=== PATIENT | male | born 1950 | race Caucasian/White ===

== ENCOUNTER 2024-03-03 23:13 | Emergency (ER) | payer MEDICARE, SELFPAY ==
--- NOTE | ~2024-03-03 | CT_ITS ---
Non-contrast Head CT History: Altered mental status Technique: Axial non-contrast imaging of the brain was performed. Dose reduction technique was used on this scan by utilizing automated exposure control and iterative reconstruction technique. The dose -length product (DLP) was 681.00 mGy-cm. Findings: There is no evidence of intracranial hemorrhage, mass lesion, or acute infarct. Brain par enchyma appears normal. The ventricles and subarachnoid spaces are normal in size. The calvarium ap pears normal. The visualized paranasal sinuses and mastoid air cells are clear. Impression: No significant abnormality seen. Reviewed, dictated and finalized at location . Impression: No significant abnormality seen.
--- NOTE | ~2024-03-03 | XR_ITS ---
Portable chest x-ray Comparison: None Clinical History: Weakness Findings: Linear scarring noted left midlung. Lungs are otherwise clear. Cardiomediastinal silhouet te is unremarkable. Bones and soft tissues are unremarkable. Impression: Linear scarring left midlung, otherwise clear lungs. Reviewed, dictated and finalized at [facility]. Impression: Linear scarring left midlung, otherwise clear lungs.
[2024-03-03 23:12] VITALS: BP 92/56; PULSE 67; RESP 21; TEMP 36.4; O2SAT 95
[2024-03-03 23:15] VITALS: PULSE 65; O2SAT 96
--- NOTE | 2024-03-03 23:17 | ECG_ITS ---
Test Date: 2024-03-03 23:21:05 Measurements Intervals [place] Rate: 64 P: 43 DE: 173 QRS: -1 QRSD: 162 T: 26 QT: 482 QTc: 499 Interpretive Statements SINUS RHYTHM LEFT BUNDLE BRANCH BLOCK [120+ ms QRS DURATION, 80+ ms Q/S IN V1/V2, 85+ ms R IN I/aVL/V5/V6] ABNORMAL ECG No previous ECG available for comparison Electronically Signed On 03-04-2024 17:02:05 CDT by Rusty Michaels M.D.
[2024-03-03] MEDS: SODIUM CHLORIDE 0.9% IV 1,000 ML 999 ML IV CONT ×2 (23:37→23:39)
[2024-03-03] MEDS: ONDANSETRON INJ 4 MG/2 ML VIAL IV PUSH (23:40)
[2024-03-03 23:45] LABS: Basophils Percent Auto 0.4 % (0.2-1.2); Eosinophils Absolute Auto 0.2 K/mm3 (0-0.3); Eosinophils Percent Auto 2.8 % (0-4.4); Hematocrit 33.7 % (42.0-52.0); Hemoglobin 11.3 g/dL (14.0-18.0); Immature Granulocyte Absolute 0.01 K/mm3 (0.00-0.031); Immature Granulocyte Percent A 0.2 % (0-0.5); Mean Corpuscular HGB Conc 33.5 g/dl (32-36); Mean Corpuscular Hemoglobin 32.7 pg (26-34); Mean Corpuscular Volume 97.4 fl (80-100); Mean Platelet Volume 10.2 fl (7.4-10.4); Monocytes Absolute Auto 0.6 K/mm3 (0.1-0.6); Monocytes Percent Auto 10.1 % (2.6-8.5); Neutrophils Absolute Auto 2.9 K/mm3 (1.3-6.7); Neutrophils Percent Auto 53.5 % (45.5-73.1); Platelet Count Result 144 k/mm3 (150-375); Red Blood Count 3.46 M/mm3 (4.6-6.20); Red Cell Distribution Width 13.7 % (11.5-14.5); White Blood Count 5.5 K/mm3 (4.5-10.0)
[2024-03-03 23:56] LABS: Lactic Acid Reflex 2.6 mmol/L (0.7-2.0); Magnesium 1.5 mg/dL (1.6-2.3)
[2024-03-03 23:57] LABS: Alanine Aminotransferase 17 U/L (6-50); Albumin Level 3.2 g/dL (3.5-5.1); Alkaline Phosphatase 52 U/L (38-126); Anion Gap 8 mmol/L (4-12); Aspartate Amino Transferase 30 U/L (17-59); Bilirubin,Total 0.4 mg/dL (0.2-1.3); Blood Urea Nitrogen 34 mg/dL (9-20); Calcium 9.2 mg/dL (8.4-10.2); Carbon Dioxide 26 mmol/L (22-30); Chloride 105 mmol/L (98-107); Estimated CRCL calculation 35 ml/min; Estimated Glomerular Filt Rate 42; Glucose 77 mg/dL (65-110); Potassium 3.6 mmol/L (3.4-5.0); Sodium 139 mmol/L (137-145)
[2024-03-04] VITALS (11 sets, daily range): BP systolic 80–133; BP diastolic 44–91; PULSE 55–64; RESP 13–21; O2SAT 95–100
[2024-03-04 00:07] LABS: INR 1.2; Prothrombin Time 15.5 Seconds (11.1-14.7)
[2024-03-04 00:09] LABS: Troponin I < 0.012 ng/mL (0.000-0.034)
[2024-03-04 00:12] LABS: Partial Thromboplastin Time 26.5 Seconds (22.3-36.8)
[2024-03-04] MEDS: MAGNESIUM SULF 2 GM/WATER 50ML 2 GM/50 ML BAG IVPB (00:17)
[2024-03-04 00:22] LABS: Influenza A QL RT-PCR Negative (Negative); Influenza B QL RT-PCR Negative (Negative); RSV RNA, RT-PCR Negative (Negative); SARS-CoV-2 RNA PCR Negative (Negative)
[2024-03-04 00:45] LABS: Procalcitonin 0.1 ng/mL
[2024-03-04] MEDS: SODIUM CHLORIDE 0.9% IV 1,000 ML 999 ML (02:28)
[2024-03-04 02:42] LABS: Reflex Lactic Acid Yes or No Add Lactic
--- NOTE | 2024-03-04 03:12 | ED.GENADULT ---
HPI - General Adult General Chief complaint: Altered Mental Status Stated complaint: AMS, SYNCOPAL History of Present Illness HPI narrative: patient is a 73-year-old gentleman who presents emergency department with chief complaint of altered mental status. Patient was found by police pulling into a local gas stations worrying and stopping in the street the patient was found to be confused initially and very lethargic. Patient had a low blood pressure and they did notice the patient had potentially passed out. The patient reports no focal weakness but does report that he feels tired and slow. The patient was initially hypotensive when EMS arrived and was given IV fluids EN route to the emergency department. Related Data Home Medications Medication Instructions Recorded Confirmed bupropion HCl 150 mg tablet,12 hr mg PO 03/04/24 sustained-release cephalexin 500 mg capsule mg 03/04/24 felodipine 10 mg tablet,extended mg PO 03/04/24 release 24 hr furosemide 40 mg tablet mg 03/04/24 quetiapine 100 mg tablet mg 03/04/24 sacubitril 97 mg-valsartan 103 mg tablet 03/04/24 tablet (Entresto) Allergies Allergy/AdvReac Type Severity Reaction Status Date / Time Penicillins Allergy Unknown Verified 03/03/24 23:31 Review of Systems Review of Systems: A 10 system review of systems was completed on the patient and is negative except for what is stated in the HPI. Nursing and ancillary documentation was reviewed. Exam Narrative: GENERAL: Well-appearing, well-nourished, and in no acute distress. HEAD: Normocephalic, atraumatic. EYES: PERRLA and EOMI. ENT: Nares clear, no rhinorrhea or epistaxis. Mucous membranes moist. NECK: Supple. CHEST: Clear to auscultation. No respiratory distress. HEART: Regular rate and rhythm. No murmur heard. Normal peripheral pulses. ABDOMEN: Soft, nontender, nondistended, normal active bowel sounds. EXTREMITIES: Normal range of motion. No edema. SKIN: Warm, dry, no rash. NEURO: No focal deficits. Alert and oriented x3. PSYCH: Normal mood and affect. Course Vital Signs Vital signs: Vital Signs Temperature 36.4 C L 03/03/24 23:12 Pulse Rate 67 03/03/24 23:12 Respiratory Rate 21 H 03/03/24 23:12 Blood Pressure 92/56 L 03/03/24 23:12 Pulse Oximetry 95 03/03/24 23:12 Oxygen Delivery Room Air 03/03/24 23:12 Temperature 36.4 C L 03/03/24 23:12 Pulse Rate 55 L 03/04/24 02:42 Respiratory Rate 17 03/04/24 02:42 Blood Pressure 97/75 L 03/04/24 02:42 Pulse Oximetry 99 03/04/24 02:42 Oxygen Delivery Room Air 03/03/24 23:15 Medical Decision Making [facility] Narrative Medical decision making narrative: Differential diagnosis includes dehydration, electrolyte abnormality, CVA, dysrhythmia patient's last known well is unknown laboratory studies showed a white count of 5.5 hemoglobin is 11.3 electrolytes showed a BUN of 34 and creatinine 1.6 magnesium was 1.5 troponin was negative COVID flu and RSV were negative CT head showed no acute abnormality after the patient was observed in the emergency department the patient became more oriented now is back to his baseline and reports that he ended up taking double his medications within a short period because he forgot to take his morning dose of medicines. The patient has now returned to baseline and would like to go home Vital Signs Vital Signs: Vital Signs Temperature 36.4 C L 03/03/24 23:12 Pulse Rate 67 03/03/24 23:12 Respiratory Rate 21 H 03/03/24 23:12 Blood Pressure 92/56 L 03/03/24 23:12 Pulse Oximetry 95 03/03/24 23:12 Oxygen Delivery Room Air 03/03/24 23:12 Temperature 36.4 C L 03/03/24 23:12 Pulse Rate 55 L 03/04/24 02:42 Respiratory Rate 17 03/04/24 02:42 Blood Pressure 97/75 L 03/04/24 02:42 Pulse Oximetry 99 03/04/24 02:42 Oxygen Delivery Room Air 03/03/24 23:15 Lab Data 03/03/24 23:35 03/03/24 23:35
--- NOTE | 2024-03-04 04:14 | PC.NURSE ---
pt requested to call [employer].
== END 2024-03-04 04:19 | disposition home or self-care (01) ==
PROVIDERS: Emergency Provider Emergency Medicine
DX: T50.901A Poisoning by unspecified drugs, medicaments and biological substances, accidental (unintentional), initial encounter (principal); R41.82 Altered mental status, unspecified; R55 Syncope and collapse; Z79.899 Other long term (current) drug therapy; Z20.822 Contact with and (suspected) exposure to COVID-19
CPT/HCPCS: 36415; 70450; 71045; 80053; 83605; 83735; 84145; 84484; 85025; 85610; 85730; 87040; 87637; 93005; 96361; 96365; 96375; 99284; J2405; J3475; J7030

== ENCOUNTER 2024-04-14 14:46 | Inpatient (IN) | payer MEDICARE, SELFPAY ==
[2024-04-14] VITALS (15 sets, daily range): BP systolic 105–154; BP diastolic 46–117; PULSE 60–68; RESP 10–22; TEMP 36.5–36.8; O2SAT 94–100
--- NOTE | ~2024-04-14 | MR_ITS ---
EXAMINATION: MR brain/brain stem wo con DATE: 04/16/2024 10:17 INDICATION: Ataxia. Falls. TECHNIQUE: Magnetic resonance imaging (MRI) of the brain and brainstem was performed without intraven ous contrast. COMPARISON: Head CT 04/14/2024 FINDINGS: There are scattered areas of nonspecific increased T2-weighted signal intensity in the cere bral white matter, which is within normal limits for the patient's age. There is no intracranial hemo rrhage, acute infarction, or abnormal intracranial mass lesion. The ventricles are normal in size. Th e orbits are normal. There is mucosal thickening in the paranasal sinuses. The mastoid air cells are normal. IMPRESSION: 1. Normal aging brain. Reviewed, dictated and finalized at location A. IMPRESSION: 1. Normal aging brain.
--- NOTE | ~2024-04-14 | CT_ITS ---
CT brain wo con Ordering provider: Ny Lujan MD History: 73 years Male with . fall . Comparison: March 03, 2024 Technique: CT of the head without contrast. FINDINGS: BRAIN PARENCHYMA AND CSF SPACES: Mild leukoaraiosis and diffuse cortical atrophy. Mild atheromatous d isease. No midline shift, mass effect or hemorrhage. The brain parenchyma and CSF spaces are otherwi se normal. VISUALIZED PARANASAL SINUSES: Well aerated. MASTOIDS: Well aerated. BONES: The bones appear intact. Bifid posterior arch of C1. SOFT TISSUES: Visualized nasopharynx is normal. Superficial soft tissues are normal. IMPRESSION: No acute intracranial findings. Reviewed, dictated and finalized at location A.
--- NOTE | ~2024-04-14 | XR_ITS ---
XR chest 2V Ordering provider: Ny Lujan MD History: 73 years Male with . weakness, unexplained lower limb twitching . Comparison: March 04, 2024 FINDINGS: MEDIASTINUM: The cardiac silhouette is slightly enlarged. Postoperative changes in the mediastinum. LUNGS: No infiltrates, effusions or pneumothorax. Prominent markings in the left lung base. OTHER: No free air under the diaphragm. Healing rib fracture is seen in the right lower thorax. IMPRESSION: Prominent markings in the left lower lobe. Atelectatic changes cannot be excluded. Clinical correlati on advised Reviewed, dictated and finalized at location A. IMPRESSION: Prominent markings in the left lower lobe. Atelectatic changes cannot be exclud ed. Clinical correlation advised
--- NOTE | 2024-04-14 14:57 | ECG_ITS ---
Test Date: 2024-04-14 15:01:01 Measurements Intervals [place] Rate: 60 P: 74 VA: 170 QRS: 18 QRSD: 170 T: 8 QT: 492 QTc: 495 Interpretive Statements SINUS RHYTHM LEFT BUNDLE BRANCH BLOCK BASELINE ARTIFACT- I, II, III, AVR, AVL, AVF, V1-V6 ABNORMAL ECG Compared to ECG 03/03/2024 23:21:05 No significant changes Electronically Signed On 04-14-2024 15:32:57 CDT by Glen Knight D.O.
[2024-04-14 15:16] LABS: Basophils Percent Auto 0.5 % (0.2-1.2); Eosinophils Absolute Auto 0.4 K/mm3 (0-0.3); Eosinophils Percent Auto 4.6 % (0-4.4); Hematocrit 36.4 % (42.0-52.0); Hemoglobin 11.8 g/dL (14.0-18.0); Immature Granulocyte Absolute 0.03 K/mm3 (0.00-0.031); Immature Granulocyte Percent A 0.4 % (0-0.5); Lymphocytes Absolute Auto 2.38 K/mm3 (0.9-3.2); Lymphocytes Percent Auto 30.3 % (18.3-44.2); Mean Corpuscular HGB Conc 32.4 g/dl (32-36); Mean Corpuscular Hemoglobin 31.8 pg (26-34); Mean Corpuscular Volume 98.1 fl (80-100); Mean Platelet Volume 10.2 fl (7.4-10.4); Monocytes Absolute Auto 0.7 K/mm3 (0.1-0.6); Monocytes Percent Auto 8.7 % (2.6-8.5); Neutrophils Absolute Auto 4.4 K/mm3 (1.3-6.7); Neutrophils Percent Auto 55.5 % (45.5-73.1); Platelet Count Result 192 k/mm3 (150-375); Red Blood Count 3.71 M/mm3 (4.6-6.20); Red Cell Distribution Width 13.9 % (11.5-14.5); White Blood Count 7.9 K/mm3 (4.5-10.0)
[2024-04-14 16:04] LABS: Alanine Aminotransferase 21 U/L (6-50); Albumin Level 3.5 g/dL (3.5-5.1); Alkaline Phosphatase 78 U/L (38-126); Anion Gap 6 mmol/L (4-12); Aspartate Amino Transferase 45 U/L (17-59); Bilirubin,Total 0.3 mg/dL (0.2-1.3); Blood Urea Nitrogen 38 mg/dL (9-20); Calcium 9.2 mg/dL (8.4-10.2); Carbon Dioxide 26 mmol/L (22-30); Chloride 101 mmol/L (98-107); Estimated CRCL calculation 28 ml/min; Estimated Glomerular Filt Rate 31; Glucose 126 mg/dL (65-110); Magnesium 2.1 mg/dL (1.6-2.3); Potassium 3.9 mmol/L (3.4-5.0); Sodium 133 mmol/L (137-145)
[2024-04-14 16:15] LABS: Troponin I 0.019 ng/mL (0.000-0.034)
--- NOTE | 2024-04-14 16:41 | ED.WEAKNESS ---
HPI - Weakness General Chief complaint: Weakness Stated complaint: weakness x 30 seconds Time Seen by Provider: 04/14/24 15:51 History of Present Illness HPI Narrative: 73-year-old male with a history of hypertension presenting with weakness. Patient's son is at bedside and helps with the history. Patient recently moved here within the last few months and has been struggling with worsening generalized weakness. States that he has had numerous falls that he feels is related to the weakness. States that he feels like he needs to walk slowly and carefully to prevent falling. States that sometimes it feels like his legs give out underneath him. Today he had a ?spasm in his chest? so they called EMS. He says that it was not chest pain, it felt like a muscle spasm. He denies shortness of breath. No leg swelling. No focal numbness or weakness. Complains that he has had a chronic tremor that has gotten worse and his arms will sometimes randomly spasm out. Related Data Home Medications Medication Instructions Recorded Confirmed bupropion HCl 150 mg tablet,12 hr 150 mg PO TID 03/04/24 04/14/24 sustained-release felodipine 10 mg tablet,extended 10 mg PO DAILY 03/04/24 04/14/24 release 24 hr furosemide 40 mg tablet 40 mg PO DAILY PRN swelling 03/04/24 04/14/24 quetiapine 100 mg tablet 300 mg PO HS 03/04/24 04/15/24 aspirin 81 mg tablet,delayed 81 mg PO DAILY 04/14/24 04/14/24 release atorvastatin 80 mg tablet 80 mg PO DAILY 04/14/24 04/14/24 citalopram 40 mg tablet 80 mg PO DAILY 04/14/24 04/16/24 empagliflozin 10 mg tablet 10 mg PO DAILY 04/14/24 04/14/24 (Jardiance) levothyroxine 50 mcg tablet 50 mcg PO DAILY 04/14/24 04/14/24 metoprolol succinate 50 mg 75 mg PO DAILY 04/14/24 04/16/24 tablet,extended release 24 hr omega-3 fatty acids-vitamin E 1 cap PO BID 04/14/24 04/16/24 1,000 mg capsule vitamin A-vitamin C-vit E-min 1 tablet PO DAILY 04/14/24 04/14/24 tablet zolpidem 10 mg tablet 5 mg PO HS PRN Insomnia 04/14/24 04/16/24 sacubitril 49 mg-valsartan 51 mg 1 tablet PO BID 04/16/24 04/16/24 tablet (Entresto) Allergies Allergy/AdvReac Type Severity Reaction Status Date / Time Penicillins Allergy Unknown Verified 03/03/24 23:31 Review of Systems Review of Systems: All systems reviewed & are unremarkable except as noted in HPI and below PMFSH Past Medical History Medical History (Updated 04/16/24 @ 13:21 by Ny Lujan MD) 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 Family History Family History (Updated 04/14/24 @ 19:59 by Niurka Feldman RN) Mother Acute myocardial infarction Cerebrovascular accident Father Prostate carcinoma Social History Social History Smoking status: Never smoker Alcohol intake: never Substance use: never Do You Feel Safe in your Home?: Yes Lack of Transportation: No Lack of Food: Never True Current Housing: I Have Housing Concerned About Future Housing: No Difficulty Paying Gas/Electric Bills: No Difficulty Paying for Meds: No Currently Unemployed: No Education: Bachelor's Degree Difficulty w/ Childcare or Family Care: No Spiritual care concerns: No Exam Narrative: GENERAL: Nontoxic, no acute distress, pleasant cooperative HEAD: Normocephalic, abrasions and ecchymosis to left forehead EYES: PERRLA and EOMI. ENT: Mucous membranes moist. NECK: Supple. CHEST: Clear to auscultation. No respiratory distress. HEART: Regular rate and rhythm ABDOMEN: Soft, nontender, nondistended EXTREMITIES: Normal range of motion. No edema. SKIN: Warm, dry, no rash. NEURO: No focal deficits. Alert and oriented x3. + resting tremor PSYCH: Normal mood and affect. Course Vital Signs Vital signs: Vital Signs Temperature 98.0 F 04/14/24 14:58 Pulse Rate 68 04/14/24 14:58 Respiratory Rate 18 04/14/24 14:58 Blood Pressure 137/78 04/14/24 14:58 Pulse Oximetry 100
[2024-04-14 17:01] LABS: Magnesium 2.2 mg/dL (1.6-2.3)
[2024-04-14 17:08] LABS: INR 1.1; Prothrombin Time 14.8 Seconds (11.1-14.7)
[2024-04-14 17:10] LABS: NT Pro B Type Natriuretic Pept 1580 pg/mL (19.9-100)
[2024-04-14] MEDS: SODIUM CHLORIDE 0.9% IV 1,000 ML 999 ML IV CONT (18:35)
--- NOTE | 2024-04-14 19:54 | ADMGEN ---
This patient, Berto Barcenas, was admitted to Medical Room 247-. Patient/family oriented to hospital policies and general routines including ID bracelet, bed and alarms, visiting hours, pain management, procedures, bathroom and other care routines, personal items, smoking policy, room service/diet, and visiting hours. Information on how to activate the Rapid Response Team has been discussed. Patient/Family are encouraged to report perceived risks to care and to ask questions if they do not understand what they are told or what they should do.
--- NOTE | 2024-04-14 21:02 | PM.IMHP ---
H&P: HPI History of Present Illness Date/Time: 04/14/24 21:02 Chief Complaint: Fall at home Narrative: Mr. Barcenas is a pleasant 73-year-old male with a history of bipolar, CKD stage 3, hypertension, diabetes, who lives at home by himself with complaints of a fall 3 days prior to admission. The patient reports he was trying to get into bed and he felt weak and fell to the ground and hit the left side of his forehead. He has been feeling increasingly weak over the past 3 months along with increasing trauma and jerking of his limbs. He reports he has been taking his medication as prescribed. He recently moved and he has a new primary care who took him off of metformin and he does not know why. He reports he has fall in 6-8 times in the past many months. No seizure activity. Seen in room 247 the patient reports feeling okay now. He did recently buy a walker yesterday. He denies change in vision, syncope, chest pain, shortness of breath, nausea vomiting diarrhea, abdominal pain, paresthesias, fever. ER evaluation at [facility] demonstrated temperature 97.7? F, pulse rate 61, respiratory rate 14, blood pressure 121/97, saturation 98% oxygen on room air. White blood cell count 7.9, hemoglobin 11.8, platelets 192, INR 1.1 sodium 133, serum creatinine 2.1, BUN 38, troponin negative, magnesium 2.2, BNP pro 15 80. Patient was administer 1 L normal saline bolus. Review of Systems Review of Systems: All systems reviewed & are unremarkable except as noted in HPI and below (Subjective) [facility] Family History Family History (Updated 04/14/24 @ 19:59 by Niurka Feldman RN) Mother Acute myocardial infarction Cerebrovascular accident Father Prostate carcinoma Social History Social History Smoking status: Never smoker Alcohol intake: never Substance use: never Do You Feel Safe in your Home?: Yes Lack of Transportation: No Lack of Food: Never True Current Housing: I Have Housing Concerned About Future Housing: No Difficulty Paying Gas/Electric Bills: No Difficulty Paying for Meds: No Currently Unemployed: No Education: Bachelor's Degree Difficulty w/ Childcare or Family Care: No Spiritual care concerns: No Meds Home Medications and Allergies Home Medications Medication Instructions Recorded Confirmed Type bupropion HCl 150 mg tablet,12 hr 150 mg PO TID 03/04/24 04/14/24 History sustained-release felodipine 10 mg tablet,extended 10 mg PO DAILY 03/04/24 04/14/24 History release 24 hr furosemide 40 mg tablet 40 mg PO DAILY 03/04/24 04/14/24 History quetiapine 100 mg tablet 100 mg PO TID 03/04/24 04/14/24 History aspirin 81 mg tablet,delayed 81 mg PO DAILY 04/14/24 04/14/24 History release atorvastatin 80 mg tablet 80 mg PO DAILY 04/14/24 04/14/24 History citalopram 40 mg tablet 40 mg PO BID 04/14/24 04/14/24 History empagliflozin 10 mg tablet 10 mg PO DAILY 04/14/24 04/14/24 History (Jardiance) levothyroxine 50 mcg tablet 50 mcg PO DAILY 04/14/24 04/14/24 History metformin 1,000 mg tablet 1,000 mg PO BID 04/14/24 04/14/24 History metoprolol succinate 50 mg 50 mg PO DAILY 04/14/24 04/14/24 History tablet,extended release 24 hr omega-3 fatty acids-vitamin E 1 cap PO DAILY 04/14/24 04/14/24 History 1,000 mg capsule sacubitril 97 mg-valsartan 103 mg 1 tablet PO BID 04/14/24 04/14/24 History tablet (Entresto) vitamin A-vitamin C-vit E-min 1 tablet PO DAILY 04/14/24 04/14/24 History tablet zolpidem 10 mg tablet 10 mg PO HS PRN Insomnia 04/14/24 04/14/24 History Allergies Allergy/AdvReac Type Severity Reaction Status Date / Time Penicillins Allergy Unknown Verified 03/03/24 23:31 Vital Signs Vital Signs - 24 hr 04/14/24 14:58 04/14/24 14:58 04/14/24 15:45 Temperature 98.0 F 97.8 F Pulse Rate 68 63 63 Respiratory Rate 18 22 H 16 Blood Pressure 137/78 137/78 139/65 Pulse Oximetry 100 98 94 Oxygen Delive
[2024-04-15] VITALS (16 sets, daily range): BP systolic 117–149; BP diastolic 45–67; PULSE 57–61; RESP 13–19; TEMP 36.9; O2SAT 96–99
[2024-04-15 01:06] LABS: Glucose Point of Care 96 mg/dl (65-105)
[2024-04-15] MEDS: LEVOTHYROXINE SODIUM 50 MCG TABLET PO (05:49)
[2024-04-15 06:12] LABS: Hematocrit 34.7 % (42.0-52.0); Hemoglobin 11.3 g/dL (14.0-18.0); Mean Corpuscular HGB Conc 32.6 g/dl (32-36); Mean Corpuscular Hemoglobin 31.8 pg (26-34); Mean Corpuscular Volume 97.7 fl (80-100); Mean Platelet Volume 9.6 fl (7.4-10.4); Platelet Count Result 163 k/mm3 (150-375); Red Blood Count 3.55 M/mm3 (4.6-6.20); Red Cell Distribution Width 13.8 % (11.5-14.5); White Blood Count 6.2 K/mm3 (4.5-10.0)
[2024-04-15 06:15] LABS: Hemoglobin A1C 5.2 % (<5.7)
[2024-04-15 06:21] LABS: Anion Gap 8 mmol/L (4-12); Blood Urea Nitrogen 32 mg/dL (9-20); Carbon Dioxide 26 mmol/L (22-30); Chloride 106 mmol/L (98-107); Estimated CRCL calculation 31 ml/min; Estimated Glomerular Filt Rate 35; Glucose 116 mg/dL (65-110); Potassium 3.8 mmol/L (3.4-5.0); Sodium 140 mmol/L (137-145)
[2024-04-15 08:00] LABS: Glucose Point of Care 99 mg/dl (65-105)
[2024-04-15] MEDS: ATORVASTATIN 40 MG TABLET 80 MG PO (08:03)
[2024-04-15] MEDS: ASPIRIN 81 MG ENTERIC TABLET PO (08:03)
--- NOTE | 2024-04-15 11:23 | PM.IMPN ---
Progress Note: A&P Assessment and Plan (1) Fall: Code(s): W19.XXXA - Unspecified fall, initial encounter Status: Acute (2) Diabetes: Code(s): E11.9 - Type 2 diabetes mellitus without complications Status: Acute (3) Hypertension: Code(s): I10 - Essential (primary) hypertension Status: Acute (4) Mild protein malnutrition: Code(s): E44.1 - Mild protein-calorie malnutrition Status: Acute Assessment and Plan: Protein 6.0. Patient reports that he does not like to eat much meat. Started on glucerna shake BID. (5) CKD (chronic kidney disease) stage 3, GFR 30-59 ml/min: Code(s): N18.30 - Chronic kidney disease, stage 3 unspecified Status: Acute Assessment and Plan: Creatinine 1.90, BUN 32, GFR 35. Encourage hydration. Plan Patient has akathisia of his feet, dystonia/jerking/tremor of his bilateral upper extremities, oral facial tardive dyskinesia, weakness and falls noted on admission. Do tremors when I seen patient. Believe this all to be due to medication side effect is he is taking a rather large dose of Seroquel at 100 mg 3 tabs at bedtime. He is also taking bupropion which can cause muscle spasms. Will have to monitor off of these medications and restarted at a lower dose or find substitute for bipolar. Neurology consultation today. Continue telemetry. Orthostatics Q shift. Received 1 L normal saline bolus in the ER. PTOT. Fall precautions. Up with assistance. Accu-Cheks a.c. HS. Hemoglobin A1c 5.2. He was taken off metformin he is unsure why. CKD stage 3 per the patient report. Currently his serum creatinine is 1.9. Continue to trend status post fluid resuscitation. Hypertension -restart home medications as appropriate. Spoke with Dr. Keller for a psychiatry consult. He recommended starting Buproprion SR 150 mg PO daily and Citalopram 20 mg PO daily. Hole Quetapine for now. MMSE ordered through care coordination. Labs ordered: UA, UDS, lipid panel, TSH with reflex, B12, Vitamin D, folic acid, RPR, HIV, and hepatitis panel. Psychiatrist in [place] is Dr. Gabriel Fry. Primary care here is Dr. Tiffany Cleveland at [facility] in [place]. Will request records from both. SCDs. Heart healthy diet. Carbohydrate consistent diet. PTOT. Full code. Admitted to medical floor telemetry. Stable condition. Subjective Date/time seen: 04/15/24 11:23 Interval history: Mr. Barcenas is a pleasant 73-year-old male with a history of bipolar, CKD stage 3, hypertension, diabetes, who lives at home by himself with complaints of a fall 3 days prior to admission. The patient reports he was trying to get into bed and he felt weak and fell to the ground and hit the left side of his forehead. He has been feeling increasingly weak over the past 3 months along with increasing trauma and jerking of his limbs. He reports he has been taking his medication as prescribed. He recently moved and he has a new primary care who took him off of metformin and he does not know why. Moved her in January to be closer to children. He reports he has fall in 6-8 times in the past many months. No seizure activity. Seen in room 247 the patient reports feeling okay now. Bought a walker 2 days ago, lives alone. He denies change in vision, syncope, chest pain, shortness of breath, nausea vomiting diarrhea, abdominal pain, paresthesias, fever. ER evaluation at [facility] demonstrated temperature 97.7? F, pulse rate 61, respiratory rate 14, blood pressure 121/97, saturation 98% oxygen on room air. White blood cell count 7.9, hemoglobin 11.8, platelets 192, INR 1.1 sodium 133, serum creatinine 2.1, BUN 38, troponin negative, magnesium 2.2, BNP pro 15 80. Patient was administer 1 L normal saline bolus. 04/15/24: Creatinine 1.90, BUN 32, Protein 6.0. Surgical history: Appendectomy,Prostatectomy, CABG 4 vessel. Denies substance abuse. Denies suicidal or homicidal ideations. Psychiatrist in [place] is
[2024-04-15 11:59] LABS: Glucose Point of Care 100 mg/dl (65-105)
[2024-04-15 13:53] LABS: Cholesterol 101 mg/dL (0-200); HDL Direct 39 mg/dL; Triglycerides 81 mg/dL (<150)
[2024-04-15 14:01] LABS: Free T4 Free Thyroxine 0.68 ng/mL (0.78-2.19); Vitamin D 25 Hydroxy 48.8 ng/mL
[2024-04-15 14:03] LABS: LDL Cholesterol Direct 47 mg/dL
[2024-04-15 14:14] LABS: Thyroid Stimulating Hormone Reflex 0.929 uIU/mL (0.465-4.68)
[2024-04-15 14:20] LABS: Hepatitis B Surface Antigen Negative (Negative)
[2024-04-15 14:21] LABS: Add Urine Microscopic? YES; Appearance Urine Clear (Clear); Bacteria Urine None Seen /hpf; Bilirubin Urine Negative (Negative); Blood Urine Negative (Negative); Color Urine Yellow (Yellow); Glucose Urine UA 3+ mg/dL (Negative); Ketones Urine Negative (Negative); Leukocyte Esterase Ur Negative LEU/UL (Negative); Nitrate Urine Negative (Negative); Non Pathogenic Casts 0-2; Protein Urine Trace mg/dL (Negative); RBC Urine 0-2 /hpf (0-2); Specific Grav Ur 1.019 (1.001-1.035); Squamous Epithelial Cell Urine None Seen /hpf (Few); WBC Urine 0-5 /hpf (0-3)
[2024-04-15 14:24] LABS: HIV 1/2 Ab P24 Ag Result Negative (Negative)
[2024-04-15 14:26] LABS: HAV RESULT Negative (Negative); Hepatitis B Core IgM Result Negative (Negative)
[2024-04-15 14:37] LABS: Hepatitis C Virus Antibody Negative (Negative)
[2024-04-15 14:37] LABS: Amphetamine Screen Urine Negative (Negative); Barbiturate Screen Urine Negative (Negative); Benzodiazepines Screen Urine Negative (Negative); Cannabinoid Screen Urine Negative (Negative); Cocaine Screen Urine Negative (Negative); Methadone Screen Urine Negative (Negative); Opiate Screen Urine Negative (Negative); Phencyclidine Screen Urine Negative (Negative)
[2024-04-15 16:29] LABS: Folic Acid 3.9 ng/mL (2.76->20)
[2024-04-15 17:17] LABS: Glucose Point of Care 88 mg/dl (65-105)
[2024-04-15 17:27] LABS: Rapid Plasma Reagin Non-Reactive (NonReactive)
--- NOTE | 2024-04-15 17:30 | WPDNEURCNPN ---
Assessment and Plan Assessment and plan (1) Fall: Code(s): W19.XXXA - Unspecified fall, initial encounter Status: Acute (2) CKD (chronic kidney disease) stage 3, GFR 30-59 ml/min: Code(s): N18.30 - Chronic kidney disease, stage 3 unspecified Status: Acute (3) Diabetes: Code(s): E11.9 - Type 2 diabetes mellitus without complications Status: Acute Assessment and Plan: he may have underlying peripheral neuropathy or postural hypertension or both which may contribute to his tendency to fall. I did not see any significant weakness of the proximal muscles (4) 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: Code(s): E88.9 - Metabolic disorder, unspecified; R25.1 - Tremor, unspecified Status: Acute Assessment and Plan: the current findings are more suggestive of metabolic tremor such as may be seen with renal disease however he has been on quetiapine and possibility of tardive dyskinesia of some sort has also been considered. Plan I would suggest as follows 1. Check his blood pressure supine and standing 2. Consider cardiac evaluation in view of the history of cardiac disease and the patient is on Entresto . Etiology new be borne in mind as a cause for his problems. 3. The patient is on Wellbutrin and quetiapine the need for these should be evaluated with the help of a psychiatrist in view of the potential side effects 4. Safety precautions in view of the falls and a tendency to get confused. He also lives by himself although he has good support from 2 of his sons. He told me he recently moved from [place] to this area 6 weeks ago. 5. I noted that a CT scan of brain was within normal range. I would suggest MRI of the brain, EEG, check serum B12 and folic acid level and thyroid function test methylmalonic acid level . Consult date: 04/15/24 HPI: Berto Barcenas is a 73 year old male With history of tendency to fall he also has history of bipolar disorder and chronic kidney disease and diabetes mellitus. Patient lives by himself but has 2 sons in this area. He has moved recently from [place] to this area. He was seeing a chief operating engineer there but he does not know the details of anything that happened. Apparently he has had a stroke and heart attack 20 years ago. He is on Entresto. He was also taken to hospital emergency room on 03/04/2024 the knee became confused. He denies any passing out spell. He gets dizzy when he sits up or stands up. Denies any significant problem with the lower back but does have some numbness in his both feet. He has a frozen left shoulder. He has been on quetiapine and Wellbutrin besides Entresto. He denies any headache or vertigo. Review of Systems Review of Systems: All systems reviewed & are unremarkable except as noted in HPI and below [facility] Past Medical History Medical History (Updated 04/15/24 @ 17:39 by Honey Vega MD) 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 Family History Family History (Updated 04/14/24 @ 19:59 by Niurka Feldman RN) Mother Acute myocardial infarction Cerebrovascular accident Father Prostate carcinoma Social History Social History Smoking status: Never smoker Alcohol intake: never Substance use: never Do You Feel Safe in your Home?: Yes Lack of Transportation: No Lack of Food: Never True Current Housing: I Have Housing Concerned About Future Housing: No Difficulty Paying Gas/Electric Bills: No Difficulty Paying for Meds: No Currently Unemployed: No Education: Bachelor's Degree Difficulty w/ Childcare or Family Care: No Spiritual care concerns: No Meds Home Medications and Allergies Home Medications Medication Instructions Recorded Confirmed Type bupropion HCl 150 mg tablet,12 hr 150 mg PO TID 03/04/24 04/14/24 History sustained-release felodipine 10 mg tablet,extended 10 mg PO DAILY 03/04/24 04/14/24 History release 24 h
[2024-04-15 18:43] LABS: Cholesterol 95 mg/dL (0-200); HDL Direct 37 mg/dL; Triglycerides 95 mg/dL (<150)
[2024-04-15 18:56] LABS: LDL Cholesterol Direct 46 mg/dL
--- NOTE | 2024-04-15 19:01 | WPDCNPSYCH ---
HPI Data of Consult Date/Time: 04/15/24 19:01 Requesting Physician: Adonay Love MD Primary Care Provider: Brenda Cleveland, Consult Narrative Narrative: Curbside Consult: Patient was not seen. Neither patient nor his insurance will be billed. CHIEF COMPLAINT: Patient is a 73 y/o gentleman whose curbside consult was called by Amelia Swann NP for polypharmcy. HISTORY OF PRESENT ILLNESS: Nurse Practitioner and the chart served as historians. When Amelia Swann NP was asked for the findings of the HPI, she said that the patient is alert and oriented x 3. He moved to this area from [place] to be near his children. He uses a walker. He denies any psychiatric symptoms. He uses a walker. He was admitted to [facility] service on 04/14/2024 for being confused, lethargic and wandering at a gas station. PAST PSYCHIATRIC HISTORY: According to Amelia Swann NP the patient sees a Psychiatrist whose name she does not know twice a year over the phone for depression. He has no Psychiatrist in the [facility] since moving here. PAST MEDICAL HISTORY: According to Amelia Swann NP, the patient has a h/o: -hypertension -NIDDM -Insomnia -Patient is presumed to have hyperlipidemia based on use of atorvastatin -Patient is presumed to have hypothyroidism based on use of levothyroxine -No additional medical or surgical history has been explored (CXR demonstrates postoperative changes suggesting patient has some surgical history) HOME MEDICATIONS according to Amelia Swann NP: bupropion 150 mg po tid citalopram 40 mg po bid Jardiance 10 mg q am felodipine 10 mg po q am furosemide 40 mg po q am Metoprolol succinate 50 mg po q am fish oil 1000 mg q am [id number] mg po tid Entresto one po bid Ocuvite q am ASA 81 mg q am atorvastatin 80 mg po am levothyroxine 50 mcg q am Ambien 5 mg po q hs ALLERGIES: according to Amelia Swann MP: Penicillin SMOKING HISTORY: according to Amelia Swann NP: Not explored ALCOHOL HISTORY: according to Ameila Swann NP: Not explored DRUG HISTORY; according to Amelia Swann NP: Not explored PAST FAMILY SOCIAL HISTORY: according to Amelia Swann NP: Not explored REVIEW OF SYSTEMS: according to Amelia Swann, MOISÉS not explored beyond dizzy upon standing and has been having falls. MENTAL STATUS EXAM: according to Amelia Swann NPL No depression, anxiety, suicidal/homicidal ideation/hallucinations/paranoia. Oriented x 3 MEDICAL EVALUATION according to Amelia Swann NP CMP: Cr = 1.9; GFR = 35 otherwise unremarkable CBC: WBC's = 6.2; Hgb = 11.3 otherwise unremarkable UA: Not Done Urine Drug Screen: Not Done CT of head: Leukoaraiosis & atrophy (Please note no atrophy was documented on CT of head done here six weeks ago) EKG: Sinus rhythym. BBB. QTc interval = 495 DISCUSSION/PLAN: -Expanded History & Physial (Patient may need collateral historians: family, records from PCP, records for last year from Psychiatrist) -Delirium work-up including: TSH with reflex Serum Free T4 if indicated Vitamin B-12 level Vitamin D level Serum Folate UA Urine Drug screen Serum RPR Serum HIP Serum Hepatitis panel Lipid Panel Consider MRI of brain if MMSE or Physical Exam reveal neurological or cognitive deficit findings -bupropion 150 mg po tid is a very high dose especially for a geriatric patient due to risk of seizures. Recommend reducing Bupropion XL to 150 mg po q am. for depression -citalopram 40 mg po bid is a very high dose especially for a geriatric patient due to cardiac side effects. Recommend reducing citalopram to 20 mg po q am for depression and anxiety -discontinue quetiapine because patient is not psychotic -Pue Ambien 5 mg po q hs prn sleep -Care coordination consult for:(1) attaching documentation of Advanced Directive/POA/Code status, (2) MMSE to screen for cognitive deficits and (3) to document outpatient follow-ups for PCP, Psychiatry, and to document discharge housing plan -
[2024-04-15 19:14] LABS: Thyroid Stimulating Hormone 0.857 uIU/mL (0.465-4.680)
[2024-04-15 19:23] LABS: Vitamin D 25 Hydroxy 44.7 ng/mL
[2024-04-15 19:49] LABS: Folic Acid 4.9 ng/mL (2.76->20)
[2024-04-15] MEDS: ZOLPIDEM TARTRATE (*CRX) 5 MG TABLET PO (20:39)
[2024-04-15 23:08] LABS: Glucose Point of Care 119 mg/dl (65-105)
[2024-04-16] VITALS (11 sets, daily range): BP systolic 140–158; BP diastolic 55–95; PULSE 57–89; RESP 16–18; TEMP 36.4–36.9; O2SAT 97–100
[2024-04-16 05:47] LABS: Basophils Percent Auto 0.5 % (0.2-1.2); Eosinophils Absolute Auto 0.4 K/mm3 (0-0.3); Eosinophils Percent Auto 5.1 % (0-4.4); Hemoglobin 11.1 g/dL (14.0-18.0); Immature Granulocyte Absolute 0.03 K/mm3 (0.00-0.031); Immature Granulocyte Percent A 0.4 % (0-0.5); Lymphocytes Absolute Auto 1.68 K/mm3 (0.9-3.2); Lymphocytes Percent Auto 22.4 % (18.3-44.2); Mean Corpuscular HGB Conc 31.7 g/dl (32-36); Mean Corpuscular Hemoglobin 31.6 pg (26-34); Mean Corpuscular Volume 99.7 fl (80-100); Mean Platelet Volume 9.3 fl (7.4-10.4); Monocytes Absolute Auto 0.7 K/mm3 (0.1-0.6); Monocytes Percent Auto 9.5 % (2.6-8.5); Neutrophils Absolute Auto 4.7 K/mm3 (1.3-6.7); Neutrophils Percent Auto 62.1 % (45.5-73.1); Platelet Count Result 160 k/mm3 (150-375); Red Blood Count 3.51 M/mm3 (4.6-6.20); Red Cell Distribution Width 14.1 % (11.5-14.5); White Blood Count 7.5 K/mm3 (4.5-10.0)
[2024-04-16 06:15] LABS: Alanine Aminotransferase 20 U/L (6-50); Albumin Level 3.2 g/dL (3.5-5.1); Alkaline Phosphatase 66 U/L (38-126); Anion Gap 6 mmol/L (4-12); Aspartate Amino Transferase 44 U/L (17-59); Bilirubin,Total 0.4 mg/dL (0.2-1.3); Blood Urea Nitrogen 30 mg/dL (9-20); Calcium 9.3 mg/dL (8.4-10.2); Carbon Dioxide 28 mmol/L (22-30); Chloride 106 mmol/L (98-107); Estimated CRCL calculation 30 ml/min; Estimated Glomerular Filt Rate 33; Glucose 132 mg/dL (65-110); Potassium 4.1 mmol/L (3.4-5.0); Sodium 140 mmol/L (137-145)
[2024-04-16 06:20] LABS: Glucose Point of Care 152 mg/dl (65-105)
[2024-04-16] MEDS: LEVOTHYROXINE SODIUM 50 MCG TABLET PO (06:47)
[2024-04-16 08:29] LABS: Glucose Point of Care 113 mg/dl (65-105)
[2024-04-16] MEDS: ATORVASTATIN 40 MG TABLET 80 MG PO (09:04)
[2024-04-16] MEDS: CYANOCOBALAMIN 250 MCG TABLET PO (09:04)
[2024-04-16] MEDS: ASPIRIN 81 MG ENTERIC TABLET PO (09:04)
[2024-04-16] MEDS: CITALOPRAM HYDROBROMIDE 20 MG TABLET PO (09:04)
[2024-04-16] MEDS: buPROPion HCL SR (12 HR) 150 MG TAB PO (09:04)
--- NOTE | 2024-04-16 09:42 | WPDNEUROLOGY ---
Neurology EEG Report General Information Date of Study: 04/16/24 TEST eeg DIAGNOSIS Recurrent falls and confusion. CONDITION OF RECORDING Awake, drowsy and asleep. EEG NUMBER [id number] CLINICAL HISTORY Patient reports he has been having multiple falls over the last few weeks. Denies loss of consciousness or dizziness. Patient does have tremors of all 4 extremities and his head. EEG DESCRIPTION Background rhythm consists of low to medium voltage 5 to 7 hertz per 2nd theta activity admixed with multiple movements artifacts due and poor maggie posterior gradient. Bilateral symmetrical sleep activity seen during sleep. Photic stimulation not done. Hyperventilation not done. Non paroxysmal. Nonfocal. Nonlateralizing. IMPRESSION Abnormal record due to the presence of bihemispheric excessive amount of theta activity although there is no evidence of any paroxysmal focal discharge or any triphasic waves. Clinical correlation recommended as these abnormalities could be suggestive of underlying organic or metabolic encephalopathy, Although there is no evidence of any paroxysmal discharge.
--- NOTE | 2024-04-16 10:26 | PM.CNCAR ---
Assessment and Plan Assessment and plan (1) Coronary artery disease: Code(s): I25.10 - Atherosclerotic heart disease of [place] coronary artery without angina pectoris Status: Acute Assessment and Plan: History of coronary artery disease status post 4 vessel CABG in 2006 according to patient report. This is stable, he is not having any anginal symptoms. Continue ASA, high intensity statin (2) Ischemic cardiomyopathy: Code(s): I25.5 - Ischemic cardiomyopathy Status: Acute Assessment and Plan: EF 30-35% according to patient report. Records from [facility] reviewed - MPI in February showed EF 45%. He is not in decompensated heart failure. Would recommend resuming his home medications including entresto, metoprolol, jardiance. Will arrange for outpatient follow up in our office. Plan He does not have any acute cardiac issues. Cardiology will sign off. Please call with questions. History of Present Illness History of Present Illness Consult date/time: 04/16/24 10:26 Requesting physician: Amelia Swann APRN Consult reason: Other ( Weakness, entresto, hx CABG, stroke, and heart attack ) Reason For Visit: Syncope/Generalized Weakness Narrative: Berto Barcenas is a 73 year old male with hypertension and coronary artery disease status post CABG x 4 in 2006. He is hospitalized because of generalized weakness and multiple falls. Cardiology has been asked to see him because of weakness and history of CABG. Patient reports he has not had any further issues with coronary artery disease since his bypass operation. However, he did have some significant lower extremity swelling last spring and was placed on Entresto and jardiance as he was found to have a reduced EF (30-35% according to patient report). He denies any chest pain, shortness of breath, palpitations, syncope, orthopnea, or significant swelling. He recently moved to the area from [place] and needs to establish with a blast furnace keeper here for follow up. Review of Systems Review of Systems: All systems reviewed & are unremarkable except as noted in HPI and below [facility] Past Medical History Medical History 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 Family History Family History Mother Acute myocardial infarction Cerebrovascular accident Father Prostate carcinoma Social History Social History Smoking status: Never smoker Alcohol intake: never Substance use: never Do You Feel Safe in your Home?: Yes Lack of Transportation: No Lack of Food: Never True Current Housing: I Have Housing Concerned About Future Housing: No Difficulty Paying Gas/Electric Bills: No Difficulty Paying for Meds: No Currently Unemployed: No Education: Bachelor's Degree Difficulty w/ Childcare or Family Care: No Spiritual care concerns: No Meds Home Medications and Allergies Home Medications Medication Instructions Recorded Confirmed Type bupropion HCl 150 mg tablet,12 hr 150 mg PO TID 03/04/24 04/14/24 History sustained-release felodipine 10 mg tablet,extended 10 mg PO DAILY 03/04/24 04/14/24 History release 24 hr furosemide 40 mg tablet 40 mg PO DAILY PRN swelling 03/04/24 04/14/24 History quetiapine 100 mg tablet 300 mg PO HS 03/04/24 04/15/24 History aspirin 81 mg tablet,delayed 81 mg PO DAILY 04/14/24 04/14/24 History release atorvastatin 80 mg tablet 80 mg PO DAILY 04/14/24 04/14/24 History citalopram 40 mg tablet 80 mg PO DAILY 04/14/24 04/16/24 History empagliflozin 10 mg tablet 10 mg PO DAILY 04/14/24 04/14/24 History (Jardiance) levothyroxine 50 mcg tablet 50 mcg PO DAILY 04/14/24 04/14/24 History metoprolol succinate 50 mg 75 mg PO DAILY 04/14/24 04/16/24 History tablet,extended release 24 hr omega-3 fatty acids-vitamin E 1 cap PO BID 04/14/24 04/16/24
[2024-04-16 11:26] LABS: Glucose Point of Care 115 mg/dl (65-105)
--- NOTE | 2024-04-16 11:53 | WPDNEUROPN ---
Subjective Date/time seen: 04/16/24 11:53 Interval history: 73 years old was initially seen by for the complaints of recurrent fall in addition to the ongoing history of chronic renal disease stage III, diabetes mellitus, with the possibility of peripheral neuropathy, and metabolic disorder with tremor since the consultation pertinent investigations include MRI of the brain which is normal and CT scan obviously was normal too, EEG has revealed bihemispheric slow activity but without any paroxysmal discharge to consider the possibility of seizure disorder. Patient has also been seen by psychiatrist . MRI of the brain is normal with normal routine lab studies other routine blood studies such as B12 folic acids and thyroid functions are pending. Objective Data Vital Signs Vital Signs: Vital Signs - 24 hr 04/15/24 13:40 04/15/24 13:56 04/15/24 14:00 Temperature 36.9 C Pulse Rate 59 L 61 Respiratory Rate 16 Blood Pressure 132/63 149/67 H 134/60 Pulse Oximetry 96 98 Oxygen Delivery 04/15/24 15:18 04/15/24 12:00 04/15/24 16:00 Temperature Pulse Rate 60 58 L Respiratory Rate Blood Pressure Pulse Oximetry Oxygen Delivery Room Air 04/15/24 20:00 04/15/24 19:48 04/15/24 19:57 Temperature 36.9 C 36.9 C Pulse Rate 59 L 57 L 58 L Respiratory Rate 18 18 Blood Pressure 146/56 H 117/45 L Pulse Oximetry 98 97 Oxygen Delivery 04/15/24 20:00 04/15/24 19:59 04/15/24 20:01 Temperature 36.9 C 36.9 C 36.9 C Pulse Rate 58 L 58 L 59 L Respiratory Rate 18 18 Blood Pressure 117/45 L 148/53 H 145/54 H Pulse Oximetry 99 99 Oxygen Delivery 04/15/24 20:00 04/15/24 23:10 04/16/24 00:00 Temperature Pulse Rate 59 L 68 Respiratory Rate 18 19 Blood Pressure Pulse Oximetry 99 99 Oxygen Delivery Room Air Autopap 04/16/24 04:00 04/16/24 05:16 04/16/24 08:00 Temperature 36.6 C 36.6 C Pulse Rate 67 65 63 Respiratory Rate 18 16 Blood Pressure 154/61 H 140/55 L Pulse Oximetry 97 98 Oxygen Delivery 04/16/24 08:26 04/16/24 09:04 Temperature Pulse Rate Respiratory Rate Blood Pressure Pulse Oximetry 97 Oxygen Delivery Room Air Room Air Intake/Output Intake/Output: Intake & Output 04/13/24 04/14/24 04/15/24 04/16/24 23:59 23:59 23:59 23:59 Intake Total 1400 1670 850 Balance 1400 1670 850 Meds/Results Medications: Active Medications Generic Name Dose Route Start Last Admin Trade Name Freq PRN Reason Stop Dose Admin Aspirin 81 mg 04/15/24 09:00 04/16/24 09:04 Aspirin 81 Mg Enteric Tablet PO 81 mg DAILY MAYRA Administration Atorvastatin Calcium 80 mg 04/15/24 09:00 04/16/24 09:04 Atorvastatin 40 Mg Tablet PO 80 mg DAILY MAYRA Administration Bupropion HCl 150 mg 04/16/24 09:00 04/16/24 09:04 Bupropion Hcl Sr (12 Hr) 150 Mg Tab PO 150 mg DAILY MAYRA Administration Citalopram Hydrobromide 20 mg 04/16/24 09:00 04/16/24 09:04 Citalopram Hydrobromide 20 Mg Tablet PO 20 mg QAM MAYRA Administration Cyanocobalamin 250 mcg 04/16/24 09:00 04/16/24 09:04 Cyanocobalamin 250 Mcg Tablet PO 250 mcg QAM MAYRA Administration Dextrose 12.5 gm 04/14/24 21:03 Dextrose 50% 25 Gm/50 Ml Syringe IV PUSH PRN PRN Hypoglycemia Protocol Glucagon 1 mg 04/14/24 21:03 Glucagon For Inj 1 Mg Vial IM PRN PRN Hypoglycemia Protocol Glucose 15 gm 04/14/24 21:03 Glucose Oral Gel 15 Gm Of Glucse In 37.5 Gm Tube PO PRN PRN Hypoglycemia Protocol Dextrose 1,000 mls @ 100 mls/hr 04/14/24 21:03 Dextrose 5% 1,000 Ml IVPB PRN PRN Hypoglycemia Protocol Insulin Aspart 2 - 5 units 04/15/24 08:00 04/16/24 09:02 Insulin Aspart (*Bkc) 100 Units/Ml SUB-Q Not Given TIDWM MAYRA Protocol Insulin Aspart 1 - 2 units 04/15/24 21:00 04/15/24 21:20 Insulin Aspart (*Bkc) 100 Units/Ml SUB-Q Not Given HS [facility] Protocol Levothyro
--- NOTE | 2024-04-16 14:28 | PM.IMPN ---
Progress Note: A&P Assessment and Plan (1) Fall: Code(s): W19.XXXA - Unspecified fall, initial encounter Status: Acute Assessment and Plan: PT/OT. Encourage hydration. (2) Diabetes: Code(s): E11.9 - Type 2 diabetes mellitus without complications Status: Acute Assessment and Plan: Restart Jardiance. (3) Hypertension: Code(s): I10 - Essential (primary) hypertension Status: Acute Assessment and Plan: Blood pressure 141/70 Restart Metoprolol and Entresto. (4) Mild protein malnutrition: Code(s): E44.1 - Mild protein-calorie malnutrition Status: Acute Assessment and Plan: Protein 6.0. Patient reports that he does not like to eat much meat. Started on glucerna shake BID. (5) CKD (chronic kidney disease) stage 3, GFR 30-59 ml/min: Code(s): N18.30 - Chronic kidney disease, stage 3 unspecified Status: Acute Assessment and Plan: Creatinine 2.00, BUN 30, GFR 33.. Encourage hydration. Plan Patient has akathisia of his feet, dystonia/jerking/tremor of his bilateral upper extremities, oral facial tardive dyskinesia, weakness and falls noted on admission. Do tremors when I seen patient. Believe this all to be due to medication side effect is he is taking a rather large dose of Seroquel at 100 mg 3 tabs at bedtime. He is also taking bupropion which can cause muscle spasms. Will have to monitor off of these medications and restarted at a lower dose or find substitute for bipolar. Neurology consultation today. Continue telemetry. Orthostatics Q shift. Received 1 L normal saline bolus in the ER. PTOT. Fall precautions. Up with assistance. Accu-Cheks a.c. HS. Hemoglobin A1c 5.2. He was taken off metformin he is unsure why. CKD stage 3 per the patient report. Currently his serum creatinine is 1.9. Continue to trend status post fluid resuscitation. Hypertension -restart home medications as appropriate. Spoke with Dr. Keller for a psychiatry consult. He recommended starting Buproprion SR 150 mg PO daily and Citalopram 20 mg PO daily. [place] Quetapine for now. MMSE ordered through care coordination. Labs ordered: UA, UDS, lipid panel, TSH with reflex, B12, Vitamin D, folic acid, RPR, HIV, and hepatitis panel. Psychiatrist in [place] is Dr. Gabriel Fry. Primary care here is Dr. Tiffany Cleveland at [facility] in [place]. Will request records from both. SCDs. Heart healthy diet. Carbohydrate consistent diet. PTOT. Full code. Admitted to medical floor telemetry. Stable condition. Subjective Date/time seen: 04/16/24 14:28 Interval history: Mr. Barcenas is a pleasant 73-year-old male with a history of bipolar, CKD stage 3, hypertension, diabetes, who lives at home by himself with complaints of a fall 3 days prior to admission. The patient reports he was trying to get into bed and he felt weak and fell to the ground and hit the left side of his forehead. He has been feeling increasingly weak over the past 3 months along with increasing trauma and jerking of his limbs. He reports he has been taking his medication as prescribed. He recently moved and he has a new primary care who took him off of metformin and he does not know why. Moved her in January to be closer to children. He reports he has fall in 6-8 times in the past many months. No seizure activity. Seen in room 247 the patient reports feeling okay now. Bought a walker 3 days ago, lives alone. He denies change in vision, syncope, chest pain, shortness of breath, nausea vomiting diarrhea, abdominal pain, paresthesias, fever. ER evaluation at [facility] demonstrated temperature 97.7? F, pulse rate 61, respiratory rate 14, blood pressure 121/97, saturation 98% oxygen on room air. White blood cell count 7.9, hemoglobin 11.8, platelets 192, INR 1.1 sodium 133, serum creatinine 2.1, BUN 38, troponin negative, magnesium 2.2, BNP pro 15 80. Patient was administer 1 L normal saline bolus. 04/15/24: C
[2024-04-16 17:00] LABS: Glucose Point of Care 94 mg/dl (65-105)
[2024-04-16] MEDS: SACUBITRIL/VALSARTAN 49-51 MG TABLET 1 TABLET PO (17:20)
[2024-04-16 19:58] LABS: Glucose Point of Care 129 mg/dl (65-105)
[2024-04-17] VITALS (20 sets, daily range): BP systolic 133–171; BP diastolic 57–112; PULSE 56–78; RESP 13–22; TEMP 36.1–36.9; O2SAT 96–100
[2024-04-17 01:40] LABS: Glucose Point of Care 87 mg/dl (65-105)
[2024-04-17] MEDS: LEVOTHYROXINE SODIUM 50 MCG TABLET PO (06:09)
[2024-04-17 06:35] LABS: Basophils Absolute Auto 0.1 K/mm3 (0.0-0.1); Basophils Percent Auto 0.7 % (0.2-1.2); Eosinophils Absolute Auto 0.5 K/mm3 (0-0.3); Eosinophils Percent Auto 6.6 % (0-4.4); Hemoglobin 10.9 g/dL (14.0-18.0); Immature Granulocyte Absolute 0.02 K/mm3 (0.00-0.031); Immature Granulocyte Percent A 0.3 % (0-0.5); Lymphocytes Absolute Auto 1.67 K/mm3 (0.9-3.2); Lymphocytes Percent Auto 23.4 % (18.3-44.2); Mean Corpuscular Hemoglobin 32.7 pg (26-34); Mean Corpuscular Volume 99.1 fl (80-100); Mean Platelet Volume 9.9 fl (7.4-10.4); Monocytes Absolute Auto 0.6 K/mm3 (0.1-0.6); Neutrophils Absolute Auto 4.3 K/mm3 (1.3-6.7); Platelet Count Result 161 k/mm3 (150-375); Red Blood Count 3.33 M/mm3 (4.6-6.20); Red Cell Distribution Width 13.8 % (11.5-14.5); White Blood Count 7.2 K/mm3 (4.5-10.0)
[2024-04-17 06:44] LABS: Alanine Aminotransferase 19 U/L (6-50); Albumin Level 3.3 g/dL (3.5-5.1); Alkaline Phosphatase 59 U/L (38-126); Anion Gap 9 mmol/L (4-12); Aspartate Amino Transferase 42 U/L (17-59); Bilirubin,Total 0.5 mg/dL (0.2-1.3); Blood Urea Nitrogen 27 mg/dL (9-20); Calcium 9.3 mg/dL (8.4-10.2); Carbon Dioxide 30 mmol/L (22-30); Chloride 98 mmol/L (98-107); Estimated CRCL calculation 37 ml/min; Estimated Glomerular Filt Rate 42; Glucose 101 mg/dL (65-110); Potassium 4.8 mmol/L (3.4-5.0); Sodium 137 mmol/L (137-145)
[2024-04-17 08:25] LABS: Glucose Point of Care 109 mg/dl (65-105)
[2024-04-17] MEDS: CITALOPRAM HYDROBROMIDE 20 MG TABLET PO (09:31)
[2024-04-17] MEDS: METOPROLOL SUCCINATE EXT REL 50 MG TABCR PO (09:31)
[2024-04-17] MEDS: CYANOCOBALAMIN 250 MCG TABLET PO (09:31)
[2024-04-17] MEDS: ASPIRIN 81 MG ENTERIC TABLET PO (09:31)
[2024-04-17] MEDS: EMPAGLIFLOZIN 10 MG TABLET PO (09:31)
[2024-04-17] MEDS: ATORVASTATIN 40 MG TABLET 80 MG PO (09:31)
[2024-04-17] MEDS: SACUBITRIL/VALSARTAN 49-51 MG TABLET 1 TABLET PO ×2 (09:31→16:34)
[2024-04-17] MEDS: buPROPion HCL SR (12 HR) 150 MG TAB PO (09:31)
[2024-04-17] MEDS: METOPROLOL SUCCINATE EXT REL 25 MG TABCR PO (09:32)
--- NOTE | 2024-04-17 10:02 | PM.IMPN ---
Progress Note: A&P Assessment and Plan (1) Fall: Code(s): W19.XXXA - Unspecified fall, initial encounter Status: Acute Assessment and Plan: -PT/OT. -Encourage hydration. -walker for ambulation. (2) Diabetes: Code(s): E11.9 - Type 2 diabetes mellitus without complications Status: Acute Assessment and Plan: -Restarted Jardiance and tolerating well. (3) Hypertension: Code(s): I10 - Essential (primary) hypertension Status: Acute Assessment and Plan: Blood pressure 133/64. Restarted Metoprolol and Entresto, tolerated well. (4) Mild protein malnutrition: Code(s): E44.1 - Mild protein-calorie malnutrition Status: Acute Assessment and Plan: Protein 6.0. Patient reports that he does not like to eat much meat. Started on glucerna shake BID. (5) CKD (chronic kidney disease) stage 3, GFR 30-59 ml/min: Code(s): N18.30 - Chronic kidney disease, stage 3 unspecified Status: Acute Assessment and Plan: -Improved. -Creatinine 1.60, BUN 27, GFR 42. -Encourage hydration. Plan Patient has akathisia of his feet, dystonia/jerking/tremor of his bilateral upper extremities, oral facial tardive dyskinesia, weakness and falls noted on admission. Do tremors when I seen patient. Believe this all to be due to medication side effect is he is taking a rather large dose of Seroquel at 100 mg 3 tabs at bedtime. He is also taking bupropion which can cause muscle spasms. Will have to monitor off of these medications and restarted at a lower dose or find substitute for bipolar. Neurology consultation. Continue telemetry. Orthostatics Q shift. Received 1 L normal saline bolus in the ER. PT/OT. Fall precautions. Up with assistance. Accu-Cheks a.c. HS. Hemoglobin A1c 5.2. He was taken off metformin he is unsure why. CKD stage 3 per the patient report. Currently his serum creatinine is 1.60. Continue to trend status post fluid resuscitation. Spoke with Dr. Keller for a psychiatry consult. He recommended starting Buproprion SR 150 mg PO daily and Citalopram 20 mg PO daily. Hold Quetapine for now. MMSE completed with, score 29/30. Labs ordered: UA, UDS, lipid panel, TSH with reflex, B12, Vitamin D, folic acid, RPR, HIV, and hepatitis panel. Psychiatrist in [place] is Dr. Gabriel Fry. Primary care here is Dr. Tiffany Cleveland at [facility] in [place]. Will request records from both. SCDs. Heart healthy diet. Carbohydrate consistent diet. PTOT. Full code. Admitted to medical floor telemetry. Stable condition. Subjective Date/time seen: 04/17/24 10:02 Interval history: Mr. Barcenas is a pleasant 73-year-old male with a history of bipolar, CKD stage 3, hypertension, diabetes, who lives at home by himself with complaints of a fall 3 days prior to admission. The patient reports he was trying to get into bed and he felt weak and fell to the ground and hit the left side of his forehead. He has been feeling increasingly weak over the past 3 months along with increasing trauma and jerking of his limbs. He reports he has been taking his medication as prescribed. He recently moved and he has a new primary care who took him off of metformin and he does not know why. Moved her in January to be closer to children. He reports he has fall in 6-8 times in the past many months. No seizure activity. Seen in room 247 the patient reports feeling okay now. Bought a walker 4 days ago, lives alone. He denies change in vision, syncope, chest pain, shortness of breath, nausea vomiting diarrhea, abdominal pain, paresthesias, fever. ER evaluation at [facility] demonstrated temperature 97.7? F, pulse rate 61, respiratory rate 14, blood pressure 121/97, saturation 98% oxygen on room air. White blood cell count 7.9, hemoglobin 11.8, platelets 192, INR 1.1 sodium 133, serum creatinine 2.1, BUN 38, troponin negative, magnesium 2.2, BNP pro 15 80. Patient was administer 1 L normal saline bolus
[2024-04-17 11:45] LABS: Glucose Point of Care 114 mg/dl (65-105)
[2024-04-17 21:51] LABS: Glucose Point of Care 133 mg/dl (65-105)
[2024-04-17] MEDS: ZOLPIDEM TARTRATE (*CRX) 5 MG TABLET PO (23:39)
[2024-04-18] VITALS (19 sets, daily range): BP systolic 122–177; BP diastolic 52–74; PULSE 51–61; RESP 16–20; TEMP 36.5–36.9; O2SAT 91–99
[2024-04-18] MEDS: LEVOTHYROXINE SODIUM 50 MCG TABLET PO (06:05)
[2024-04-18 06:44] LABS: Basophils Percent Auto 0.5 % (0.2-1.2); Eosinophils Absolute Auto 0.4 K/mm3 (0-0.3); Eosinophils Percent Auto 5.1 % (0-4.4); Hematocrit 34.4 % (42.0-52.0); Hemoglobin 10.8 g/dL (14.0-18.0); Immature Granulocyte Absolute 0.03 K/mm3 (0.00-0.031); Immature Granulocyte Percent A 0.4 % (0-0.5); Lymphocytes Absolute Auto 1.85 K/mm3 (0.9-3.2); Lymphocytes Percent Auto 23.4 % (18.3-44.2); Mean Corpuscular HGB Conc 31.4 g/dl (32-36); Mean Corpuscular Hemoglobin 31.4 pg (26-34); Mean Platelet Volume 9.9 fl (7.4-10.4); Monocytes Absolute Auto 0.8 K/mm3 (0.1-0.6); Monocytes Percent Auto 9.9 % (2.6-8.5); Neutrophils Absolute Auto 4.8 K/mm3 (1.3-6.7); Neutrophils Percent Auto 60.7 % (45.5-73.1); Platelet Count Result 175 k/mm3 (150-375); Red Blood Count 3.44 M/mm3 (4.6-6.20); Red Cell Distribution Width 13.9 % (11.5-14.5); White Blood Count 7.9 K/mm3 (4.5-10.0)
[2024-04-18 06:54] LABS: Alanine Aminotransferase 22 U/L (6-50); Albumin Level 3.3 g/dL (3.5-5.1); Alkaline Phosphatase 63 U/L (38-126); Anion Gap 4 mmol/L (4-12); Aspartate Amino Transferase 48 U/L (17-59); Bilirubin,Total 0.5 mg/dL (0.2-1.3); Blood Urea Nitrogen 28 mg/dL (9-20); Calcium 9.1 mg/dL (8.4-10.2); Carbon Dioxide 26 mmol/L (22-30); Chloride 106 mmol/L (98-107); Estimated CRCL calculation 37 ml/min; Estimated Glomerular Filt Rate 42; Glucose 80 mg/dL (65-110); Potassium 4.7 mmol/L (3.4-5.0); Sodium 136 mmol/L (137-145)
[2024-04-18] MEDS: ASPIRIN 81 MG ENTERIC TABLET PO (09:26)
[2024-04-18] MEDS: METOPROLOL SUCCINATE EXT REL 50 MG TABCR PO (09:26)
[2024-04-18] MEDS: buPROPion HCL SR (12 HR) 150 MG TAB PO (09:26)
[2024-04-18] MEDS: SACUBITRIL/VALSARTAN 49-51 MG TABLET 1 TABLET PO ×2 (09:27→16:40)
[2024-04-18] MEDS: EMPAGLIFLOZIN 10 MG TABLET PO (09:27)
[2024-04-18] MEDS: CITALOPRAM HYDROBROMIDE 20 MG TABLET PO (09:27)
[2024-04-18] MEDS: METOPROLOL SUCCINATE EXT REL 25 MG TABCR PO (09:27)
[2024-04-18] MEDS: CYANOCOBALAMIN 250 MCG TABLET PO (09:28)
[2024-04-18] MEDS: ATORVASTATIN 40 MG TABLET 80 MG PO (09:28)
--- NOTE | 2024-04-18 11:40 | WPDNEUROPN ---
Progress Note: A&P Assessment and Plan (1) Tremor: Code(s): R25.1 - Tremor, unspecified Status: Acute (2) Coronary artery disease: Code(s): I25.10 - Atherosclerotic heart disease of [place] coronary artery without angina pectoris Status: Acute (3) Ischemic cardiomyopathy: Code(s): I25.5 - Ischemic cardiomyopathy Status: Acute (4) CARLOS (acute kidney injury): Code(s): N17.9 - Acute kidney failure, unspecified Status: Acute (5) Fall: Code(s): W19.XXXA - Unspecified fall, initial encounter Status: Acute (6) Diabetes: Code(s): E11.9 - Type 2 diabetes mellitus without complications Status: Acute Plan With regard to the tremulousness with these are due to metabolic conditions such as renal disease or mild tardive tremor may be difficult to clearly discern but he is slightly better than before. this will be clinically followed up. The patient tends to have occasional fall. However overall he seems to be doing better. He may also have underlying diabetic polyneuropathy but I do not find any weakness of the lower limbs. If his symptoms continue a EMG nerve study of the lower limbs could be a consideration. This can be done as an outpatient. He should continue with physical therapy and gait strengthening. Subjective Date/time seen: 04/18/24 11:41 Interval history: The patient is alert and overall feeling fair. He still has some jerking of the muscles. I noted the patient has been taken off cervical the dose of the Wellbutrin is also being adjusted. Patient has been evaluated by Cardiology. The patient has history of bipolar disorder and noted that the with his team has a portion to discuss with the psychiatrist with regard to management. Patient also has chronic kidney disease with creatinine of 1.6 now. Patient has diabetes mellitus and he tends to fall. Is orthostatic headache blood pressure recording did not show any evidence for low blood pressure when standing compared to supine. Review of Systems Review of Systems: All systems reviewed & are unremarkable except as noted in HPI and below Exam Narrative: Fully conscious alert, oriented to self time place and person, exam head and neck was unremarkable. Cranial nerves on individual testing were intact. Motor system normal power and tone in both upper and lower limb. Rapid alternating movements of the hands and feet where within acceptable normal limits. Mild jerking of the muscles was noted in the hands but no significant drift of outstretched hand. No additional findings were noted. No cogwheeling or other involuntary movements are seen. Objective Data Vital Signs Vital Signs: Vital Signs - 24 hr 04/17/24 13:12 04/17/24 13:13 04/17/24 12:00 Temperature Pulse Rate 61 61 61 Respiratory Rate Blood Pressure 167/78 H 143/112 H Pulse Oximetry 98 98 Oxygen Delivery 04/17/24 16:00 04/17/24 20:00 04/17/24 20:30 Temperature 98.5 F Pulse Rate 57 L 60 Respiratory Rate Blood Pressure Pulse Oximetry Oxygen Delivery 04/17/24 20:28 04/17/24 20:29 04/17/24 20:30 Temperature 98.5 F 98.5 F Pulse Rate 60 Respiratory Rate 20 Blood Pressure Pulse Oximetry Oxygen Delivery 04/17/24 20:30 04/17/24 20:30 04/17/24 20:31 Temperature Pulse Rate Respiratory Rate 18 20 Blood Pressure Pulse Oximetry 98 Oxygen Delivery 04/17/24 20:31 04/17/24 20:31 04/17/24 20:31 Temperature Pulse Rate Respiratory Rate Blood Pressure 139/64 Pulse Oximetry 100 98 Oxygen Delivery 04/17/24 20:31 04/17/24 20:32 04/17/24 20:15 Temperature Pulse Rate 59 L Respiratory Rate Blood Pressure 156/73 H 160/57 H Pulse Oximetry Oxygen Delivery 04/17/24 20:15 04/17/24 22:00 04/18/24 00:00 Temperature 97.5 F L Pulse Rate 56 L 56 L Respiratory Rate 20 Blood Pressure 154/97 H Pulse Oximetry 98
[2024-04-18] MEDS: FELODIPINE 5 MG TAB CR 10 MG PO (11:43)
[2024-04-18 11:52] LABS: Glucose Point of Care 133 mg/dl (65-105)
[2024-04-18 11:52] LABS: Glucose Point of Care 82 mg/dl (65-105)
--- NOTE | 2024-04-18 14:29 | PM.IMPN ---
Progress Note: A&P Assessment and Plan (1) Fall: Code(s): W19.XXXA - Unspecified fall, initial encounter Status: Acute Assessment and Plan: -PT/OT. -Encourage hydration. -walker for ambulation. -Patient awaiting approval from [facility]. (2) Diabetes: Code(s): E11.9 - Type 2 diabetes mellitus without complications Status: Acute Assessment and Plan: -Restarted Jardiance and tolerating well. (3) Hypertension: Code(s): I10 - Essential (primary) hypertension Status: Acute Assessment and Plan: Blood pressure 168/63 after medications. Restarted Felodipine 10 mg PO daily, blood pressure improved to 142/70. Restarted Metoprolol and Entresto, tolerated well. (4) Mild protein malnutrition: Code(s): E44.1 - Mild protein-calorie malnutrition Status: Acute Assessment and Plan: Protein 6.0. Patient reports that he does not like to eat much meat. Started on glucerna shake BID. (5) CKD (chronic kidney disease) stage 3, GFR 30-59 ml/min: Code(s): N18.30 - Chronic kidney disease, stage 3 unspecified Status: Acute Assessment and Plan: -Improved. -Creatinine 1.60, BUN 28, GFR 42. -Encourage hydration. (6) Tremor: Code(s): R25.1 - Tremor, unspecified Status: Acute Assessment and Plan: - followed by Neurology. - Neurologist recommends: if his symptoms continue a EMG nerve study of the lower limbs could be a consideration. This can be done as an outpatient. He should continue with physical therapy and gait strengthening. Subjective Date/time seen: 04/18/24 14:30 Interval history: Subjective: Reports blood pressure elevated this morning. Denies headache, chest pain, dizziness, or palpitations. Patient family would like patient to go to a facility for rehabilitation when discharged. Patient reports tolerating therapy and medications well. Reports a good appetite. Review of Systems Review of Systems: All systems reviewed & are unremarkable except as noted in HPI and below (Subjective) Exam Const: General: comfortable and no acute distress Other: A&O x3 HENMT: Mouth: Yes moist mucous membranes Neck: Neck: supple Resp: Effort & Inspection: normal respiratory effort Auscultation: clear to auscultation bilaterally Cardio: Rate: regular rate Rhythm: regular rhythm Other: Sinus bradycardia rate 62 Skin: General skin exam: normal color Extrem: General: no edema Objective Data Vital Signs Vital Signs: Vital Signs - 24 hr 04/17/24 16:00 04/17/24 20:00 04/17/24 20:30 Temperature 98.5 F Pulse Rate 57 L 60 Respiratory Rate Blood Pressure Pulse Oximetry Oxygen Delivery 04/17/24 20:28 04/17/24 20:29 04/17/24 20:30 Temperature 98.5 F 98.5 F Pulse Rate 60 Respiratory Rate 20 Blood Pressure Pulse Oximetry Oxygen Delivery 04/17/24 20:30 04/17/24 20:30 04/17/24 20:31 Temperature Pulse Rate Respiratory Rate 18 20 Blood Pressure Pulse Oximetry 98 Oxygen Delivery 04/17/24 20:31 04/17/24 20:31 04/17/24 20:31 Temperature Pulse Rate Respiratory Rate Blood Pressure 139/64 Pulse Oximetry 100 98 Oxygen Delivery 04/17/24 20:31 04/17/24 20:32 04/17/24 20:15 Temperature Pulse Rate 59 L Respiratory Rate Blood Pressure 156/73 H 160/57 H Pulse Oximetry Oxygen Delivery 04/17/24 20:15 04/17/24 22:00 04/18/24 00:00 Temperature 97.5 F L Pulse Rate 56 L 56 L Respiratory Rate 20 Blood Pressure 154/97 H Pulse Oximetry 98 Oxygen Delivery Room Air 04/18/24 04:00 04/18/24 04:18 04/18/24 08:00 Temperature 98.1 F 97.7 F Pulse Rate 58 L 59 L 60 Respiratory Rate 20 16 Blood Pressure 151/68 H 177/74 H Pulse Oximetry 95 97 Oxygen Delivery 04/18/24 09:26 04/18/24 09:27 04/18/24 08:00 Temperature Pulse Rate 60 60 Respiratory Rate Blood Pressure Pulse Oximetr
[2024-04-18 16:47] LABS: Glucose Point of Care 87 mg/dl (65-105)
[2024-04-18 22:07] LABS: Glucose Point of Care 111 mg/dl (65-105)
[2024-04-19] VITALS (10 sets, daily range): BP systolic 155–172; BP diastolic 66–80; PULSE 52–64; RESP 14–18; TEMP 36.6; O2SAT 96–97
[2024-04-19] MEDS: ZOLPIDEM TARTRATE (*CRX) 5 MG TABLET PO (01:00)
[2024-04-19 05:40] LABS: Basophils Percent Auto 0.4 % (0.2-1.2); Eosinophils Absolute Auto 0.4 K/mm3 (0-0.3); Eosinophils Percent Auto 5.4 % (0-4.4); Hematocrit 32.8 % (42.0-52.0); Hemoglobin 10.6 g/dL (14.0-18.0); Immature Granulocyte Absolute 0.03 K/mm3 (0.00-0.031); Immature Granulocyte Percent A 0.4 % (0-0.5); Lymphocytes Absolute Auto 1.79 K/mm3 (0.9-3.2); Mean Corpuscular HGB Conc 32.3 g/dl (32-36); Mean Corpuscular Hemoglobin 31.5 pg (26-34); Mean Corpuscular Volume 97.6 fl (80-100); Mean Platelet Volume 10.1 fl (7.4-10.4); Monocytes Absolute Auto 0.7 K/mm3 (0.1-0.6); Monocytes Percent Auto 9.2 % (2.6-8.5); Neutrophils Absolute Auto 4.3 K/mm3 (1.3-6.7); Neutrophils Percent Auto 59.6 % (45.5-73.1); Platelet Count Result 167 k/mm3 (150-375); Red Blood Count 3.36 M/mm3 (4.6-6.20); Red Cell Distribution Width 13.8 % (11.5-14.5); White Blood Count 7.2 K/mm3 (4.5-10.0)
[2024-04-19] MEDS: LEVOTHYROXINE SODIUM 50 MCG TABLET PO (05:48)
[2024-04-19 05:51] LABS: Alanine Aminotransferase 22 U/L (6-50); Albumin Level 3.2 g/dL (3.5-5.1); Alkaline Phosphatase 66 U/L (38-126); Anion Gap 6 mmol/L (4-12); Aspartate Amino Transferase 42 U/L (17-59); Bilirubin,Total 0.4 mg/dL (0.2-1.3); Blood Urea Nitrogen 30 mg/dL (9-20); Calcium 9.4 mg/dL (8.4-10.2); Carbon Dioxide 22 mmol/L (22-30); Chloride 107 mmol/L (98-107); Estimated CRCL calculation 37 ml/min; Estimated Glomerular Filt Rate 42; Glucose 82 mg/dL (65-110); Potassium 4.4 mmol/L (3.4-5.0); Sodium 135 mmol/L (137-145)
[2024-04-19 08:14] LABS: Glucose Point of Care 77 mg/dl (65-105)
[2024-04-19] MEDS: METOPROLOL SUCCINATE EXT REL 50 MG TABCR PO (09:28)
[2024-04-19] MEDS: METOPROLOL SUCCINATE EXT REL 25 MG TABCR PO (09:28)
[2024-04-19 09:29] LABS: Vitamin B1 33 nmol/L (8-30)
[2024-04-19] MEDS: CITALOPRAM HYDROBROMIDE 20 MG TABLET PO (09:29)
[2024-04-19] MEDS: SACUBITRIL/VALSARTAN 49-51 MG TABLET 1 TABLET PO (09:29)
[2024-04-19] MEDS: ASPIRIN 81 MG ENTERIC TABLET PO (09:29)
[2024-04-19] MEDS: buPROPion HCL SR (12 HR) 150 MG TAB PO (09:29)
[2024-04-19] MEDS: CYANOCOBALAMIN 250 MCG TABLET PO (09:29)
[2024-04-19] MEDS: ATORVASTATIN 40 MG TABLET 80 MG PO (09:30)
[2024-04-19] MEDS: FELODIPINE 5 MG TAB CR 10 MG PO (09:30)
[2024-04-19 10:04] LABS: Vitamin B6 5.4 ng/mL (2.1-21.7)
--- NOTE | 2024-04-19 11:25 | PM.DS ---
DS: Admitting Diagnosis Discharge Date 04/19/24 Admitting Diagnosis Tardive dyskinesia Akathisia Dystonia Muscle tremor muscle spasm Diabetes Hypertension Fall DS: Discharge Diagnosis Discharge Diagnosis (1) Fall: Code(s): W19.XXXA - Unspecified fall, initial encounter Status: Acute (2) Diabetes: Code(s): E11.9 - Type 2 diabetes mellitus without complications Status: Acute (3) Hypertension: Code(s): I10 - Essential (primary) hypertension Status: Acute (4) Mild protein malnutrition: Code(s): E44.1 - Mild protein-calorie malnutrition Status: Acute (5) CKD (chronic kidney disease) stage 3, GFR 30-59 ml/min: Code(s): N18.30 - Chronic kidney disease, stage 3 unspecified Status: Acute (6) Tremor: Code(s): R25.1 - Tremor, unspecified Status: Acute DS: Summary Hospital Course Reason for hospitalization: Tardive dyskinesia Akathisia Dystonia Muscle tremor muscle spasm Diabetes Hypertension Fall Hospital Course: This is a 73 year male presented to hospital on 04/14/2024 after sustaining a fall at home. Workup in the hospital included a chest x-ray which shown prominent markings in the left lower lobe. Head CT was negative. Brain MRI showed a normal aging brain. Initial labs shown hemoglobin of 11.8, sodium 133, creatinine 2.1, EGFR 30, hemoglobin A1c 5.2, troponin negative, proBNP 1580, RPR was not reviewed active, hepatitis panel was negative. Urine drug screen was negative. EKG showed sinus rhythm with a left bundle branch block, rate of 60, QTC 495. His fall was likely due to polypharmacy according to Neurology and Psychology recommendation. He was noted to have a tremor by the neurologist. If his symptoms continue he will likely need outpatient EMG nerve conduction study of lower limb. PT and OT worked with patient and recommended SNF placement. Plan for him to go to [facility] today. He is stable for discharge at this time. He will need to follow up with his primary care physician in 1 week. Final diagnosis: Polypharmacy, tardive dyskinesia, muscular deconditioning, mild protein calorie malnutrition Status at Discharge Cognitive/behavioral status at discharge: Alert and oriented x3 Functional status at discharge: independent ambulation Overall status at discharge: patient is progressing back to baseline Time Spent with Patient Time attestation: Total time spent providing and/or coordinating discharge services: Time spent: Greater than 30 minutes Exam Narrative: General: In no acute distress, well nourished Head: atraumatic, no encephalopathy Eyes: EOMI, PERRLA, sclera clear ENT: moist mucous membranes, nasal passages clear Neck: supple, no JVD, no adenopathy, trachea midline Cardiac: Normal S1 and S2. No murmur, gallops or friction rubs, peripheral pulses intact. Respiratory: Lungs clear to auscultation, no adventitious lung sounds, currently on room air Gastrointestinal: soft, non-distended, non-tender, normoactive bowel sounds. : voiding without difficulty. Extremities: moves all extremities well, no edema, good ROM, strength 5/5 Skin: clean, dry, intact. No wounds or lesions. Neuro: Alert and oriented x4, cranial nerves intact, no neuro deficits. Psych: normal mood, normal affect, interactive DS: Data Data Completed and Pending Completed studies during hospitalization: Brain MRI Head CT Chest x-ray Pending studies at discharge: None Labs on day of discharge: Labs from last 24 hours 04/19/24 04/19/24 04/18/24 08:11 05:15 21:30 WBC 7.2 RBC 3.36 L Hgb 10.6 L Hct 32.8 L MCV 97.6 MCH 31.5 MCHC 32.3 RDW 13.8 Plt Count 167 MPV 10.1 Immature Gran % (Auto) 0.4 Neut % (Auto) 59.6 Lymph % (Auto) 25.0 [place] % (Auto) 9.2 H Eos % (Auto) 5.4 H Baso % (Auto) 0.4 Lymph # (Auto) 1.79 [place] # (Auto) 0.7 H Eos # (Auto) 0.4 H Baso # (Auto) 0.0 Abs Im
[2024-04-19] MEDS: EMPAGLIFLOZIN 10 MG TABLET PO (11:50)
[2024-04-19 11:53] LABS: Glucose Point of Care 102 mg/dl (65-105)
[2024-04-19] MEDS: INFLUENZA VACCINE HIGH DOSE (>64) 180 MCG/0.5 ML SYRINGE IM (13:36)
[2024-04-26 17:22] LABS: Methylmalonic Acid 1369 nmol/L (69-390)
== END 2024-04-19 12:50 | DRG 92 ==
LOC: ANHED 16:02 → ANH2MED 19:05
PROVIDERS: General Practice; Nurse Practitioner Family; Psychiatry & Neurology Neurology; Admitting Provider Internal Medicine; Emergency Provider Emergency Medicine; PCP Student in an Organized Health Care Education/Training Program; Visit Provider Nurse Practitioner Acute Care
DX: G24.01 Drug induced subacute dyskinesia (principal); E44.1 Mild protein-calorie malnutrition; G24.09 Other drug induced dystonia; N17.9 Acute kidney failure, unspecified; G25.71 Drug induced akathisia; G25.2 Other specified forms of tremor; T43.595A Adverse effect of other antipsychotics and neuroleptics, initial encounter; T43.295A Adverse effect of other antidepressants, initial encounter; I25.5 Ischemic cardiomyopathy; I25.10 Atherosclerotic heart disease of native coronary artery without angina pectoris; I12.9 Hypertensive chronic kidney disease with stage 1 through stage 4 chronic kidney disease, or unspecified chronic kidney disease; N18.30 Chronic kidney disease, stage 3 unspecified; E11.22 Type 2 diabetes mellitus with diabetic chronic kidney disease; M75.02 Adhesive capsulitis of left shoulder; F31.9 Bipolar disorder, unspecified; R29.6 Repeated falls; Z95.1 Presence of aortocoronary bypass graft; Z79.82 Long term (current) use of aspirin; Z23 Encounter for immunization
CPT/HCPCS: 36415; 70450; 70551; 71046; 80048; 80053; 80061; 80074; 80307; 81001; 82306; 82607; 82746; 82948; 83036; 83735; 83880; 83921; 84207; 84425; 84439; 84443; 84484; 85025; 85027; 85610; 85730; 86592; 86703; 90471; 90662; 93005; 95816; 96360; 97161; 97165; 97530; 97535; 99285; A9270; G0008; G0378; G0432; J7030

== ENCOUNTER 2024-05-11 22:33 | Inpatient (IN) | payer MEDICARE, SELFPAY ==
[2024-05-11] VITALS (10 sets, daily range): BP systolic 147–177; BP diastolic 66–103; PULSE 59–62; RESP 22–28; TEMP 36.7; O2SAT 90–94
--- NOTE | ~2024-05-11 | XR_ITS ---
XR foot LT 2V Ordering provider: Amber Lopez MD History: . severe left foot pain . Comparison: None. FINDINGS: BONES: No acute fracture or dislocation. Calcaneus spur. JOINT SPACES: Narrowing of the distal interphalangeal joints. No tarsal coalition. SOFT TISSUES: Minimal soft tissue swelling over the dorsum of the foot. IMPRESSION: No acute osseous abnormality left foot. Reviewed, dictated and finalized at location A.
--- NOTE | ~2024-05-11 | XR_ITS ---
EXAM: XR abdomen/kub 1V DATE: 05/12/2024 15:42 HISTORY: Abdominal Pain and bloating . COMPARISON: None available. FINDINGS: The left and right lateral margins of the abdomen are excluded from the [id number]. Bib asilar scar/atelectasis. Transverse colon is dilated to 7.9 cm. Multiple loops of dilated bowel in th e left lateral and lower abdomen presumably also large bowel. Multiple surgical clips over the pelvis . Likely right inguinal hernia repair. Radiopaque fragment over the right pelvis may represent old ba llistic fragment. Mild hepatomegaly. Atherosclerotic calcifications. Degenerative changes in the spin e and bilateral hips. IMPRESSION: Hepatomegaly. Multiple of dilated large bowel in the upper and left abdomen, likely chronic colonic dilation or ile us. Obstruction not excluded. Reviewed, dictated and finalized at location K. IMPRESSION: Hepatomegaly. Multiple of dilated large bowel in the upper and left abdomen, likely chronic c olonic dilation or ileus. Obstruction not excluded.
--- NOTE | ~2024-05-11 | XR_ITS ---
XR chest 1V portable Ordering provider: Erna Gamino MD History: 73 years Male with . hypoxia and CHF . Comparison: May 12, 2024 FINDINGS: MEDIASTINUM: The cardiac silhouette is slightly enlarged. Postoperative changes in the mediastinum. C ongestive irene. LUNGS: No pneumothorax. Bilateral opacification the perihilar and lower lobes and in the right upper lobe suggestive of pulmonary edema versus pneumonia. Bilateral interstitial changes. Minimal left ple ural effusion. OTHER: No free air under the diaphragm. IMPRESSION: Pulmonary edema. Superimposed pneumonia is highly suggestive. Reviewed, dictated and finalized at location A.
--- NOTE | ~2024-05-11 | US_ITS ---
LEFT LOWER EXTREMITY VENOUS ULTRASOUND Ordering provider: Amber Lopez MD History: . Y . Comparison: None. FINDINGS: --COMMON FEMORAL: Patent and free of thrombus. Normal compressibility, phasic flow and augmentation. --PROXIMAL SUPERFICIAL FEMORAL: Patent and free of thrombus. Normal compressibility, phasic flow and augmentation. --DISTAL SUPERFICIAL FEMORAL: Patent and free of thrombus. Normal compressibility, phasic flow and au gmentation. --POPLITEAL: Patent and free of thrombus. Normal compressibility, phasic flow and augmentation. --POSTERIOR TIBIAL: Patent and free of thrombus. Normal compressibility, phasic flow and augmentation . IMPRESSION: Negative left lower extremity venous US. No deep vein thrombosis. Reviewed, dictated and finalized at location A.
--- NOTE | ~2024-05-11 | XR_ITS ---
EXAMINATION: XR chest 1V portable Exam Date/Time: 05/12/2024 16:00 CDT HISTORY: Increased oxygen needs Comparison: 05/11/2024. RESULT: Lines, tubes, and devices: Intact sternotomy wires. Lungs and pleura: Moderate diffuse interstitial opacities. Patchy segmental and subsegmental airspac e disease in the right upper and lower lung and the left mid and lower lung. Increased opacification in the right upper lung. Mild bilateral costophrenic angle blunting, slightly greater on the left. Cardiomediastinal silhouette: Stable. Other: No acute osseous or upper abdominal finding. IMPRESSION: Moderate interstitial edema. Patchy airspace disease bilaterally may represent alveolar edema or infe ction, which is worsening in the right upper lung. Small left and trace right pleural effusions. Reviewed, dictated and finalized at location K. IMPRESSION: Moderate interstitial edema. Patchy airspace disease bilaterally may represent alveolar edema or infection, which is worsening in the right upper lung. Small left and trace right pleural effusions.
--- NOTE | ~2024-05-11 | XR_ITS ---
EXAMINATION: XR chest 1V portable DATE: 05/11/2024 23:42 INDICATION: Difficulty breathing. TECHNIQUE: A single frontal view of the chest was obtained. COMPARISON: Chest 2 views 04/14/2024 FINDINGS: There is a small left pleural effusion. There is a diffuse interstitial pattern in the lung s. There are airspace opacities in the perihilar regions. No pneumothorax. Cardiomegaly is noted. Med otilia sternotomy wires and mediastinal surgical clips are seen, likely from prior coronary artery bypas s grafting. IMPRESSION: 1. Diffuse lung disease, likely moderate pulmonary edema. Pneumonia cannot be excluded. 2. Small left pleural effusion. 3. Cardiomegaly. Reviewed, dictated and finalized at location A. IMPRESSION: 1. Diffuse lung disease, likely moderate pulmonary edema. Pneumonia cannot be e xcluded. 2. Small left pleural effusion. 3. Cardiomegaly.
--- NOTE | ~2024-05-11 | XR_ITS ---
XR abdomen obstructive series Ordering provider: Lane Love MD History: . ileus FU . Comparison: May 12, 2024 FINDINGS: Left pleural effusion with bilateral lung infiltrate. BOWEL: No evidence of ileus seen at this time. Nonobstructive bowel gas pattern. ORGANOMEGALY: None. SIGNIFICANT PATHOLOGIC CALCIFICATIONS: None. OTHER: Postoperative changes in the pelvis. No free air is seen under the diaphragm. Degenerative kunal nges of the spine. IMPRESSION: NO ACUTE ABDOMINAL FINDINGS. No evidence of ileus seen at this time. Reviewed, dictated and finalized at location A.
--- NOTE | 2024-05-11 22:39 | ECG_ITS ---
Test Date: 2024-05-11 22:43:26 Measurements Intervals [place] Rate: 59 P: 0 AR: 0 QRS: -17 QRSD: 161 T: -11 QT: 478 QTc: 476 Interpretive Statements UNCERTAIN REGULAR RHYTHM LEFT BUNDLE BRANCH BLOCK [120+ ms QRS DURATION, 80+ ms Q/S IN V1/V2, 85+ ms R IN I/aVL/V5/V6] Compared to ECG 04/14/2024 15:01:01 Sinus rhythm no longer present Electronically Signed On 05-11-2024 23:03:07 CDT by Martha Patel M.D.
--- NOTE | 2024-05-11 23:01 | ED.SOB ---
HPI - SOB/Dyspnea General Chief Complaint: Shortness of Breath/Dyspnea Stated Complaint: short of breath Time Seen by Provider: 05/11/24 22:51 History of Present Illness HPI Narrative: 73-year-old male with a past medical history significant for CHF on goal-directed medical therapy, diabetes, hypertension, CKD. He has a history of tremors and TD. patient presents to the emergency room today with worsening shortness of breath for last 3 days. He [facility] from [facility] facility. They noted that he was 89% on room air and called EMS for assistance. He was bumped up to 6 L nasal cannula with improvement to 96% saturation. They did provide him a nebulizer treatment although he has no history of asthma or COPD. On my initial encounter the patient he describing shortness of breath and fluid overload with increase in his abdominal distension and fluid on his legs. Denies any chest pain, nausea, vomiting, headache, vision change, fever, chills. Was otherwise in his normal state of health. He states they recently increased his Lasix dose but he has not noticed any increase in his urinary output. Related Data Home Medications Medication Instructions Recorded Confirmed bupropion HCl 150 mg tablet,12 hr 150 mg PO TID 03/04/24 04/25/24 sustained-release felodipine 10 mg tablet,extended 10 mg PO DAILY 03/04/24 04/25/24 release 24 hr furosemide 40 mg tablet 40 mg PO DAILY PRN swelling 03/04/24 04/25/24 quetiapine 100 mg tablet 300 mg PO HS 03/04/24 04/25/24 aspirin 81 mg tablet,delayed 81 mg PO DAILY 04/14/24 04/25/24 release atorvastatin 80 mg tablet 80 mg PO DAILY 04/14/24 04/25/24 citalopram 40 mg tablet 80 mg PO DAILY 04/14/24 04/25/24 empagliflozin 10 mg tablet 10 mg PO DAILY 04/14/24 04/25/24 (Jardiance) levothyroxine 50 mcg tablet 50 mcg PO DAILY 04/14/24 04/25/24 metoprolol succinate 50 mg 75 mg PO DAILY 04/14/24 04/25/24 tablet,extended release 24 hr omega-3 fatty acids-vitamin E 1 cap PO BID 04/14/24 04/25/24 1,000 mg capsule vitamin A-vitamin C-vit E-min 1 tablet PO DAILY 04/14/24 04/25/24 tablet zolpidem 10 mg tablet 5 mg PO HS PRN Insomnia 04/14/24 04/25/24 sacubitril 49 mg-valsartan 51 mg 1 tablet PO BID 04/16/24 04/25/24 tablet (Entresto) Allergies Allergy/AdvReac Type Severity Reaction Status Date / Time Penicillins Allergy Unknown Verified 03/03/24 23:31 Review of Systems Review of Systems: As reviewed above [facility] Past Medical History Medical History 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 Family History Family History Mother Acute myocardial infarction Cerebrovascular accident Father Prostate carcinoma Social History Social History Smoking status: Never smoker Alcohol intake: never Substance use: never Do You Feel Safe in your Home?: Yes Lack of Transportation: No Lack of Food: Never True Current Housing: I Have Housing Concerned About Future Housing: No Difficulty Paying Gas/Electric Bills: No Difficulty Paying for Meds: No Currently Unemployed: No Education: Bachelor's Degree Difficulty w/ Childcare or Family Care: No Spiritual care concerns: No Exam Narrative: GENERAL: chronically ill-appearing, Mild to moderate respiratory distress but speaking in sentences, requiring nasal cannula for oxygen support. HEAD: [Normocephalic, atraumatic.] EYES: [PERRLA and EOMI.] ENT: Nares clear, no rhinorrhea or epistaxis. Mucous membranes moist. NECK: Supple. CHEST: coarse breath sounds with crackles bilaterally to the mid thorax. no conversational dyspnea. no wheezing HEART: [Regular rate and rhythm]. No murmur heard. [Normal peripheral pulses.] ABDOMEN: [ soft, mildly distended], [nontender], [No rigidity or guarding] EXTREMITIES: Normal range of motion.
[2024-05-11] MEDS: FUROSEMIDE INJ 40 MG/4 ML VIAL 60 MG IV PUSH (23:07)
[2024-05-11 23:12] LABS: Basophils Percent Auto 0.5 % (0.2-1.2); Eosinophils Absolute Auto 0.1 K/mm3 (0-0.3); Eosinophils Percent Auto 1.3 % (0-4.4); Hematocrit 35.2 % (42.0-52.0); Hemoglobin 11.1 g/dL (14.0-18.0); Immature Granulocyte Absolute 0.03 K/mm3 (0.00-0.031); Immature Granulocyte Percent A 0.4 % (0-0.5); Lymphocytes Absolute Auto 1.36 K/mm3 (0.9-3.2); Lymphocytes Percent Auto 17.9 % (18.3-44.2); Mean Corpuscular HGB Conc 31.5 g/dl (32-36); Mean Corpuscular Hemoglobin 30.7 pg (26-34); Mean Corpuscular Volume 97.5 fl (80-100); Mean Platelet Volume 10.6 fl (7.4-10.4); Monocytes Absolute Auto 0.7 K/mm3 (0.1-0.6); Monocytes Percent Auto 9.1 % (2.6-8.5); Neutrophils Absolute Auto 5.4 K/mm3 (1.3-6.7); Neutrophils Percent Auto 70.8 % (45.5-73.1); Platelet Count Result 143 k/mm3 (150-375); Red Blood Count 3.61 M/mm3 (4.6-6.20); Red Cell Distribution Width 14.7 % (11.5-14.5); White Blood Count 7.6 K/mm3 (4.5-10.0)
[2024-05-11 23:25] LABS: Alanine Aminotransferase 37 U/L (6-50); Albumin Level 3.7 g/dL (3.5-5.1); Alkaline Phosphatase 86 U/L (38-126); Anion Gap 7 mmol/L (4-12); Aspartate Amino Transferase 41 U/L (17-59); Bilirubin,Total 0.7 mg/dL (0.2-1.3); Blood Urea Nitrogen 37 mg/dL (9-20); Calcium 9.4 mg/dL (8.4-10.2); Carbon Dioxide 21 mmol/L (22-30); Chloride 109 mmol/L (98-107); Estimated CRCL calculation 39 ml/min; Estimated Glomerular Filt Rate 37; Glucose 100 mg/dL (65-110); INR 1.3; Magnesium 1.8 mg/dL (1.6-2.3); Partial Thromboplastin Time 28.8 Seconds (22.3-36.8); Potassium 4.4 mmol/L (3.4-5.0); Prothrombin Time 16.8 Seconds (11.1-14.7); Sodium 137 mmol/L (137-145)
[2024-05-11 23:27] LABS: Alveolar/Arterial O2 Gradient 225.8 mmHg; Base Excess ABG -3.1 mEq/l (+/-2.0); Carboxyhemoglobin 0.5 % THb (0-2.0); Fractional Inspired Oxygen 45 %; HCO3 ABG 20.3 mEq/l (22.0-26.0); Methemoglobin ABG 0.2 %THb (0-1.5); Oxygen Content ABG 14.7 %vol (16.0-22.0); Oxygen Saturation ABG 92.1 % (95.0-100.0); Oxyhemoglobin 89.8 % THb (90.0-100.0); PCO2 ABG 30.9 mmHg (35.0-45.0); PO2 ABG 59.9 mmHg (80.0-100.0); PO2 FiO2 Ratio Arterial Blood 1.33 %; Reduced Hemoglobin 9.5 %THb (0-5.0); Total Hemoglobin 11.6 g/dL (12.0-18.0); pH ABG 7.435 (7.350-7.450)
[2024-05-11 23:28] LABS: Device NASAL CANNULA; Site Drawn RIGHT BRACHIAL
[2024-05-11 23:36] LABS: NT Pro B Type Natriuretic Pept 6270 pg/mL (19.9-100); Troponin I 0.014 ng/mL (0.000-0.034)
[2024-05-12] VITALS (16 sets, daily range): BP systolic 146–178; BP diastolic 48–84; PULSE 56–65; RESP 22–28; TEMP 36.4–37.3; O2SAT 90–96; BMI 35.1
--- NOTE | 2024-05-12 01:47 | ADMGEN ---
This patient, Berto Barcenas, was admitted to IMU Room 213-01. Patient/family oriented to hospital policies and general routines including ID bracelet, bed and alarms, visiting hours, pain management, procedures, bathroom and other care routines, personal items, smoking policy, room service/diet, and visiting hours. Information on how to activate the Rapid Response Team has been discussed. Patient/Family are encouraged to report perceived risks to care and to ask questions if they do not understand what they are told or what they should do.
[2024-05-12 02:44] LABS: Troponin I 0.022 ng/mL (0.000-0.034)
[2024-05-12] MEDS: FUROSEMIDE INJ 40 MG/4 ML VIAL IV PUSH ×2 (09:29→16:10)
--- NOTE | 2024-05-12 09:33 | PC.NURSE ---
Plan of care and patient condition discussed with son,Corbin.
[2024-05-12] MEDS: ASPIRIN 81 MG ENTERIC TABLET PO (11:45)
[2024-05-12] MEDS: SACUBITRIL/VALSARTAN 49-51 MG TABLET 1 TABLET PO ×2 (11:45→20:58)
[2024-05-12] MEDS: OMEGA 3 POLYUNSAT FATTY ACIDS 1 GM CAP PO ×2 (11:45→20:57)
[2024-05-12] MEDS: EMPAGLIFLOZIN 10 MG TABLET PO (11:45)
[2024-05-12] MEDS: CITALOPRAM HYDROBROMIDE 20 MG TABLET 80 MG PO (11:45)
[2024-05-12] MEDS: OPTI-GEN TAB 1 TABLET PO (11:45)
[2024-05-12] MEDS: ATORVASTATIN 40 MG TABLET 80 MG PO (11:46)
[2024-05-12] MEDS: FELODIPINE 5 MG TAB CR 10 MG PO (11:46)
[2024-05-12] MEDS: LEVOTHYROXINE SODIUM 50 MCG TABLET PO (11:46)
[2024-05-12] MEDS: buPROPion HCL SR (12 HR) 150 MG TAB PO ×2 (11:54→20:58)
[2024-05-12] MEDS: METOPROLOL SUCCINATE EXT REL 25 MG TABCR 75 MG PO (15:51)
[2024-05-12 16:13] LABS: Alveolar/Arterial O2 Gradient 274.1 mmHg; Base Excess ABG 2.4 mEq/l (+/-2.0); Device HIGH FLOW NASAL CANN; Fractional Inspired Oxygen 52 %; Oxygen Content ABG 15.6 %vol (16.0-22.0); Oxygen Saturation ABG 90.4 % (95.0-100.0); Oxyhemoglobin 88.6 % THb (90.0-100.0); PCO2 ABG 37.2 mmHg (35.0-45.0); PO2 FiO2 Ratio Arterial Blood 1.06 %; Site Drawn LEFT BRACHIAL; Total Hemoglobin 12.5 g/dL (12.0-18.0); pH ABG 7.463 (7.350-7.450)
--- NOTE | 2024-05-12 16:43 | PM.IMHP ---
H&P: HPI History of Present Illness Date/Time: 05/12/24 16:43 Chief Complaint: Shortness of breath Narrative: ER-HPI Narrative: 73-year-old male with a past medical history significant for CHF on goal-directed medical therapy, diabetes, hypertension, CKD. He has a history of tremors and TD. patient presents to the emergency room today with worsening shortness of breath for last 3 days. [facility] They noted that he was 89% on room air and called EMS for assistance. He was bumped up to 6 L nasal cannula with improvement to 96% saturation. They did provide him a nebulizer treatment although he has no history of asthma or COPD. On my initial encounter the patient he describing shortness of breath and fluid overload with increase in his abdominal distension and fluid on his legs. Denies any chest pain, nausea, vomiting, headache, vision change, fever, chills. Was otherwise in his normal state of health. He states they recently increased his Lasix dose but he has not noticed any increase in his urinary output. Patient states he was able to urinate some however still feels short of breath and swelling around his stomach, patient received Lasix 80mg IV in ER and is getting 40mg BID however patient felt more short of breath and patient is given as additional lasix 40mg IVx1, will monitor, patient also complaints of bloated stomach and gas will give simethicone 160mg x1 and 80mg q6 PRN, to further evaluate will do cardiac echo and further recommendation to follow. Will have PT OT evaluate the patient. Review of Systems Review of Systems: As reviewed above [facility] Past Medical History Medical History 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 Family History Family History Mother Acute myocardial infarction Cerebrovascular accident Father Prostate carcinoma Social History Social History Smoking status: Never smoker Second hand tobacco smoke exposure: No Alcohol intake: never Substance use: never Substance use type: does not use Do You Feel Safe in your Home?: Yes Lack of Transportation: No Lack of Food: Never True Current Housing: I Have Housing Concerned About Future Housing: No Difficulty Paying Gas/Electric Bills: No Difficulty Paying for Meds: No Currently Unemployed: No Education: Bachelor's Degree Difficulty w/ Childcare or Family Care: No Spiritual care concerns: No Meds Home Medications and Allergies Home Medications Medication Instructions Recorded Confirmed Type bupropion HCl 150 mg tablet,12 hr 150 mg PO TID 03/04/24 05/12/24 History sustained-release felodipine 10 mg tablet,extended 10 mg PO DAILY 03/04/24 05/12/24 History release 24 hr furosemide 40 mg tablet 40 mg PO DAILY PRN swelling 03/04/24 05/12/24 History quetiapine 100 mg tablet 300 mg PO HS 03/04/24 05/12/24 History aspirin 81 mg tablet,delayed 81 mg PO DAILY 04/14/24 05/12/24 History release atorvastatin 80 mg tablet 80 mg PO DAILY 04/14/24 05/12/24 History citalopram 40 mg tablet 80 mg PO DAILY 04/14/24 05/12/24 History empagliflozin 10 mg tablet 10 mg PO DAILY 04/14/24 05/12/24 History (Jardiance) levothyroxine 50 mcg tablet 50 mcg PO DAILY 04/14/24 05/12/24 History metoprolol succinate 50 mg 75 mg PO DAILY 04/14/24 05/12/24 History tablet,extended release 24 hr omega-3 fatty acids-vitamin E 1 cap PO BID 04/14/24 05/12/24 History 1,000 mg capsule vitamin A-vitamin C-vit E-min 1 tablet PO DAILY 04/14/24 05/12/24 History tablet zolpidem 10 mg tablet 5 mg PO HS PRN Insomnia 04/14/24 05/12/24 History sacubitril 49 mg-valsartan 51 mg 1 tablet PO BID 04/16/24 05/12/24 History tablet (Entresto) Allergies Allergy/AdvReac Type Severity Reaction Status Date / Time Pen
[2024-05-12] MEDS: SIMETHICONE 80 MG TAB.CHEW 160 MG PO (18:19)
[2024-05-12] MEDS: QUEtiapine FUMARATE 100 MG TABLET 300 MG PO (20:57)
[2024-05-12] MEDS: SIMETHICONE 80 MG TAB.CHEW PO (20:57)
[2024-05-13] VITALS (24 sets, daily range): BP systolic 123–167; BP diastolic 32–76; PULSE 51–63; RESP 18–24; TEMP 36.4–37.2; O2SAT 92–98
--- NOTE | 2024-05-13 | ECHO_ITS ---
Patient Info Name: Berto Barcenas Age: 73 years : 1950 Gender: Male Ht: 68 in Wt: 231 lbs BSA: 2.28 m2 HR: 57 bpm BP: 148 / 56 mmHg Heart Rhythm: Sinus Rhythm Technical Quality: Good Exam Date: 05/13/2024 11:01 AM Exam Location: Echo Lab Patient Status: Inpatient Admit Date: 05/12/2024 Staff Ordering Physician: María Hodge MD Safety Technician: Camilo River RDCS Attending Provider: Lluvia Garnica DO Exam Type: CA echo dop color flow w con Study Info Indications - chf Complete two-dimensional, color flow and Doppler transthoracic echocardiogram is performed with contrast to opacify the left ventricle and to improve the deliniation of the left ventricle endocardial borders. Summary 1. The left ventricle is mildly dilated. The left ventricular systolic function is borderline normal with an EF estimated to be 50%. 2. Left ventricular septal wall motion is abnormal with septal motion related to bundle branch block. Left Ventricle The left ventricle is mildly dilated. The left ventricular systolic function is borderline normal with an EF estimated to be 50%. Left ventricular septal wall motion is abnormal with septal motion related to bundle branch block. Right Ventricle The right ventricle is normal size and systolic function. Left Atria The left atrial size is normal. Right Atria The right atrial is normal. Aortic Valve The aortic valve is trileaflet. There is no aortic regurgitation or stenosis. Pulmonic Valve The pulmonic valve is grossly normal. There is no color Doppler evidence of pulmonic valve regurgitation. Mitral Valve The posterior leaflet and annulus of the mitral valve is calcified. There is trace mitral regurgitation found on this study. Tricuspid Valve The tricuspid valve is normal. There is mild tricuspid regurgitation. Pulmonary Arteries The PASP is estimated to be 41 mmHg. Pericardium/Pleural Pericardium is normal in appearance with no evidence for significant pericardial effusion. Inferior Vena Cava Normal inferior vena cava with <50% collapse upon inspiration consistent with elevated right atrial pressure, 8 mmHg. Aorta The aortic root at the level of the sinus of Valsalva measures 3.3 cm. Left Ventricular Outflow Tract Name Value Normal LVOT 2D LVOT Diameter 1.94 cm LVOT Doppler LVOT Peak Gradient 6 mmHg LVOT Mean Gradient 4 mmHg LVOT VTI 35.03 cm LVOT VTI/AV VTI Ratio 1.03 LVOT Stroke Volume 103.63 ml LVOT CO 5.49 l/min LVOT CI 2.40 L/min/m2 Mitral Valve Name Value Normal MV Doppler MV Decel [place] 372.38 cm/s2 MV PHT 0 s MV Area (PHT) 2.60 cm2 4.00-5.00 MV Diastolic Function
[2024-05-13 05:21] LABS: Hematocrit 33.4 % (42.0-52.0); Hemoglobin 11.1 g/dL (14.0-18.0); Mean Corpuscular HGB Conc 33.2 g/dl (32-36); Mean Corpuscular Hemoglobin 32.1 pg (26-34); Mean Corpuscular Volume 96.5 fl (80-100); Platelet Count Result 146 k/mm3 (150-375); Red Blood Count 3.46 M/mm3 (4.6-6.20); Red Cell Distribution Width 14.9 % (11.5-14.5); White Blood Count 9.1 K/mm3 (4.5-10.0)
[2024-05-13 05:38] LABS: Anion Gap 7 mmol/L (4-12); Blood Urea Nitrogen 37 mg/dL (9-20); Calcium 9.9 mg/dL (8.4-10.2); Carbon Dioxide 25 mmol/L (22-30); Chloride 107 mmol/L (98-107); Estimated CRCL calculation 33 ml/min; Estimated Glomerular Filt Rate 31; Glucose 85 mg/dL (65-110); Magnesium 1.8 mg/dL (1.6-2.3); Sodium 139 mmol/L (137-145)
[2024-05-13] MEDS: LEVOTHYROXINE SODIUM 50 MCG TABLET PO (05:43)
[2024-05-13] MEDS: FUROSEMIDE INJ 40 MG/4 ML VIAL IV PUSH (08:55)
[2024-05-13] MEDS: ASPIRIN 81 MG ENTERIC TABLET PO (08:55)
[2024-05-13] MEDS: METOPROLOL SUCCINATE EXT REL 25 MG TABCR 75 MG PO (08:56)
[2024-05-13] MEDS: CITALOPRAM HYDROBROMIDE 20 MG TABLET 80 MG PO (08:56)
[2024-05-13] MEDS: OMEGA 3 POLYUNSAT FATTY ACIDS 1 GM CAP PO ×2 (08:57→20:31)
[2024-05-13] MEDS: SACUBITRIL/VALSARTAN 49-51 MG TABLET 1 TABLET PO ×2 (08:57→20:31)
[2024-05-13] MEDS: EMPAGLIFLOZIN 10 MG TABLET PO (08:57)
[2024-05-13] MEDS: ATORVASTATIN 40 MG TABLET 80 MG PO (08:57)
[2024-05-13] MEDS: OPTI-GEN TAB 1 TABLET PO (08:57)
[2024-05-13] MEDS: FELODIPINE 5 MG TAB CR 10 MG PO (08:58)
[2024-05-13] MEDS: buPROPion HCL SR (12 HR) 150 MG TAB PO ×3 (09:07→20:31)
[2024-05-13] MEDS: PERFLUTREN LIPID MICROSPHERES 1.5 ML VIAL DILUTED TO 10 ML TOTAL VOLUME IV PUSH (10:55)
--- NOTE | 2024-05-13 11:01 | PM.CNNEP ---
Assessment and Plan Assessment and plan (1) Stage 3b chronic kidney disease: Code(s): N18.32 - Chronic kidney disease, stage 3b Status: Chronic Assessment and Plan: baseline creatinine seems to run ~ 1.6 - 2.1mg/dl in the last year (from review of records at [facility]) however, has been as high as 2.4mg/dl (October 2022) evidence of CKD that dates back as 2009 presumably secondary to hypertension, diabetes, vascular disease (CAD/CABG. hyperlipidemia, CHF + chronic need for diuretic therapy) and age-related change suspect will always be prone to fluctuations in kidney function due to ongoing diuretic use to maintain relative euvolemia History of Present Illness Reason for Consult Consult date: 05/15/24 Reason for consult: acute renal failure (on chronic kidney disease) Chief Complaint Chief complaint: CHF exacerbation Review of Systems Review of Systems: As per HPI. 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 Family History Family History Mother Acute myocardial infarction Cerebrovascular accident Father Prostate carcinoma Social History Social History Smoking status: Never smoker Second hand tobacco smoke exposure: No Alcohol intake: never Substance use: never Substance use type: does not use Do You Feel Safe in your Home?: Yes Lack of Transportation: No Lack of Food: Never True Current Housing: I Have Housing Concerned About Future Housing: No Difficulty Paying Gas/Electric Bills: No Difficulty Paying for Meds: No Currently Unemployed: No Education: Bachelor's Degree Difficulty w/ Childcare or Family Care: No Spiritual care concerns: No Meds Home Medications and Allergies Home Medications Medication Instructions Recorded Confirmed Type bupropion HCl 150 mg tablet,12 hr 150 mg PO TID 03/04/24 05/12/24 History sustained-release felodipine 10 mg tablet,extended 10 mg PO DAILY 03/04/24 05/12/24 History release 24 hr furosemide 40 mg tablet 40 mg PO DAILY PRN swelling 03/04/24 05/12/24 History quetiapine 100 mg tablet 300 mg PO HS 03/04/24 05/12/24 History aspirin 81 mg tablet,delayed 81 mg PO DAILY 04/14/24 05/12/24 History release atorvastatin 80 mg tablet 80 mg PO DAILY 04/14/24 05/12/24 History citalopram 40 mg tablet 80 mg PO DAILY 04/14/24 05/12/24 History empagliflozin 10 mg tablet 10 mg PO DAILY 04/14/24 05/12/24 History (Jardiance) levothyroxine 50 mcg tablet 50 mcg PO DAILY 04/14/24 05/12/24 History metoprolol succinate 50 mg 75 mg PO DAILY 04/14/24 05/12/24 History tablet,extended release 24 hr omega-3 fatty acids-vitamin E 1 cap PO BID 04/14/24 05/12/24 History 1,000 mg capsule vitamin A-vitamin C-vit E-min 1 tablet PO DAILY 04/14/24 05/12/24 History tablet zolpidem 10 mg tablet 5 mg PO HS PRN Insomnia 04/14/24 05/12/24 History sacubitril 49 mg-valsartan 51 mg 1 tablet PO BID 04/16/24 05/12/24 History tablet (Entresto) Allergies Allergy/AdvReac Type Severity Reaction Status Date / Time Penicillins Allergy Unknown Verified 03/03/24 23:31 Vital Signs Vital Signs Temp Pulse Resp BP Pulse Ox O2 Del Method O2 Flow Rate 05/13/24 11:00 97.7 F 54 L 18 123/32 L 92 05/13/24 08:00 60 05/13/24 09:05 58 L 95 High Flow Nasal Cannula 5 05/13/24 09:02 96 High Flow Nasal Cannula 7 05/13/24 08:00 57 L 20 96 High Flow Nasal Cannula 7 05/13/24 08:56 57 L 05/13/24 08:26 98.0 F 60 20 167/76 H 96 05/13/24 05:58 57 L 05/13/24 05:46 95 High Flow Nasal Cannula 7 05/13/24 04:00 97.5 F L 59 L 22 H 148/56 H 95 05/13/24 04:00 60 05/13/24 04:00 94 High Flow Nasal Cannula 8 05/13/24 02:00 57 L 05/13/24 00:45
--- NOTE | 2024-05-13 11:50 | IVDEFINITY ---
Prior to administration of IV Definity the patient was educated on the risks and benefits of the imaging enhancing agent including potential adverse side effects. The patient verbalized understanding. Allergies were verified. No exclusion criteria were identified and at least one of the following inclusion criteria were met: 1) physician request, 2) patient technically difficult to image (per the [place] [employer]chocardi[employer] guidelines of two or more segments not discernable within the apical view), or 3) questionable left ventricular function. ?
[2024-05-13] MEDS: BISACODYL 5 MG TABLET EC PO (12:09)
--- NOTE | 2024-05-13 13:28 | WPDPN ---
Progress Note: A&P Assessment and Plan (1) Acute exacerbation of CHF (congestive heart failure): Code(s): I50.9 - Heart failure, unspecified Status: Acute (2) Acute hypoxic respiratory failure: Code(s): J96.01 - Acute respiratory failure with hypoxia Status: Acute (3) Ischemic cardiomyopathy: Code(s): I25.5 - Ischemic cardiomyopathy Status: Acute (4) CARLOS (acute kidney injury): Code(s): N17.9 - Acute kidney failure, unspecified Status: Acute (5) Generalized weakness: Code(s): R53.1 - Weakness Status: Acute Plan Patient states he was able to urinate some however still feels short of breath and swelling around his stomach, patient received Lasix 80mg IV in ER and is getting 40mg BID however on 05/12 patient felt more short of breath and patient was given an additional lasix 40mg IVx1, today patient Scr is rising to 2.1 from 1.8 upon arrival, will hold lasix and discuss with on air host for their recommendation, will monitor, patient also complaints of bloated stomach and gas, KUB showed dilated bowl, patient passing gas and BS are positive will give simethicone 160mg x1 and 80mg q6 PRN, today still no BM, will give patien dulcolax and monitor, to further evaluate will do cardiac echo and further recommendation to follow. Will have PT OT evaluate the patient. Subjective Date/time seen: 05/13/24 13:28 Interval history: Patient states he was able to urinate some however still feels short of breath and swelling around his stomach, patient received Lasix 80mg IV in ER and is getting 40mg BID however on 05/12 patient felt more short of breath and patient was given an additional lasix 40mg IVx1, today patient Scr is rising to 2.1 from 1.8 upon arrival, will hold lasix and discuss with on air host for their recommendation, will monitor, patient also complaints of bloated stomach and gas, KUB showed dilated bowl, patient passing gas and BS are positive will give simethicone 160mg x1 and 80mg q6 PRN, today still no BM, will give patien dulcolax and monitor, to further evaluate will do cardiac echo and further recommendation to follow. Will have PT OT evaluate the patient. Review of Systems Review of Systems: As reviewed above Exam Narrative: Patient is comfortable, NAD HEENT: eyes are clear and none icteric LUNGS: Bilateral fair entry with rales and rhonchi HEART: RR S1S2 ABD: Distended, BS+, Soft and nontender Lower extremities: edema SKIN: nonjaundiced Neuro: grossly intact. Objective Data Vital Signs Vital Signs: Vital Signs - 24 hr 05/12/24 14:00 05/12/24 15:51 05/12/24 16:00 Temperature Pulse Rate 65 62 62 Respiratory Rate 25 H Blood Pressure Pulse Oximetry 96 Oxygen Delivery High Flow Nasal Cannula Oxygen Flow Rate 10 05/12/24 16:00 05/12/24 18:00 05/12/24 16:00 Temperature 37.3 C Pulse Rate 62 62 61 Respiratory Rate 28 H Blood Pressure 146/58 H Pulse Oximetry 91 Oxygen Delivery Oxygen Flow Rate 05/12/24 15:50 05/12/24 20:00 05/12/24 20:55 Temperature 37.2 C Pulse Rate 62 Respiratory Rate 25 H 24 H Blood Pressure 178/48 H 160/68 H Pulse Oximetry 90 94 Oxygen Delivery High Flow Nasal Cannula Oxygen Flow Rate 8 05/12/24 20:00 05/12/24 20:00 05/13/24 00:00 Temperature 36.8 C Pulse Rate 62 62 Respiratory Rate 24 H Blood Pressure 155/65 H Pulse Oximetry 96 97 Oxygen Delivery High Flow Nasal Cannula Oxygen Flow Rate 10 05/12/24 22:00 05/13/24 00:00 05/13/24 00:00 Temperature Pulse Rate 62 63 Respiratory Rate Blood Pressure Pulse Oximetry 97 Oxygen Delivery High Flow Nasal Cannula Oxygen Flow Rate 10 05/13/24 00:45 05/13/24 02:00 05/13/24 04:00 Temperature Pulse Rate 57 L Respiratory Rate Blood Pressure Pulse Oximetry 93 94 Oxygen Delivery High Flow Nasal Cannula High Flow Nasal Cannula Oxygen Flow Rate 9
--- NOTE | 2024-05-13 18:45 | PC.NURSE ---
At bedside with kosta Alaniz. Plan of care and patient condition reviewed.
[2024-05-13] MEDS: QUEtiapine FUMARATE 100 MG TABLET 300 MG PO (20:31)
[2024-05-14] VITALS (21 sets, daily range): BP systolic 123–156; BP diastolic 51–79; PULSE 50–63; RESP 18–22; TEMP 36.7–37.7; O2SAT 92–98
[2024-05-14] MEDS: LEVOTHYROXINE SODIUM 50 MCG TABLET PO (05:18)
[2024-05-14 05:39] LABS: Hematocrit 34.2 % (42.0-52.0); Hemoglobin 11.1 g/dL (14.0-18.0); Mean Corpuscular HGB Conc 32.5 g/dl (32-36); Mean Corpuscular Hemoglobin 31.5 pg (26-34); Mean Corpuscular Volume 97.2 fl (80-100); Mean Platelet Volume 10.4 fl (7.4-10.4); Platelet Count Result 154 k/mm3 (150-375); Red Blood Count 3.52 M/mm3 (4.6-6.20); Red Cell Distribution Width 14.6 % (11.5-14.5); White Blood Count 9.2 K/mm3 (4.5-10.0)
[2024-05-14 05:50] LABS: Anion Gap 6 mmol/L (4-12); Blood Urea Nitrogen 39 mg/dL (9-20); Calcium 9.5 mg/dL (8.4-10.2); Carbon Dioxide 26 mmol/L (22-30); Chloride 104 mmol/L (98-107); Estimated CRCL calculation 34 ml/min; Estimated Glomerular Filt Rate 33; Glucose 73 mg/dL (65-110); Magnesium 1.9 mg/dL (1.6-2.3); Potassium 3.6 mmol/L (3.4-5.0); Sodium 136 mmol/L (137-145)
--- NOTE | 2024-05-14 10:12 | PM.PNNEP ---
Subjective Date/time seen: 05/14/24 10:12 Interval history: Follow-up for chronic kidney disease. Objective Data Vital Signs Vital Signs: Vital Signs Temp Pulse Resp BP Pulse Ox O2 Del Method O2 Flow Rate 05/14/24 10:00 60 05/14/24 08:00 62 05/14/24 08:00 98.0 F 63 20 145/67 H 94 05/14/24 06:00 58 L 05/14/24 04:38 98.4 F 58 L 20 152/64 H 92 05/14/24 04:00 59 L 05/14/24 04:00 50 L 22 H 93 High Flow Nasal Cannula 5 05/14/24 01:55 50 L 05/14/24 00:00 51 L 05/13/24 23:45 51 L 22 H 93 High Flow Nasal Cannula 5 05/13/24 23:43 98.8 F 51 L 22 H 146/59 H 93 05/13/24 22:00 57 L 05/13/24 20:00 59 L 05/13/24 20:26 53 L 24 H 95 High Flow Nasal Cannula 5 05/13/24 20:20 99.0 F 53 L 24 H 153/74 H 92 05/13/24 18:00 54 L 05/13/24 16:00 51 L 94 High Flow Nasal Cannula 5 05/13/24 16:00 51 L 05/13/24 15:41 98.8 F 52 L 20 136/69 98 05/13/24 14:00 52 L 05/13/24 13:50 High Flow Nasal Cannula 5 05/13/24 13:21 High Flow Nasal Cannula 5 05/13/24 12:00 53 L 93 High Flow Nasal Cannula 5 05/13/24 12:00 53 L 05/13/24 12:18 97.7 F 54 L 18 123/32 L 92 Intake/Output Intake/Output: Intake & Output 05/11/24 05/12/24 05/13/24 05/14/24 23:59 23:59 23:59 23:59 Intake Total 836 1270 540 Output Total 3680 4069 750 [facility] -4864 -1555 -210 Meds/Results Medications: Active Medications Generic Name Dose Route Start Last Admin Trade Name Freq PRN Reason Stop Dose Admin Aspirin 81 mg 05/12/24 10:30 05/14/24 10:18 Aspirin 81 Mg Enteric Tablet PO 81 mg DAILY MAYRA Administration Atorvastatin Calcium 80 mg 05/12/24 10:30 05/14/24 10:17 Atorvastatin 40 Mg Tablet PO 80 mg DAILY MAYRA Administration Bisacodyl 5 mg 05/14/24 09:00 05/14/24 10:31 Bisacodyl 5 Mg Tablet Ec PO 5 mg QAM MAYRA Administration Bupropion HCl 150 mg 05/12/24 13:00 05/14/24 10:31 Bupropion Hcl Sr (12 Hr) 150 Mg Tab PO 150 mg 0900,1300,2100 MAYRA Administration Citalopram Hydrobromide 80 mg 05/12/24 10:30 05/14/24 10:16 Citalopram Hydrobromide 20 Mg Tablet PO 80 mg DAILY MAYRA Administration Empagliflozin 10 mg 05/12/24 10:30 05/14/24 10:16 Empagliflozin 10 Mg Tablet PO 10 mg DAILY MAYRA Administration Felodipine 10 mg 05/12/24 10:30 05/14/24 10:16 Felodipine 5 Mg Tab Cr PO 06/12/24 10:29 10 mg DAILY MAYRA Administration Fish Oil 1 gm 05/12/24 10:35 05/14/24 10:16 Ceres 3 Polyunsat Fatty Acids 1 Gm Cap PO 1 gm Q12HR MAYRA Administration Levothyroxine Sodium 50 mcg 05/12/24 10:30 05/14/24 05:18 Levothyroxine Sodium 50 Mcg Tablet PO 50 mcg DAILY@0630 MAYRA Administration Metoprolol Succinate 75 mg 05/13/24 09:00 05/14/24 10:17 Metoprolol Succinate Ext Rel 25 Mg Tabcr PO 75 mg DAILY MAYRA Administration Multivitamins/Minerals 1 tablet 05/12/24 10:30 05/14/24 10:31 Opti-Gen Tab PO 06/12/24 10:29 1 tablet DAILY MAYRA Administration Quetiapine Fumarate 300 mg 05/12/24 21:00 05/13/24 20:31 Quetiapine Fumarate 100 Mg Tablet PO 300 mg HS MAYRA Administration Sacubitril/Valsartan 1 tablet 05/12/24 10:30 05/14/24 10:16 Sacubitril/Valsartan 49-51 Mg Tablet PO 1 tablet Q12HR MAYRA Administration Simethicone 80 mg 05/12/24 16:52 05/12/24 20:57 Simethicone 80 Mg Tab.Chew PO 80 mg Q6H PRN Administration Gas Discomfort Zolpidem Tartrate 5 mg 05/12/24 10:22 Zolpidem Tartrate (*Crx) 5 Mg Tablet PO HS PRN Insomnia Radiology Results: ITS Impressions Chest X-Ray 05/12/24 16:12 IMPRESSION: Moderate interstitial edema. Patchy airspace disease bilaterally may represent alveolar edema or infection, which is worsening in the right upper lung. Small left and trace right pleural effusions. Abdomen X-Ray 05/14/24 09:53 IMPRESSIO
[2024-05-14] MEDS: OMEGA 3 POLYUNSAT FATTY ACIDS 1 GM CAP PO ×2 (10:16→20:49)
[2024-05-14] MEDS: SACUBITRIL/VALSARTAN 49-51 MG TABLET 1 TABLET PO ×2 (10:16→20:50)
[2024-05-14] MEDS: FELODIPINE 5 MG TAB CR 10 MG PO (10:16)
[2024-05-14] MEDS: EMPAGLIFLOZIN 10 MG TABLET PO (10:16)
[2024-05-14] MEDS: CITALOPRAM HYDROBROMIDE 20 MG TABLET 80 MG PO (10:16)
[2024-05-14] MEDS: METOPROLOL SUCCINATE EXT REL 25 MG TABCR 75 MG PO (10:17)
[2024-05-14] MEDS: ATORVASTATIN 40 MG TABLET 80 MG PO (10:17)
[2024-05-14] MEDS: ASPIRIN 81 MG ENTERIC TABLET PO (10:18)
[2024-05-14] MEDS: BISACODYL 5 MG TABLET EC PO (10:31)
[2024-05-14] MEDS: OPTI-GEN TAB 1 TABLET PO (10:31)
[2024-05-14] MEDS: buPROPion HCL SR (12 HR) 150 MG TAB PO ×3 (10:31→20:50)
[2024-05-14] MEDS: FUROSEMIDE INJ 40 MG/4 ML VIAL IV PUSH ×2 (11:55→17:39)
[2024-05-14] MEDS: CYANOCOBALAMIN 1,000 MCG TABLET 1000 MCG PO (11:55)
--- NOTE | 2024-05-14 16:20 | PM.IMPN ---
Progress Note: A&P Assessment and Plan (1) Acute hypoxic respiratory failure: Code(s): J96.01 - Acute respiratory failure with hypoxia Status: Acute Assessment and Plan: Patient presents with SOB and found to be hypoxic. ABG 7.44/31/60 6L. CXR showing diffuse lung disease likely moderate pulmonary edema. Can not exclude PNA. BNP 6270 which is higher than [place]an value. WBC normal. [place] his resp failure related to CHF. He received Lasix 80mg IV in ER and is started on 40mg IV BID Wean O2 as tolerated. PNA felt to be less likely. Check COVID. (2) Acute exacerbation of CHF (congestive heart failure): Code(s): I50.9 - Heart failure, unspecified Status: Acute Assessment and Plan: As above. Echo showing dilated LV with borderline systolic function (EF 50%), minimal valvular disease. He was started on IV Lasix but held due to slightly higher Cr. Fluid balance -6.5L Cr better today and still on oxygen. Resume lasix IV and monitor. (3) CARLOS (acute kidney injury): Code(s): N17.9 - Acute kidney failure, unspecified Status: Acute Assessment and Plan: Baseline Cr 1.6-2.1. Cr 1.8 on admission but increased to 2.1. Cr about the same. Resume Lasix IV and monitor. (4) Generalized weakness: Code(s): R53.1 - Weakness Status: Acute Assessment and Plan: Related to above. PT/OT ordered (5) Ischemic cardiomyopathy: Code(s): I25.5 - Ischemic cardiomyopathy Status: Acute Assessment and Plan: Echo as above. EF at 50%. Continue Entresto, Empagliflozin, Toprol XL Plan Mild anemia - Hgb persistently in the 10-11 range. No iron studies but B12 low at 175 and MMA high at 1369 last admission c/w B12 deficiency. He was given low dose oral replacement but not discharged with any B12 medications. Replace IM x 3 days and add oral replacement as well. DVT prophylaxis - SCDs Code status - full Subjective Date/time seen: 05/14/24 16:20 Interval history: 73yo male with CHF, DM, HTN and CKD here for shortness of breath. Assuming care. Chart reviewed. Does not wear O2 at home. He does not have chronic [place]ru[place]. He has not had difficulty voiding prior to admission. No orthopnea. Slight cough. No MARCUS, SOB or CP. Exam Narrative: AF 99.0 156/61 56 18 94% 4L Gen - NARD Chest - bibasilar inspiratory rhonchi. nml RR CV - RRR S1/S2. Tele showing normal sinus with BBB Abd - Soft, NT/ND, Positive BS - Pruitt secured draiining clear yellow urine. Ext - No pedal edema Psych - Nml mood and affect Skin - Warm and dry Objective Data Vital Signs Vital Signs: Vital Signs - 24 hr 05/13/24 18:00 05/13/24 20:20 05/13/24 20:26 Temperature 99.0 F Pulse Rate 54 L 53 L 53 L Respiratory Rate 24 H 24 H Blood Pressure 153/74 H Pulse Oximetry 92 95 Oxygen Delivery High Flow Nasal Cannula Oxygen Flow Rate 5 05/13/24 20:00 05/13/24 22:00 05/13/24 23:43 Temperature 98.8 F Pulse Rate 59 L 57 L 51 L Respiratory Rate 22 H Blood Pressure 146/59 H Pulse Oximetry 93 Oxygen Delivery Oxygen Flow Rate 05/13/24 23:45 05/14/24 00:00 05/14/24 01:55 Temperature Pulse Rate 51 L 51 L 50 L Respiratory Rate 22 H Blood Pressure Pulse Oximetry 93 Oxygen Delivery High Flow Nasal Cannula Oxygen Flow Rate 5 05/14/24 04:00 05/14/24 04:00 05/14/24 04:38 Temperature 98.4 F Pulse Rate 50 L 59 L 58 L Respiratory Rate 22 H 20 Blood Pressure 152/64 H Pulse Oximetry 93 92 Oxygen Delivery High Flow Nasal Cannula Oxygen Flow Rate 5 05/14/24 06:00 05/14/24 08:00 05/14/24 08:00 Temperature 98.0 F Pulse Rate 58 L 63 62 Respiratory Rate 20 Blood Pressure 145/67 H Pulse Oximetry 94 Oxygen Delivery Oxygen Flow Rate 05/14/24 10:17 05/14/24 08:00 05/14/24 10:00 Temperature Pulse Rate 60 60 Respiratory Rate Blood Pressure Pulse Oximetr
[2024-05-14 18:11] LABS: Influenza A QL RT-PCR Negative (Negative); Influenza B QL RT-PCR Negative (Negative); RSV RNA, RT-PCR Negative (Negative); SARS-CoV-2 RNA PCR Negative (Negative)
--- NOTE | 2024-05-14 18:16 | PC.NURSE ---
Prior to AM medication administration this RN performed a bedside swallow study with the pt d/t overnight RN reporting difficulty swallowing post SPT consult. Pt began coughing instantly with thin liquid intake. MD notified, meds held, and pt changed to NPO. Barium swallow study and KUB completed (see results). New diet order placed for minced and moist level 5 diet with level 2 (nectar thick) liquids. Pt received dinner tray with new diet and tolerated dinner well. Pt currently resting comfortably with 3L O2 via NC on (pt's baseline). Pt had a small, incontinent BM this morning. Pt denies all pain except when palpating lower abdomen and moving in the bed. Bilateral buttock wounds noted on pt's bottom. Wounds were cleaned and antifungal cream was applied topically after BM. Pt repositioned frequently and reddy catheter remains in place and draining appropriately (see I/O). Pt's son updated at bedside on today's events.
--- NOTE | 2024-05-14 18:26 | PC.NURSE ---
Upon assessment pt resting comfortably in bed and requests to move to chair. Plan today to wean down supplemental O2. Pt went from 5L O2 via NC to 3L O2 via NC. Pt not on O2 at baseline. IV lasix BID added to med list and pt tolerating well. Pruitt catheter was removed at 1645 per MD order and pt educated on the need to urinate by 2245. Urinal provided at bedside. Pt up to bedside commode x2 during the day with no BM but pt is passing significant gas. Bowel sounds are active and present in all quadrants. Pt reports no pain and follow up KUB done today (see results). Pt ate all meals at 100%. PCR swab completed to rule out upper respiratory issue and swab resulted as negative. Plan is to return to [facility] when medically stable.
[2024-05-14] MEDS: QUEtiapine FUMARATE 100 MG TABLET 300 MG PO (20:49)
[2024-05-15] VITALS (20 sets, daily range): BP systolic 127–160; BP diastolic 53–78; PULSE 56–69; RESP 18–20; TEMP 36.7–37; O2SAT 91–97
[2024-05-15 04:22] LABS: Hematocrit 35.8 % (42.0-52.0); Hemoglobin 11.6 g/dL (14.0-18.0); Mean Corpuscular HGB Conc 32.4 g/dl (32-36); Mean Corpuscular Hemoglobin 31.3 pg (26-34); Mean Corpuscular Volume 96.5 fl (80-100); Mean Platelet Volume 10.3 fl (7.4-10.4); Platelet Count Result 162 k/mm3 (150-375); Red Blood Count 3.71 M/mm3 (4.6-6.20); Red Cell Distribution Width 14.3 % (11.5-14.5); White Blood Count 9.5 K/mm3 (4.5-10.0)
[2024-05-15 04:32] LABS: Anion Gap 7 mmol/L (4-12); Blood Urea Nitrogen 40 mg/dL (9-20); Calcium 9.6 mg/dL (8.4-10.2); Carbon Dioxide 28 mmol/L (22-30); Chloride 103 mmol/L (98-107); Estimated CRCL calculation 34 ml/min; Estimated Glomerular Filt Rate 33; Glucose 99 mg/dL (65-110); Magnesium 1.9 mg/dL (1.6-2.3); Sodium 138 mmol/L (137-145)
[2024-05-15] MEDS: LEVOTHYROXINE SODIUM 50 MCG TABLET PO (05:39)
[2024-05-15] MEDS: CITALOPRAM HYDROBROMIDE 20 MG TABLET 80 MG PO (08:22)
[2024-05-15] MEDS: EMPAGLIFLOZIN 10 MG TABLET PO (08:22)
[2024-05-15] MEDS: FUROSEMIDE INJ 40 MG/4 ML VIAL IV PUSH ×2 (08:22→17:08)
[2024-05-15] MEDS: OPTI-GEN TAB 1 TABLET PO (08:22)
[2024-05-15] MEDS: METOPROLOL SUCCINATE EXT REL 25 MG TABCR 75 MG PO (08:22)
[2024-05-15] MEDS: BISACODYL 5 MG TABLET EC PO (08:23)
[2024-05-15] MEDS: OMEGA 3 POLYUNSAT FATTY ACIDS 1 GM CAP PO ×2 (08:23→20:05)
[2024-05-15] MEDS: CYANOCOBALAMIN INJ 1,000 MCG/ML VIAL 1000 MCG IM (08:23)
[2024-05-15] MEDS: ATORVASTATIN 40 MG TABLET 80 MG PO (08:23)
[2024-05-15] MEDS: FELODIPINE 5 MG TAB CR 10 MG PO (08:23)
[2024-05-15] MEDS: CYANOCOBALAMIN 1,000 MCG TABLET 1000 MCG PO (08:23)
[2024-05-15] MEDS: ASPIRIN 81 MG ENTERIC TABLET PO (08:23)
[2024-05-15] MEDS: SACUBITRIL/VALSARTAN 49-51 MG TABLET 1 TABLET PO ×2 (08:26→20:06)
[2024-05-15] MEDS: buPROPion HCL SR (12 HR) 150 MG TAB PO ×3 (08:27→20:31)
[2024-05-15 12:14] LABS: Uric Acid 9.2 mg/dL (3.5-8.5)
--- NOTE | 2024-05-15 12:15 | PM.PNNEP ---
Subjective Date/time seen: 05/15/24 17:01 Interval history: Follow-up for chronic kidney disease. Reports that his breathing is doing better but still requiring supplemental oxygen (does not need at baseline); renal function/creatinine stable but his diuretics are still on hold; Objective Data Vital Signs Vital Signs: Vital Signs Temp Pulse Resp BP Pulse Ox O2 Del Method O2 Flow Rate 05/15/24 11:54 60 05/15/24 10:00 68 05/15/24 08:00 94 Nasal Cannula 2 05/15/24 08:00 69 05/15/24 08:22 60 05/15/24 07:40 98.3 F 67 20 160/78 H 96 05/15/24 07:35 93 Nasal Cannula 3 05/15/24 06:00 61 05/15/24 04:00 62 05/15/24 04:30 98.1 F 62 18 133/66 91 05/15/24 04:00 60 18 93 High Flow Nasal Cannula 3 05/15/24 02:00 60 05/15/24 00:00 57 L 05/15/24 00:15 58 L 18 93 High Flow Nasal Cannula 3 05/14/24 23:36 99.0 F 58 L 18 123/57 L 93 05/14/24 22:00 60 05/14/24 20:00 58 L 05/14/24 21:11 93 High Flow Nasal Cannula 3 05/14/24 20:00 58 L 18 93 High Flow Nasal Cannula 3 05/14/24 19:40 99.9 F H 58 L 18 153/79 H 93 05/14/24 18:00 60 Intake/Output Intake/Output: Intake & Output 05/12/24 05/13/24 05/14/24 05/15/24 23:59 23:59 23:59 23:59 Intake Total 836 1270 2130 1030 Output Total 0430 5892 2653 300 [facility] -2308 -1555 -195 730 Meds/Results Medications: Active Medications Generic Name Dose Route Start Last Admin Trade Name Freq PRN Reason Stop Dose Admin Aspirin 81 mg 05/12/24 10:30 05/15/24 08:23 Aspirin 81 Mg Enteric Tablet PO 81 mg DAILY MAYRA Administration Atorvastatin Calcium 80 mg 05/12/24 10:30 05/15/24 08:23 Atorvastatin 40 Mg Tablet PO 80 mg DAILY MAYRA Administration Bisacodyl 5 mg 05/14/24 09:00 05/15/24 08:23 Bisacodyl 5 Mg Tablet Ec PO 5 mg QAM MAYRA Administration Bupropion HCl 150 mg 05/12/24 13:00 05/15/24 14:03 Bupropion Hcl Sr (12 Hr) 150 Mg Tab PO 150 mg 0900,1300,2100 MAYRA Administration Celecoxib 100 mg 05/15/24 17:00 Celecoxib 100 Mg Capsule PO BIDWM MAYRA Citalopram Hydrobromide 80 mg 05/12/24 10:30 05/15/24 08:22 Citalopram Hydrobromide 20 Mg Tablet PO 80 mg DAILY MAYRA Administration Colchicine 0.6 mg 05/15/24 21:00 Colchicine 0.6 Mg Tablet PO Q12HR MAYRA Cyanocobalamin 1,000 mcg 05/15/24 09:00 05/15/24 08:23 Cyanocobalamin Inj 1,000 Mcg/Ml Vial IM 05/17/24 09:01 1,000 mcg DAILY MAYRA Administration Cyanocobalamin 1,000 mcg 05/14/24 11:40 05/15/24 08:23 Cyanocobalamin 1,000 Mcg Tablet PO 1,000 mcg QAM MAYRA Administration Empagliflozin 10 mg 05/12/24 10:30 05/15/24 08:22 Empagliflozin 10 Mg Tablet PO 10 mg DAILY MAYRA Administration Felodipine 10 mg 05/12/24 10:30 05/15/24 08:23 Felodipine 5 Mg Tab Cr PO 06/12/24 10:29 10 mg DAILY MAYRA Administration Fish Oil 1 gm 05/12/24 10:35 05/15/24 08:23 [place] 3 Polyunsat Fatty Acids 1 Gm Cap PO 1 gm Q12HR MAYRA Administration Furosemide 40 mg 05/14/24 17:00 05/15/24 08:22 Furosemide Inj 40 Mg/4 Ml Vial IV PUSH 40 mg BID MAYRA Administration Levothyroxine Sodium 50 mcg 05/12/24 10:30 05/15/24 05:39 Levothyroxine Sodium 50 Mcg Tablet PO 50 mcg DAILY@0630 MAYRA Administration Metoprolol Succinate 75 mg 05/13/24 09:00 05/15/24 08:22 Metoprolol Succinate Ext Rel 25 Mg Tabcr PO 75 mg DAILY MAYRA Administration Multivitamins/Minerals 1 tablet 05/12/24 10:30 05/15/24 08:22 Opti-Gen Tab PO 06/12/24 10:29 1 tablet DAILY MAYRA Administration Quetiapine Fumarate 300 mg 05/12/24 21:00 05/14/24 20:49 Quetiapine Fumarate 100 Mg Tablet PO 300 mg HS MAYRA Administration Sacubitril/Valsartan 1 tablet 05/12/24 10:30 05/15/24 08:26 Sacubitril/Valsartan 49-51 Mg Tablet PO 1 tablet Q12HR MAYRA Administration Simethicone 80 mg 05/12/24 1
[2024-05-15 13:09] LABS: Erythrocyte Sedimentation Rate 53 mm/hr (0-20)
--- NOTE | 2024-05-15 15:00 | PM.IMPN ---
Progress Note: A&P Assessment and Plan (1) Acute hypoxic respiratory failure: Code(s): J96.01 - Acute respiratory failure with hypoxia Status: Acute Assessment and Plan: Patient presents with SOB and found to be hypoxic. ABG 7.44/31/60 6L. CXR showing diffuse lung disease likely moderate pulmonary edema. Can not exclude PNA. BNP 6270 which is higher than Dayan value. WBC normal. Emerson his resp failure related to CHF. He received Lasix 80mg IV in ER and is started on 40mg IV BID Wean O2 as tolerated. continue to diuresis with iv lasix (2) Acute exacerbation of CHF (congestive heart failure): Code(s): I50.9 - Heart failure, unspecified Status: Acute Assessment and Plan: Echo showing dilated LV with borderline systolic function (EF 50%), minimal valvular disease. continue iv lasix Cr better today and still on oxygen. Resume lasix IV and monitor. (3) CARLOS (acute kidney injury): Code(s): N17.9 - Acute kidney failure, unspecified Status: Acute Assessment and Plan: Baseline Cr 1.6-2.1. Cr 1.8 on admission but increased to 2.0 Cr about the same. Resume Lasix IV and monitor. (4) Generalized weakness: Code(s): R53.1 - Weakness Status: Acute Assessment and Plan: Related to above. PT/OT ordered (5) Ischemic cardiomyopathy: Code(s): I25.5 - Ischemic cardiomyopathy Status: Acute Assessment and Plan: Echo as above. EF at 50%. Continue Entresto, Empagliflozin, Toprol XL (6) Gout: Code(s): M10.9 - Gout, unspecified Status: Acute Assessment and Plan: Left foot pain likely secondary to gout flare elebrex ordered and colchicine ordered Watch bmp Plan Mild anemia - Hgb persistently in the 10-11 range. No iron studies but B12 low at 175 and MMA high at 1369 last admission c/w B12 deficiency. He was given low dose oral replacement but not discharged with any B12 medications. Replace IM x 3 days and add oral replacement as well. Subjective Date/time seen: 05/15/24 15:00 Interval history: 73yo male with CHF, DM, HTN and CKD here for shortness of breath. Pt is here for chf exacerbation doing well with iv lasix Pt complains of left foot pains xray and venous doppler are negative uric level is high ? gout flare Colchicine and Celebrex started Review of Systems Review of Systems: SOB ongoing L foot pain Exam Narrative: Generally: middle aged man overweight Chest - bibasilar inspiratory rhonchi CV - RRR S1/S2 Abd - Soft, NT/ND, Positive BS - Pruitt secured draining clear yellow urine. Ext - No pedal edema Psych - Nml mood and affect Skin - Warm and dry Objective Data Vital Signs Vital Signs: Vital Signs - 24 hr 05/14/24 15:55 05/14/24 16:00 05/14/24 16:00 Temperature 37.2 C Pulse Rate 56 L 55 L Respiratory Rate 18 Blood Pressure 156/61 H Pulse Oximetry 94 94 Oxygen Delivery High Flow Nasal Cannula Oxygen Flow Rate 3 Fraction of Inspired Oxygen 05/14/24 18:00 05/14/24 19:40 05/14/24 20:00 Temperature 37.7 C H Pulse Rate 60 58 L 58 L Respiratory Rate 18 18 Blood Pressure 153/79 H Pulse Oximetry 93 93 Oxygen Delivery High Flow Nasal Cannula Oxygen Flow Rate 3 Fraction of Inspired Oxygen 05/14/24 21:11 05/14/24 20:00 05/14/24 22:00 Temperature Pulse Rate 58 L 60 Respiratory Rate Blood Pressure Pulse Oximetry 93 Oxygen Delivery High Flow Nasal Cannula Oxygen Flow Rate 3 Fraction of Inspired Oxygen 05/14/24 23:36 05/15/24 00:15 05/15/24 00:00 Temperature 37.2 C Pulse Rate 58 L 58 L 57 L Respiratory Rate 18 18 Blood Pressure 123/57 L Pulse Oximetry 93 93 Oxygen Delivery High Flow Nasal Cannula Oxygen Flow Rate 3 Fraction of Inspired Oxygen 05/15/24 02:00 05/15/24 04:00 05/15/24 04:30 Temperature 36.7 C Pulse Rate 60 60 62 Respirat
[2024-05-15] MEDS: CELECOXIB 100 MG CAPSULE PO (17:09)
--- NOTE | 2024-05-15 17:53 | PC.NURSE ---
Pt transferred to [facility] room 349 via bed. Report given to XOCHILT Esquivel. 1700 medications given and pt cleaned up from incontinence episode prior to transfer. Family member, Butch (son) called and notified of pt's transfer.
[2024-05-15] MEDS: ZOLPIDEM TARTRATE (*CRX) 5 MG TABLET PO (20:05)
[2024-05-15] MEDS: QUEtiapine FUMARATE 100 MG TABLET 300 MG PO (20:05)
[2024-05-15] MEDS: COLCHICINE 0.6 MG TABLET PO (20:06)
[2024-05-16] VITALS: PULSE 51
[2024-05-16 04:00] VITALS: PULSE 62
[2024-05-16] MEDS: LEVOTHYROXINE SODIUM 50 MCG TABLET PO (05:32)
[2024-05-16 05:53] LABS: Hematocrit 38.8 % (42.0-52.0); Hemoglobin 12.9 g/dL (14.0-18.0); Mean Corpuscular HGB Conc 33.2 g/dl (32-36); Mean Corpuscular Hemoglobin 31.9 pg (26-34); Mean Platelet Volume 9.7 fl (7.4-10.4); Platelet Count Result 194 k/mm3 (150-375); Red Blood Count 4.04 M/mm3 (4.6-6.20); Red Cell Distribution Width 14.4 % (11.5-14.5); White Blood Count 8.3 K/mm3 (4.5-10.0)
[2024-05-16 06:07] VITALS: BP 139/68; PULSE 60; RESP 18; TEMP 36.8; O2SAT 93
[2024-05-16 06:09] LABS: Anion Gap 6 mmol/L (4-12); Blood Urea Nitrogen 44 mg/dL (9-20); Calcium 9.7 mg/dL (8.4-10.2); Carbon Dioxide 32 mmol/L (22-30); Chloride 102 mmol/L (98-107); Estimated CRCL calculation 33 ml/min; Estimated Glomerular Filt Rate 33; Glucose 84 mg/dL (65-110); Potassium 3.6 mmol/L (3.4-5.0); Sodium 140 mmol/L (137-145)
[2024-05-16 08:00] VITALS: PULSE 65; PULSE 73; RESP 18; O2SAT 93
[2024-05-16] MEDS: BISACODYL 5 MG TABLET EC PO (09:20)
[2024-05-16] MEDS: ASPIRIN 81 MG ENTERIC TABLET PO (09:20)
[2024-05-16] MEDS: CYANOCOBALAMIN 1,000 MCG TABLET 1000 MCG PO (09:20)
[2024-05-16] MEDS: OMEGA 3 POLYUNSAT FATTY ACIDS 1 GM CAP PO (09:20)
[2024-05-16] MEDS: OPTI-GEN TAB 1 TABLET PO (09:20)
[2024-05-16] MEDS: CELECOXIB 100 MG CAPSULE PO (09:20)
[2024-05-16] MEDS: SACUBITRIL/VALSARTAN 49-51 MG TABLET 1 TABLET PO (09:20)
[2024-05-16] MEDS: ATORVASTATIN 40 MG TABLET 80 MG PO (09:20)
[2024-05-16] MEDS: FELODIPINE 5 MG TAB CR 10 MG PO (09:20)
[2024-05-16] MEDS: CITALOPRAM HYDROBROMIDE 20 MG TABLET 80 MG PO (09:20)
[2024-05-16] MEDS: EMPAGLIFLOZIN 10 MG TABLET PO (09:20)
[2024-05-16] MEDS: FUROSEMIDE INJ 40 MG/4 ML VIAL IV PUSH (09:20)
[2024-05-16] MEDS: buPROPion HCL SR (12 HR) 150 MG TAB PO ×2 (09:20→12:31)
[2024-05-16] MEDS: COLCHICINE 0.6 MG TABLET PO (09:20)
[2024-05-16 09:21] VITALS: PULSE 73
[2024-05-16] MEDS: CYANOCOBALAMIN INJ 1,000 MCG/ML VIAL 1000 MCG IM (09:21)
[2024-05-16] MEDS: METOPROLOL SUCCINATE EXT REL 25 MG TABCR 75 MG PO (09:21)
[2024-05-16 12:00] VITALS: PULSE 57
--- NOTE | 2024-05-16 12:20 | PM.PNNEP ---
Subjective Date/time seen: 05/16/24 12:20 Interval history: Follow-up for chronic kidney disease. Objective Data Vital Signs Vital Signs: Vital Signs Temp Pulse Resp BP Pulse Ox O2 Del Method FiO2 05/16/24 12:00 57 L 05/16/24 08:00 73 18 93 Room Air 32 05/16/24 09:21 73 05/16/24 08:00 65 05/16/24 06:07 98.2 F 60 18 139/68 93 05/16/24 04:00 62 05/16/24 00:00 51 L 05/15/24 20:00 57 L 05/15/24 20:00 Room Air 05/15/24 21:13 98.2 F 56 L 18 152/62 H 95 05/15/24 19:45 93 Room Air 05/15/24 18:00 61 Intake/Output Intake/Output: Intake & Output 05/13/24 05/14/24 05/15/24 05/16/24 23:59 23:59 23:59 23:59 Intake Total 1270 2130 1270 730 Output Total 2825 2325 300 Balance -1555 -195 970 730 Meds/Results Medications: Medications: Active Medications Generic Name Dose Route Start Last Admin Trade Name Freq PRN Reason Stop Dose Admin Aspirin 81 mg 05/12/24 10:30 05/16/24 08:23 Aspirin 81 Mg Enteric Tablet PO DAILY MAYRA 81 mg Atorvastatin Calcium 80 mg 05/12/24 10:30 05/16/24 08:23 Atorvastatin 40 Mg Tablet PO DAILY MAYRA 80 mg Bisacodyl 5 mg 05/14/24 09:00 05/16/24 08:23 Bisacodyl 5 Mg Tablet Ec PO QAM MAYRA 5 mg Bupropion HCl 150 mg 05/12/24 13:00 05/16/24 13:03 Bupropion Hcl Sr (12 Hr) 150 Mg Tab PO 0900,1300,2100 MAYRA 150 mg Citalopram Hydrobromide 80 mg 05/12/24 10:30 05/16/24 08:22 Citalopram Hydrobromide 20 Mg Tablet PO DAILY MAYRA 80 mg Cyanocobalamin 1,000 mcg 05/15/24 09:00 05/15/24 08:23 Cyanocobalamin Inj 1,000 Mcg/Ml Vial IM 05/17/24 09:01 1,000 mcg DAILY MAYRA Administration Cyanocobalamin 1,000 mcg 05/14/24 11:40 05/15/24 08:23 Cyanocobalamin 1,000 Mcg Tablet PO QAM MAYRA 1,000 mcg Empagliflozin 10 mg 05/12/24 10:30 05/16/24 08:22 Empagliflozin 10 Mg Tablet PO DAILY MAYRA 10 mg Felodipine 10 mg 05/12/24 10:30 05/16/24 08:23 Felodipine 5 Mg Tab Cr PO DAILY MAYRA 06/12/24 10:29 10 mg Fish Oil 1 gm 05/12/24 10:35 05/16/24 08:23 [place] 3 Polyunsat Fatty Acids 1 Gm Cap PO Q12HR MAYRA 1 gm Furosemide 40 mg 05/14/24 17:00 05/16/24 08:22 Furosemide Inj 40 Mg/4 Ml Vial IV PUSH BID MAYRA 40 mg Levothyroxine Sodium 50 mcg 05/12/24 10:30 05/15/24 05:39 Levothyroxine Sodium 50 Mcg Tablet PO DAILY@0630 MAYRA 50 mcg Metoprolol Succinate 75 mg 05/13/24 09:00 05/16/24 08:22 Metoprolol Succinate Ext Rel 25 Mg Tabcr PO DAILY MAYRA 75 mg Multivitamins/Minerals 1 tablet 05/12/24 10:30 05/16/24 08:22 Opti-Gen Tab PO DAILY MAYRA 06/12/24 10:29 1 tablet Quetiapine Fumarate 300 mg 05/12/24 21:00 05/15/24 20:49 Quetiapine Fumarate 100 Mg Tablet PO HS MAYRA 300 mg Sacubitril/Valsartan 1 tablet 05/12/24 10:30 05/16/24 08:26 Sacubitril/Valsartan 49-51 Mg Tablet PO Q12HR MAYRA 1 tablet Simethicone 80 mg 05/12/24 16:52 05/12/24 20:57 Simethicone 80 Mg Tab.Chew PO Q6H PRN Gas 80 mg Zolpidem Tartrate 5 mg 05/12/24 10:22 Zolpidem Tartrate (*Crx) 5 Mg Tablet PO HS PRN Insomnia Radiology Results: ITS Impressions Abdomen X-Ray 05/14/24 09:53 IMPRESSION: NO ACUTE ABDOMINAL FINDINGS. No evidence of ileus seen at this time. Foot X-Ray 05/15/24 13:24 IMPRESSION: No acute osseous abnormality left foot. Venous Doppler Study 05/15/24 13:37 IMPRESSION: Negative left lower extremity venous US. No deep vein thrombosis. Chest X-Ray 05/15/24 15:00 IMPRESSION: Pulmonary edema. Superimposed pneumonia is highly suggestive. Labs Labs: Laboratory Tests 05/16/24 05:47 05/16/24 05:47 Calcium 9.7 Magnesium 2.0
--- NOTE | 2024-05-16 13:03 | PM.DS ---
DS: Admitting Diagnosis Discharge Date 05/16/2024 Admitting Diagnosis Shortness of breath DS: Summary Hospital Course Hospital Course: 73yo male with CHF, DM, HTN and CKD here for shortness of breath. Pt is here for chf exacerbation doing well with iv lasix pt off oxygen lungs clear ok to dc back to his facility Pt complains of left foot pains xray and venous doppler are negative uric level is high ? gout flare Colchicine and Celebrex started Time Spent with Patient Time attestation: Total time spent providing and/or coordinating discharge services:50 minutes on day of DC Exam Narrative: Generally: middle aged man overweight Chest - bibasilar inspiratory rhonchi CV - RRR S1/S2 Abd - Soft, NT/ND, Positive BS - Pruitt secured draining clear yellow urine. Ext - No pedal edema Psych - Nml mood and affect Skin - Warm and dry DS: Data Data Completed and Pending Labs on day of discharge: Labs from last 24 hours 05/16/24 05/15/24 05:47 12:11 WBC 8.3 RBC 4.04 L Hgb 12.9 L Hct 38.8 L MCV 96.0 MCH 31.9 MCHC 33.2 RDW 14.4 Plt Count 194 MPV 9.7 ESR 53 H Sodium 140 Potassium 3.6 Chloride 102 Carbon Dioxide 32 H Anion Gap 6 BUN 44 H Creatinine 2.00 H Estim Creat Clear Calc 33 Estimated GFR 33 L Glucose 84 Calcium 9.7 Magnesium 2.0 Discharge Plan Discharge Attending physician on discharge: Amber Lopez Consulting providers: Erna Gamino Discharging Clinician: Amber Lopez Anticipated Discharge Date/Time: 05/16/24 13:03 Patient Disposition: Home Health Service Activity: as tolerated Diet: heart healthy Discharge Instructions: chf Patient Instructions: Antibiotic Form, Heart Failure (DC) Stand Alone Forms: General Discharge Information Follow-up/Referrals: Cristofer,Brenda Castro MD [Primary Care Provider] - Discharge Medications: New cyanocobalamin (vitamin B-12) [Vitamin B-12] 1,000 mcg Tablet 1,000 mcg PO QAM Qty: 30 0RF celecoxib [Celebrex] 100 mg Capsule 100 mg PO BIDWM Qty: 30 0RF Continued furosemide 40 mg tablet 40 mg PO DAILY PRN (Reason: swelling) Patient Comments: patient states he takes 1 tablet every day and a second tablet as needed bupropion HCl 150 mg tablet sustained-release 12 hr 150 mg PO TID quetiapine 100 mg tablet 300 mg PO HS felodipine 10 mg tablet extended release 24 hr 10 mg PO DAILY aspirin 81 mg Tablet,Delayed Release (Dr/Ec) 81 mg PO DAILY atorvastatin 80 mg tablet 80 mg PO DAILY citalopram 40 mg tablet 80 mg PO DAILY metoprolol succinate 50 mg tablet extended release 24 hr 75 mg PO DAILY levothyroxine 50 mcg tablet 50 mcg PO DAILY zolpidem 10 mg tablet 5 mg PO HS PRN (Reason: Insomnia) vitamin A-vitamin C-vit E-min Tablet 1 tablet PO DAILY omega-3 fatty acids-vitamin E 1,000 mg Capsule 1 cap PO BID Jardiance 10 mg tablet 10 mg PO DAILY Entresto 49-51 mg tablet 1 tablet PO BID Date of admission: 05/12/24 00:05 Primary Care Provider: Cristofer,Brenda Castro Admitting Provider: Lluvia Garnica Attending physician on admission: Lluvia Garnica Condition: Stable Hospitalist MIPS Heart Failure (Exclusion) Patient has history of Heart Transplant or Left Ventricular Assistive Device?: No IF YES, STOP HERE Heart Failure (Qualifier) Patient has current or prior documentation of LVEF less than or equal to 40%, or mod/servere depressed LVSF?: Yes IF NO, STOP HERE If Yes, Heart Failure (Qualifier) Patient was prescribed or already taking an Angiotensin-Converting Enzyme (KEANU) Inhibitor, or Antiotensin Receptor [place] (ARB): Yes Patient was prescribed or already taking bisoprolol, carvedilol, or sustained release metoprolol succinate: Yes
== END 2024-05-16 14:30 | DRG 291 ==
LOC: ANHED 05-12 00:09 → ANHIMU 05-12 00:49 → ANH3MED 05-15 17:43
PROVIDERS: Family Medicine; Internal Medicine; Admitting Provider Internal Medicine; Emergency Provider Student in an Organized Health Care Education/Training Program; PCP Student in an Organized Health Care Education/Training Program; Visit Provider Family Medicine
DX: I13.0 Hypertensive heart and chronic kidney disease with heart failure and stage 1 through stage 4 chronic kidney disease, or unspecified chronic kidney disease (principal); I50.23 Acute on chronic systolic (congestive) heart failure; J96.01 Acute respiratory failure with hypoxia; N17.9 Acute kidney failure, unspecified; D51.9 Vitamin B12 deficiency anemia, unspecified; E11.22 Type 2 diabetes mellitus with diabetic chronic kidney disease; N18.32 Chronic kidney disease, stage 3b; Z20.822 Contact with and (suspected) exposure to COVID-19; I25.10 Atherosclerotic heart disease of native coronary artery without angina pectoris; E78.5 Hyperlipidemia, unspecified; I25.5 Ischemic cardiomyopathy; M10.9 Gout, unspecified
CPT/HCPCS: 36415; 36600; 71045; 73620; 74018; 74019; 80048; 80053; 82375; 82805; 83050; 83735; 83880; 84484; 84550; 85018; 85025; 85027; 85610; 85652; 85730; 87637; 93005; 93971; 96374; 97110; 97161; 97166; 97530; 97535; 99291; A9270; C8929; J1940; J3420; Q9957

== ENCOUNTER 2025-04-02 17:26 | Emergency (ER) | payer MEDICARE, SELFPAY ==
--- OUTSIDE RECORDS SUMMARY | 2024-11-13 06:00 | XMS_ITS ---
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 Name Role Phone Brenda Cleveland MD Primary Care Provider Mariela vailable Victoriano Jacobson Unavailable [phone] REASON FOR VISIT MCI Test Social History Sex Assigned At : Social History Observation Description Sex Assigned At Male Encounters Encounter Location Date Provider Diagnosis [facility] [place] [address] [address] [address] 11/13/2024 Victoriano Jacobson Plan Of Treatment Next Appt Details Provider Name:Victoriano Jacobson , 09/11/2025 11:00:00 AM, [facility], [address], [address], Progress Notes * Berto GREWAL EDOB:1950 (74 yo M)Acc No.[id number]:11/13/2024 Patient: Berto Fuller Provider: Ag JACOBSON MD :1950 A ge:74 Y S ex:Male Date:11/13/2024 Address:[address] Pcp:Brenda Cleveland MD Subjective: * Chief Complaints: * M CI Test * Active Problem List I44.7 LBBB (left bundle br anch block) Onset Date:05/21/2015Modified On:07/18/2024W/U Status:confirmed I25.10 Atherosclerosis of c oronary artery Onset Date:04/04/2024Modified On:07/18/2024/U Status:confirmed F51.01 Primary insomnia Onset Date:06/25/2024Modified On:07/18/2024U Status:confirmedClinical Status:active G47.33 ELVER (obstructive sle ep apnea) Onset Date:03/12/2009Modified On:07/18/2024/U Status:confirmedClinical Status:active I10 Essential hypertensi on Onset Date:04/04/2024Modified On:07/18/2024/U Status:confirmedClinical Status:active E11.9 Type 2 diabetes arminda itus without complication, without long-term current use of insulin ([facility]) Onset Date:06/11/2024Modified On:07/18/2024U Status:confirmedClinical Status:active 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 Onset Date:09/17/2020Modified On:07/18/2024U Status:confirmedClinical Status:active F31.9 Bipolar disorder wit h depression ([facility]) Onset Date:06/25/2024Modified On:07/18/2024U Status:confirmedClinical Status:active I63.9 Cerebrovascular acci dent ([facility]) Onset Date:04/04/2024Modified On:07/18/2024U Status:confirmedClinical Status:active R41.3 Memory impairment Modified On:09/18/2024WU Status:confirmed Billing Information: * Procedure Codes: * Electronic signature of Analia Jacobson MD on 04/02/2025 at 04:02 PM CDT Sign off status: Pending * Provider: Ag JACOBSON MD Date: 0 11/13/2024 Generated for Nery diaz/Lucia/eTransmitting on: 0 04/02/2025 04:02 PM CDT
--- OUTSIDE RECORDS SUMMARY | 2024-12-19 05:15 | XMS_ITS | Continuity of Care Document ---
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 Name Role Phone Oberreiter Trudi SANTIAGO Unavailable Unavailabl e Allergies, Adverse Reactions, Alerts Substance Reaction Status Criticality Penicillins pt does not recall reaction(unknown) Acti ve No Information Medications Medication Instructions Dosage Effective Dates (start - stop) Status Comments PreserVision AREDS 2 250 mg-200 unit-40 mg-1 mg capsule daily - Active WELLBUTRIN (unknown strength) Not Available - Active STANBACK ANALGESIC (unknown strength) Not Available - Active ZOLPIDEM TARTRATE (unknown strength) Not Available - Active ACTOS (unknown strength) Not Available - Active CARVEDILOL (unknown strength) Not Available - Active APLENZIN (unknown strength) Not Available - Active SEROQUEL (unknown strength) Not Available - Active LEXAPRO (unknown strength) Not Available - Active Entresto 97 mg-103 mg tablet take 1 tablet by oral route 2 times every day 1.00 tablet - Active FUROSEMIDE (unknown strength) take 1 tablet by oral route every day Not Available - Active JARDIANCE (unknown strength) take 1 tablet by oral route every day in the morning Not Available - Active ATORVASTATIN CALCIUM (unknown strength) Not Available - Active METFORMIN HCL (unknown strength) Not Available - No Longer Active Procedures Procedure Date Scan Image OCT/Retinal REFRACTION EYE EXAM ESTABLISHED PATIENT Scan Image OCT/Retinal REFRACTION EYE EXAM ESTABLISHED PATIENT REFRACTION EYE EXAM ESTABLISHED PATIENT REFRACTION Scan Image OCT/Retinal EYE EXAM ESTABLISHED PATIENT FLUORESCEIN ANGIOGRAPHY Scan Image OCT/Retinal FUNDUS PHOTOGRAPHY EYE EXAM ESTABLISHED PATIENT REFRACTION Scan Image OCT/Retinal EYE EXAM ESTABLISHED PATIENT INJECTION EYE DRUG Scan Image OCT/Retinal Eylea Injection Scan Image OCT/Retinal INJECTION EYE DRUG Eylea Injection INJECTION EYE DRUG Scan Image OCT/Retinal Avastin Bevacizumab injection 8 FLUORESCEIN ANGIOGRAPHY INJECTION EYE DRUG FUNDUS PHOTOGRAPHY Avastin Bevacizumab injection 8 EYE EXAM ESTABLISHED PATIENT REFRACTION Scan Image OCT/Retinal EYE EXAM ESTABLISHED PATIENT INJECTION EYE DRUG Eylea Injection Eylea Injection Scan Image OCT/Retinal INJECTION EYE DRUG Avastin Bevacizumab injection 6 Avastin Bevacizumab injection 6 Scan Image OCT/Retinal EYE EXAM ESTABLISHED PATIENT, MEDICAL Se INJECTION EYE DRUG Avastin Bevacizumab injection 6 Avastin Bevacizumab injection 6 FLUORESCEIN ANGIOGRAPHY FUNDUS PHOTOGRAPHY EYE EXAM ESTABLISHED PATIENT, MEDICAL Se REFRACTION NO UPDATE Scan Image OCT/Retinal EYE EXAM ESTABLISHED PATIENT, MEDICAL Ja REFRACTION NO UPDATE EYE EXAM ESTABLISHED PATIENT, MEDICAL Ju Scan Image OCT/Retinal OFFICE/OUTPATIENT VISIT, EST FLUORESCEIN ANGIOGRAPHY FUNDUS PHOTOGRAPHY Scan Image OCT/Retinal EYE EXAM ESTABLISHED PATIENT, SHANNAN Abraham REFRACTION NO UPDATE Scan Image/ OCT, Retina GLASSES RECHECK Lens sphere trifocal 4.12-7. Anti-reflective coating EYE EXAM ESTABLISHED PATIENT, SHANNAN Dillon REFRACTION OPTIONAL UPDATE Frame Trifocal Lens Anti-reflective coating EYE EXAM ESTABLISHED PATIENT, SHANNAN Cardona REFRACTION UPDATE Advance Directives Directive Yes / No Effective Date File Name No Information Encounters Encounter Description Practice Location Reason(s) For Visit Diagnoses Date Provider Providers Copied on Encounter [facility], [facility], [address] [place] [address], [id number] , [place] tel:[phone] [facility] vision exam (chief complaint) Hypermetropia, bilateralRegula r astigmatism, bilateralPresby opiaType 2 diabetes mellitus without complicationsLo ng term (current) use of oral hypoglycemic drugsNonexudati ve age-related macular degeneration, left eye, early dry stageNonexudati ve age-related macular degeneration, right eye, advanced atrophic without subfoveal involvementComb ined forms of age-related cataract, bilateral 2- 5 Tai Brush. [address], [place], [place], [id number], [place]. tel:[phone] Referring Provider: Trudi Celis, [address], [place], [address]. tel:[phone] [facility], [facility], [address] [place] [address], [id number] , [place] tel:[phone] [facility] vision exam (chief complaint) Hypermetropia, bilateralRegula r astigmatism, bilateralPresby opiaLong term (current) use of oral hypoglycemic drugsType 2 diabetes mellitus without complicationsNo nexudative age-related macular degeneration, right eye, advanced atrophic with subfoveal involvementNone judithtive age-related macular degeneration, left eye, intermediate dry stage Mar-0 4 Urszula Moulton. [address] [place] [address], [id number], [place]. tel:[phone] Referring Provider: Kenney Celis, [address] [place] [address], [id number]. tel:[phone] [facility], [address] [place] [address], [id number] , [place] tel:[phone] [facility] diabetic eye exam (chief complaint) Hypermetropia, bilateralRegula r astigmatism, bilateralPresby opiaLong term (current) use of oral hypoglycemic drugsType 2 diabetes mellitus without complicationsNo nexudative age-related macular degeneration, left eye, intermediate dry stageNonexudati ve age-related macular degeneration, right eye, advanced atrophic without subfoveal involvementComb ined forms of age-related cataract, bilateral Oct-1 2 Urszula Moulton. [address] [place] [address], [id number], [place]. tel:[phone] Referring Provider: Kenney Celis, [address] [place] [address], [id number]. tel:[phone] [facility], [address] [place] [address], [id number] , [place] tel:[phone] [facility] Diabetes Examination (chief complaint)no problems with vision and no complaints (chief complaint) Hypermetropia, bilateralRegula r astigmatism, bilateralPresby opiaCombined forms of age-related cataract, bilateralType 2 diabetes mellitus without complicationsLo ng term (current) use of oral hypoglycemic drugsNonexudati ve age-related macular degeneration, right eye, advanced atrophic without subfoveal involvementNone xudative age-related macular degeneration, left eye, intermediate dry stage Mar-1 2 Urszula Moulton. [address] [place] [address], [id number], [place]. tel:[phone] Referring Provider: Kenney Celis, [address] [place] [address], [id number]. tel:[phone] [facility], [address] [place] [address], [id number] , tel:[phone] [facility] no problems with vision and no complaints (chief complaint) Nonexudative age-related macular degeneration, bilateral, intermediate dry stageType 2 diabetes mellitus without complicationsLo ng term (current) use of oral antidiabetic drugs 2 1 Maciej Prince. [address] [place] [address], [id number], [place]. tel:[phone] [facility], [address] [place] [address], [id number] , [place] tel:[phone] [facility] no problems with vision and no complaints (chief complaint) Myopia, bilateralPresby opiaRegular astigmatism, bilateralLong term (current) use of oral hypoglycemic drugsCombined forms of age-related cataract, bilateralType 2 diabetes mellitus without complicationsEx udative age-related macular degeneration, bilateral, with active choroidal neovascularizat ion Dec-2 8-202 0 Urszula Moulton. [address] [place] [address], [id number], [place]. tel:[phone] [facility], [address] [place] [address], [id number] , tel:[phone] [facility] only peripheral vision (chief complaint) Exudative age-related macular degeneration, right eye, with active choroidal neovascularizat ion Dec-0 5-201 8 Sharon Vazquez. [address] [place] [address], [id number], [place]. tel:[phone] Referring Provider: George Herrera, [address] [place] [address], [facility]. tel:[phone] [facility], [address] [place] [address], [id number] , tel:[phone] [facility] stable vision (chief complaint)di abetic (chief complaint) Exudative age-related macular degeneration, right eye, with active choroidal neovascularizat ion Nov-0 8 Sharon Vazquez. [address] [place] [address], [facility], . tel:[phone] Referring Provider: George Herrera, [address] [place] [address], [facility]. tel:[phone] [facility], [address] [place] [address], [address] [place] [address] , tel:[phone] [facility] stable vision (chief complaint) Exudative age-related macular degeneration, right eye, with active choroidal neovascularizat ion Mar- 8 Sharon Vazquez. [address] [place] [address], [facility], . tel:[phone] Referring Provider: George Herrera, [address] [place] [address], [facility]. tel:[phone] [facility], [address] [place] [address], [address] [place] [address] , tel:[phone] [facility] blurry vision (chief complaint) Exudative age-related macular degeneration, right eye, with active choroidal neovascularizat ionNonexudative age-related macular degeneration, left eye, early dry stageType 2 diabetes mellitus without complicationsLo ng term (current) use of oral hypoglycemic drugs Sharon Vazquez. [address] [place] [address], [facility], . tel:[phone] [facility], [address] [place] [address], [address] [place] [address] , tel:[phone] [facility] Diabetes Examination (chief complaint)de creased vision (chief complaint) Exudative age-related macular degeneration, right eye, with active choroidal neovascularizat ionNonexudative age-related macular degeneration, left eye, early dry stageCombined forms of age-related cataract, right eyeAge-related nuclear cataract, left eyeHypermetropi a, bilateralRegula r astigmatism, bilateralPresby opiaType 2 diabetes mellitus without complicationsLo ng term (current) use of oral hypoglycemic drugs 8 Urszula Moulton. [address] [place] [address], [id number], [place]. tel:[phone] [facility], [address] [place] [address], [id number] , [place] tel:[phone] [facility] stable vision (chief complaint) Exudative age-rel mclr degn, bi, with actv chrdl neovasCentral serous chorioretinopat hy, bilateral Nov- 6 Sharon Vazquez. [address] [place] [address], [facility], [place]. tel:[phone] Referring Provider: George Herrera, [address] [place] [address], [facility]. [phone] [facility], [address] [place] [address], [address] [place] [address] , tel:[phone] [facility] no problems with vision and no complaints (chief complaint) Central serous chorioretinopat hy, bilateralExudat gen age-rel mclr degn, bi, with actv chrdl neovas Oct- 6 Sharon Vazquez. [address] [place] [address], [facility], [place]. tel:[phone] Referring Provider: George Herrera, [address] [place] [address], [facility]. tel:[phone] [facility], [address] [place] [address], [id number] , [place] tel:[phone] [facility] decreased vision (chief complaint) Type 2 diabetes mellitus without complicationsCe ntral serous chorioretinopat hy, bilateralExudat gen age-related macular degeneration Mar- 6 Sharon Vazquez. [address] [place] [address], [facility], [place]. tel:[phone] Referring Provider: George Herrera, [address] [place] [address], [facility]. tel:[phone] [facility], [address] [place] [address], [id number] , [place] tel:[phone] [facility] decreased vision (chief complaint)gl are (chief complaint) Age-related nuclear cataract, bilateralRetina l edemaPuckering of macula, left eye 6 No Information [facility], [address] [place] [address], [id number] , tel:[phone] [facility] Diabetes Examination (chief complaint)no problems with vision and no complaints (chief complaint)dr juarez (chief complaint) Type 2 diabetes mellitus without complicationsCo mbined forms of age-related cataract, bilateral 6 Elise Tang. [address] [place] [address], [id number], [place]. tel:[phone] Referring Provider: Kitty Garnett, [address] [place] [address], [id number]. tel:[phone] [facility], [address] [place] [address], [id number] , [place] tel:[phone] [facility] Central serous retinopathy 4 Sharon Vazquez. [address] [place] [address], [id number], . tel:[phone] Referring Provider: Kitty Garnett, [address] [place] [address], [id number]. tel:[phone] OFFICE/OUTPA TIENT VISIT, EST [facility], [address] [place] [address], [id number] , [place] tel:[phone] [facility] Central serous retinopathy 4 Sharon Vazquez. [address] [place] [address], [id number], . tel:[phone] Referring Provider: Kitty Garnett, [address] [place] [address], [id number]. tel:[phone] [facility], [address] [place] [address], [id number] , [place] tel:[phone] [facility] Central serous retinopathyDiab etes Mellitus Type 2, Uncomplicated 4 Aprahamian Kitty. [address] [place] [address], [id number], [place]. tel:[phone] Referring Provider: Kitty Garnett, [address] [place] [address], [id number]. tel:[phone] [facility], [address] [place] [address], [id number] , [place] tel:[phone] [facility] No Information 2 Aprahamian Kitty. [address] [place] [address], [id number], [place]. tel:[phone] Referring Provider: Kitty Garnett, [address] [place] [address], [id number]. tel:[phone] [facility], [address] [place] [address], [id number] , [place] tel:[phone] [facility] No Information 2 Aprahamian Kitty. [address] [place] [address], [id number], [place]. tel:[phone] [facility], [address] [place] [address], [id number] , [place] tel:[phone] [facility] PresbyopiaDiabe susana mellitus without mention of complication,Se nile nuclear sclerosisCentra l serous retinopathy 2 Aprahamian Kitty. [address] [place] [address], [id number], [place]. tel:[phone] [facility], [address] [place] [address], [id number] , [place] tel:[phone] [facility] No Information 0 Kinsley Cali. [address] [place] [address], [id number], . tel:[phone] [facility], [address] [place] [address], [id number] , tel:[phone] [facility] No Information 0 Hugo Leiva. [address] [place] [address], [id number], . tel:[phone] [facility], [address] [place] [address], [id number] , tel:[phone] [facility] No Information 0 Hugo Leiva. [address] [place] [address], [id number], . tel:[phone] Family History Family Member Type Diagnosis Age At Onset Problem (finding) No Family hist ory of Macular Degeneration Problem (finding) No Family history of HB P Problem (finding) No Family history of Ca taracts Problem (finding) No Family history of Gl aucoma Problem (finding) No Family history of Di abetes mellitus Payers Payer name Insurance type Covered constitution party ID Authoriza tion(s) Medicare [place] MB [id number] [facility] [id number] CI [id number] [facility] CI [id number] Social History Type Description Quantity Date Captured Comments Alcohol Use Details Unknown Caffeine Use Details Unknown Tobacco Use Status Current non-smoker Smoking Status Never smoker Non-Smoking Tobacco Use Details : No Details Available : No Details Available Sex Male Chief Complaint And Reason For Visit From encounter dated '12/19/2024 10:15'. vision exam (chief complaint). Description: The 74 year old patient presents for a vision exam and F/U ARMD OU. The Pt reports his D+N VA OU cc is clear, constant, and stable c no changes. He claims he is hoping to get new GL today and that his current RX is working well but is scratched. He deniesany pain, discomfort, or use of OTC AT OU and claims to take AREDS 2 PO BID.The Pt is Type II Diabetic treating c oral medications and claims his BS levels are controlled and stable. Please send a letter to Dr. Rea in [facility]. Reason For Referral Reason For Referral No Information Plan Of Treatment Date Type Action Status Referral Ordered: Boby Trivedi MD -Allopathic & Osteopathic Physicians : Internal Medicine (related to Type 2 diabetes mellitus without complications) ordered Referral Referred To: Boby Trivedi MD [address] [place], [address] [phone] Ordered: Referrals: Allopathic & Osteopathic Physicians : Internal Medicine. Boby Trivedi MD. Assume care ordered History Of Present Illness Encounter Date Complaint History Of Prese nt Illness vision exam The 74 year old patient presents for a vision exam and F/U ARMD OU. The Pt reports his D+N VA OU cc is clear, constant, and stable c no changes. He claims he is hoping to get new GL today and that his current RX is working well but is scratched. He denies any pain, discomfort, or use of OTC AT OU and claims to take AREDS 2 PO BID.The Pt is Type II Diabetic treating c oral medications and claims his BS levels are controlled and stable. Please send a letter to Dr. Rea in [facility]. vision exam The 72 year old patient presents for Refractive Error OU, AMD OU for evaluation of vision exam in the right eye and left eye. It affects Vision good and stable and constant D & N c gls. Pt notes the gls fall down on his face and it causes his VA to be blurry. Pt notes no glare issues OU. Patient denies: pain or discomfort. Pt is not using any OTC ATT2 diabetic treating with oral meds. BS stable. Please send diabetic letter to Dr. Trivedi and Alfred Moon diabetic eye exam The 71 year ol d patient presents for evaluation of diabetic eye exam in the right eye and left eye. Pt. got new glasses a couple of months ago and is having some difficulty with his near vision and vision seems to be dimmer since last exam. Pt. states his distance vision is doing well. Pt. is type 2 diabetic with hx. of AMD OU. Patient denies: pain or discomfort. Pt. takes AREDS2 eye vitamins po. Pt. is type 2 diabetic on oral meds. Letter to go to Dr. Trivedi. Last A1C was 6.1.Pt wishes to wait until July 2022 to have mac OCT no problems with vis ion and no complaints NOTE: no problems with vision and no complaints in the right eye and left eye. It affects both near and far vision. The symptom is constant. The patient denies COVID-19 symptoms - temperature normal, pain or discomfort. Uses no eye meds in OU. Diabetes Examination The 70 Year old male presents for Diabetes Examination. Pt with type 2 diabetes on oral medication. Letter to Boby Trivedi MD. no problems with vis ion and no complaints The 69 Year old male presents for no problems with vision and no complaints in the right eye and left eye. It affects both near and far vision. The symptom is constant. Pt referred by [facility] for wet AMD OU. Pt with type 2 diabetes on oral medication. Letter to Boby Trivedi MD. The patient denies COVID-19 symptoms - temperature normal. Eyes will weep a little bit at night after being on computor for awhile. Uses no eye meds in OU. Does take AREDS 2 formula eye vitamins. no problems with vis ion and no complaints The 69 Year old male presents for no problems with vision and no complaints in the right eye and left eye. It affects both near and far vision. The symptom is constant. Pt with type 2 diabetes on oral medication. Letter to Boby Trivedi MD. The patient denies COVID-19 symptoms - temperature normal. Eyes water a lot at night after being on computor for a long time. Uses no eye meds in OU. only peripheral vision The 67 Ye ar old male presents for only peripheral vision in the right eye. It affects peripheral vision. The symptom is constant. Center of vision blurred. The patient denies pain or discomfort. Pt presents for GEN OD for wet AMD OD. Uses no eye meds in OU but is taking Preservision Areds 2 vitamins. diabetic The patient is t ype 2 diabetic on oral meds. PCP is Dr. Trivedi. Pt notes stable blood sugars. stable vision The 67 Year old male presents for TD, OCT (MAC), and JOHNNY OD for ARMD WET OD. Pt notes stable vision in the right eye and left eye. It started about 6 week(s) ago. It affects both near and far vision. The patient denies pain or discomfort. Pt using no eyedrops. stable vision The 67 Year old male presents for follow up of Wet ARMD OD. Pt reports of stable vision in the right eye since last exam 6 weeks ago. Vision good, stable and constant D & N c gls.. The patient denies pain or discomfort. No eye meds OU. blurry vision The 67 Year old male presents for evaluation of blurry vision in the right > left. It affects both near and far vision. Pt. reports his vision in OD has been poor for many years and his vision in that eye is mostly peripheral. The patient denies pain or discomfort. Pt. is type 2 diabetic. Last A1C was 5.8.Pt. referred by Gurinder. Diabetes Examination The 67 Year old type 2 non insulin dependent diabetic male presents for Diabetes Examination. The patient sees Boby Trivedi for is diabetes. Diabetes Examination decreased vision The patient com plains of decreased vision in the right eye and left eye. The onset was gradual. It affects near vision. It occurs constantly. The condition is significant. The condition is described as blurring. In addition,the condition is associated with reading. The patient denies pain or discomfort. He does not use any gtts. stable vision The 65 Year old male presents for follow up of Wet ARMD OU. Pt reports of stable vision in the right eye and left eye since last exam 4 weeks ago. Vision good, stable and constant D & N c gls. The patient denies pain or discomfort. no problems with vis ion and no complaints The 65 Year old type 2 non insulin dependent diabetic male presents JOHNNY in the OU due to retinal edema/ DATA DEVELOPER-OU. The patient reports no changes in vision OU. It affects both near and far vision. It occurs constantly. The condition is not any better. The condition is described as blurring. The patient denies pain or discomfort. He is not using any gtts. decreased vision The 65 Year old type 2 non insulin dependent diabetic male with hx of DATA DEVELOPER-OU presents for a retinal evaluation per JNT due to retinal edema OU. The patient reports decreased vision in the left > right. The onset was gradual. It affects both near and far vision. It occurs constantly. The condition is worsening. The condition is described as blurring. The patient denies pain or discomfort. He does not use any gtts. glare The patient comp lains of glare in the right eye and left eye. It occurs at night. The condition is significant. The condition is described as having glare. In addition,the condition is associated with driving with oncoming lights. decreased vision The 65 Year old type 2 non insulin dependent diabetic male with hx of DATA DEVELOPER OU presents for a cataract evaluation. The patient reports decreased vision in the right eye and left eye. The onset was gradual. It affects both near and far vision. It occurs constantly. The condition is worsening. The condition is described as blurring, hazy and very dim. The patient denies pain or discomfort. He does not use any gtts. Diabetes Examination The 64 Year old male presents for evaluation of Diabetes Examination in the right eye and left eye. Pt takes oral meds for type 2 diabetes - sees Dr. Trivedi. dryness The patient comp lains of dryness in the right eye and left eye. The onset was last fall. VA not affected. Was not having discomfort but an awareness of eyes being dry. Uses no eye meds OU. no problems with vis ion and no complaints The patient complains of no problems with vision and no complaints in the right eye and left eye. It affects both near and far vision. It occurs constantly. Pt with hx of DATA DEVELOPER OU. Vision poor in right eye but sees well with left eye. Functional Status Date Functional Assessmen t No Information Instructions Date Instruction Additional Infor anuel Impression/Plan Impression/Plan Impression/Plan Impression/Plan Impression/Plan Impression/Plan 6 weeks for ten dil OD, Mac OCT OD, GEN OD. Related to Exudative age-related macular degeneration, right eye, with active choroidal neovascularization Impression/Plan Related to Exuda tive age-related macular degeneration, right eye, with active choroidal neovascularization Impression/Plan Impression/Plan Follow up - 6 weeks with PC for ten dil OD, Mac OCT OD, JOHNNY OD Impression/Plan - Co unseling about the benefits and/or risks of the Age-Related Eye Disease Study (AREDS) formulation for preventing progression of age-related macular degeneration (AMD) was provided to the patient and/or caregiver(s).The macular degeneration has become wet again in the right eye and recommend pt have injections for this if pt wants to. Is up to pt. Pt agrees with treatment with Avastin for right eye. Subconj injection given 6:00 OD. Pt tolerated injection well. Post injection instructions to pt. Do not see any diabetic chgs from the type 2 diabetes in OU. 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 Impression/Plan - Us e of vitamins has shown to improve the effects of ARMD. Change in gls is optional for pt - can try reading glasses also. Did chg Rx for OD to balance the lenses for pt. Does have cataract in OU - OS will progress and make vision dimmer over time and pt does have the macular degen - dry in OS and wet AMD in OD. WIll have pt see PC to determine if needs treatment. Do not see any diabetic retinopathy from the type 2 DM in OU. Discussed the lens implants at time of cataract surgery - would use IOL that would correct the distance vision and pt would wear reading glasses for near. Follow up - [place] appt with PC for ten dil OU, Mac OCT OU. 1 yr with RM[facility] for refr ten dil OU. Follow up - Return i n 4 weeks with PC for T&D OU, mac OCT OU, GEN OU Impression/Plan - Wa nted 4 weeks, has been 4 weeks since last JOHNNY OU. The mac OCT scan shows swelling present OU. Will switch to Eylea OU. Sub conj inj OU @ 6:00. Injections went well. Post procedure instructions and artificial tears given to pt. 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 Hopefully injections will help with the left eye swelling. Explained DATA DEVELOPER to pt - related to stress - can trigger stress hormones which leads to what is going on. Pt not using anti-inflammatories. Follow up - 4 weeks with PC for ten dil OU, Mac OCT OU, JOHNNY OU. 1 month with PC for ten dil OU, Mac OCT OU, JOHNNY OU. Related to Type 2 diabetes mellitus without complications Follow up - 1 month with PC for ten dil OU, Mac OCT OU, JOHNNY OU. Related to Type 2 diabetes mellitus without complications Impression/Plan - Do es have new swelling in the left eye. This could be from DATA DEVELOPER and could be from mac degen. Still with swelling in the right eye. Recommend trying injections in both eyes to see if we can help this. HBP can also be related to the DATA DEVELOPER. Do not see much diabetic chgs in either eye. Pt states he has been on diab. meds for at least 10 years. Pt states his right eye is his good eye and the left eye his lazy eye - would like to see if can make OD see better. Pt says he is bipolar and had manic episode this summer. This stress can play a role in the DATA DEVELOPER too. Is okay to watch televsion and does not have to give up coffee. Discussed the FA photos - do see some mac degen and there is damage from the past DATA DEVELOPER. Cataract surgery may help some. Will try couple injections and see if this does improve things for pt. Explained the risks of injections, bleeding, infection, loss of vision and need for additional treatment. Subconj injection given at 6:00 OU. Pt tolerated procedure well OU. Post injection instructions and art. tears to pt. Related to Type 2 diabetes mellitus without complications Impression/Plan - d Follow up - c PC for T and D OU, ask him if he wants FA Impression/Plan - PC PLANPt. to see PC for ret edema OU. Looks worse in OS from previous OCT. Will have PC take a look and see if anything needs treated. IF he thinks you are stable then can talk a little more about cataract surgery, but do not feel that you will notice much change in the viison form the cataract surgery.OD has a scar and this is why it doesn't see well. Looks like there may be swelling and a membrane in the back of OS. Pt. has had previous diagnosis of DATA DEVELOPER. Will get OCT mac today. Your cataracts are not too bad. Think the vision is being affected more from the macula. Follow up - Return i n 1 year with [facility] for Refract T & D. Impression/Plan - Ov erall things look stable. No diabetic retinopathy in the eyes. Keep BS under good control. Will send report to PCP. Early cataracts OU. Will continue to monitor. No change in glasses Rx needed. 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 Condition: will continue to monitor. - The vision OD has not been good for quite a while. You do have some swelling in the mac and could do injections for this. Not sure that injections would improve vision or not. Will just continue to monitor for now. Educational materials provided:none needed. 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 Condition: established, stable. - There is some fluid in the retina OD. The scan today compared to a couple weeks weeks ago looks a little worse. Would like to monitor this for now. Try to take it easy and avoid stress. DATA DEVELOPER OD, hx. DATA DEVELOPER OU, pt was seen [facility] [place] and Shay baxter has been dx. with DATA DEVELOPER in the past. 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 Condition: established, worsening. Diabetes mellitus without mention of complication, OU. Condition: established, stable. - Will get mac OCT today OU. OD scan does show pocket of fluid which is a chg from previous scan. OS is fine - no fluid. Will have pt see ret. spec. and get FA. Do not see any problems with diabetes. Minimal cataracts - nothing significant. Educational materials provided:none needed. 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 Related to Presbyopia Diabetes mellitus wi thout mention of complication, OU. Condition: established, stable. Vision: vision not affected. Senile nuclear sclerosis OU. Condition: established, stable. Vision: vision not affected. Central serous retinopathy OD. Condition: es - Looks fine. See no bleeding or swelling in retina OU. Not much change in glasses RX. May update if needs new lenses with update in bifocal power. 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
--- OUTSIDE RECORDS SUMMARY | 2024-12-19 05:15 | XMS_ITS | Continuity of Care Document ---
Author Organization [facility], L TD Address [address] [place] [address] Phone Care Team Providers Care Environmental Health Specialist Name Role Phone Oberreiter OD, Trudi Unavailable Unavailabl e Allergies, Adverse Reactions, Alerts Substance Reaction Status Criticality Penicillins pt does not recall reaction(unknown) Acti ve No Information Medications Medication Instructions Dosage Effective Dates (start - stop) Status Comments PreserVision AREDS 2 250 mg-200 unit-40 mg-1 mg capsule daily - Active WELLBUTRIN (unknown strength) Not Available - Active LEXAPRO (unknown strength) Not Available - Active SEROQUEL (unknown strength) Not Available - Active APLENZIN (unknown strength) Not Available - Active CARVEDILOL (unknown strength) Not Available - Active ACTOS (unknown strength) Not Available - Active ZOLPIDEM TARTRATE (unknown strength) Not Available - Active STANBACK ANALGESIC (unknown strength) Not Available - Active Entresto [...] Diagnoses Date Provider Providers Copied on Encounter [facility], [facility], [address] [place] [address], [id number] , [place] tel:[phone] [facility] vision exam (chief complaint) Hypermetropia, bilateralRegula r astigmatism, bilateralPresby opiaType 2 diabetes mellitus without complicationsLo ng term (current) use of oral hypoglycemic drugsNonexudati ve age-related macular degeneration, left eye, early dry stageNonexudati ve age-related macular degeneration, right eye, advanced atrophic without subfoveal involvementComb ined forms of age-related cataract, bilateral 2- 5 Tai Brush. [address], [place], [place], [id number], [place]. tel:[phone] Referring Provider: Trudi Celis, [address], [place], [address]. tel:[phone] [facility], [facility], [address] [place] [address], [id number] , [place] tel:[phone] [facility] vision exam (chief complaint) Hypermetropia, bilateralRegula r astigmatism, bilateralPresby opiaLong term (current) use of oral hypoglycemic drugsType 2 diabetes mellitus without complicationsNo nexudative age-related macular degeneration, right eye, advanced atrophic with subfoveal involvementNone judithtive age-related macular degeneration, left eye, intermediate dry stage Mar-0 4 Urszula Moulton. [address] [place] [address], [id number], [place]. tel:[phone] Referring Provider: Kenney Celis, [address] [place] [address], [id number]. tel:[phone] [facility], [address] [place] [address], [id number] , [place] tel:[phone] [facility] diabetic eye exam (chief complaint) Hypermetropia, bilateralRegula r astigmatism, bilateralPresby opiaLong term (current) use of oral hypoglycemic drugsType 2 diabetes mellitus without complicationsNo nexudative age-related macular degeneration, left eye, intermediate dry stageNonexudati ve age-related macular degeneration, right eye, advanced atrophic without subfoveal involvementComb ined forms of age-related cataract, bilateral Oct-1 2 Urszula Moulton. [address] [place] [address], [id number], [place]. tel:[phone] Referring Provider: Kenney Celis, [address] [place] [address], [id number]. tel:[phone] [facility], [address] [place] [address], [id number] , [place] tel:[phone] [facility] Diabetes Examination (chief complaint)no problems with vision and no complaints (chief complaint) Hypermetropia, bilateralRegula r astigmatism, bilateralPresby opiaCombined forms of age-related cataract, bilateralType 2 diabetes mellitus without complicationsLo ng term (current) use of oral hypoglycemic drugsNonexudati ve age-related macular degeneration, right eye, advanced atrophic without subfoveal involvementNone xudative age-related macular degeneration, left eye, intermediate dry stage Mar-1 2 Urszula Moulton. [address] [place] [address], [id number], [place]. tel:[phone] Referring Provider: Kenney Celis, [address] [place] [address], [id number]. tel:[phone] [facility], [address] [place] [address], [id number] , tel:[phone] [facility] no problems with vision and no complaints (chief complaint) Nonexudative age-related macular degeneration, bilateral, intermediate dry stageType 2 diabetes mellitus without complicationsLo ng term (current) use of oral antidiabetic drugs 2 1 Maciej Prince. [address] [place] [address], [id number], [place]. tel:[phone] [facility], [address] [place] [address], [id number] , [place] tel:[phone] [facility] no problems with vision and no complaints (chief complaint) Myopia, bilateralPresby opiaRegular astigmatism, bilateralLong term (current) use of oral hypoglycemic drugsCombined forms of age-related cataract, bilateralType 2 diabetes mellitus without complicationsEx udative age-related macular degeneration, bilateral, with active choroidal neovascularizat ion Dec-2 8-202 0 Urszula Moulton. [address] [place] [address], [id number], [place]. tel:[phone] [facility], [address] [place] [address], [id number] , tel:[phone] [facility] only peripheral vision (chief complaint) Exudative age-related macular degeneration, right eye, with active choroidal neovascularizat ion Dec-0 5-201 8 Sharon Vazquez. [address] [place] [address], [id number], [place]. tel:[phone] Referring Provider: George Herrera, [address] [place] [address], [facility]. tel:[phone] [facility], [address] [place] [address], [id number] , tel:[phone] [facility] stable vision (chief complaint)di abetic (chief complaint) Exudative age-related macular degeneration, right eye, with active choroidal neovascularizat ion Nov-0 8 Sharon Vazquez. [address] [place] [address], [facility], . tel:[phone] Referring Provider: George Herrera, [address] [place] [address], [facility]. tel:[phone] [facility], [address] [place] [address], [address] [place] [address] , tel:[phone] [facility] stable vision (chief complaint) Exudative age-related macular degeneration, right eye, with active choroidal neovascularizat ion Mar- 8 Sharon Vazquez. [address] [place] [address], [facility], . tel:[phone] Referring Provider: George Herrera, [address] [place] [address], [facility]. tel:[phone] [facility], [address] [place] [address], [address] [place] [address] , tel:[phone] [facility] blurry vision (chief complaint) Exudative age-related macular degeneration, right eye, with active choroidal neovascularizat ionNonexudative age-related macular degeneration, left eye, early dry stageType 2 diabetes mellitus without complicationsLo ng term (current) use of oral hypoglycemic drugs Sharon Vazquez. [address] [place] [address], [facility], . tel:[phone] [facility], [address] [place] [address], [address] [place] [address] , tel:[phone] [facility] Diabetes Examination (chief complaint)de creased vision (chief complaint) Exudative age-related macular degeneration, right eye, with active choroidal neovascularizat ionNonexudative age-related macular degeneration, left eye, early dry stageCombined forms of age-related cataract, right eyeAge-related nuclear cataract, left eyeHypermetropi a, bilateralRegula r astigmatism, bilateralPresby opiaType 2 diabetes mellitus without complicationsLo ng term (current) use of oral hypoglycemic drugs 8 Urszula Moulton. [address] [place] [address], [id number], [place]. tel:[phone] [facility], [address] [place] [address], [id number] , [place] tel:[phone] [facility] stable vision (chief complaint) Exudative age-rel mclr degn, bi, with actv chrdl neovasCentral serous chorioretinopat hy, bilateral Nov- 6 Sharon Vazquez. [address] [place] [address], [facility], [place]. tel:[phone] Referring Provider: George Herrera, [address] [place] [address], [facility]. [phone] [facility], [address] [place] [address], [address] [place] [address] , tel:[phone] [facility] no problems with vision and no complaints (chief complaint) Central serous chorioretinopat hy, bilateralExudat gen age-rel mclr degn, bi, with actv chrdl neovas Oct- 6 Sharon Vazquez. [address] [place] [address], [facility], [place]. tel:[phone] Referring Provider: George Herrera, [address] [place] [address], [facility]. tel:[phone] [facility], [address] [place] [address], [id number] , [place] tel:[phone] [facility] decreased vision (chief complaint) Type 2 diabetes mellitus without complicationsCe ntral serous chorioretinopat hy, bilateralExudat gen age-related macular degeneration Mar- 6 Sharon Vazquez. [address] [place] [address], [facility], [place]. tel:[phone] Referring Provider: George Herrera, [address] [place] [address], [facility]. tel:[phone] [facility], [address] [place] [address], [id number] , [place] tel:[phone] [facility] decreased vision (chief complaint)gl are (chief complaint) Age-related nuclear cataract, bilateralRetina l edemaPuckering of macula, left eye 6 No Information [facility], [address] [place] [address], [id number] , tel:[phone] [facility] Diabetes Examination (chief complaint)no problems with vision and no complaints (chief complaint)dr juarez (chief complaint) Type 2 diabetes mellitus without complicationsCo mbined forms of age-related cataract, bilateral 6 Elise Tang. [address] [place] [address], [id number], [place]. tel:[phone] Referring Provider: Kitty Garnett, [address] [place] [address], [id number]. tel:[phone] [facility], [address] [place] [address], [id number] , [place] tel:[phone] [facility] Central serous retinopathy 4 Sharon Vazquez. [address] [place] [address], [id number], . tel:[phone] Referring Provider: Kitty Garnett, [address] [place] [address], [id number]. tel:[phone] OFFICE/OUTPA TIENT VISIT, EST [facility], [address] [place] [address], [id number] , [place] tel:[phone] [facility] Central serous retinopathy 4 Sharon Vazquez. [address] [place] [address], [id number], . tel:[phone] Referring Provider: Kitty Garnett, [address] [place] [address], [id number]. tel:[phone] [facility], [address] [place] [address], [id number] , [place] tel:[phone] [facility] Central serous retinopathyDiab etes Mellitus Type 2, Uncomplicated 4 Aprahamian Kitty. [address] [place] [address], [id number], [place]. tel:[phone] Referring Provider: Kitty Garnett, [address] [place] [address], [id number]. tel:[phone] [facility], [address] [place] [address], [id number] , [place] tel:[phone] [facility] No Information 2 Aprahamian Kitty. [address] [place] [address], [id number], [place]. tel:[phone] Referring Provider: Kitty Garnett, [address] [place] [address], [id number]. tel:[phone] [facility], [address] [place] [address], [id number] , [place] tel:[phone] [facility] No Information 2 Aprahamian Kitty. [address] [place] [address], [id number], [place]. tel:[phone] [facility], [address] [place] [address], [id number] , [place] tel:[phone] [facility] PresbyopiaDiabe susana mellitus without mention of complication,Se nile nuclear sclerosisCentra l serous retinopathy 2 Aprahamian Kitty. [address] [place] [address], [id number], [place]. tel:[phone] [facility], [address] [place] [address], [id number] , [place] tel:[phone] [facility] No Information 0 [place] Cali. [address] [place] [address], [id number], . tel:[phone] [facility], [address] [place] [address], [id number] , tel:[phone] [facility] No Information 0 Hugo Leiva. [address] [place] [address], [id number], . tel:[phone] [facility], [address] [place] [address], [id number] , tel:[phone] [facility] No Information 0 Hugo Leiva. [address] [place] [address], [id number], . tel:[phone] Family History Family Member Type Diagnosis Age At Onset Problem (finding) No Family history of Di abetes mellitus Problem (finding) No Family history of Gl aucoma Problem (finding) No Family history of Ca taracts Problem (finding) No Family history of HB P Problem (finding) No Family hist ory of Macular Degeneration Payers Payer name Insurance type Covered alliance party ID Authoriza tion(s) Medicare [place] MB [id number] [facility] [id number] CI [id number] [facility] CI [id number] Social History Type Description Quantity Date Captured [...] send a letter to Dr. Rea in [facility]. Reason For Referral Reason For Referral No Information Plan Of Treatment Date Type Action Status Referral Ordered: Boby Trivedi MD -Allopathic & Osteopathic Physicians : Internal Medicine (related to Type 2 diabetes mellitus without complications) ordered Referral Referred To: Boby Trivedi MD [address] [place], [id number] Ordered: Referrals: Allopathic & Osteopathic Physicians : [...] send a letter to Dr. Rea in [facility]. vision exam The 72 year old [...] The symptom is constant. Pt referred by [facility] for wet AMD OU. Pt with type [...] in the OU due to retinal edema/ MATERIALS INSPECTOR-OU. The patient reports no changes in vision OU. It affects both near and far vision. It occurs constantly. The condition is not any better. The condition is described as blurring. The patient denies pain or discomfort. He is not using any gtts. decreased vision The 65 Year old type 2 non insulin dependent diabetic male with hx of MATERIALS INSPECTOR-OU presents for a retinal evaluation per JNT [...] insulin dependent diabetic male with hx of MATERIALS INSPECTOR OU presents for a cataract evaluation. The [...] It occurs constantly. Pt with hx of MATERIALS INSPECTOR OU. Vision poor in right eye but [...] dry mac degen in the left eye. Follow up [place] appt with PC for ten dil OU, Mac OCT OU. 1 yr with RMQ for refr ten dil OU. Impression/Plan - Us e of vitamins has [...] reading glasses for near. Follow up - Return i n 4 weeks with PC for T&D OU, mac OCT OU, GEN OU Impression/Plan - Wa nted 4 weeks, has been 4 weeks since last JOHNNY OU. The mac OCT scan shows swelling present OU. Will switch to Eylea OU. Sub conj inj OU @ 6:00. Injections went well. Post procedure instructions and artificial tears given to pt. Follow up - 4 weeks with PC for ten dil OU, Mac OCT OU, JOHNNY OU. Impression/Plan - Le ss swelling in the right eye today and about the same, bit better OS. Hopefully injections will help with the left eye swelling. Explained MATERIALS INSPECTOR to pt - related to stress - can trigger stress hormones which leads to what is going on. Pt not using anti-inflammatories. 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 Related to Type 2 diabetes mellitus without complications Follow up - 1 month with PC for ten dil OU, Mac OCT OU, JOHNNY OU. Related to Type 2 diabetes mellitus without complications Impression/Plan - Do es have new swelling in the left eye. This could be from MATERIALS INSPECTOR and could be from mac degen. Still with swelling in the right eye. Recommend trying injections in both eyes to see if we can help this. HBP can also be related to the MATERIALS INSPECTOR. Do not see much diabetic chgs in [...] stress can play a role in the MATERIALS INSPECTOR too. Is okay to watch televsion and does not have to give up coffee. Discussed the FA photos - do see some mac degen and there is damage from the past MATERIALS INSPECTOR. Cataract surgery may help some. Will try [...] OS. Pt. has had previous diagnosis of MATERIALS INSPECTOR. Will get OCT mac today. Your cataracts [...] to take it easy and avoid stress. MATERIALS INSPECTOR OD, hx. MATERIALS INSPECTOR OU, pt was seen Gavin [place] and Shay baxter has been dx. with MATERIALS INSPECTOR in the past. 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
--- OUTSIDE RECORDS SUMMARY | 2025-04-02 16:15 | XMS_ITS | Encounter Summary ---
Author Organization [facility] Healthcare Address [address] [place] [address] Care Team Providers Care Shade Maker Name Role Phone Brenda Cleveland MD Primary Care Provider [phone] Reason for Visit * Reason Comments Arm Pain L arm pain started t his AM. (Upper arm near shoulder) Comes and goes but is getting more sever in the last hour. No known injury. Denies SOB, chest pain, numbness tingling and dizziness. Encounter Details Date Type Department Care Team (Late st Contact Info) Description 04/02/2025 4:15 PM CDT Office Visit [facility] at [address] [address] Emily Putnam, ELECTRO WINNING OPERATOR [address] [place] [address] [address] [place] [address] Left upper arm pain (Primary Dx) Social History Tobacco Use Types Packs/Day Years Used Date Smoking Tobacco: Never Assessed Personal Safety Answer Date Recorded Getting School Help Needed Not on file 04/17 Sex and Gender Information Value Date Recorded Sex Assigned at Not on file Legal Sex Male 9:27 AM CDT Gender Identity Not on file Sexual Orientation Not on file documented as of this encounter Last Filed Vital Signs Vital Sign Reading Time Taken Comments Blood Pressure 124/60 04/02/2025 4:07 PM CDT Pulse 70 04/02/2025 4:07 PM CDT Temperature 36.6 C (97.9 F) 04/02/2025 4:07 PM CDT Respiratory Rate 16 04/02/2025 4:07 PM CDT Oxygen Saturation 97% 04/02/2025 4:07 PM CDT Inhaled Oxygen Concentration - - Weight 105.7 kg (233 lb) 04/02/2025 4:07 PM CDT Height - - Body Mass Index - - documented in this encounter Plan of Treatment Not on file documented as of this encounter Procedures Procedure Name Priority Date/Time Associated Diagnosis Comments ECG 12-LEAD Routine 04/02/2025 4:29 PM CDT Left upper arm pain documented in this encounter Results * ECG 12 lead (04/02/2025 4:29 PM CDT) us Emily Putnam NP ECG ORDERABLES Final Resu lt documented in this encounter Visit Diagnoses Diagnosis Left upper arm pain- Primary documented in this encounter Historical Medications * This list may reflect changes made after this encounter. zolpidem (AMBIEN) 10 mg tablet Take 1 tablet (10 mg total) by mouth nightly as needed 12/06/2022 sacubitriL-valsa rtan (Entresto) 49-51 mg tablet Take 1 tablet by mouth 2 (two) times a day 12/15/2022 QUEtiapine (SEROquel) 100 mg tablet Take 2 tablets (200 mg total) by mouth levothyroxine (SYNTHROID) 50 mcg tablet Take 1 tablet (50 mcg total) by mouth automatic quilling machine operator before breakfast 10/13/2022 5 furosemide (LASIX) 40 mg tablet Take 1 tablet (40 mg total) by mouth daily 11/23/2022 5 felodipine (PLENDIL) 10 mg 24 hr tablet Take 1 tablet (10 mg total) by mouth daily 12/06/2022 5 Jardiance 10 mg tablet Take 1 tablet (10 mg total) by mouth daily 12/13/2022 5 carvediloL (COREG) 12.5 mg tablet Take 1 tablet (12.5 mg total) by mouth 2 (two) times a day 10/15/2024 buPROPion SR (WELLBUTRIN SR) 150 mg 12 hr tablet Take 1 tablet (150 mg total) by mouth 3 (three) times a day 06/15/2021 atorvastatin (LIPITOR) 80 mg tablet Take 1 tablet (80 mg total) by mouth daily 10/13/2022 aspirin 81 mg chewable tablet Take 1 tablet (81 mg total) by mouth daily added in this encounter Care Teams Shade Maker Relationship Specialty Start Date End Date Brenda Cleveland MD PCP - General Family Medicine 05/12/24 documented as of this encounter
--- OUTSIDE RECORDS SUMMARY | 2025-04-02 16:15 | XMS_ITS | Encounter Summary ---
Author Organization [facility] Healthcare Address [address] [place] [address] Care Team Providers Care Pantograph I Engraver Name Role Phone Brenda Cleveland MD Primary Care Provider [phone] Reason for Visit * Reason Comments Arm Pain L arm pain started t his AM. (Upper arm near shoulder) Comes and goes but is getting more sever in the last hour. No known injury. Denies SOB, chest pain, numbness tingling and dizziness. Encounter Details Date Type Department Care Team (Late st Contact Info) Description 04/02/2025 4:15 PM CDT Office Visit [facility] at [address] [address] Emily Putnam, WATER MECHANIC [address] [place] [address] [address] [place] [address] Left upper arm pain (Primary [...] 1 tablet (50 mcg total) by mouth public relations specialist before breakfast 10/13/2022 5 furosemide (LASIX) 40 [...] daily added in this encounter Care Teams Pantograph I Engraver Relationship Specialty Start Date End Date Brenda Cleveland MD PCP - General Family Medicine 05/12/24 documented as of this encounter
--- OUTSIDE RECORDS SUMMARY | 2025-04-02 17:29 | XMS_ITS | Clinical Summary ---
Author Organization [facility] Address [address] [place] [address] Phone Care Team Providers Care Executive Creative Director Name Role Phone Hai Ramirez MD Unavailable Elida Rodrigues MD Unavailable Lola King MD Unavailable Allergies Active Allergy Reactions Criticality Noted Date Comments Penicillins Unknown,Rash 02/15/2008 Medications aspirin 81 MG Chewable Tablet Take 81 mg by mouth daily. Active fish oil-omega-3 fatty acids 1000 MG Capsule Take 1,000 mg by mouth 2 times daily. Active other OTHER C Pap machine & heated humidifier. Diagnosis: Obstructive sleep apnea 1 Units 0 4 Active citalopram 40 MG PO TABS Take 80 mg by mouth daily. Pt states takes 2 tab morning Active Multiple Vitamins-Mineral s (OCUVITE PRESERVISION PO) Take 1 Capsule by mouth 2 times daily. 8 Active QUEtiapine (SEROQUEL) 100 MG Tablet Take 300 mg by mouth nightly. 0 Active buPROPion SR (WELLBUTRIN SR) 150 MG TABLET SR 12 HR Take 1 Tablet by mouth 3 times daily. 1 Active Glucose Blood (FREESTYLE LITE) StripIndications :Type 2 diabetes mellitus with stage 3a chronic kidney disease, without long-term current use of insulin ([facility]) Check blood sugar once daily, Type II diabetes E11.9, E11.22, N18.31 100 Strip 3 3 Active zolpidem (AMBIEN) 5 MG TabletIndication s:Insomnia, unspecified type Take 1 Tablet by mouth nightly as needed for Sleep. 30 Tablet 1 3 Active Additional Information Patient not taking.Reported on 05/18/2023 metFORMIN (GLUCOPHAGE) 1000 MG Tablet TAKE 1 TABLET BY MOUTH TWICE DAILY WITH MEALS 180 Tablet 2 3 Active metoprolol Succinate (TOPROL-XL) 50 MG TABLET SR 24 HR Take 1.5 Tablets by mouth daily. 135 Tablet 3 4 Active felodipine (PLENDIL) 10 MG TABLET SR 24 HR TAKE 1 TABLET BY MOUTH DAILY 90 Tablet 3 4 Active furosemide (LASIX) 40 MG Tablet Take 1 Tablet by mouth daily as needed (shortness of breath, swelling, weight gain.). 45 Tablet 3 4 Active levothyroxine (SYNTHROID) 50 MCG Tablet TAKE 1 TABLET BY MOUTH DAILY 90 Tablet 3 4 Active atorvastatin (LIPITOR) 80 MG Tablet TAKE 1 TABLET BY MOUTH DAILY 90 Tablet 3 4 Active Jardiance 10 MG Tablet TAKE 1 TABLET BY MOUTH DAILY 90 Tablet 1 4 Active zolpidem (AMBIEN) 10 MG TabletIndication s:Insomnia, unspecified type Take 1 Tablet by mouth nightly as needed for Sleep. 30 Tablet 1 4 Active Entresto 97-103 MG Tablet TAKE 1 TABLET BY MOUTH TWICE DAILY 180 Tablet 3 5 Active Active Problems Problem Noted Date Diagnosed Date Acquired hypothyroidism 09/18/2023 Chronic systolic CHF (congestive heart failure) 11/14/2022 Stage 3a chronic kidney disease 10/13/2022 History of prostate cancer 10/13/2022 Hx of CABG 09/17/2020 Colon cancer screening 05/24/2018 Overview (05/24/2018): Colonoscopy 05/24/18 Two polyps - repeat in 5 years. LBBB (left bundle branch block) 05/21/2015 ELVER (Obstructive Sleep Apnea)--on cpap 9 Mixed hyperlipidemia 01/22/2006 Essential hypertension, benign 01/22/2006 Asymptomatic left ventricular systolic dysfuncti on 10/30/2003 Overview (03/13/2012): Last EF, 10/07/2005: EF 50% 03/10: 45% by nuclear Coronary artery disease Overview (03/13/2012): 2003: LA 2005: LA 2005: CABG: ROBIN to LAD, SVG to RCA, M, Cfx 03/10: Nuclear: 45% EF, fixed inferobasal HTN (hypertension) Stroke Diabetes mellitus Overview (08/31/2015): Foot exam 2.1.16 Eye exam 1.2016 Bipolar depression Overview (09/25/2008): Dr. Ang John Microalbuminuria Resolved Problems Problem Noted Date Diagnosed Date Resolved Date Type 2 diabetes mellitus 01/22/200606/2011 Sleep apnea 01/22/2006 09/11/2010 Coronary atherosclerosis of [place] coronary artery 10/30/2003 09/11/2010 Hyperlipidemia 08/26/2013 Encounters Date Type Department Care Team Description 02/19/2025 Refill [facility] - Internal Medicine & Pediatric[facility] - [facility] [address] [place] [address] Boby Trivedi MD Medication Refill 01/25/2025 Refill [facility] - Cardiology - [facility] [address] [place] [address] Lola King MD Medication Refill from Last 3 Months Immunizations Immunization Administration Dates Next Due Covid-19, Mrna, Lnp-s, PF, 1 00 mcg/0.5 mL Dose (Moderna) 09/23/2020,08/26/2020 Covid-19, Mrna, Lnp-s, PF, 5 0 mcg/0.25 mL dose (Moderna) 07/06/2021 Covid-19, Mrna, Lnp-s, Pf, T ris-sucrose, 3 Mcg/0.3 Ml 06/07/2023 HEP A/HEP B Combined Vaccine 07/06/2023 Hepatitis A And Hepatitis B Vaccine 07/06/2023 Influenza Vaccine greater than 3 yrs 07/31/2014, 04/30/2013,05/13/2012 Influenza Vaccine, Quadrivalent, PF 06/21/2021,0 08/20/2019 Influenza, Quadrivalent, Adjuvanted 06/07/2023,0 04/10/2023 Influenza, Trivalent, Adjuvanted, PF 06/26/2017 Influenza, high-dose, trivalent, PF 04/19/2024 PNEUMONIA ADULT IM PPSV23 08/29/2013 PUR FLU HIGH DOSE (FLUZONE) 08/31/2015 PUR PCV-13 08/31/2015 PUR TDAP 7+ YRS IM 06/11/2013 Pneumococcal Vaccine Adult - 23 Valent 9 Pneumococcal conjugate PCV20 , polysaccharide [id number] conjugate, adjuvant, PF 07/06/2023 RSV, Bivalent, Protein Subun it Rsvpref, Diluent Reconstit (Abrysvo) 06/07/2023 Zoster Vaccine Recombinant 07/06/2023,04/11/2023 Family History Medical History Relation Name Comments Cancer Father prostate Heart Disease Mother around 65 Lung Cancer Paternal Grandfather Diabetes Sister Kidney Disease Sister Liver Disease Sister Relation Name Status Comments Father Mother Paternal Grandfather Sister Social History Tobacco Use Types Packs/Day Years Used Date Smoking Tobacco: Never Smokeless Tobacco: Never Tobacco Cessation:Counseling Given: Not Answered Alcohol Use Standard Drinks/Week Comments No 0 (1 standard drink = 0.6 oz pur e alcohol) very seldom [facility] Utilities Answer Date Recorded In the past 12 months has [employer], gas, oil, or water [employer] threatened to shut off services in your home? No 09/16/2023 Social Connection and Isolation Panel Answer Date Recorded In a typical week, how many times do you talk on the phone with family, friends, or neighbors? More than three times a week 09/16/2023 How often do you get togethe r with friends or relatives? More than three times a week 09/16/2023 How often do you attend [facility] or yarsani services? More than 4 times per year 09/16/2023 Do you belong to any clubs o r organizations such as scientologist groups, unions, fraternal or athletic groups, or school groups? No 09/16/2023 How often do you attend meet ings of the clubs or organizations you belong to? Never 09/16/2023 Are you , , di vorced, , never , or living with a partner? 09/16/2023 AUDIT-C Answer Date Recorded Q1: How often do you have a drink containing alc ohol? Monthly or less 09/16/2023 Q2: How many drinks containi ng alcohol do you have on a typical day when you are drinking? 1 or 2 09/16/2023 Q3: How often do you have si x or more drinks on one occasion? Never 09/16/2023 Overall Financial Resource Strain (CARDIA) Answe r Date Recorded How hard is it for you to pa y for the very basics like food, housing, medical care, and heating? Not hard at all 09/16/2023 PHQ-2 Answer Date Recorded Total Score - Questions 1-9 0 11/28 [facility] - Occupational Stress Questionnaire Answer Date Recorded Do you feel stress - tense, restless, nervous, or anxious, or unable to sleep at night because your mind is troubled all the time - these days? Not at all 09/16/2023 Exercise Vital Sign Answer Date Recorde d On average, how many days pe r week do you engage in moderate to strenuous exercise (like a brisk walk)? 0 days 09/16/2023 On average, how many minutes do you engage in exercise at this level? 0 min 09/16/2023 Hunger Vital Sign Answer Date Recorded Within the past 12 months, y ou worried that your food would run out before you got the money to buy more. Never true 09/16/19 24 Within the past 12 months, t he food you bought just didn't last and you didn't have money to get more. Never true 09/16/2023 PRAPARE - Transportation Answer Date Re corded In the past 12 months, has l ack of transportation kept you from medical appointments or from getting medications? No 08/31 In the past 12 months, has l ack of transportation kept you from meetings, work, or from getting things needed for daily living? No 09/16/2023 Housing Stability Vital Sign Answer Elijah e Recorded In the last 12 months, was t here a time when you were not able to pay the mortgage or rent on time? No 09/16/2023 In the last 12 months, how many places have you lived? 1 09/16/2023 In the last 12 months, was t here a time when you did not have a steady place to sleep or slept in a snf (including now)? No 09/16/2023 Education Answer Date Recorded What is the highest level of school you have completed or the highest degree you have received? 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 Not on fi le Last Filed Vital Signs Vital Sign Reading Time Taken Comments Blood Pressure 158/96 12/06/2023 3:06 PM CDT Pulse 71 12/06/2023 3:18 PM CDT Temperature 35.8 C (96.5 F) 12/06/2023 1:05 PM CDT Respiratory Rate 16 12/06/2023 3:18 PM CDT Oxygen Saturation 98% 12/06/2023 3:18 PM CDT Inhaled Oxygen Concentration - - Weight 93.9 kg (207 lb) 12/06/2023 1:05 PM CDT Height 175.3 cm (5' 9) 12/06/2023 1:05 PM CDT Body Mass Index 30.57 12/06/2023 1:05 PM CDT Plan of Treatment Health Maintenance Due Date Last Done Comments Cologuard 1994 Immunochemical Fecal Occult Blood 1994 Hepatitis B Immunization (2 of 3 - Risk 3-dose series) 08/03/2023 07/06/2023, 07/06/2023 SARS-COV-2 Immunization ( season) 2024 06/07/2023, 07/06/2021, 09/23/2020, Additional history exists Diabetes: Nephropathy Screening 09/12/2024 09/12/2023, 09/12/2023, 03/14/2023, Additional history exists Diabetes: Foot Exam 09/18/2024 09/18/2023, 09/18/2023, 09/18/2023, Additional history exists Influenza Immunization (#1) 2025 09, 06/07/2023, 04/10/2023, Additional history exists Diabetes: Hemoglobin A1c 07/18/2025 025, 09/12/2023, 05/31/2023, Additional history exists Diabetes: Eye Exam 12/19/2025 12/19/2024, 0 10/06/2023, 10/06/2023, Additional history exists Colonoscopy 12/05/2028 12/06/2023, 05/24/2018 Td Immunization Every 10 Years (Adults With 1 Tdap) 01/28/2034 01/29/2024, 06/11/2013 Hepatitis C Virus (HCV) Screening Completed 03/14/2023 Respiratory Syncytial Virus (RSV) Immunization (Adult) Completed 06/07/2023 Pneumococcal Immunization (50+ years) Completed 07/06/2023, 11/27/2018, 08/31/2015, Additional history exists Pneumococcal Immunization Combined Discontinued 07/06/2023, 11/27/2018, 08/31/2015, Additional history exists Zoster Immunization Completed 07/06/2023, Colorectal Cancer Screening Discontinued Human Papillomavirus (HPV) Immunization Aged Out No longer eligible based on patient's age to complete this topic Meningococcal Immunization (ACWY) Aged Out No longer eligible based on patient's age to complete this topic Rotavirus Immunization Aged Out No lo nger eligible based on patient's age to complete this topic Procedures Procedure Name Priority Date/Time Associated Diagnosis Comments HM DILATED EYE EXAM 12/19/2024 1 2:00 AM CDT COLONOSCOPY Routine 12/06/2023 2:58 PM CDT History of colonic polyps CMP (COMPREHENSIVE METABOLIC PANEL) Routine 09/12/2023 11:24 AM DIRECTOR OF COMMUNITY EDUCATION Type 2 diabetes mellitus with stage 3a chronic kidney disease, without long-term current use of insulin (HCC) HEMOGLOBIN A1C W/ ESTIMATED GLUCOSE Routine 09/12/2023 11:24 AM DIRECTOR OF COMMUNITY EDUCATION Type 2 diabetes mellitus with stage 3a chronic kidney disease, without long-term current use of insulin (HCC) HEPATITIS C ANTIBODY Routine 03/14/2023 11:59 AM CDT Need for hepatitis C screening test from Last 3 Months or Most Recently Relevant to Health Maintenance Results * HM DILATED EYE EXAM (12/19/2024 12:00 AM CDT) 12/19/2024 us Provider Scan PROCEDURE/MINOR SURGICAL ORDERAB LES Final Result SCAN * Colonoscopy w Biopsy, w Polypectomy (12/06/2023 2:58 PM CDT) Anatomical Region Laterality Modality Endoscopy Narrative 12/07/2023 3:18 PM CDT Table formatting from the original result was not included. Indication History of colonic polyps Impression The ileocecal valve, ascending colon, hepatic flexure, transverse colon, splenic flexure, descending colon, sigmoid colon, rectosigmoid and rectum appeared normal. Edematous, erythematous and granular mucosa in the cecum; performed cold forceps biopsy 4 subcentimeter polyps were removed with cold snare Scattered diverticulosis in the sigmoid colon Medium internal hemorrhoids Recommendation Await pathology results No further screening colonoscopies necessary Findings The ileocecal valve, ascending colon, hepatic flexure, transverse colon, splenic flexure, descending colon, sigmoid colon, rectosigmoid and rectum appeared normal. Edematous, erythematous and granular mucosa in the cecum; performed cold forceps biopsy Two sessile, adenomatous-appearing polyps measuring smaller than 5 mm in the descending colon; performed cold snare with complete en bloc removal and retrieved specimen Two sessile, adenomatous-appearing polyps measuring smaller than 5 mm in the sigmoid colon; performed cold snare with complete en bloc removal and retrieved specimen Few scattered diverticula in the sigmoid colon Internal medium hemorrhoids observed during retroflexion Details of the Procedure The patient underwent moderate sedation, which was administered by the procedural nurse. The patient's blood pressure, level of consciousness, oxygen, respirations, heart rate and ECG were monitored throughout the procedure. A digital rectal exam was performed. The scope was introduced through the anus and advanced to the cecum. Retroflexion was performed in the rectum. The quality of bowel preparation was evaluated using the [place] Bowel Preparation Scale with scores of: right colon = 2, transverse colon = 2, left colon = 2. The total BBPS score was 6. Bowel prep was adequate. The patient experienced no blood loss. The procedure was not difficult. The patient tolerated the procedure well. There were no apparent adverse events. Medications 0.9 % sodium chloride solution - Not documented* *Total volume has not been documented. View each administration to see the amount administered. fentaNYL (PF) (SUBLIMAZE) injection - 100 mcg midazolam (VERSED) injection - 10 mg (Totals for administrations occurring from 1306 to 1501 on 12/06/23) Preprocedure A history and physical has been performed, and patient medication allergies have been reviewed. The patient's tolerance of previous anesthesia has been reviewed. The risks and benefits of the procedure and the sedation options and risks were discussed with the patient. All questions were answered and informed consent obtained. Events Procedure Events Event Event Time ENDO SCOPE IN TIME 12/06/2023 2:25 PM ENDO CECUM REACHED 12/06/2023 2:30 PM ENDO SCOPE OUT TIME 12/06/2023 2:58 PM Scope Type: Colonoscope [id number] Insertion time: 5m 09s Withdrawal time: 27m 56s Specimens ID Type Source Tests Collected by Time A : cecal bxs Tissue Cecum PATHOLOGY SURGICAL Hai Ramirez MD 12/06/2023 1433 B : descending colon polyps Polyp Colon, Left/Descending PATHOLOGY SURGICAL Hai Ramirez MD 12/06/2023 1442 C : sigmoid polyps Polyp Colon, Sigmoid PATHOLOGY Hai Sumner MD 12/06/2023 1449 Disposition Patient was approved for transfer to recovery at 3:03 PM T. Hai Ramirez MD Attestation: I personally performed the entire procedure By: Augustine Shin MD; 12/06/2023, 3:05 PM CDT The procedure was performed by the fellow under my direct supervision with my assistance as necessary. The patient tolerated the procedure well and there were no immediate complications or post procedure concerns. I was present in the endoscopy suite throughout the procedure. Hai Ramirez MD GI PROCEDURE ORDERABLES Final Re sult * HEMOGLOBIN A1C W/ ESTIMATED GLUCOSE (09/12/2023 11:24 AM DIRECTOR OF COMMUNITY EDUCATION) HGB-A1C 5.2 4.0 - 6.0 % 09/12/2023 3:47 PM DIRECTOR OF COMMUNITY EDUCATION [facility] Est Average Glucose 102.5 mg/dL 09/12/2023 3:47 PM [facility] Blood Venipuncture / Unknown 09/12/2023 11:24 AM DIRECTOR OF COMMUNITY EDUCATION 09/12/2023 11:24 AM DIRECTOR OF COMMUNITY EDUCATION Narrative [facility] - 09/12/2023 3:47 PM DIRECTOR OF COMMUNITY EDUCATION Specimens containing greater than 5% of Hemoglobin F may result in lower than expected % HbA1C results. Boby Trivedi MD CHEMISTRY ORDERABLES Final Resu lt [facility] [address] [place] [address], * (ABNORMAL) CMP (COMPREHENSIVE METABOLIC PANEL) (09/12/2023 11:24 AM DIRECTOR OF COMMUNITY EDUCATION) SODIUM 143 136 - 145 mmol/L 09/12/2023 4:04 PM DIRECTOR OF COMMUNITY EDUCATION [facility] POTASSIUM 5.7(H) 3.5 - 5.1 mmol/L 09/12/2023 4:04 PM [facility] CHLORIDE 111(H) 98 - 107 mmol/L 09/12/2023 4:04 PM [facility] CO2, VENOUS 25 22 - 30 mmol/L 09/12/2023 4:04 PM [facility] ANION GAP 7.0 <18.0 mmol/L 09/12/2023 4:04 PM [facility] GLUCOSE 81 70 - 99 mg/dL 09/12/2023 4:04 PM [facility] BUN 35(H) 8 - 26 mg/dL 09/12/2023 4:04 PM [facility] CREATININE, BLOOD 1.91(H) 0.70 - 1.30 mg/dL 09/12/2023 4:04 PM [facility] BUN/CREATININE RATIO 18 12 - 20 ratio 09/12/2023 4:04 PM [facility] TOTAL PROTEIN 6.5 6.3 - 8.2 g/dL 09/12/2023 4:04 PM [facility] ALBUMIN 4.0 3.5 - 5.0 g/dL 09/12/2023 4:04 PM [facility] A/G RATIO 1.6 1.0 - 2.2 09/12/2023 4:04 PM [facility] CALCIUM 10.2 8.7 - 10.5 mg/dL 09/12/2023 4:04 PM [facility] T BILI 0.6 0.2 - 1.2 mg/dL 09/12/2023 4:04 PM [facility] SGOT (AST) 29 5 - 34 U/L 09/12/2023 4:04 PM [facility] SGPT (ALT) 16 0 - 55 U/L 09/12/2023 4:04 PM [facility] ALKALINE PHOSPHATASE 66 40 - 150 U/L 09/12/2023 4:04 PM [facility] IS THE PATIENT REQUIRED TO BE FASTING? No [facility] TRACK 09/12/2023 4:04 PM [facility] GFR, ESTIMATED 37(L) >=60 09/12/2023 4:04 PM [facility] Comment: Creatinine Clearance is the preferred criteria for selecting drug dose adjustments in renally impaired patients. The GFR is provided as additional pertinent clinical information. GFR is reported in mL/min/1.73 sq m. Calculation based on the Chronic Kidney Disease Epidemiology Collaboration (CKD- EPI) equation refit without adjustment for race. GFR, EST. 42(L) >=60 024 4:04 PM [facility] GFR, EST. NONAFRICAN 35(L) >=60 09/12/2023 4:04 PM DIRECTOR OF COMMUNITY EDUCATION [facility] Blood Venipuncture / Unknown 09/12/2023 11:24 AM DIRECTOR OF COMMUNITY EDUCATION 09/12/2023 11:24 AM DIRECTOR OF COMMUNITY EDUCATION Boby Trivedi MD CHEMISTRY ORDERABLES Final Resu lt Performing Organization Address [facility] Co de Phone Number [facility] [address] [place] [address], * HEPATITIS C ANTIBODY (03/14/2023 11:59 AM CDT) hepatitis C antibody 0.07 <1 S/CO [facility] ARCH [id number] 03/14/2023 3:46 PM CDT [facility] Comment: Signal/Cutoff ratio < 0.79 is Nondetected Signal/Cutoff ratio 0.80-0.99 is Grayzone Signal/Cutoff ratio > 0.99 is Detected Supplemental assays are recommended if signal/cutoff ratio is >/=1.00. Signal/cutoff ratio result >/= 5.00 is 97% predictive of positivity for recombinant immunoblot assay (RIBA) and will be reported to the [place] Department of Public Health as required. Blood Venipuncture / Unknown 03/14/2023 11:59 AM CDT 03/14/2023 11:59 AM CDT us Boby Trivedi MD CHEMISTRY ORDERABLES Final Resu lt Performing Organization Address [facility] Co de Phone Number [facility] [address] [place] [address], from Last 3 Months or Most Recently Relevant to Health Maintenance Insurance MEDICARE Member Subscriber Plan / Payer (Ef fective 2014-Present) Name:Vishal Grewal Member ID:[id number] Relation to Subscriber:Self Name:Vishal Grewal Subscriber ID:[id number] Payer ID:[id number] Group ID:Not on file Type:Not on file Address: [address] MEDICARE Member Subscriber Plan / Payer (Ef fective 2014-Present) Name:Vishal Grewal Member ID:[id number] Relation to Subscriber:Self Name:VISHAL GREWAL Subscriber ID:[id number] Payer ID:[id number] Group ID:Not on file Type:Not on file Address: [address] Advance Directives * Full Code (Latest Code Status on File) Date Activated Date Inactivated Comments 04/19/2013 1:17 PM 04/19/2013 4:21 PM * No Code Status Date Activated Date Inactivated Comments 11/01/2010 10:03 AM 04/19/2013 1:17 PM pt states he does not have a poa or living will Care Teams Executive Creative Director Relationship Specialty Start Date End Date Hai Ramirez MD [address] [place] [address] Consulting Physician Gastroenterology 05/28/18 Elida Rodrigues MD [address] [place] [address] Consulting Physician Cardiovascular Disease - Cardiology 08/16/19 Lola King MD [address] [place] [address] Consulting Physician Cardiovascular Disease - Cardiology 09/15/21
--- OUTSIDE RECORDS SUMMARY | 2025-04-02 17:29 | XMS_ITS | Encounter Summary ---
Author Organization [facility] Address [address] [place] [address] Care Team Providers Care Branch Service Leader Name Role Phone Brenda Cleveland MD Primary Care Provider + Encounter Details Date Type Department Care Team (Late Contact Info) Description 01/06/2025 [facility] Message Enc [address] [place] [phone] Brenda Cleveland MD [address] [place] [phone] Blood pressure Social History Tobacco Use Types Packs/Day Years Used Date Smoking Tobacco: Never Passive Smoke Exposure: Never Smokeless Tobacco: Never Alcohol Use Standard Drinks/Week Comments Never 0 (1 standard drink = 0.6 oz pur e alcohol) PHQ-2 Answer Date Recorded Patient Health Questionnaire-2 Score 0 10/10/2024 Sex and Gender Information Value Date Recorded Sex Assigned at Male 2024 12:04 PM CDT Legal Sex Male 12:01 PM CDT Gender Identity Male 10/15/2024 10:17 AM CDT Sexual Orientation Not on file documented as of this encounter Plan of Treatment Upcoming Encounters Date Type Department Care Team (Late st Contact Info) Description 06/03/2025 2:00 PM CARD TABLE ATTENDANT Allied Health/Nurse Visit [address] [place] [phone] Brenda Cleveland MD [address] [place] [phone] 06/13/2025 12:15 PM CARD TABLE ATTENDANT Office Visit [facility]-[address] [phone] Salomon Mora MD [address] [facility] [address] [place] [address] 06/17/2025 10:10 AM CARD TABLE ATTENDANT Office Visit [facility] Family Medicine - [address] [place] [phone] Brenda Cleveland MD [address] [facility] [address] [place] [phone] 06/17/2025 10:30 AM CARD TABLE ATTENDANT Office Visit [facility] Family [facility] - [address] [place] [phone] Brenda Cleveland MD [address] [facility] [address] [place] [phone] 09/18/2025 1:00 PM CARD TABLE ATTENDANT Office Visit [facility] Multispecialty Care - [facility] [address] [facility], [address] [place] [id number] Kevin Renee MD 3 [facility], [address] [place] [address] documented as of this encounter Visit Diagnoses Not on filedocumented in this encounter Care Teams Branch Service Leader Relationship Specialty Start Date End Date Brenda Cleveland MD [address] [place] [address] PCP - General FAMILY PRACTICE 06/06/24 documented as of this encounter
--- OUTSIDE RECORDS SUMMARY | 2025-04-02 17:29 | XMS_ITS | Patient Health Record ---
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 Name Role Phone Brenda Cleveland MD Primary Care Provider Victoriano Enamorado Unavailable [phone] Allergies Allergen (clinical drug ingredient) Drug/Non Drug Allergy documented on EMR Reaction Allergy Type Onset Date Status Penicillin Unknown Drug Allergy Active spironolactone Spironolactone Unknown Drug Allergy Active Reason For Referral No Information Medications Medication SIG (Take, Route, Frequency, Duration) Notes Start Date End Date Status Zolpidem Tartrate 5 MG Tablet Oral; Duration: 90 Days Not-Taking QUEtiapine Fumarate 100 MG Tablet TAKE 2 TABLETS BY MOUTH EVERY NIGHT; Duration: 90 Active buPROPion HCl ER (SR) 150 MG Tablet Extended Release 12 Hour take 2 tab po every morning and 1 tablet every evening Oral see sign; Duration: 30 days 07/18/2024 Active Zolpidem Tartrate 5 MG Tablet Oral; Duration: 90 Days Active Felodipine ER 10 MG Tablet Extended Release 24 Hour TAKE 1 TABLET BY MOUTH DAILY Oral; Duration: 90 Days Active Atorvastatin Calcium 80 MG Tablet TAKE 1 TABLET BY MOUTH DAILY Oral; Duration: 90 Days Active Metoprolol Succinate ER 50 MG Tablet Extended Release 24 Hour TAKE 1 AND 1/2 TABLETS BY MOUTH DAILY Oral; Duration: 60 Days Active Levothyroxine Sodium 50 MCG Tablet TAKE 1 TABLET BY MOUTH DAILY Oral; Duration: 90 Days Active buPROPion HCl ER (SR) 150 MG Tablet Extended Release 12 Hour take 2 tab po every morning and 1 tablet every evening Oral see sign; Duration: 90 days Active Furosemide 40 MG Tablet TAKE 1 TABLET BY MOUTH DAILY . SECOND DOSE AT NOON NEEDED FOR WEIGHT GREATER THAN 220LB Oral; Duration: 90 Days Active QUEtiapine Fumarate 100 MG Tablet 2 tablet every night Oral Once a day; Duration: 90 days Active Jardiance 10 MG Tablet Oral; Duration: 3 0 Days Active Entresto 97-103 MG Tablet TAKE 1 TABLET BY MOUTH TWICE DAILY Oral; Duration: 30 Days Active Citalopram Hydrobromide 40 MG Tablet TAKE 2 TABLETS BY MOUTH EVERY DAY Oral; Duration: 30 Days Not-Taking Social History Tobacco Use: Social History Observation Description Date Details (start date - stop date) Never Smoker NA - NA Sex Assigned At : Social History Observation Description Sex Assigned At Male Social History Miscellaneous: Social Info Question Answer Notes Safety issues: Are there any firearms in the house? No Social History Social Info Question Answer Notes Household: Marital Status: Number of Adults in household: 1 Number of Children in Household: 0 Level of Education: Finished College Drug/Alcohol: Social Info Question Answer Notes Drugs Have you used drugs other than those for medical reasons in the past 12 months? No AUDIT-C (Standard) Did you have a drink containing alcohol in the past year? No Tobacco Use: Social Info Question Answer Notes Tobacco Control (Standard) Tobacco use: Nonsmoker Additional Details Category Social Info Options Details Miscellaneous: Occupation: Retired Section Notes: Specialist visits: Sees Other Specialists Twice A Year Age: [age] Years Old Problems Problem Type SNOMED Code ICD Code Onset Dates Problem Status W/U Status Risk Notes Problem Memory impairment (450695667) Memory impairment (R41.3) Active confirmed Problem Left bundle branch block (03769215) LBBB (left bundle branch block) (I44.7) 05/21/20 15 Active confirmed Problem Atherosclerosis of coronary artery (563282172) Atherosclerosis of coronary artery (I25.10) 04/04/20 24 Active confirmed Problem Primary insomnia (8252941) Primary insomnia (F51.01) 06/25/20 24 Active confirmed Problem Obstructive sleep apnea syndrome (21787434) ELVER (obstructive sleep apnea) (G47.33) 03/12/20 09 Active confirmed Problem Essential hypertension (70907595) Essential hypertension (I10) 04/04/20 24 Active confirmed Problem Type II diabetes mellitus without complication (004137730) Type 2 diabetes mellitus without complication, without long-term current use of insulin ([facility]) (E11.9) 06/11/20 24 Active confirmed Problem History of coronary artery bypass grafting (499592083) Hx of CABG (Z95.1) 09/17/19 21 Active confirmed Problem Bipolar disorder (10473345) Bipolar disorder with depression ([facility]) (F31.9) 06/25/20 24 Active confirmed Problem Cerebral infarction (316509943) Cerebrovascular accident ([facility]) (I63.9) 04/04/20 24 Active confirmed Vital Signs Heart Rate 69 /min 03/13/2025 Height-cm 172.72 cm 03/13/2025 Blood pressure diastolic 77 mm Hg 03/13/2025 Weight-kg 102.51 kg 03/13/2025 Height 68 in 03/13/2025 Blood pressure systolic 159 mm Hg 03/13/2025 Weight 226 lbs 03/13/2025 BMI 34.36 kg/m2 03/13/2025 Encounters Encounter Location Date Provider Diagnosis [facility] [employer] [facility] [address] [place] [address] 07/18/2024 Victoriano Elizabeth Bipolar disorder wit h depression ([facility]) F31.9 and Essential hypertension I10 [facility] [employer] [facility] [address] [place] [address] 09/18/2024 Victoriano Elizabeth Essential hypertensi on I10 ; Bipolar disorder with depression ([facility]) F31.9 and Memory impairment R41.3 [facility] [employer] [facility] [address] [place] [address] 11/25/2024 Victoriano Elizabeth Memory impairment R41.3 [facility] [employer] [facility] [address] [place] [address] 12/11/2024 Victoriano Elizabeth Essential hypertensi on I10 ; Bipolar disorder with depression ([facility]) F31.9 ; Negative depression screening Z13.31 and Memory impairment R41.3 [facility] [employer] [facility] [address] [place] [address] 03/13/2025 Victoriano Elizabeth Bipolar disorder wit h depression ([facility]) F31.9 and Memory impairment R41.3 [facility] [employer] [facility] [address] [place] [address] 11/11/2024 Victoriano Johnson [facility] [address] [place] [address] 02/05/2025 Victoriano Johnson [facility] [address] [place] [address] 02/26/2025 Victoriano Johnson Assessments Encounter Date Diagnosis (ICD Code) Assessment Notes Treatment Notes Treatment Clinical Notes Section Notes 07/18/2024 Bipolar disorder with depression ([facility]) (ICD-10 - F31.9) Bipolar Disorder - Assessment: Patient reports mood is currently good after recent move to be closer to family. - Plan: Continue quetiapine 200 mg daily (2 tablets at night). Follow-up visit in mid-August to reassess medication effectiveness and refill prescription. Depression - Assessment: Patient was previously on citalopram 80 mg daily, which was recently discontinued by another provider. - Plan: Maintain bupropion SR at a total dose of 450 mg (2 tablets in the morning and 1 in the evening). 30-day supply with a refill; consider adjusting to a 90-day supply during the next visit to align with other medications. Insomnia - Assessment: Patient expressed desire to stop zolpidem and be in control. - Plan: Patient to discontinue Actos and clarify with the general practitioner regarding zolpidem for sleep. Monitor sleep patterns and discuss further management during the follow-up visit in mid-August. Hypertension - Assessment: Patient reports recent elevated blood pressure readings, including 183 systolic in office today. - Plan: Continue current blood pressure medications (Entresto, furosemide 40 mg, metoprolol, and felodipine). Monitor blood pressure and discuss any adjustments needed during the follow-up visit in mid-August. Type 2 Diabetes - Assessment: Patient reports diabetes is good most days. - Plan: Continue Jardiance for diabetes management. Encourage regular blood sugar monitoring and report any concerns during the follow-up visit in mid-August. Hypercholestero lemia - Assessment: Patient is currently on atorvastatin for cholesterol management. - Plan: Continue atorvastatin. Monitor lipid profile and discuss any adjustments needed during the follow-up visit in mid-August. History of Prostate Cancer - Assessment: Cancer was removed at age 40. - Plan: No current treatment needed. Encourage regular follow-up with a primary care physician for monitoring. History of Coronary Artery Bypass Graft (CABG) and Left Bundle Branch Block - Assessment: Patient has a history of CABG and Left Bundle Branch Block. - Plan: Continue current heart medications (Entresto, furosemide 40 mg, metoprolol, and felodipine). Encourage regular follow-up with a automatic punch press operator for monitoring and management. Pharmacy - Plan: [facility] on the corner [address] in [place]. Ensure the patient has enough quetiapine until the end of August (last filled on June 25 with 180 tablets). Follow-up - Assessment: Patient recently moved to the area (February 02) and is in the process of establishing care with local providers. - Plan: Schedule a follow-up visit in mid-August to reassess medication effectiveness, refill prescriptions, and address any concerns. 09/18/2024 Essential hypertension (ICD-10 - I10) 12/11/2024 Essential hypertension (ICD-10 - I10) The combined SLUMS and IQCODE results indicate no current cognitive impairment. These scores are consistent with healthy aging or preserved cognition. No red flags suggest progression to mild cognitive impairment or dementia. 12/11/2024 Bipolar disorder with depression ([facility]) (ICD-10 - F31.9) The combined SLUMS and IQCODE results indicate no current cognitive impairment. These scores are consistent with healthy aging or preserved cognition. No red flags suggest progression to mild cognitive impairment or dementia. 11/25/2024 Memory impairment (ICD-10 - R41.3) Cognitive and Functional Assessment Interpretation SLUMS Total Score: 29 IQCODE Total Score: 3.0 Interpretation: SLUMS ([facility] Mental Status Examination) A score of 29 is within the normal cognitive function range for individuals with high school education or more. This suggests no evidence of mild cognitive impairment (MCI) or dementia. IQCODE (Informant Questionnaire on Cognitive Decline in the Elderly) A mean score of 3.0 reflects no significant cognitive decline as perceived by an informant. This supports the SLUMS findings and suggests stable cognitive functioning over the past 10 years. Summary: The combined SLUMS and IQCODE results indicate no current cognitive impairment. These scores are consistent with healthy aging or preserved cognition. No red flags suggest progression to mild cognitive impairment or dementia. Non-Pharmacologi c Recommendations: To support continued cognitive health and function, the following non-pharmacologi c strategies are recommended: 1. Cognitive Training Engage in structured mental exercises (apps, puzzles, memory tasks) at least 3 times weekly. Consider domains like attention, executive function, and visuospatial skills. 2. Routine Physical Activity Aerobic exercise such as walking or cycling 30 minutes/day, 5 days/week enhances cerebral perfusion and executive function. 3. Healthy Diet Adopt a Mediterranean-st yle diet: rich in fruits, vegetables, legumes, whole grains, and healthy fats. Limit processed foods and added sugars. 4. Sleep Hygiene Ensure 7 to 9 hours of sleep nightly. Encourage consistent bedtime routines and limited screen use before sleep. 5. Social and Purposeful Engagement Participation in group activities, volunteering, or hobbies boosts executive functioning and mood. 6. Stress Management Mindfulness, meditation, or relaxation techniques may help preserve attention and memory over time. 03/13/2025 Bipolar disorder with depression ([facility]) (ICD-10 - F31.9) Patient reports stable sleep, appetite, and memory. No new symptoms or side effects from medications. Patient continues Cipralopram and Quetiapine as previously prescribed. Patient prefers to maintain current dose of Bupropion. - Continue Cipralopram 150 mg, 2 tablets in the morning and 1 in the evening. - Continue Quetiapine, 2 tablets at bedtime. - Continue Bupropion at current dose. The combined SLUMS and IQCODE results indicate no current cognitive impairment. These scores are consistent with healthy aging or preserved cognition. No red flags suggest progression to mild cognitive impairment or dementia. 07/18/2024 Essential hypertension (ICD-10 - I10) Bipolar Disorder - Assessment: Patient reports mood is currently good after recent move to be closer to family. - Plan: Continue quetiapine 200 mg daily (2 tablets at night). Follow-up visit in mid-August to reassess medication effectiveness and refill prescription. Depression - Assessment: Patient was previously on citalopram 80 mg daily, which was recently discontinued by another provider. - Plan: Maintain bupropion SR at a total dose of 450 mg (2 tablets in the morning and 1 in the evening). 30-day supply with a refill; consider adjusting to a 90-day supply during the next visit to align with other medications. Insomnia - Assessment: Patient expressed desire to stop zolpidem and be in control. - Plan: Patient to discontinue Actos and clarify with the general practitioner regarding zolpidem for sleep. Monitor sleep patterns and discuss further management during the follow-up visit in mid-August. Hypertension - Assessment: Patient reports recent elevated blood pressure readings, including 183 systolic in office today. - Plan: Continue current blood pressure medications (Entresto, furosemide 40 mg, metoprolol, and felodipine). Monitor blood pressure and discuss any adjustments needed during the follow-up visit in mid-August. Type 2 Diabetes - Assessment: Patient reports diabetes is good most days. - Plan: Continue Jardiance for diabetes management. Encourage regular blood sugar monitoring and report any concerns during the follow-up visit in mid-August. Hypercholestero lemia - Assessment: Patient is currently on atorvastatin for cholesterol management. - Plan: Continue atorvastatin. Monitor lipid profile and discuss any adjustments needed during the follow-up visit in mid-August. History of Prostate Cancer - Assessment: Cancer was removed at age 40. - Plan: No current treatment needed. Encourage regular follow-up with a primary care physician for monitoring. History of Coronary Artery Bypass Graft (CABG) and Left Bundle Branch Block - Assessment: Patient has a history of CABG and Left Bundle Branch Block. - Plan: Continue current heart medications (Entresto, furosemide 40 mg, metoprolol, and felodipine). Encourage regular follow-up with a automatic punch press operator for monitoring and management. Pharmacy - Plan: Send bupropion prescription to [facility] on the corner of [facility] [address] in [place]. Ensure the patient has enough quetiapine until the end of August (last filled on June 25 with 180 tablets). Follow-up - Assessment: Patient recently moved to the area (February 02) and is in the process of establishing care with local providers. - Plan: Schedule a follow-up visit in mid-August to reassess medication effectiveness, refill prescriptions, and address any concerns. 12/11/2024 Negative depression screening (ICD-10 - Z13.31) The combined SLUMS and IQCODE results indicate no current cognitive impairment. These scores are consistent with healthy aging or preserved cognition. No red flags suggest progression to mild cognitive impairment or dementia. 03/13/2025 Memory impairment (ICD-10 - R41.3) The combined SLUMS and IQCODE results indicate no current cognitive impairment. These scores are consistent with healthy aging or preserved cognition. No red flags suggest progression to mild cognitive impairment or dementia. 09/18/2024 Bipolar disorder with depression ([facility]) (ICD-10 - F31.9) 09/18/2024 Memory impairment (ICD-10 - R41.3) 12/11/2024 Memory impairment (ICD-10 - R41.3) Cognitive and Functional Assessment Interpretation SLUMS Total Score: 29 IQCODE Total Score: 3.0 Interpretation: SLUMS ([facility] Mental Status Examination) A score of 29 is within the normal cognitive function range for individuals with high school education or more. This suggests no evidence of mild cognitive impairment (MCI) or dementia. IQCODE (Informant Questionnaire on Cognitive Decline in the Elderly) A mean score of 3.0 reflects no significant cognitive decline as perceived by an informant. This supports the SLUMS findings and suggests stable cognitive functioning over the past 10 years. Summary: The combined SLUMS and IQCODE results indicate no current cognitive impairment. These scores are consistent with healthy aging or preserved cognition. No red flags suggest progression to mild cognitive impairment or dementia. Non-Pharmacologi c Recommendations: To support continued cognitive health and function, the following non-pharmacologi c strategies are recommended: 1. Cognitive Training Engage in structured mental exercises (apps, puzzles, memory tasks) at least 3 times weekly. Consider domains like attention, executive function, and visuospatial skills. 2. Routine Physical Activity Aerobic exercise such as walking or cycling 30 minutes/day, 5 days/week enhances cerebral perfusion and executive function. 3. Healthy Diet Adopt a Mediterranean-st yle diet: rich in fruits, vegetables, legumes, whole grains, and healthy fats. Limit processed foods and added sugars. 4. Sleep Hygiene Ensure 7 to 9 hours of sleep nightly. Encourage consistent bedtime routines and limited screen use before sleep. 5. Social and Purposeful Engagement Participation in group activities, volunteering, or hobbies boosts executive functioning and mood. 6. Stress Management Mindfulness, meditation, or relaxation techniques may help preserve attention and memory over time. The combined SLUMS and IQCODE results indicate no current cognitive impairment. These scores are consistent with healthy aging or preserved cognition. No red flags suggest progression to mild cognitive impairment or dementia. 07/18/2024 Other Learning About Depression Screening material was printed Bipolar Disorder - Assessment: Patient reports mood is currently good after recent move to be closer to family. - Plan: Continue quetiapine 200 mg daily (2 tablets at night). Follow-up visit in mid-August to reassess medication effectiveness and refill prescription. Depression - Assessment: Patient was previously on citalopram 80 mg daily, which was recently discontinued by another provider. - Plan: Maintain bupropion SR at a total dose of 450 mg (2 tablets in the morning and 1 in the evening). 30-day supply with a refill; consider adjusting to a 90-day supply during the next visit to align with other medications. Insomnia - Assessment: Patient expressed desire to stop zolpidem and be in control. - Plan: Patient to discontinue Actos and clarify with the general practitioner regarding zolpidem for sleep. Monitor sleep patterns and discuss further management during the follow-up visit in mid-August. Hypertension - Assessment: Patient reports recent elevated blood pressure readings, including 183 systolic in office today. - Plan: Continue current blood pressure medications (Entresto, furosemide 40 mg, metoprolol, and felodipine). Monitor blood pressure and discuss any adjustments needed during the follow-up visit in mid-August. Type 2 Diabetes - Assessment: Patient reports diabetes is good most days. - Plan: Continue Jardiance for diabetes management. Encourage regular blood sugar monitoring and report any concerns during the follow-up visit in mid-August. Hypercholestero lemia - Assessment: Patient is currently on atorvastatin for cholesterol management. - Plan: Continue atorvastatin. Monitor lipid profile and discuss any adjustments needed during the follow-up visit in mid-August. History of Prostate Cancer - Assessment: Cancer was removed at age 40. - Plan: No current treatment needed. Encourage regular follow-up with a primary care physician for monitoring. History of Coronary Artery Bypass Graft (CABG) and Left Bundle Branch Block - Assessment: Patient has a history of CABG and Left Bundle Branch Block. - Plan: Continue current heart medications (Entresto, furosemide 40 mg, metoprolol, and felodipine). Encourage regular follow-up with a automatic punch press operator for monitoring and management. Pharmacy - Plan: [facility] on the corner [address] in [place]. Ensure the patient has enough quetiapine until the end of August (last filled on June 25 with 180 tablets). Follow-up - Assessment: Patient recently moved to the area (February 02) and is in the process of establishing care with local providers. - Plan: Schedule a follow-up visit in mid-August to reassess medication effectiveness, refill prescriptions, and address any concerns. 09/18/2024 Other Mood Stability - Assessment: Patient reports no significant changes in mood since the last visit in June. No manic episodes or depressive episodes noted. - Plan: - Continue monitoring mood stability during follow-up visits. Hypertension - Assessment: Blood pressure measured at 160/100 during the visit. Patient mentioned not taking medication yet on the day of the visit. - Plan: - Encourage patient to take medication as prescribed. - Monitor blood pressure during follow-up visits. Insomnia - Assessment: Patient reports reducing zolpidem dosage from 10 mg to 5 mg and finds it effective for sleep. - Plan: - Continue zolpidem 5 mg as needed for sleep. - Reassess sleep quality during follow-up visits. Chronic Kidney Disease - Assessment: Patient's last blood work from June 11 showed BUN 25, GFR 34, and glucose 94. - Plan: - Continue monitoring kidney function through regular blood work. - Encourage patient to maintain a kidney-friendly diet and lifestyle. Cognitive Function - Assessment: Patient expresses concern about potential memory decline and dementia risk. - Plan: - Schedule cognitive testing in 2 months to assess memory function. - Discuss results and potential interventions during follow-up visit in 3 months. Medications - Assessment: Patient is currently taking Quetiapine 200 mg at night (2 x 100 mg tablets) and Bupropion SR 150 mg (2 tablets in the morning, 1 tablet in the evening). - Plan: - Continue current medication regimen. - Refill prescriptions as needed through the patient's preferred pharmacy ([facility]). Follow-up - Assessment: Patient requires cognitive testing and follow-up visit. - Plan: - Schedule cognitive testing in 2 months. - Schedule a follow-up visit in 3 months to discuss cognitive testing results and reassess overall health. 11/25/2024 Other referral to the local chapter or national office of the Alzheimer's Association (1-365-121-390 0; http://www.alz .org), the Alzheimer's Disease Education and Referral Center (ADEAR) (7-781-075-438 0; http://www.kenneth .nih.gov/Alzhe imers/), 12/11/2024 Other Berto Barcenas, a 74-year-old male, presents for follow-up of cognitive function and medication management. Cognitive Function Assessment: Patient's cognitive function has shown improvement based on recent testing. SLUMS score increased from 24 in June 2024 to 29 in October 2024. Computer-based testing revealed below-average attention with a score of 82. Based on SLUMS score and IQ code, there is minimal chance of mild cognitive impairment at this time. However, given the patient's age, ongoing monitoring is warranted. Plan: - Perform cognitive testing at least annually - Monitor for any worsening of memory or concentration - Encourage cognitive training, puzzles, and keeping the brain active - Recommend routine physical activities, healthy diet, sleep hygiene, and stress management - Discuss potential future interventions if cognitive decline occurs, including memantine and Aricept (cholinesterase inhibitors and NMDA receptor antagonists) Medication Management Assessment: Patient is currently on bupropion 150 mg BID and 150 mg qPM, quetiapine 200 mg daily, and zolpidem. No reported side effects or concerns. Sleep is well-managed with current medication regimen. No reported symptoms of depression or anxiety. Plan: - Continue bupropion 150 mg, 2 tablets daily and one in the evening - Continue quetiapine, current dose 200 mg daily - Option to reduce to 150 mg daily (1.5 tablets) if desired, with instructions to increase back to 200 mg if symptoms return - Continue zolpidem as prescribed (dose not specified) - Prescribe 3-month supply of quetiapine and bupropion - Follow up sooner than 6-9 months given patient's age and medication regimen Disclaimer: This note has been transcribed using speech recognition software and serves as a reflection of the patient's visit. While efforts have been made to ensure accuracy, there may be errors, including mannequin molder inaccuracies and misspellings of medication names. This document should not be considered a verbatim record, and any discrepancies should be verified with the provider. The combined SLUMS and IQCODE results indicate no current cognitive impairment. These scores are consistent with healthy aging or preserved cognition. No red flags suggest progression to mild cognitive impairment or dementia. 03/13/2025 Other Patient denied shakes, tremors, and difficulty with mobility. No Parkinson's-li ke symptoms reported. Provider discussed possible medication effects but patient did not identify any related concerns. - Monitor for any new symptoms suggestive of Parkinson's disease. The combined SLUMS and IQCODE results indicate no current cognitive impairment. These scores are consistent with healthy aging or preserved cognition. No red flags suggest progression to mild cognitive impairment or dementia. Plan Of Treatment Pending Test Test Name Order Date UDT 07/18/2024 Next Appt Details Provider Name:Victoriano Johnson , 09/11/2025 11:00:00 AM, [address], [facility] [address], [place], [address], Insurance Providers Payer Name Payer Address Payer Phone Subscriber Number Group Number Insured Name Patient Relationship to Insured Coverage Start Date Coverage End Date Medicare-I l Medicare [address] [place] [address] [id number] Berto Barcenas Self - patient is the insured [facility] Medicare Supplement [address] [facility] [place] [address] [phone] [id number] Berto Barcenas Self - patient is the insured Medical (General) History Medical History History ICD Code Past Psychiatric History: Major Depressi ve Episode,Bipolar Disorder abdominal aortic aneurysm: Yes atrial fibrillation: No chronic fatigue syndrome: No essential tremor: No hyperlipidemia: No hypertension: Yes restless leg syndrome: No stroke: Yes subdural hematoma: No type 1 diabetes mellitus: No type 2 diabetes mellitus: Yes Hospitalization History Reason Date(Month/Year) Not even oxygen, was in rehab 2023 Difficulty walking 2023
--- OUTSIDE RECORDS SUMMARY | 2025-04-02 17:29 | XMS_ITS | Encounter Summary ---
Author Organization [facility] Address [address] [place] [address] Phone Care Team Providers Care Driver Courier Name Role Phone Boby Trivedi MD Primary Care Provider Hai Ramirez MD Unavailable Elida Rodrigues MD Unavailable [phone] Lola King MD Unavailable Ny Barth RN Unavailable Unavailable Reason for Visit * Reason Comments Medication Refill Encounter Details Date Type Department Care Team (Late st Contact Info) Description 12/08/2023 Refill [facility] Cardiovascular [place] - Cardiology - [facility] [address] [place] [address] Lola King MD [address] [place] [address] Medication Refill Social History Tobacco Use Types Packs/Day Years Used Date Smoking Tobacco: Never Smokeless Tobacco: Never Alcohol Use Standard Drinks/Week Comments No 0 (1 standard drink = 0.6 oz pur e alcohol) very seldom [facility] Utilities Answer Date Recorded In the past 12 months has e [employer], gas, oil, or water [employer] threatened to shut off services in your [...] week 09/16/2023 How often do you attend chur or voodoo services? More than 4 times per year 09/16/2023 Do you belong to any clubs o r organizations such as congregational groups, unions, fraternal or athletic groups, or [...] Total Score - Questions 1-9 0 11/28 [facility] - Occupational Stress [...] place to sleep or slept in a alf (including now)? No 09/16/2023 Education Answer Date Recorded What is the highest level of school you have completed or the highest degree you have received? 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 Requested Prescriptions Pending Prescriptions Disp Refills Empagliflozin (Jardiance) 10 MG Tablet [Pharmacy Med Name: JARDIANCE 10MG TABLETS] 90 Tablet 1 Sig: TAKE 1 TABLET BY MOUTH DAILY SGLT2 Inhibitors Protocol Passed - 12/08/2023 4:54 PM Passed - Visit with relevant provider in past 12 months or upcoming 90 days Recent Visits Date Type Provider Dept 11/08/23 Office Visit Boby Trivedi MD [facility] [place] 10/04/23 Office Visit Lola King MD [facility] [place] 09/18/23 Office Visit Boby Trivedi MD [facility] [place] 05/22/23 Initial Consult Leana Corcoran MD [facility] [place] 05/18/23 Office Visit Lola King MD [facility] [place] 04/10/23 Office Visit Jose Lloyd APRN, FOOD AND BEVERAGE CASHIER [facility] [place] 03/23/23 Office Visit Lola King MD [facility] [place] 03/14/23 Office Visit Boby Trivedi MD [facility] [place] 01/06/23 Office Visit Boby Trivedi MD [facility] [place] 12/29/22 Office Visit Curtis Ayon MD [facility] [place] Showing recent visits within past 365 days and meeting all other requirements Future Appointments No visits were found meeting these conditions. Showing future appointments within next 90 days and meeting all other requirements Passed - GFR greater than or equal to 30 in past 6 months GFR, EST. NONAFRICAN Date Value Ref Range Status 10/11/2023 31 (L) >=60 Final documented in this encounter Plan of Treatment Not on file documented as of this encounter Visit Diagnoses Not on filedocumented in this encounter Care Teams Driver Courier Relationship Specialty Start Date End Date Boby Trivedi MD [address] [place] [address] PCP - General 09/25/08 09/02/24 Hai Ramirez MD [address] [place] [address] Consulting Physician Gastroenterology 05/28/18 Elida Rodrigues MD [address] [facility] [place], [place] [id number] Consulting Physician Cardiovascular Disease - Cardiology 08/16/19 Lola King MD [address] [facility] [place] [id number] Consulting Physician Cardiovascular Disease - Cardiology 09/15/21 Ny Barth RN [place] Nurse Tire Mechanic 09/03/24 09/03/24 documented as of this encounter
--- OUTSIDE RECORDS SUMMARY | 2025-04-02 17:29 | XMS_ITS | Encounter Summary ---
Author Organization [facility] Address [address] [place] [address] Phone Care Team Providers Care Machine Clothing Worker Name Role Phone Boby Trivedi MD Primary Care Provider Hai Ramirez MD Unavailable Elida Rodrigues MD Unavailable [phone] Lola King MD Unavailable Ny Barth RN Unavailable Unavailable Reason for Visit * Reason Onset Date Comments Medication Management 02/05/2021 Lisinopril Encounter Details Date Type Department Care Team (Late st Contact Info) Description 02/05/2021 [facility] [place] [facility] - [facility] [place] [address] [place] [address] Lola King MD [address] [place] [address] Medication Management (Lisinopril) Social History Tobacco Use Types Packs/Day Years Used Date Smoking Tobacco: Never Smokeless Tobacco: Never Alcohol Use Standard Drinks/Week Comments No 0 (1 standard drink = 0.6 oz pur e alcohol) Sex and Gender Information Value Date Recorded Sex Assigned at Male 03/14/2023 10:48 AM CDT Legal Sex Male 3:04 AM 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 No / Unsure 02/07/2021 1:36 PM CDT documented as of this encounter Miscellaneous Notes * Telephone Encounter - Vj Kline RN - 02/05/2021 2:59 PM CDT Returned call to patient to discuss below. Patient states that he was supposed to decrease Lisinopril to 40mg daily back on 09/17/20. States hemistakenly did not decrease his dosage, so he has continued to take Lisinopril 40mg twice daily, sohe is not able to refill his Lisinopril through insurance for about a month or so. Patient would like to have a 30 day supply sent to pharmacy so he can pay burrell as he has been without medication for a few days. Advised patient I will forward to Dr. King for approval, and will return call if UNABLE to send script. Patient verbalized understanding and denies further questions or concerns. Script pended for 30 day supply of Lisinopril 40mg daily. Will forward to Dr. King for review and recommendations. * Telephone Encounter - Mony Rosen - 02/05/2021 2:37 PM CDT Pt called stating that his Lisinopril had been changed to taking daily at his OV with Dr. King on 09/17/20. Pt states that he has been taking Lisinopril 40 mg BID. Pt states that he is currently out of medication and it is to early to refill his medications. Pt is wondering if he can get 1 month's worth of medication sent to his current pharmacy on his med list? [facility] a [facility] [phone]. documented in this encounter Plan of Treatment Not on file documented as of this encounter Visit Diagnoses Not on filedocumented in this encounter Care Teams Machine Clothing Worker Relationship Specialty Start Date End Date Boby Trivedi MD [address] [place] [address] PCP - General 09/25/08 09/02/24 Hai Ramirez MD [address] [place] [address] Consulting Physician Gastroenterology 05/28/18 Elida Rodrigues MD [address] [place], [place] [address] Consulting Physician Cardiovascular Disease - Cardiology 08/16/19 Lola King MD [address] [place], [place] [address] Consulting Physician Cardiovascular Disease - Cardiology 09/15/21 Ny Barth RN [place] Nurse Cushion Assembler 09/03/24 09/03/24 documented as of this encounter
--- OUTSIDE RECORDS SUMMARY | 2025-04-02 17:29 | XMS_ITS | Clinical Summary ---
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 4 Active aspirin 81 MG chewable tablet Chew 1 tablet (81 mg total) by mouth daily. Active fish oil (OMEGA-3 FATTY ACID) 1000 MG Cap capsule Take 1 capsule (1,000 mg total) by mouth 2 (two) times daily. Active Multiple Vitamins-Minerals (OCUVITE ADULT 50+ OR) Take 1 tablet by mouth daily. Active atorvastatin (LIPITOR) 80 MG tabletIndications:M ixed hyperlipidemia Take 1 tablet (80 mg total) by mouth daily. 90 tablet 3 4 04/04/20 25 Active felodipine ER 10 MG TABLET SR 24 HR 24 hr tabletIndications:E ssential hypertension Take 1 tablet by mouth daily. 90 tablet 3 4 04/04/20 25 Active levothyroxine (SYNTHROID) 50 MCG tabletIndications:A cquired hypothyroidism Take 1 tablet (50 mcg total) by mouth every morning. 90 tablet 3 4 04/04/20 25 Active furosemide (LASIX) 40 MG tabletIndications:C hronic systolic congestive heart failure (CMS/HCC HHS/HCC) Take 1 tablet (40 mg total) by mouth daily. Second dose at noon PRN for weight greater than 220 lb 90 tablet 3 4 06/11/20 25 Active QUEtiapine (SEROQUEL) 100 MG tabletIndications:B ipolar disorder with depression ([facility] HHS/HCC) Take 2 tablets (200 mg total) by mouth nightly at bedtime. 180 tablet 1 4 06/25/20 25 Active melatonin 10 MG tablet Take 1 tablet (10 mg total) by mouth nightly as needed. Active carvedilol (COREG) 12.5 MG tabletIndications:E ssential hypertension Take 1 tablet (12.5 mg total) by mouth 2 (two) times daily. 180 tablet 1 5 04/13/20 25 Active JARDIANCE 10 MG tabletIndications:T ype 2 diabetes mellitus without complication, without long-term current use of insulin ([facility] HHS/[facility]) Take 1 tablet (10 mg total) by mouth daily. 90 tablet 1 5 04/13/20 25 Active Glucose Blood (FREESTYLE LITE) test stripIndications:Ty pe 2 diabetes mellitus with diabetic nephropathy, without long-term current use of insulin ([facility]) USE 1 STRIP TO TEST BLOOD SUGAR ONCE DAILY 100 strip 3 5 Active zolpidem (AMBIEN) 5 MG tabletIndications:P rimary insomnia TAKE 1 TABLET(5 MG) BY MOUTH EVERY NIGHT NEEDED FOR SLEEP 90 tablet 5 Active sacubitril-valsarta n (ENTRESTO) 97-103 MG tablet Take 1 tablet by mouth 2 (two) times daily. 180 tablet 1 5 Active allopurinol (ZYLOPRIM) 100 MG tabletIndications:H yperuricemia Take 1 tablet (100 mg total) by mouth daily. 90 tablet 3 5 Active Active Problems Problem Noted Date Diagnosed Date Chronic gout without tophus, unspecified cause, unspecified site 06/25/2024 Overview (08/01/2024): Uric acid levels 7.1. Hx of gout affecting knee/foot while in the hospital in late 2023. He was recommended to start allopurinol but has not taken it. Assessment & Plan (08/01/2024 11:56 AM GRAVE CLEANER): We discussed risk and benefits of taking allopurinol prophylactically. He has had 1 known episode of gout. He has limited options for treatment due to CKD and bipolar disorder if he should have another episode of gout. His kidney disease poses some challenges but his dose was renally adjusted. He will give this consideration and possibly start allopurinol low-dose 50 mg daily. Repeat uric acid levels next visit. Assessment & Plan (06/25/2024 10:38 AM GRAVE CLEANER): Recommend low dose allopurinol 50 mg daily renally dosed for control. Essential hypertension 04/04/2024 Overview (01/21/2025): Blood pressure typically 120/80 at home. He did not take his medication yet today. He takes a combination of felodipine, Entresto, metoprolol. Assessment & Plan (01/21/2025 11:04 AM CDT): Chronic. Controlled. Continue current regimen of felodipine, Entresto, metoprolol. Assessment & Plan (10/15/2024 2:37 PM CDT): Worsening not controlled but regimen is optimized. He continues to follow with nephrology as well. Continue on current regimen felodipine, Entresto, metoprolol. Assessment & Plan (06/25/2024 10:36 AM GRAVE CLEANER): Chronic and controlled today. Cont felodipine, entresto, metoprolol. Assessment & Plan (06/11/2024 12:18 PM GRAVE CLEANER): Chronic and controlled. Continue felodipine, Entresto, metoprolol. Assessment & Plan (04/04/2024 2:02 PM CDT): Not controlled today. Patient will monitor his home blood pressure readings and provide them at follow-up to determine if he requires any additional medication. Type 2 diabetes mellitus wit h diabetic nephropathy, without long-term current use of insulin ([facility]) 04/04/2024 Overview (01/21/2025): A1c was 5.2% in September, now consistently up at 7.3%. Patient takes Jardiance. He has been on this regimen for some time. He reports lately he has been noncompliant with diet and would like to get back on track. Assessment & Plan (01/21/2025 11:02 AM CDT): Controlled. Goal <8%. Continue Jardiance. Requested diabetic eye exam from [facility]. Completed foot exam. Assessment & Plan (10/15/2024 2:37 PM CDT): Remains controlled but there has been a significant increase in his A1c over the last 6 months. Recommend he improve his diet and we will repeat this in 3 months instead of 6 to ensure he is getting back on track. Continue Jardiance. Assessment & Plan (06/11/2024 12:17 PM GRAVE CLEANER): Chronic and controlled. Continue on Jardiance. Assessment & Plan (04/04/2024 2:03 PM CDT): Suspect at goal. Repeat A1c. Notably patient has substantial kidney disease. We will discontinue metformin as we wait for his A1c returned return. Continue Jardiance. Acquired hypothyroidism 04/04/2024 Overview (04/04/2024): Patient takes levothyroxine 50 mcg daily. Assessment & Plan (01/21/2025 11:06 AM CDT): Will check TSH with reflex in 3 months. Continue levothyroxine 50 mcg daily. Assessment & Plan (04/04/2024 2:03 PM CDT): Will check TSH to establish how well this is controlled. Continue levothyroxine. Atherosclerosis of coronary artery 04/04/2024 Overview (04/04/2024): 2003: VT 2005: VT 2005: CABG: ROBIN to LAD, SVG to RCA, M, Cfx 03/10: Nuclear: 45% EF, fixed inferobasal Bipolar disorder with depression ([facility]) 04/04/2024 Overview (08/01/2024): Has been taking regimen of bupropion, Seroquel for years. He is no longer on citalopram.. Now established with Dr. Johnson. Psychiatrist agreed with current regimen. Assessment & Plan (06/25/2024 10:35 AM GRAVE CLEANER): Chronic but well controlled. Remain off citalopram. Reduce seroquel to 200 mg daily and watch for changes in mood. Son will also monitor him carefully. Cont bupropion. Assessment & Plan (06/11/2024 12:17 PM GRAVE CLEANER): Would like to establish locally. My preference would be to slowly reduce medication to limit polypharmacy. Concern with tardive dyskinesias and high-dose Seroquel. Would like to slowly titrate down and monitor carefully for recurrence of bipolar symptoms. Referral entered to psychiatry. Assessment & Plan (04/04/2024 2:11 PM CDT): Patient will continue to manage with his psychiatrist. Cerebrovascular accident ([facility]) 04/04 Primary insomnia 04/04/2024 Overview (08/01/2024): Started ambien in 2002. Started melatonin and discontinued ambien since last visit. Sleeping fine. Since stopping these medications he appears more clearheaded and family is less concerned about him managing his own medications. Assessment & Plan (01/21/2025 11:03 AM CDT): Chronic and stable. Have discussed risks of Ambien and while not ideal, patient prefers to remain on it. For now we will continue unless we see increasing confusion or falls. Assessment & Plan (06/25/2024 10:34 AM GRAVE CLEANER): Chronic and now controlled with melatonin. DC ambien altogether. Assessment & Plan (06/11/2024 12:20 PM GRAVE CLEANER): Will continue to eliminate high risk medications. Reduce Ambien to 2.5 mg nightly or 5 mg every other night. He will continue to work on titrating this off. Assessment & Plan (04/04/2024 2:12 PM CDT): Recommend initiating slow reductions in Ambien for safety reasons. He has had recent falls. Reduce Ambien to 5 mg nightly with further reductions in the future. Patient is agreeable. Hypertensive heart and kidne y disease with acute diastolic congestive heart failure and stage 3 chronic kidney disease, unspecified whether stage 3a or 3b CKD ([facility]) 12/23/2022 Chronic systolic congestive heart failure ([facility]) 11/14/2022 Overview (01/21/2025): Last EF, 10/07/2005: EF 50% 02/2011: 45% by nuclear. Most recent EF 35% by TTE. MR heart 10/2023 shows EF 45%. Weight currently 233 lb, has somewhat steadily been climbing since June which she attributes primarily to diet. He does not wear compression stockings and has some baseline lymphedema in both legs. Patient is not on spironolactone due to history of hyperkalemia. Assessment & Plan (01/21/2025 11:05 AM CDT): Stable. Established with cardiology and follows with them regularly. Continue current regimen. Assessment & Plan (08/01/2024 11:57 AM GRAVE CLEANER): Currently appears hypervolemic. Recommended Lasix 40 mg at noon today and possibly again tomorrow in addition to his daily dose depending on how weight responds. He fully admits to increasing his salt over the holidays. Family is now aware and will help monitor his weight to ensure he does not have a CHF exacerbation. Assessment & Plan (06/25/2024 10:33 AM GRAVE CLEANER): Chronic and appears hypervolemic today. Recommend lasix bid x 3 days or until weight returns to baseline. Request an update if persistently elevated next week for further instructions. Pt vocalized understanding and son will assist in medication management. Assessment & Plan (06/11/2024 11:35 AM GRAVE CLEANER): Chronic and currently euvolemic. Will check CBC, BMP. Cardiology referral to establish locally. Recommend lasix 40 mg daily and second dose at noon if weight climbs greater than 220 lb. Will initiate CCM. Assessment & Plan (04/04/2024 2:05 PM CDT): Currently appears euvolemic and stable. Continue Lasix 40 mg daily. Discussed importance of monitoring daily weights and updating if he is more than to 10 pounds which is his baseline so adjustments to his Lasix can be made. History of prostate cancer 10/13/2022 Stage 3b chronic kidney disease 10/13/2022 Overview (01/21/2025): GFR 33 most recently. No longer on metformin. Is established with Dr. Renee. Assessment & Plan (01/21/2025 11:03 AM CDT): Stable. Managed by nephrology. Assessment & Plan (06/25/2024 10:34 AM GRAVE CLEANER): Will refer to nephrology. Chronic. Assessment & Plan (06/11/2024 12:19 PM GRAVE CLEANER): Leg pain is resolved. Concern for persistent chronic kidney disease. Will repeat his BMP to check on kidney function. Discontinue Celebrex. Assessment & Plan (04/04/2024 2:06 PM CDT): Concern for CKD in the context of metformin use. Some cardiorenal syndrome. Avoid nephrotoxic agents. Eliminating metformin. Hx of CABG 09/17/2020 Colon cancer screening 05/24/2018 Overview (08/29/2024): Colonoscopy 05/24/18 Two polyps - repeat in 5 years. LBBB (left bundle branch block) 05/21/2015 ELVER (obstructive sleep apnea) 03/12/2009 Overview (12/10/2024): Has a CPAP but doesn't seem to be working. At least 10 years old. Last sleep study was around 1999. Assessment & Plan (12/10/2024 12:35 PM CDT): Will order new sleep study at [facility]. Then will order through machine and settings through [employer] and referral to [facility] for correction management. Mixed hyperlipidemia 01/22/2006 Overview (04/04/2024): Patient takes a fish oil supplement, atorvastatin 80 mg daily. Tolerates well. Assessment & Plan (01/21/2025 11:03 AM CDT): LDL less than 70. Continue atorvastatin 80 mg daily along with fish oil supplement. Assessment & Plan (10/15/2024 2:40 PM CDT): Repeat lipid panel and CMP next blood draw. Continue atorvastatin. Assessment & Plan (04/04/2024 2:01 PM CDT): Ordered CMP and lipid panel to evaluate response. Continue atorvastatin 80 mg daily. Resolved Problems Problem Noted Date Diagnosed Date Resolved Date Care Management 07/08/2024 11/20/2024 Encounters Date Type Department Care Team Description 03/03/2025 Telephone [facility] [place] [address] [place] [address] [address] [place] [address] Brenda Cleveland MD Lab Results 02/13/2025 1:00 PM CDT Office Visit [facility] [place] [address], [address] [phone] Kevin Renee MD CKD Follow-up 02/13/2025 Travel 02/07/2025 9:12 AM CDT - 02/07/2025 11:59 PM CDT Hospital Encounter [facility] [place] [address] Kevin Renee MD Discharge Disposition: Home or Self Care (Routine Discharge) 02/07/2025 Travel 01/28/[address] [place] [address] Brenda Cleveland MD Information 01/28/[address] [place] [address] Brenda Cleveland MD Refill Request 01/21/2025 10:10 AM CDT Office Visit [address] [place] [address] Brenda Cleveland MD Follow Up (3mo ck on DM/lab work) 01/21/[address] [place] [address] Brenda Cleveland MD Record Request 01/21/2025 Travel 01/17/2025 Results Follow-Up [address] [place] [address] Brenda Cleveland MD HEMOGLOBIN, GLYCOSYLATED, VITAMIN B-12, LIPID PANEL, Additional followed-up results: 2 01/16/2025 7:15 AM CDT Allied Health/Nurse Visit [address] [place] [address] Brenda Cleveland MD Lab Draw 01/16/2025 Scan [facility] Scanned, [facility] 01/16/2025 Travel 01/14/2025 Scan [facility] Scanned, [facility] 01/14/[address] [place] [address] Brenda Cleveland MD Results 01/06/2025 [place] IThart Message Enc [facility] [address] [facility] [address] [place] [address] Brenda Cleveland MD Blood pressure from Last 3 Months Immunizations Immunization Administration Dates Next Due Abrysvo Respiratory Syncytia l Virus (RSV) 0.5 mL, PF 06/07/2023 Arexvy Respiratory Syncytial Virus (RSV, adjuvanted) 0.5 mL, PF 06/07/2023 FLUAD (IIV, Trivalent, 0.5 M L Pre-filled Syringe) 06/26/2017,06/25/2017 Fluzone High Dose (IIV, triv alent, 0.5mL) 04/19/2024,08/31/2015 Fluzone High Dose - >Age 65 (Prefilled Syringe) 06/07/2023,04/10/2023 Hepatitis A (Generic) 07/06/2023 Hepatitis A/Hepatitis B(Twinrix) 07/06/2023 Influenza (Generic) 08/25/2014, 5,04/30/2013,2011 Influenza Adult (Generic) 06/07/2023,05/2023,06/21/2021,2019 PFIZER COVID-19 (CHILD 6M-4Y ) MRNA, LNP-S,PF,NANCY-SUCROSE, 3MCG/0.3ML (PFIZER) 06/07/2023 Pneumococcal (Pneumovax 23) 11/27/2018, 4 Pneumococcal (Prevnar 13) 08/31/2015 Pneumococcal (Prevnar 20) 07/06/2023 Shingrix 07/06/2023,04/11/2023 Td (Generic) 01/29/2024 Tdap (Generic) 06/11/2013 Family History Medical History Relation Comments Cancer Father Prostate Heart Disease Mother Stroke Mother Diabetes Sister Kidney Disease Sister Relation Status Comments Father Mother Sister Social History Tobacco Use Types Packs/Day Years Used Date Smoking Tobacco: Never Passive Smoke Exposure: Never Smokeless Tobacco: Never Tobacco Cessation:Counseling Given: No Alcohol Use Standard Drinks/Week Comments Never 0 (1 standard drink = 0.6 oz pur e alcohol) PHQ-2 Answer Date Recorded Patient Health Questionnaire-2 Score 0 02/13/2025 Sex and Gender Information Value Date Recorded Sex Assigned at Male 2024 12:04 PM CDT Legal Sex Male 12:01 PM CDT Gender Identity Male 10/15/2024 10:17 AM CDT Sexual Orientation Not on file Last Filed Vital Signs Vital Sign Reading Time Taken Comments Blood Pressure 150/82 02/13/2025 12:51 PM CDT Pulse 68 02/13/2025 12:51 PM CDT Temperature 36.3 C (97.4 F) 02/13/2025 12:51 PM CDT Respiratory Rate 20 12/10/2024 12:12 PM CDT Oxygen Saturation 95% 02/13/2025 12:51 PM CDT Inhaled Oxygen Concentration - - Weight 104.3 kg (230 lb) 02/13/2025 12:51 PM CDT Height 172.7 cm (5' 8) 02/13/2025 12:51 PM CDT Body Mass Index 34.97 02/13/2025 12:51 PM CDT Plan of Treatment Upcoming Encounters Date Type Department Care Team (Late st Contact Info) Description 06/03/2025 2:00 PM GRAVE CLEANER Allied Health/Nurse Visit [facility] Medical [facility] [address] [address] Brenda Cleveland MD [address] [address] 06/13/2025 12:15 PM GRAVE CLEANER Office Visit [facility] [phone] Salomon Mora MD [facility] [address] [place] [phone] 06/17/2025 10:10 AM GRAVE CLEANER Office Visit [facility] [address] [address] Brenda Cleveland MD [address] [place] [address] 06/17/2025 10:30 AM GRAVE CLEANER Office Visit [facility] [place] [address] [place] [address] Brenda Cleveland MD [address] [place] [address] 09/18/2025 1:00 PM GRAVE CLEANER Office Visit [facility] [address] [facility], [address] [place] [address] Kevin Renee MD 3 [facility], [address] [place] [address] Health Maintenance Due Date Last Done Comments Colorectal Cancer Screening Colonoscopy (10 Years) 1950 Diabetes: Retinopathy Eye Exam 10/15/1967 Annual Medicare Wellness Visit 2014 COVID-19 Vaccine ( season) 2024 06/07/2023, 07/06/2021, 09/23/2020, Additional history exists Hemoglobin A1C 07/18/2025 01/16/2025, 09/28, 04/05/2024, Additional history exists Lipid Panel 01/16/2026 01/16/2025, 04/05/2024 Kidney Health Evaluation 02/07/2026 02/07/2025 DTaP, Tdap and Td Vaccines (3 - Td or Tdap) 01/28/2034 01/29/2024, 06/11/2013 Hepatitis C Completed 03/14/2023 RSV Immunization or 60+ Years Completed 06/07/2023, 06/07/2023 Pneumococcal Vaccine: 50+ Years Completed 07/06/2023, 11/27/2018, 08/31/2015, Additional history exists Zoster Vaccines Completed 07/06/2023, 04/11/2023 PHQ-2 (Physician [place]) Completed 02/13/2025 Meningococcal B Vaccine Aged Out No l onger eligible based on patient's age to complete this topic Meningococcal Vaccine Aged Out No lane fernando eligible based on patient's age to complete this topic RSV Immunizations Under 20 Months Aged Out No longer eligible based on patient's age to complete this topic Procedures Procedure Name Priority Date/Time Associated Diagnosis Comments CBC, AUTO, NO DIFF Routine 02/07/2025 9: 22 AM CDT Stage 3b chronic kidney disease ([facility]/HCC) VITAMIN D, 25 [place] Routine 02/07/2025 9:22 AM CDT Stage 3b chronic kidney disease ([facility]/HCC) PTH - INTACT Routine 02/07/2025 9:22 AM CDT Stage 3b chronic kidney disease (CMS/HCC) URIC ACID BLOOD Routine 02/07/2025 9:22 AM CDT Stage 3b chronic kidney disease ([facility]/HCC) BASIC METABOLIC PANEL Routine 02/07/2025 9:22 AM CDT Stage 3b chronic kidney disease ([facility]/HCC) ALBUMIN URINE RANDOM W/CREATININE Routine 02/07/2025 9:18 AM CDT Stage 3b chronic kidney disease ([facility]/HCC) COLLECTION VENOUS BLOOD VENIPUNCTURE Routine 01/16/2025 7:16 AM CDT Type 2 diabetes mellitus without complication, without long-term current use of insulin ([facility] HHS/HCC) Mixed hyperlipidemia Essential hypertension ALBUMIN URINE RANDOM W/CREATININE Routine 01/16/2025 7:15 AM CDT Type 2 diabetes mellitus without complication, without long-term current use of insulin ([facility] HHS/HCC) COMPREHENSIVE METABOLIC PANEL Routine 01/16/2025 7:15 AM CDT Essential hypertension LIPID PANEL Routine 01/16/2025 7:15 AM CDT Mixed hyperlipidemia VITAMIN B-12 Routine 01/16/2025 7:15 AM CDT Type 2 diabetes mellitus without complication, without long-term current use of insulin ([facility] HHS/HCC) HEMOGLOBIN, GLYCOSYLATED Routine 01/16/2025 7:15 AM CDT Type 2 diabetes mellitus without complication, without long-term current use of insulin ([facility]) from Last 3 Months Results * (ABNORMAL) PTH - INTACT (02/07/2025 9:22 AM CDT) PTH INTACT 317.4(H) 18.4 - 80.1 PG/ML 02/07/2025 10:29 AM CDT [facility] 02/07/2025 9:22 AM CDT Kevin Renee MD LABORATORY Final Result [facility] [address] [place] [id number], [place] [phone] * (ABNORMAL) BASIC METABOLIC PANEL (02/07/2025 9:22 AM CDT) GLUCOSE 142(H) 70 - 99 MG/DL 02/07/2025 10:19 AM CDT [facility] BUN 31(H) 7 - 18 MG/DL 02/07/2025 10:19 AM CDT [facility] CREATININE S/P/B 2.09(H) 0.7 - 1.3 MG/DL 02/07/2025 10:19 AM CDT [facility] SODIUM S/P/B 141 136 - 145 MMOL/L 02/07/2025 10:19 AM CDT [facility] POTASSIUM S/P/B 3.7 3.5 - 5.1 MMOL/L 02/07/2025 10:19 AM CDT [facility] CHLORIDE S/P/B 109 97 - 115 MMOL/L 02/07/2025 10:19 AM CDT [facility] CO2 29.5 21 - 32 MMOL/L 02/07/2025 10:19 AM CDT [facility] CALCIUM S/P/B 10.0 8.5 - 10.1 MG/DL 02/07/2025 10:19 AM CDT [facility] ANION GAP 2.5 2 - 10 MMOL/L 02/07/2025 10:19 AM CDT [facility] BUN CREATININE RATIO 14.8 6 - 26 02/07/2025 10:19 AM CDT [facility] GFR ESTIMATE 32(L) >90 ML/MIN/1.7 3 M2 02/07/2025 10:19 AM CDT [facility] Comment: NOTE: eGFR is not calculated for patients <18 years of age or gender unknown. This is an estimated GFR calculation using the new CKD EPI creatinine equation without race and so does not require a correction factor for race. This estimated GFR should not be used for calculating drug doses. 02/07/2025 9:22 AM CDT us Kevin Renee MD LABORATORY Final Result [facility] [address] [place] [address], [place] [phone] * (ABNORMAL) CBC, AUTO, NO DIFF (02/07/2025 9:22 AM CDT) WBC 6.73 4.5 - 11.0 x10'3/uL 02/07/2025 9:59 AM CDT [facility] RBC 5.00 4.70 - 6.10 x10'6/uL 02/07/2025 9:59 AM CDT [facility] HGB 15.7 14.0 - 18.0 G/DL 02/07/2025 9:59 AM CDT [facility] HCT 46.9 43.0 - 54.0 % 02/07/2025 9:59 AM CDT [facility] MCV 93.8 80.0 - 94.0 FL 02/07/2025 9:59 AM CDT [facility] MCH 31.4(H) 27.0 - 31.0 PG 02/07/2025 9:59 AM CDT [facility] MCHC 33.5 32.0 - 36.0 G/DL 02/07/2025 9:59 AM CDT [facility] RDW 13.8 11.5 - 14.5 % 02/07/2025 9:59 AM CDT [facility] PLT 149 130 - 400 x10'3/uL 02/07/2025 9:59 AM CDT [facility] MPV 10.2 9.3 - 12.2 FL 02/07/2025 9:59 AM CDT [facility] 02/07/2025 9:22 AM CDT Kevin Renee MD LABORATORY Final Result [facility] [address] [place] [id number], [place] [phone] * VITAMIN D, 25 OH (02/07/2025 9:22 AM CDT) Pathologist [facility] VITAMIN D 25 HYDROXY S/P/B 48 30 - 100 NG/ML 02/07/2025 10:22 AM CDT [facility] Comment: INTERPRETATION DEFICIENT <20 INSUFFICIENT 20-29 SUFFICIENT 30-100 02/07/2025 9:22 AM CDT Kevin Renee MD LABORATORY Final Result [facility] [address] [place] [address], [place] [phone] * (ABNORMAL) URIC ACID BLOOD (02/07/2025 9:22 AM CDT) URIC ACID 9.2(H) 3.5 - 7.2 MG/DL 02/07/2025 10:19 AM CDT [facility] 02/07/2025 9:22 AM CDT Kevin Renee MD LABORATORY Final Result [facility] [address] [place] [address], [place] [phone] * (ABNORMAL) ALBUMIN URINE RANDOM W/CREATININE (02/07/2025 9:18 AM CDT) Only the most recent of2 resultswithin the time period is included. CREATININE (U) 77.0 39 - 259 MG/DL 02/07/2025 10:12 AM CDT [facility] MICROALBUMIN (U) 8.2(H) <2.0 mg/dL 02/07/2025 10:12 AM CDT [facility] ALBUMIN/CREAT RATIO 106.8(H) <30 MG/G 02/07/2025 10:12 AM CDT [facility] URINE SPECIMEN / Unknown 02/07/2025 9:18 AM CDT us Kevin Renee MD URINE ORDERABLES Final Result [facility] [address] [place] [address], [place] [phone] * (ABNORMAL) HEMOGLOBIN, GLYCOSYLATED (01/16/2025 7:15 AM CDT) HGB A1C 7.3(H) 4.5 - 6.2 % 01/16/2025 5:22 PM CDT [facility] ESTIMATED AVG GLUCOSE 163(H) 74 - 106 MG/DL 01/16/2025 5:22 PM CDT [facility] 01/16/2025 7:15 AM CDT Brenda Cleveland MD LABORATORY Final Re sult [facility] [address] [place] [address], [place] [phone] * (ABNORMAL) VITAMIN B-12 (01/16/2025 7:15 AM CDT) VITAMIN B12 S/P/B >6,000(H) 193 - 986 PG/ML 01/16/2025 4:46 PM CDT [facility] 01/16/2025 7:15 AM CDT Brenda Cleveland MD LABORATORY Final Re sult [facility] [address] [place] [address], [place] [phone] * (ABNORMAL) COMPREHENSIVE METABOLIC PANEL (01/16/2025 7:15 AM CDT) SODIUM S/P/B 144 136 - 145 MMOL/L 01/16/2025 4:46 PM CDT [facility] POTASSIUM S/P/B 4.6 3.5 - 5.1 MMOL/L 01/16/2025 4:46 PM CDT [facility] CHLORIDE S/P/B 107 98 - 107 MMOL/L 01/16/2025 4:46 PM T [facility] CO2 25.8 21 - 32 MMOL/L 01/16/2025 4:46 PM T [facility] GLUCOSE 155(H) 70 - 99 MG/DL 01/16/2025 4:[address] [facility] BUN 28(H) 7 - 18 MG/DL 01/16/2025 4:46 PM T [facility] CREATININE S/P/B 2.09(H) 0.70 - 1.30 MG/DL 01/16/2025 4:46 PM T [facility] CALCIUM S/P/B 10.0 8.4 - 10.5 MG/DL 01/16/2025 4:46 PM T [facility] BILIRUBIN TOTAL S/P/B 0.6 0.2 - 1.0 MG/DL 01/16/2025 4:46 PM [facility] ALKALINE PHOSPHATASE S/P/B 90 45 - 115 U/L 01/16/2025 4:46 PM T [facility] AST 28 15 - 37 U/L 01/16/2025 4:[address] [facility] ALT 29 16 - 63 U/L 01/16/2025 4:46 PM T [facility] TOTAL PROTEIN S/P/B 6.2(L) 6.4 - 8.2 G/DL 01/16/2025 4:46 PM T [facility] ALBUMIN S/P/B 3.7 3.4 - 5.0 G/DL 01/16/2025 4:46 PM T [facility] ANION GAP 11.2 5 - 15 MMOL/L 01/16/2025 4:46 PM T [facility] Comment:REFERENCE RANGE NOT ESTABLISHED OSMOLALITY (CALC) 307 MOSM/KG 025 4:46 PM T [facility] Comment:REFERENCE RANGE NOT ESTABLISHED GFR ESTIMATE 32(L) >90 ML/MIN/1. 73 M2 01/16/2025 4:46 PM CDT [facility] GFR NOTES GFR REFERENCE S: 01/16/2025 4:46 PM CDT [facility] Comment: THE ESTIMATED GFR IS CALCULATED USING THE 2020 CKD-EPI EQUATION. THE FOLLOWING CATEGORIES FOR GRADING RENAL FUNCTION ARE RECOMMENDED BY THE INTERNATIONAL SOCIETY OF NEPHROLOGY (KDIGO 2012 CLINICAL PRACTICE GUIDELINE). G1,NORMAL OR HIGH: >89 ml/min/1.73 m2 G2,MILDLY DECREASED: 60-89 ml/min/1.73 m2 G3A,MILDLY TO MODERATELY DECREASED: 45-59 ml/min/1.73 m2 G3B,MODERATELY TO SEVERELY DECREASED: 30-44 ml/min/1.73 m2 G4,SEVERELY DECREASED: 15-29 ml/min/1.73 m2 G5,KIDNEY FAILURE: <15 ml/min/1.73 m2 01/16/2025 7:15 AM CDT us Brenda Cleveland MD LABORATORY Final Re sult [facility] [address] [place] [address], * (ABNORMAL) LIPID PANEL (01/16/2025 7:15 AM CDT) CHOLESTEROL 141 <200 MG/DL 01/16/2025 4:46 PM CDT [facility] TRIGLYCERIDES 235(H) <150 MG/DL 01/16/2025 4:46 PM CDT [facility] HDL 35(L) >40 MG/DL 01/16/2025 4:46 PM CDT [facility] LDL-C 59 <100 MG/DL 01/16/2025 4:46 PM CDT [facility] VLDL CALCULATION 47(H) 5 - 28 MG/DL 01/16/2025 4:46 PM CDT [facility] CHOL/HDL RATIO 4.0 0.0 - 4.0 01/16/2025 4:46 PM CDT [facility] [place] [place] LDL/HDL 1.7 0.41 - 2.13 01/16/2025 4:46 PM CDT [facility] [place] [place] NON HDL CHOLESTEROL 106 <140 MG/DL 01/16/2025 4:46 PM CDT [facility] [place] 01/16/2025 7:15 AM CDT us Brenda Cleveland MD LABORATORY Final Re sult [facility] [address] [place] [address], [place] [phone] from Last 3 Months Insurance MEDICARE [facility] Care Teams Title Camera Operator Relationship Specialty Start Date End Date Brenda Cleveland MD [address] [address] PCP - General FAMILY PRACTICE 06/06/24
--- OUTSIDE RECORDS SUMMARY | 2025-04-02 17:29 | XMS_ITS | Encounter Summary ---
Author Organization [facility] Address [address] [place] [address] Phone Care Team Providers Care Layout Artist Name Role Phone Boby Trivedi MD Primary Care Provider Hai Ramirez MD Unavailable Elida Rodrigues MD Unavailable [phone] Lola King MD Unavailable Ny Barth RN Unavailable Unavailable Reason for Visit * Reason Comments Medication Refill Encounter Details Date Type Department Care Team (Late st Contact Info) Description 12/06/[address] [facility] Cardiovascular [place] - Cardiology - [facility] [address] [place] [address] Lola King MD [address] [place] [address] Medication Refill Social History Tobacco Use Types Packs/Day Years Used Date Smoking Tobacco: Never Smokeless Tobacco: Never Alcohol Use Standard Drinks/Week Comments No 0 (1 standard drink = 0.6 oz pur e alcohol) very seldom [facility] Utilities Answer Date Recorded In the past 12 months has e [employer], gas, oil, or water [employer] threatened to shut off services in your [...] How often do you attend chur or samaritan services? More than 4 times per year 09/16/2023 Do you belong to any clubs o r organizations such as religion groups, unions, fraternal or athletic groups, or [...] Total Score - Questions 1-9 0 11/28 [facility] - Occupational Stress [...] place to sleep or slept in a long-term (including now)? No 09/16/2023 Education Answer Date Recorded What is the highest level of school you have completed or the highest degree you have received? 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 Requested Prescriptions Pending Prescriptions Disp Refills atorvastatin (LIPITOR) 80 MG Tablet [Pharmacy Med Name: ATORVASTATIN 80MG TABLETS] 90 Tablet 3 Sig: TAKE 1 TABLET BY MOUTH DAILY Hmg CoA Reductase Inhibitors Protocol Passed - 12/06/2023 9:46 PM Passed - Visit with relevant provider in past 18 months or upcoming 90 days Recent Visits Date Type Provider Dept 11/08/23 Office Visit Boby Trivedi MD [facility] [place] 10/04/23 Office Visit Lola King MD [facility] [place] 09/18/23 Office Visit Boby Trivedi MD [facility] [place] 05/22/23 Initial Consult Leana Corcoran MD [facility] [place] 05/18/23 Office Visit Lola King MD [facility] [place] 04/10/23 Office Visit Jose Lloyd APRN, STRINGED INSTRUMENT ASSEMBLER [facility] [place] 03/23/23 Office Visit Lola King MD [facility] [place] 03/14/23 Office Visit Boby Trivedi MD [facility] [place] 01/06/23 Office Visit Boby Trivedi MD [facility] [place] [address] 12/29/22 Office Visit Curtis Ayon MD [facility] [place] Showing recent visits within past 548 days and meeting all other requirements Future Appointments No visits were found meeting these conditions. Showing future appointments within next 90 days and meeting all other requirements Passed - Lipid panel in past 12 months LDL Date Value Ref Range Status 09/12/2023 55 <130 mg/dL Final HDL CHOLESTEROL Date Value Ref Range Status 09/12/2023 36 (L) >40 mg/dL Final CHOLESTEROL Date Value Ref Range Status 09/12/2023 109 <200 mg/dL Final TRIGLYCERIDES Date Value Ref Range Status 09/12/2023 89 <150 mg/dL Final VLDL Date Value Ref Range Status 09/12/2023 18 10 - 50 mg/dL Final CHOL/HDL RATIO Date Value Ref Range Status 09/12/2023 3.0 0.0 - 4.4 Final NON-HDL CHOLESTEROL Date Value Ref Range Status 09/12/2023 73 <130 mg/dL Final Passed - CMP on record in past 12 months SODIUM Date Value Ref Range Status 10/11/2023 139 136 - 145 mmol/L Final POTASSIUM Date Value Ref Range Status 10/11/2023 4.8 3.5 - 5.1 mmol/L Final CHLORIDE Date Value Ref Range Status 10/11/2023 106 98 - 107 mmol/L Final CO2, VENOUS Date Value Ref Range Status 10/11/2023 28 22 - 30 mmol/L Final ANION GAP Date Value Ref Range Status 10/11/2023 5.0 <18.0 mmol/L Final GLUCOSE Date Value Ref Range Status 10/11/2023 76 70 - 99 mg/dL Final BUN Date Value Ref Range Status 10/11/2023 30 (H) 8 - 26 mg/dL Final CREATININE, BLOOD Date Value Ref Range Status 10/11/2023 2.08 (H) 0.70 - 1.30 mg/dL Final BUN/CREATININE RATIO Date Value Ref Range Status 10/11/2023 14 12 - 20 ratio Final TOTAL PROTEIN Date Value Ref Range Status 09/12/2023 6.5 6.3 - 8.2 g/dL Final ALBUMIN Date Value Ref Range Status 09/12/2023 4.0 3.5 - 5.0 g/dL Final A/G RATIO Date Value Ref Range Status 09/12/2023 1.6 1.0 - 2.2 Final CALCIUM Date Value Ref Range Status 10/11/2023 10.0 8.7 - 10.5 mg/dL Final T BILI Date Value Ref Range Status 09/12/2023 0.6 0.2 - 1.2 mg/dL Final SGOT (AST) Date Value Ref Range Status 09/12/2023 29 5 - 34 U/L Final SGPT (ALT) Date Value Ref Range Status 09/12/2023 16 0 - 55 U/L Final ALKALINE PHOSPHATASE Date Value Ref Range Status 09/12/2023 66 40 - 150 U/L Final GFR, EST. NONAFRICAN Date Value Ref Range Status 10/11/2023 31 (L) >=60 Final GFR, EST. Date Value Ref Range Status 10/11/2023 38 (L) >=60 Final GFR, ESTIMATED Date Value Ref Range Status 10/11/2023 33 (L) >=60 Final Comment: Creatinine Clearance is the preferred criteria for selecting drug dose adjustments in renally impaired patients. The GFR is provided as additional pertinent clinical information. GFR is reported in mL/min/1.73 sq m. Calculation based on the Chronic Kidney Disease Epidemiology Collaboration (CKD- EPI) equation refitwithout adjustment for race. IS THE PATIENT REQUIRED TO BE FASTING? Date Value Ref Range Status 09/12/2023 No Final documented in this encounter Plan of Treatment Not on file documented as of this encounter Visit Diagnoses Not on filedocumented in this encounter Care Teams Layout Artist Relationship Specialty Start Date End Date Boby Trivedi MD [address] [place] [address] PCP - General 09/25/08 09/02/24 Hai Ramirez MD [address] [place] [address] Consulting Physician Gastroenterology 05/28/18 Elida Rodrigues MD [address] [facility] [place], [place] [address] Consulting Physician Cardiovascular Disease - Cardiology 08/16/19 Lola King MD [address] [facility] [place], [place] [address] Consulting Physician Cardiovascular Disease - Cardiology 09/15/21 Ny Barth RN [place] Nurse University Relations Recruiter 09/03/24 09/03/24 documented as of this encounter
--- OUTSIDE RECORDS SUMMARY | 2025-04-02 17:29 | XMS_ITS | Encounter Summary ---
Author Organization [facility] Address [address] [place] [address] Phone Care Team Providers Care Match Maker Name Role Phone Boby Trivedi MD Primary Care Provider Hai Ramirez MD Unavailable Elida Rodrigues MD Unavailable Lola King MD Unavailable Ny Barth RN Unavailable Unavailable Reason for Visit * Reason Comments Medication Refill Encounter Details Date Type Department Care Team (Late st Contact Info) Description 11/26/2023 Refill [facility] Cardiovascular [place] - Cardiology - [facility] [address] [place] [address] Lola King MD [address] [place] [address] Medication Refill Social History Tobacco Use Types Packs/Day Years Used Date Smoking Tobacco: Never Smokeless Tobacco: Never Alcohol Use Standard Drinks/Week Comments No 0 (1 standard drink = 0.6 oz pur e alcohol) [facility] Utilities Answer Date Recorded In the past 12 months has e [employer], gas, oil, or water [employer] threatened to shut off services in your [...] How often do you attend chur or episcopal services? More than 4 times per year 09/16/2023 Do you belong to any clubs o r organizations such as restorationism groups, unions, fraternal or athletic groups, or [...] Total Score - Questions 1-9 0 11/28 [facility] - Occupational [...] place to sleep or slept in a correction (including now)? No 09/16/2023 Education Answer Date Recorded What is the highest level of school you have completed or the highest degree you have received? 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 Requested Prescriptions Pending Prescriptions Disp Refills furosemide (LASIX) 40 MG Tablet [Pharmacy Med Name: FUROSEMIDE 40MG TABLETS] 45 Tablet 3 Sig: Take 1 Tablet by mouth daily as needed (shortness of breath, swelling, weight gain.). Diuretics Protocol Passed - 11/26/2023 5:58 AM Passed - Serum potassium on record in past 12 months POTASSIUM Date Value Ref Range Status 10/11/2023 4.8 3.5 - 5.1 mmol/L Final Passed - Serum sodium on record in past 12 months SODIUM Date Value Ref Range Status 10/11/2023 139 136 - 145 mmol/L Final Passed - Visit with relevant provider in past 18 months or upcoming 90 days Recent Visits Date Type Provider Dept 11/08/23 Office Visit Boby Trivedi MD [facility] [place] 10/04/23 Office Visit Lola King MD [facility] [place] 09/18/23 Office Visit Boby Trivedi MD [facility] [place] 05/22/23 Initial Consult Leana Corcoran MD [facility] [place] 05/18/23 Office Visit Lola King MD [facility] [place] 04/10/23 Office Visit Jose Lloyd APRN, SOCIAL WORKER DELINQUENCY PREVENTION [facility] [place] [address] 03/23/23 Office Visit Lola King MD [facility] [place] 03/14/23 Office Visit Boby Trivedi MD [facility] [place] [address] 01/06/23 Office Visit Boby Trivedi MD [facility] [place] [address] 12/29/22 Office Visit Curtis Ayon MD [facility] [place] Showing recent visits within past 548 days and meeting all other requirements Future Appointments No visits were found meeting these conditions. Showing future appointments within next 90 days and meeting all other requirements Passed - Blood pressure on record in the past 18 months Clinician-entered: BP Readings from Last 3 Encounters: 11/08/23 128/62 10/04/23 128/64 09/18/23 126/62 Patient-entered: Systolic: 150 Diastolic: 90 Passed - GFR on record in past 12 months GFR, EST. NONAFRICAN Date Value Ref Range Status 10/11/2023 31 (L) >=60 Final documented in this encounter Plan of Treatment Not on file documented as of this encounter Visit Diagnoses Not on filedocumented in this encounter Care Teams Match Maker Relationship Specialty Start Date End Date Boby Trivedi MD [address] [place] [address] PCP - General 09/25/08 09/02/24 Hai Ramirez MD [address] [place] [address] Consulting Physician Gastroenterology 05/28/18 Elida Rodrigues MD [address] [facility] [address] [place], [place] [address] Consulting Physician Cardiovascular Disease - Cardiology 08/16/19 Lola King MD [address] [facility] [place], [place] [address] Consulting Physician Cardiovascular Disease - Cardiology 09/15/21 Ny Barth RN [place] Nurse Cutter V Groove 09/03/24 09/03/24 documented as of this encounter
--- OUTSIDE RECORDS SUMMARY | 2025-04-02 17:29 | XMS_ITS | Clinical Summary ---
Author Organization [facility] [place] Address [address] [facility] [address] [place] [address] Phone Care Team Providers Care Hemodialysis Rn Name Role Phone Boby Trivedi MD Primary Care Provider [phone] Allergies Active Allergy Reactions Criticality Noted Date Comments Penicillins Rash,Other (see comments) Low 8 Medications aspirin 81 MG chewable tablet Chew 81 mg in the morning. Active atorvastatin (LIPITOR) 80 MG tablet Take 80 mg by mouth in the morning. 10/13/2022 Active buPROPion SR (WELLBUTRIN SR) 150 MG 12 hr tablet Take 1 tablet by mouth in the morning and 1 tablet at noon and 1 tablet in the evening. 06/15/2021 Active citalopram (CeleXA) 40 MG tablet Take 80 mg by mouth in the morning. Active Empagliflozin 10 MG tablet Take 10 mg by mouth daily 12/13/2022 Active felodipine (PLENDIL) 10 MG 24 hr tablet Take 1 tablet by mouth 1 (one) time each day 12/06/2022 Active furosemide (LASIX) 40 MG tablet Take 40 mg by mouth in the morning. 11/23/2022 Active levothyroxine (SYNTHROID, LEVOTHROID) 50 MCG tablet Take 50 mcg by mouth in the morning. 10/13/2022 Active metoprolol succinate XL (TOPROL XL) 50 MG 24 hr tablet Take 75 mg by mouth in the morning. 10/13/2022 Active omega-3 (FISH OIL) 1000 MG capsule Take 1,000 mg by mouth in the morning and 1,000 mg in the evening. Active QUEtiapine (SEROquel) 100 MG tablet Take 300 mg by mouth 10/02/2019 Active sacubitril-vals migdalia (Entresto) 49-51 MG per tablet Take 1 tablet by mouth twice a day 12/15/2022 Active zolpidem (AMBIEN) 10 MG tablet TAKE 1 TABLET BY MOUTH EVERY NIGHT NEEDED FOR SLEEP 12/06/2022 Active metFORMIN (GLUCOPHAGE) 1000 MG tablet Take 1 tablet (1,000 mg total) by mouth in the morning and 1 tablet (1,000 mg total) in the evening. Take with meals. 180 tablet 3 09/08/2023 Active Active Problems Problem Noted Date Diagnosed Date Hypertensive heart disease with congestive heart failure 02/28/2023 Type 2 diabetes mellitus with diabetic nephropat hy 02/28/2023 Stroke 12/23/2022 Stage 3b chronic kidney disease 12/23/2022 Combined systolic and diastolic congestive heart failure 11/14/2022 History of malignant neoplasm of prostate 2022 Obstructive sleep apnea syndrome 03/12/2009 Mixed hyperlipidemia 01/22/2006 Resolved Problems Problem Noted Date Diagnosed Date Resolved Date Diabetes mellitus 12/23/2022 02/28/2023 Overview (12/23/2022): Foot exam 2.1.16 Eye exam 1.2015 Microalbuminuria 12/23/2022 02/28/2023 Benign essential hypertension 01/22/2006 10/25/2023 Asymptomatic left ventricula r systolic dysfunction 10/30/2003 02/28/2023 Overview (12/23/2022): Last EF, 10/07/2005: EF 50% 03/10: 45% by nuclear Immunizations Immunization Administration Dates Next Due Hep A / Hep B 07/06/2023 Influenza Split High Dose Pr eservative Free IM 08/31/2015 Influenza Vaccine, Quadrivalent, Adjuvanted 02/2023,04/10/2023 Influenza, Quadrivalent, Preservative Free 06/21,08/20/2019 Influenza, Trivalent, Adjuvanted 06/26/2017 Moderna SARS-COV-2 07/06/2021,09/23/2020, 021 Pneumococcal Conjugate 13-Valent 08/31/2015 Pneumococcal Polysaccharide 11/27/2018, 4 Shingrix 07/06/2023,04/11/2023 Tdap 06/11/2013 Family History Medical History Relation Comments Cancer Father Heart disease Mother Relation Status Comments Father Mother Social History Tobacco Use Types Packs/Day Years Used Date Smoking Tobacco: Never Smokeless Tobacco: Never Tobacco Cessation:Counseling Given: Not Answered Alcohol Use Standard Drinks/Week Comments Never 0 (1 standard drink = 0.6 oz pur e alcohol) Sex and Gender Information Value Date Recorded Sex Assigned at Not on file Legal Sex Male 3:06 PM EDT Gender Identity Not on file Sexual Orientation Not on file Last Filed Vital Signs Vital Sign Reading Time Taken Comments Blood Pressure 130/68 09/08/2023 9:34 AM LOADING SUPERVISOR Pulse 61 09/08/2023 9:34 AM LOADING SUPERVISOR Temperature - - Respiratory Rate - - Oxygen Saturation - - Inhaled Oxygen Concentration - - Weight 98.4 kg (217 lb) 09/08/2023 9:34 AM LOADING SUPERVISOR Height 172.7 cm (5' 8) 09/08/2023 9:34 AM LOADING SUPERVISOR Body Mass Index 32.99 09/08/2023 9:34 AM LOADING SUPERVISOR Plan of Treatment Health Maintenance Due Date Last Done Comments Colorectal Cancer Screening: Annual FOBT 1998 Colorectal Cancer Screening: Colonoscopy 1998 Colorectal Cancer Screening: Sigmoidoscopy 1998 Diabetes: Ophthalmology Exam 12/22/2022 Diabetes: Pedal Pulse Checked 12/22/2022 Diabetes: Sensory Foot Exam 12/22/2022 Diabetes: Visual Foot Exam 12/22/2022 Diabetes: Hemoglobin A1C 12/24/2022 023, 09/26/2022, 05/20/2021 Hepatitis B Vaccine (2 of 3 - Hep B Twinrix 3-dose series) 08/03/2023 07/06/2023 Influenza Vaccine (#1) 2025 , 04/10/2023, 06/21/2021, Additional history exists Pneumococcal Vaccine: 50+ Years Completed 11/27/2018, 08/31/2015, 08/29/2013 Procedures Procedure Name Priority Date/Time Associated Diagnosis Comments HEMOGLOBIN A1C (EXTERNAL RESULT ENTRY) Routine 09/26/2022 from Last 3 Months or Most Recently Relevant to Health Maintenance Results * Hemoglobin A1C (09/26/2022) Hemoglobin A1C 5.6 Blood specimen (specimen) Venous blood / Unknown 09/26/2022 Anthony Simon MD LAB BLOOD ORDERABLES Final Resul t from Last 3 Months or Most Recently Relevant to Health Maintenance Insurance Medicare [facility] Medicare Medicare Medicare Care Teams Hemodialysis Rn Relationship Specialty Start Date End Date Boby Trivedi MD [address] [place] [address] PCP - General 12/02/22
--- OUTSIDE RECORDS SUMMARY | 2025-04-02 17:29 | XMS_ITS | Clinical Summary ---
Author [place] [facility] [place] [address] Address [address] [place] [address] Care Team Providers Care Figurine Maker Name Role Phone Brenda Cleveland MD Primary Care Provider [phone] Allergies Active Allergy Reactions Criticality Noted Date Comments Penicillins Other (See comments),Rash,Unknown Medium 02/15/2008 Spironolactone Other (See comments) 04/04/2024 hyperkalemia Medications aspirin 81 mg chewable tablet Take 1 tablet (81 mg total) by mouth daily Active atorvastatin (LIPITOR) 80 mg tablet Take 1 tablet (80 mg total) by mouth daily 3 04/04/20 25 Active buPROPion SR (WELLBUTRIN SR) 150 mg 12 hr tablet Take 1 tablet (150 mg total) by mouth 3 (three) times a day 1 Active carvediloL (COREG) 12.5 mg tablet Take 1 tablet (12.5 mg total) by mouth 2 (two) times a day 5 04/13/20 25 Active Jardiance 10 mg tablet Take 1 tablet (10 mg total) by mouth daily 3 04/13/20 25 Active felodipine (PLENDIL) 10 mg 24 hr tablet Take 1 tablet (10 mg total) by mouth daily 3 04/04/20 25 Active furosemide (LASIX) 40 mg tablet Take 1 tablet (40 mg total) by mouth daily 3 06/11/20 25 Active levothyroxine (SYNTHROID) 50 mcg tablet Take 1 tablet (50 mcg total) by mouth buff wheel fabricator before breakfast 3 04/04/20 25 Active QUEtiapine (SEROquel) 100 mg tablet Take 2 tablets (200 mg total) by mouth Active sacubitriL-vals migdalia (Entresto) 49-51 mg tablet Take 1 tablet by mouth 2 (two) times a day 3 Active zolpidem (AMBIEN) 10 mg tablet Take 1 tablet (10 mg total) by mouth nightly as needed 3 Active Active Problems No known active problems Encounters Date Type Department Care Team Description 04/02/2025 4:15 PM CDT Office Visit [facility] at [address] [address] Emily Putnam NP Left upper arm pain (Primary Dx) from Last 3 Months Social History Tobacco Use Types Packs/Day Years [...] - - Body Mass Index - - Plan of Treatment Health Maintenance Due Date Last Done Comments Colon Cancer Screening-Colonoscopy 1950 Depression Screening 1950 Fall Risk Assessment 1950 Hepatitis C Screening 1950 Abdominal Aortic Aneurysm (A AA) Screen 2014 Well Visit 65+ 2014 Covid-19 Vaccine (2024-2 6 season) 2025 06/07/2023, 07/06/2021, 09/23/2020, Additional history exists Influenza Vaccine (#1) 2025 , 06/07/2023, 04/10/2023, Additional history exists DTaP/Tdap/Td Vaccine (3 - Td or Tdap) 01/28/2034 01/29/2024, 06/11/2013 Hepatitis B Screening Completed 07/06/2023 Pneumococcal vaccine 65+ Completed 023, 11/27/2018, 08/31/2015, Additional history exists Zoster Vaccine Completed 07/06/2023, 04/11/2023 Procedures Procedure Name Priority Date/Time Associated Diagnosis Comments ECG 12-LEAD Routine 04/02/2025 4:29 PM CDT Left upper arm pain from Last 3 Months Results * ECG 12 lead (04/02/2025 4:29 PM CDT) Emily Putnam NP ECG ORDERABLES Final Resu lt from Last 3 Months Insurance MEDICARE [facility] Care Teams Figurine Maker Relationship Specialty Start Date End Date Brenda Cleveland MD PCP - General Family Medicine 05/12/24
--- OUTSIDE RECORDS SUMMARY | 2025-04-02 17:29 | XMS_ITS | Encounter Summary ---
Author Organization [facility] Address [address] [place] [address] Phone Care Team Providers Care Promotion Writer Name Role Phone Boby Trivedi MD Primary Care Provider Hai Ramirez MD Unavailable Elida Rodrigues MD Unavailable Lola King MD Unavailable Ny Barth RN Unavailable Unavailable Reason for Visit * Reason Comments Medication Refill Encounter Details Date Type Department Care Team (Late st Contact Info) Description 06/21/2020 [facility]ill [facility] - Internal Medicine & Pediatrics - [address] [place], [place] [address] Boby Trivedi MD [address] [place] [address] Medication Refill Social History Tobacco Use Types Packs/Day Years Used Date Smoking Tobacco: Never Smokeless Tobacco: Never Alcohol Use Standard Drinks/Week Comments No 0 (1 standard drink = 0.6 oz pur e alcohol) Sex and Gender Information Value Date Recorded Sex Assigned at Male 03/14/2023 10:48 AM CDT Legal Sex Male 3:04 AM 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 CLEANER OPERATOR Gender Identity Male 03/14/2023 10:48 AM CDT Sexual Orientation Straight 06/10/2023 8: 59 AM MUD CLEANER OPERATOR 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 Not on fi le documented as of this encounter Plan of Treatment Not on file documented as of this encounter Visit Diagnoses Not on filedocumented in this encounter Care Teams Promotion Writer Relationship Specialty Start Date End Date Boby Trivedi MD [address] [place] [address] PCP - General 09/25/08 09/02/24 Hai Ramirez MD [address] [facility] [place] [address] Consulting Physician Gastroenterology 05/28/18 Elida Rodrigues MD [address] [facility] [place] [address] Consulting Physician Cardiovascular Disease - Cardiology 08/16/19 Lola King MD [address] [facility] [place] [address] Consulting Physician Cardiovascular Disease - Cardiology 09/15/21 Ny Barth RN [place] Nurse Tool Maker Apprentice 09/03/24 09/03/24 documented as of this encounter
--- OUTSIDE RECORDS SUMMARY | 2025-04-02 17:29 | XMS_ITS | Encounter Summary ---
Author Organization [facility] Address [address] [place] [address] Phone Care Team Providers Care String Winding Machine Operator Name Role Phone Boby Trivedi MD Primary Care Provider Hai Ramirez MD Unavailable Elida Rodrigues MD Unavailable Lola King MD Unavailable Ny Barth RN Unavailable Unavailable Reason for Visit * Reason Comments Medication Refill Encounter Details Date Type Department Care Team (Late st Contact Info) Description 11/28/2021 Refill [facility] - Internal Medicine & Pediatrics - [address] [place], [place] [id number] Boby Trivedi MD [address] [place] [address] Medication Refill Social History Tobacco Use Types Packs/Day Years Used Date Smoking Tobacco: Never Smokeless Tobacco: Never Alcohol Use Standard Drinks/Week Comments No 0 (1 standard drink = 0.6 oz pur e alcohol) Sex and Gender Information Value Date Recorded Sex Assigned at Male 03/14/2023 10:48 AM CDT Legal Sex Male 3:04 AM WINDSHIELD TECHNICIAN Gender Identity Male 03/14/2023 10:48 AM CDT Sexual Orientation Straight 06/10/2023 8: 59 AM WINDSHIELD TECHNICIAN 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 No / Unsure 11/22/2021 2:12 PM CDT documented as of this encounter Plan of Treatment Not on file documented as of this encounter Visit Diagnoses Not on filedocumented in this encounter Care Teams String Winding Machine Operator Relationship Specialty Start Date End Date Boby Trivedi MD [address] [place] [address] PCP - General 09/25/08 09/02/24 Hai Ramirez MD [address] [facility] [address] Consulting Physician Gastroenterology 05/28/18 Elida Rodrigues MD [address] [place] [address] Consulting Physician Cardiovascular Disease - Cardiology 08/16/19 Lola King MD [address] [place] [address] Consulting Physician Cardiovascular Disease - Cardiology 09/15/21 Ny Barth RN [place] Nurse Barn Hand 09/03/24 09/03/24 documented as of this encounter
--- OUTSIDE RECORDS SUMMARY | 2025-04-02 17:29 | XMS_ITS | Encounter Summary ---
Author Organization [facility] Address [address] [place] [address] Phone Care Team Providers Care Covering Machine Tender Name Role Phone Boby Trivedi MD Primary Care Provider Hai Ramirez MD Unavailable Elida Rodrigues MD Unavailable [phone] Lola King MD Unavailable Ny Barth RN Unavailable Unavailable Reason for Visit * Reason Comments Medication Refill Encounter Details Date Type Department Care Team (Late st Contact Info) Description 09/28/2023 Refill [facility] Cardiovascular [place] - Cardiology - [facility] [address] [place] [address] Lola King MD [address] [place] [address] Medication Refill Social History Tobacco Use Types Packs/Day Years Used Date Smoking Tobacco: Never Smokeless Tobacco: Never Alcohol Use Standard Drinks/Week Comments No 0 (1 standard drink = 0.6 oz pur e alcohol) [facility] Utilities Answer Date Recorded In the past 12 months has e [employer], gas, oil, or water [employer] threatened to shut off services in your [...] How often do you attend chur or christian services? More than 4 times per year 09/16/2023 Do you belong to any clubs o r organizations such as tenriism groups, unions, fraternal or athletic groups, or [...] Total Score - Questions 1-9 0 11/28 [facility] - Occupational Stress [...] place to sleep or slept in a nursing home (including now)? No 09/16/2023 Education Answer Date Recorded What is the highest level of school you have completed or the highest degree you have received? 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 Requested Prescriptions Pending Prescriptions Disp Refills Entresto 49-51 MG Tablet [Pharmacy Med Name: ENTRESTO 49-51MG TABLETS] 60 Tablet 3 Sig: TAKE 1 TABLET BY MOUTH TWICE DAILY ARB Protocol Passed - 09/28/2023 7:49 AM Passed - Serum potassium on record in past 12 months POTASSIUM Date Value Ref Range Status 09/18/2023 5.0 3.5 - 5.1 mmol/L Final Passed - Visit with relevant provider in past 18 months or upcoming 90 days Recent Visits Date Type Provider Dept 09/18/23 Office Visit Boby Trivedi MD [facility] [place] 05/22/23 Initial Consult Leana Corcoran MD [facility] [place] 05/18/23 Office Visit Lola King MD [facility] [place] 04/10/23 Office Visit Jose Lloyd APRN, PULL OVER MACHINE OPERATOR [facility] [place] 03/23/23 Office Visit Lola King MD [facility] [place] 03/14/23 Office Visit Boby Trivedi MD [facility] [place] 01/06/23 Office Visit Boby Trivedi MD [facility] [place] 12/29/22 Office Visit Curtis Ayon MD [facility] [place] 12/24/22 Office Visit Roderick Vega APRN, PULL OVER MACHINE OPERATOR [facility] [place] 12/15/22 Office Visit Lola King MD [facility] [place] Showing recent visits within past 548 days and meeting all other requirements Future Appointments Date Type Provider Dept 10/04/23 Appointment Lola King MD [facility] [place] [facility] future appointments within next 90 days and meeting all other requirements Passed - BP on record in the past 18 months Clinician-entered: BP Readings from Last 3 Encounters: 09/18/23 126/62 05/22/23 110/62 05/18/23 140/80 Patient-entered: Systolic: 108 Diastolic: 71 Passed - GFR on record in past 12 months GFR, EST. NONAFRICAN Date Value Ref Range Status 09/18/2023 33 (L) >=60 Final EILLANCE MANAGER documented in this encounter Plan of Treatment Not on file documented as of this encounter Visit Diagnoses Not on filedocumented in this encounter Care Teams Covering Machine Tender Relationship Specialty Start Date End Date Boby Trivedi MD [address] [facility] [place] [address] PCP - General 09/25/08 09/02/24 Hai Ramirez MD [address] [place] [address] Consulting Physician Gastroenterology 05/28/18 Elida Rodrigues MD [address] [place] [address] Consulting Physician Cardiovascular Disease - Cardiology 08/16/19 Lola King MD [address] [facility], [place] [address] Consulting Physician Cardiovascular Disease - Cardiology 09/15/21 Ny Barth RN [place] Nurse Social Services Specialist 09/03/24 09/03/24 documented as of this encounter
--- OUTSIDE RECORDS SUMMARY | 2025-04-02 17:29 | XMS_ITS | Encounter Summary ---
Author Organization [facility] Address [address] [place] [address] Phone Care Team Providers Care Antenna Machine Operator Name Role Phone Boby Trivedi MD Primary Care Provider Hai Ramirez MD Unavailable Elida Rodrigues MD Unavailable Lola King MD Unavailable Ny Barth RN Unavailable Unavailable Reason for Visit * Reason Comments Medication Refill Encounter Details Date Type Department Care Team (Late st Contact Info) Description 06/20/2021 Refill [facility] - Internal Medicine & Pediatrics - [address] [place], [place] [id number] Boby Trivedi MD [address] [place] [address] Medication Refill Social History Tobacco Use Types Packs/Day Years Used Date Smoking Tobacco: Never Smokeless Tobacco: Never Alcohol Use Standard Drinks/Week Comments No 0 (1 standard drink = 0.6 oz pur e alcohol) Sex and Gender Information Value Date Recorded Sex Assigned at Male 03/14/2023 10:48 AM CDT Legal Sex Male 3:04 AM FITNESS TRAINER Gender Identity Male 03/14/2023 10:48 AM CDT Sexual Orientation Straight 06/10/2023 8: 59 AM FITNESS TRAINER 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 No / Unsure 06/22/2021 9:01 AM FITNESS TRAINER documented as of this encounter Miscellaneous Notes * Telephone Encounter - Boby Trivedi MD - 06/21/2021 7:17 AM CST Rx filled electronically (E-prescribe) ESS TRAINER documented in this encounter Plan of Treatment Not on file documented as of this encounter Visit Diagnoses Diagnosis Insomnia, unspecified type documented in this encounter Care Teams Antenna Machine Operator Relationship Specialty Start Date End Date Boby Trivedi MD [address] [place] [address] PCP - General 09/25/08 09/02/24 Hai Ramirez MD [address] [facility] [address] Consulting Physician Gastroenterology 05/28/18 Elida Rodrigues MD [address] [place] [address] Consulting Physician Cardiovascular Disease - Cardiology 08/16/19 Lola King MD [address] [place] [address] Consulting Physician Cardiovascular Disease - Cardiology 09/15/21 Scoon, Ny M, RN [place] Nurse Vice President Of Marketing 09/03/24 09/03/24 documented as of this encounter
--- OUTSIDE RECORDS SUMMARY | 2025-04-02 17:29 | XMS_ITS | Encounter Summary ---
Author Organization [facility] Address [address] [place] [address] Phone Care Team Providers Care Legal Librarian Name Role Phone Boby Trivedi MD Primary Care Provider Hai Ramirez MD Unavailable Elida Rodrigues MD Unavailable Lola King MD Unavailable Ny Barth RN Unavailable Unavailable Reason for Visit * Reason Comments Medication Refill Encounter Details Date Type Department Care Team (Late st Contact Info) Description 11/26/2022 Refill [facility] Cardiovascular [place] - Cardiology - [facility] [address] [place] [address] Lola King MD [address] [place] [address] Medication Refill Social History Tobacco Use Types Packs/Day Years Used Date Smoking Tobacco: Never Smokeless Tobacco: Never Alcohol Use Standard Drinks/Week Comments No 0 (1 standard drink = 0.6 oz pur e alcohol) PHQ-2 Answer Date Recorded Total Score - Questions 1-9 0 05/1 08/2021 Education Answer Date Recorded What is the highest level of school you have completed or the highest degree you have received? 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 No / Unsure 11/28/2022 9:34 AM CDT documented as of this encounter Miscellaneous Notes * Telephone Encounter - Tereza Mccauley RN - 11/28/2022 8:48 AM CDT 90 day supply not filled due to continued dose adjustment documented in this encounter Plan of Treatment Not on file documented as of this encounter Visit Diagnoses Not on filedocumented in this encounter Care Teams Legal Librarian Relationship Specialty Start Date End Date Boby Trivedi MD [address] [place] [address] PCP - General 09/25/08 09/02/24 Hai Ramirez MD [address] [place], [place] [address] Consulting Physician Gastroenterology 05/28/18 Elida Rodrigues MD [address] [place] [address] Consulting Physician Cardiovascular Disease - Cardiology 08/16/19 Lola King MD [address] [address] Consulting Physician Cardiovascular Disease - Cardiology 09/15/21 Ny Barth RN [place] Nurse Burr Sander 09/03/24 09/03/24 documented as of this encounter
--- OUTSIDE RECORDS SUMMARY | 2025-04-02 17:29 | XMS_ITS | Encounter Summary ---
Author Organization [facility] Address [address] [place] [address] Phone Care Team Providers Care Alarm Mechanism Adjuster Name Role Phone Boby Trivedi MD Primary Care Provider Hai Ramirez MD Unavailable Elida Rodrigues MD Unavailable [phone] Lola King MD Unavailable Ny Barth RN Unavailable Unavailable Encounter Details Date Type Department Care Team (Late st Contact Info) Description 11/13/2023 [facility] [place] - Card[facility] - [facility] [address] [place] [address] Lola King MD [address] [place] [address] Social History Tobacco Use Types Packs/Day Years Used Date Smoking Tobacco: Never Smokeless Tobacco: Never Alcohol Use Standard Drinks/Week Comments No 0 (1 standard drink = 0.6 oz pur e alcohol) [facility] Utilities Answer Date Recorded In the past 12 months has [employer], gas, oil, or water company threatened to shut off services in your [...] How often do you attend chur or christianity services? More than 4 times per year 09/16/2023 Do you belong to any clubs o r organizations such as restorationist groups, unions, fraternal or athletic groups, or [...] Total Score - Questions 1-9 0 11/28 [facility] of Occupat ional Health - [...] place to sleep or slept in a long term (including now)? No 09/16/2023 Education Answer Date Recorded What is the highest level of school you have completed or the highest degree you have received? 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 He verbalized understanding and is agreeable to plan. He has no further questions at this time. * Telephone Encounter - Tereza Mccauley RN - 11/14/2023 9:40 AM CDT Attempted to call patient. No answer, and unable to leave message. Will try again. * Telephone Encounter - Tereza Mccauley RN - 11/14/2023 9:38 AM CDT ----- Message from Lola King MD sent at 11/13/2023 6:18 PM CDT ----- Incidental finding of anterior mediastinal mass. He should follow-up with PCP urgently for further evaluation. * Telephone Encounter - Tereza Mccauley RN - 11/13/2023 10:08 AM CDT Per chart review, received cardiac MRI results 11/08. Patient was already contacted. Extrapericadialreading posted 11/11. Routing to Dr. King- Any new recommendations? * Telephone Encounter - Mony Rosen - 11/13/2023 9:13 AM CDT MOA received a VM message from Sara stating that pt MR Cardiac testing is finalized and ready for Dr. King to review. Any Q's call back number is [phone]. documented in this encounter Plan of Treatment Not on file documented as of this encounter Visit Diagnoses Not on filedocumented in this encounter Care Teams Alarm Mechanism Adjuster Relationship Specialty Start Date End Date Boby Trivedi MD [address] [place] [address] PCP - General 09/25/08 09/02/24 Hai Ramirez MD [address] [place] [address] Consulting Physician Gastroenterology 05/28/18 Elida Rodrigues MD [address] [place], [place] [id number] Consulting Physician Cardiovascular Disease - Cardiology 08/16/19 Lola King MD [address] [place], [place] [id number] Consulting Physician Cardiovascular Disease - Cardiology 09/15/21 Ny Barth RN [place] Nurse Base Remover 09/03/24 09/03/24 documented as of this encounter
--- NOTE | 2025-04-02 17:31 | ECG_ITS ---
Test Date: 2025-04-02 17:34:37 Measurements Intervals [place] Rate: 65 P: 63 W[place]: 179 QRS: 11 QRSD: 162 T: 256 QT: 432 QTc: 449 Interpretive Statements SINUS RHYTHM LEFT BUNDLE BRANCH BLOCK [120+ ms QRS DURATION, 80+ ms Q/S IN V1/V2, 85+ ms R IN I/aVL/V5/V6] Compared to ECG 05/11/2024 22:43:26 No significant changes Electronically Signed On 04-03-2025 11:28:35 CDT by Brandon Desouza M.D.
[2025-04-02 17:34] VITALS: BP 148/61; PULSE 66; RESP 20; TEMP 36.8; O2SAT 96
--- OUTSIDE RECORDS SUMMARY | 2025-04-02 18:28 | XMS_ITS | Clinical Summary ---
Author Organization [facility] Address [address] [place] [address] Phone Care Team Providers Care Bellman Name Role Phone Hai Ramirez MD Unavailable Elida Rodrigues MD Unavailable [phone] Lola King MD Unavailable Allergies Active Allergy [...] disease, without long-term current use of insulin ([facility]) Check blood sugar once daily, Type II [...] nuclear Coronary artery disease Overview (03/13/2012): 2003: UT 2005: UT 2005: CABG: ROBIN to LAD, SVG to RCA, M, Cfx 03/10: Nuclear: 45% EF, fixed inferobasal HTN (hypertension) Stroke Diabetes mellitus Overview (08/31/2015): Foot exam 2.1.16 Eye exam 1.2016 Bipolar depression Overview (09/25/2008): Dr. Ang John Microalbuminuria Resolved Problems Problem Noted Date Diagnosed Date Resolved Date Type 2 diabetes mellitus 01/22/200606/2011 Sleep apnea 01/22/2006 09/11/2010 Coronary atherosclerosis of [place] coronary artery 10/30/2003 09/11/2010 Hyperlipidemia 08/26/2013 Encounters Date Type Department Care Team Description 02/19/2025 Refill [facility] - Internal Medicine & Pediatrics - [place] [address] [place] [address] Boby Trivedi MD Medication Refill 01/25/2025 Refill [facility] Cardiovascular [place] - Cardiology - [facility] [address] [place] [address] Lola King MD Medication Refill from Last [...] Valent 9 Pneumococcal conjugate PCV20 , polysaccharide WSD792 conjugate, adjuvant, PF 07/06/2023 RSV, Bivalent, Protein [...] 0.6 oz pur e alcohol) very seldom [facility] Utilities Answer Date Recorded In the past 12 months has [employer], gas, oil, or water [employer] threatened to shut off services in your [...] week 09/16/2023 How often do you attend [facility] or gnosticism services? More than 4 times per year 09/16/2023 Do you belong to any clubs o r organizations such as shinto groups, unions, fraternal or athletic groups, or [...] Total Score - Questions 1-9 0 11/28 [facility] - [...] place to sleep or slept in a assisted (including now)? No 09/16/2023 Education Answer Date Recorded What is the highest level of school you have completed or the highest degree you have received? Bachelor's degree (e.g., BA, AB, BS) 10/06/2022 Sex and Gender Information Value Date Recorded Sex Assigned at Male 03/14/2023 10:48 AM CDT Legal Sex Male 3:04 AM DEPORTATION EXAMINER Gender Identity Male 03/14/2023 10:48 AM CDT Sexual Orientation Straight 06/10/2023 8: 59 AM DEPORTATION EXAMINER Occupation Industry Job Start Date Job End [...] - Risk 3-dose series) 08/03/2023 07/06/2023, 07/06/2023 Diabetes: Nephropathy Screening 09/12/2024 09/12/2023, 09/12/2023, 03/14/2023, Additional history exists Diabetes: Foot Exam 09/18/2024 09/18/2023, 09/18/2023, 09/18/2023, Additional history exists Influenza Immunization (#1) 2025 092 , 06/07/2023, 04/10/2023, Additional history exists SARS-COV-2 Immunization ( season) 2025 06/07/2023, 07/06/2021, 09/23/2020, Additional history exists Diabetes: Hemoglobin A1c 07/18/2025 [...] (COMPREHENSIVE METABOLIC PANEL) Routine 09/12/2023 11:24 AM DEPORTATION EXAMINER Type 2 diabetes mellitus with stage 3a chronic kidney disease, without long-term current use of insulin (HCC) HEMOGLOBIN A1C W/ ESTIMATED GLUCOSE Routine 09/12/2023 11:24 AM DEPORTATION EXAMINER Type 2 diabetes mellitus with stage 3a [...] of bowel preparation was evaluated using the [place] Bowel Preparation Scale with scores of: right [...] TIME 12/06/2023 2:58 PM Scope Type: Colonoscope [id number] Insertion time: 5m 09s Withdrawal time: 27m [...] A1C W/ ESTIMATED GLUCOSE (09/12/2023 11:24 AM DEPORTATION EXAMINER) HGB-A1C 5.2 4.0 - 6.0 % 09/12/2023 3:47 PM DEPORTATION EXAMINER [facility] Est Average Glucose 102.5 mg/dL 09/12/2023 3:47 PM [facility] Blood Venipuncture / Unknown 09/12/2023 11:24 AM DEPORTATION EXAMINER 09/12/2023 11:24 AM DEPORTATION EXAMINER Narrative [facility] - 09/12/2023 3:47 PM DEPORTATION EXAMINER Specimens containing greater than 5% of Hemoglobin F may result in lower than expected % HbA1C results. Boby Trivedi MD CHEMISTRY ORDERABLES Final Resu lt [facility] [address] [place] [address], * (ABNORMAL) CMP (COMPREHENSIVE METABOLIC PANEL) (09/12/2023 11:24 AM DEPORTATION EXAMINER) SODIUM 143 136 - 145 mmol/L 09/12/2023 4:04 PM DEPORTATION EXAMINER [facility] POTASSIUM 5.7(H) 3.5 - 5.1 mmol/L 09/12/2023 4:04 PM [facility] CHLORIDE 111(H) 98 - 107 mmol/L 09/12/2023 4:04 PM [facility] CO2, VENOUS 25 22 - 30 mmol/L 09/12/2023 4:04 PM [facility] ANION GAP 7.0 <18.0 mmol/L 09/12/2023 4:04 PM [facility] GLUCOSE 81 70 - 99 mg/dL 09/12/2023 4:04 PM [facility] BUN 35(H) 8 - 26 mg/dL 09/12/2023 4:04 PM [facility] CREATININE, BLOOD 1.91(H) 0.70 - 1.30 mg/dL 09/12/2023 4:04 PM [facility] BUN/CREATININE RATIO 18 12 - 20 ratio 09/12/2023 4:04 PM [facility] TOTAL PROTEIN 6.5 6.3 - 8.2 g/dL 09/12/2023 4:04 PM [facility] ALBUMIN 4.0 3.5 - 5.0 g/dL 09/12/2023 4:04 PM [facility] A/G RATIO 1.6 1.0 - 2.2 09/12/2023 4:04 PM [facility] CALCIUM 10.2 8.7 - 10.5 mg/dL 09/12/2023 4:04 PM [facility] T BILI 0.6 0.2 - 1.2 mg/dL 09/12/2023 4:04 PM [facility] SGOT (AST) 29 5 - 34 U/L 09/12/2023 4:04 PM [facility] SGPT (ALT) 16 0 - 55 U/L 09/12/2023 4:04 PM [facility] ALKALINE PHOSPHATASE 66 40 - 150 U/L 09/12/2023 4:04 PM [facility] IS THE PATIENT REQUIRED TO BE FASTING? No [facility] TRACK 09/12/2023 4:04 PM [facility] GFR, ESTIMATED 37(L) >=60 09/12/2023 4:04 PM [facility] Comment: Creatinine Clearance is the preferred criteria for selecting drug dose adjustments in renally impaired patients. The GFR is provided as additional pertinent clinical information. GFR is reported in mL/min/1.73 sq m. Calculation based on the Chronic Kidney Disease Epidemiology Collaboration (CKD- EPI) equation refit without adjustment for race. GFR, EST. 42(L) >=60 024 4:04 PM [facility] GFR, EST. NONAFRICAN 35(L) >=60 09/12/2023 4:04 PM DEPORTATION EXAMINER [facility] Blood Venipuncture / Unknown 09/12/2023 11:24 AM DEPORTATION EXAMINER 09/12/2023 11:24 AM DEPORTATION EXAMINER Boby Trivedi MD CHEMISTRY ORDERABLES Final Resu lt Performing Organization Address [facility] Co de Phone Number [facility] [address] [place] [address], * HEPATITIS C ANTIBODY (03/14/2023 11:59 AM CDT) hepatitis C antibody 0.07 <1 S/CO [facility] ARCH [id number] B 03/14/2023 3:46 PM CDT [facility] Comment: Signal/Cutoff ratio < 0.79 is Nondetected Signal/Cutoff ratio 0.80-0.99 is Grayzone Signal/Cutoff ratio > 0.99 is Detected Supplemental assays are recommended if signal/cutoff ratio is >/=1.00. Signal/cutoff ratio result >/= 5.00 is 97% predictive of positivity for recombinant immunoblot assay (RIBA) and will be reported to the [place] Department of Public Health as required. Blood Venipuncture / Unknown 03/14/2023 11:59 AM CDT 03/14/2023 11:59 AM CDT us Boby Trivedi MD CHEMISTRY ORDERABLES Final Resu lt Performing Organization Address [facility] Co de Phone Number [facility] [address] [place] [address], from Last 3 Months or Most Recently Relevant to Health Maintenance Insurance MEDICARE Member Subscriber Plan / Payer (Ef fective 2014-Present) Name:Vishal Grewal Member ID:[id number] Relation to Subscriber:Self Name:Vishal Grewal Subscriber ID:[id number] Payer ID:[id number] Group ID:Not on file Type:Not on file Address: [address] MEDICARE Member Subscriber Plan / Payer (Ef fective 2014-Present) Name:Vishal Grewal Member ID:[id number] Relation to Subscriber:Self Name:VISHAL GREWAL Subscriber ID:[id number] Payer ID:[id number] Group ID:Not on file Type:Not on file Address: [address] Advance Directives * Full Code (Latest Code Status on File) Date Activated Date Inactivated Comments 04/19/2013 1:17 PM 04/19/2013 4:21 PM * No Code Status Date Activated Date Inactivated Comments 11/01/2010 10:03 AM 04/19/2013 1:17 PM pt states he does not have a poa or living will Care Teams Bellman Relationship Specialty Start Date End Date Hai Ramirez MD [address] [place] [address] Consulting Physician Gastroenterology 05/28/18 Elida Rodrigues MD [address] [address] Consulting Physician Cardiovascular Disease - Cardiology 08/16/19 Lola King MD [address] [place] [address] Consulting Physician Cardiovascular Disease - Cardiology 09/15/21
--- OUTSIDE RECORDS SUMMARY | 2025-04-02 18:28 | XMS_ITS | Encounter Summary ---
Author Organization [facility] Address [address] [place] [address] Phone Care Team Providers Care Ethylene Oxide Panelboard Operator Name Role Phone Boby Trivedi MD [...] - [address] [place], [place] [id number] Boby Trivedi MD [address] [place] [address] Medication Refill Social History Tobacco Use Types Packs/Day Years Used Date Smoking Tobacco: Never Smokeless Tobacco: Never Alcohol Use Standard Drinks/Week Comments No 0 (1 standard drink = 0.6 oz pur e alcohol) Sex and Gender Information Value Date Recorded Sex Assigned at Male 03/14/2023 10:48 AM CDT Legal Sex Male 3:04 AM PARTS ROOM ASSISTANT Gender Identity Male 03/14/2023 10:48 AM CDT Sexual Orientation Straight 06/10/2023 8: 59 AM PARTS ROOM ASSISTANT 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 Not on fi le documented as of this encounter Plan of Treatment Not on file documented as of this encounter Visit Diagnoses Not on filedocumented in this encounter Care Teams Ethylene Oxide Panelboard Operator Relationship Specialty Start Date End Date Boby Trivedi MD [address] [place] [address] PCP - General 09/25/08 09/02/24 Hai Ramirez MD [address] [facility] [place] [address] Consulting Physician Gastroenterology 05/28/18 Elida Rodrigues MD [address] [place] [address] Consulting Physician Cardiovascular Disease - Cardiology 08/16/19 Lola King MD [address] [place] [address] Consulting Physician Cardiovascular Disease - Cardiology 09/15/21 Ny Barth RN [place] Nurse Charge Accounts Audit Clerk 09/03/24 09/03/24 documented as of this encounter
--- OUTSIDE RECORDS SUMMARY | 2025-04-02 18:28 | XMS_ITS | Clinical Summary ---
Author Organization [facility] [employer] Address [address] [facility] [address] [place] [address] Phone Care Team Providers Care Professional Housing Consultant Name Role Phone Boby Trivedi MD Primary Care Provider [phone] Allergies Active Allergy Reactions Criticality Noted Date [...] Comments Blood Pressure 130/68 09/08/2023 9:34 AM TOP CAGER Pulse 61 09/08/2023 9:34 AM TOP CAGER Temperature - - Respiratory Rate - - Oxygen Saturation - - Inhaled Oxygen Concentration - - Weight 98.4 kg (217 lb) 09/08/2023 9:34 AM TOP CAGER Height 172.7 cm (5' 8) 09/08/2023 9:34 AM TOP CAGER Body Mass Index 32.99 09/08/2023 9:34 AM TOP CAGER Plan of Treatment Health Maintenance Due Date [...] Recently Relevant to Health Maintenance Insurance Medicare [facility] Medicare Medicare Medicare Care Teams Professional Housing Consultant Relationship Specialty Start Date End Date Boby Trivedi MD [address] [place] [address] PCP - General 12/02/22
--- OUTSIDE RECORDS SUMMARY | 2025-04-02 18:28 | XMS_ITS | Encounter Summary ---
Author Organization [facility] Address [address] [place] [address] Phone Care Team Providers Care Cable Armorer Name Role Phone Boby Trivedi MD Primary Care Provider Hai Ramirez MD Unavailable Elida Rodrigues MD Unavailable Lola King MD Unavailable Ny Barth RN Unavailable Unavailable Reason for Visit * Reason Comments Medication Refill Encounter Details Date Type Department Care Team (Late st Contact Info) Description 12/06/2023 Refill [facility] Cardiovascular [place] - Cardiology - [facility] [address] [place] [address] Lola King MD [address] [place] [address] Medication Refill Social History Tobacco Use Types Packs/Day Years Used Date Smoking Tobacco: Never Smokeless Tobacco: Never Alcohol Use Standard Drinks/Week Comments No 0 (1 standard drink = 0.6 oz pur e alcohol) very seldom [facility] Utilities Answer Date Recorded In the past 12 months has e [employer], gas, oil, or water [employer] threatened to shut off services in your [...] How often do you attend chur or cheondoism services? More than 4 times per year 09/16/2023 Do you belong to any clubs o r organizations such as muslim groups, unions, fraternal or athletic groups, or [...] Total Score - Questions 1-9 0 11/28 [facility] - [...] place to sleep or slept in a mcfp (including now)? No 09/16/2023 Education Answer Date Recorded What is the highest level of school you have completed or the highest degree you have received? Bachelor's degree (e.g., BA, AB, BS) 10/06/2022 Sex and Gender Information Value Date Recorded Sex Assigned at Male 03/14/2023 10:48 AM CDT Legal Sex Male 3:04 AM CHEMICAL PACKAGER Gender Identity Male 03/14/2023 10:48 AM CDT Sexual Orientation Straight 06/10/2023 8: 59 AM CHEMICAL PACKAGER Occupation Industry Job Start Date Job End [...] Office Visit Boby Trivedi MD [facility] [place] 10/04/23 Office Visit Lola King MD [facility] [place] 09/18/23 Office Visit Boby Trivedi MD [facility] [place] 05/22/23 Initial Consult Leana Corcoran MD [facility] [place] 05/18/23 Office Visit Lola King MD [facility] [place] 04/10/23 Office Visit Jose Lloyd APRN, CROP SPECIALIST [facility] [place] 03/23/23 Office Visit Lola King MD [facility] [place] 03/14/23 Office Visit Boby Trivedi MD [facility] [place] 01/06/23 Office Visit Boby Trivedi MD [facility] [place] 12/29/22 Office Visit Curtis Ayon MD [facility] [place] Showing recent visits within past 548 days [...] on filedocumented in this encounter Care Teams Cable Armorer Relationship Specialty Start Date End Date Boby Trivedi MD [address] [place] [address] PCP - General 09/25/08 09/02/24 Hai Ramirez MD [address] [place] [address] Consulting Physician Gastroenterology 05/28/18 Elida Rodrigues MD [address] [facility] [place], [place] [address] Consulting Physician Cardiovascular Disease - Cardiology 08/16/19 Lola King MD [address] [facility] [place], [place] [address] Consulting Physician Cardiovascular Disease - Cardiology 09/15/21 Ny Barth RN [place] Nurse X Ray Developing Machine Operator 09/03/24 09/03/24 documented as of this encounter
--- OUTSIDE RECORDS SUMMARY | 2025-04-02 18:28 | XMS_ITS | Encounter Summary ---
Author Organization [facility] Address [address] [place] [address] Care Team Providers Care Gate Services Supervisor Name Role Phone Brenda Cleveland MD Primary Care Provider + Encounter Details Date Type Department Care Team (Late Contact Info) Description 01/06/2025 [employer] Message Enc [address] [place] [address] Brenda Cleveland MD [address] [place] [address] Blood pressure Social History Tobacco Use [...] st Contact Info) Description 06/03/2025 2:00 PM AIRCRAFT MAINTENANCE ENGINEER Allied Health/Nurse Visit [address] [place] [address] Brenda Cleveland MD [address] [place] [address] 06/13/2025 12:15 PM AIRCRAFT MAINTENANCE ENGINEER Office Visit [facility] [address] Salomon Mora MD [facility] [address] [place] [address] 06/17/2025 10:10 AM AIRCRAFT MAINTENANCE ENGINEER Office Visit [facility] Family [facility] - [address] [place] [address] Brenda Cleveland MD [address] [facility] [address] [place] [phone] 06/17/2025 10:30 AM AIRCRAFT MAINTENANCE ENGINEER Office Visit [facility] Family [facility] - [address] [place] [address] Brenda Cleveland MD [address] [facility] [address] [place] [address] 09/18/2025 1:00 PM AIRCRAFT MAINTENANCE ENGINEER Office Visit [facility]ty [facility] - [facility], [address] [place] [address] Kevin Renee MD [address] [facility], [address] [place] [address] documented as of this encounter Visit Diagnoses Not on filedocumented in this encounter Care Teams Gate Services Supervisor Relationship Specialty Start Date End Date Brenda Cleveland MD [address] [place] [address] PCP - General FAMILY PRACTICE 06/06/24 documented as of this encounter
--- OUTSIDE RECORDS SUMMARY | 2025-04-02 18:28 | XMS_ITS | Encounter Summary ---
Author Organization [facility] Address [address] [place] [address] Phone Care Team Providers Care Cigar Bander Hand Name Role Phone Boby Trivedi MD Primary Care Provider Hai Ramirez MD Unavailable Elida Rodrigues MD Unavailable Lola King MD Unavailable Ny Barth RN Unavailable Unavailable Reason for Visit * Reason Comments Medication Refill Encounter Details Date Type Department Care Team (Late st Contact Info) Description 06/20/2021 Refill [facility] - Internal Medicine & Pediatrics - [address] [place], [place] [id number] Boby Trivedi MD [address] [place] [address] Medication Refill Social History Tobacco Use Types Packs/Day Years Used Date Smoking Tobacco: Never Smokeless Tobacco: Never Alcohol Use Standard Drinks/Week Comments No 0 (1 standard drink = 0.6 oz pur e alcohol) Sex and Gender Information Value Date Recorded Sex Assigned at Male 03/14/2023 10:48 AM CDT Legal Sex Male 3:04 AM OVEN BUILDER Gender Identity Male 03/14/2023 10:48 AM CDT Sexual Orientation Straight 06/10/2023 8: 59 AM OVEN BUILDER 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 No / Unsure 06/22/2021 9:01 AM OVEN BUILDER documented as of this encounter Miscellaneous Notes * Telephone Encounter - Boby Trivedi MD - 06/21/2021 7:17 AM CST Rx filled electronically (E-prescribe) BUILDER documented in this encounter Plan of Treatment Not on file documented as of this encounter Visit Diagnoses Diagnosis Insomnia, unspecified type documented in this encounter Care Teams Cigar Bander Hand Relationship Specialty Start Date End Date Boby Trivedi MD [address] [place] [address] PCP - General 09/25/08 09/02/24 Hai Ramirez MD [address] [facility] [place] [address] Consulting Physician Gastroenterology 05/28/18 Elida Rodrigues MD [address] [place] [address] Consulting Physician Cardiovascular Disease - Cardiology 08/16/19 Lola King MD [address] [place] [address] Consulting Physician Cardiovascular Disease - Cardiology 09/15/21 Scoon, Ny M, RN [place] Nurse Report Writer 09/03/24 09/03/24 documented as of this encounter
--- OUTSIDE RECORDS SUMMARY | 2025-04-02 18:28 | XMS_ITS | Encounter Summary ---
Author Organization [facility] Address [address] [place] [address] Phone Care Team Providers Care System Programmer Name Role Phone Boby Trivedi MD Primary Care Provider Hai Ramirez MD Unavailable Elida Rodrigues MD Unavailable Lola King MD Unavailable Ny Barth RN Unavailable Unavailable Reason for Visit * Reason Comments Medication Refill Encounter Details Date Type Department Care Team (Late st Contact Info) Description 11/28/2021 Refill [facility] - Internal Medicine & Pediatrics - [address] [place], [place] [phone] Boby Trivedi MD [address] [place] [address] Medication Refill Social History Tobacco Use Types Packs/Day Years Used Date Smoking Tobacco: Never Smokeless Tobacco: Never Alcohol Use Standard Drinks/Week Comments No 0 (1 standard drink = 0.6 oz pur e alcohol) Sex and Gender Information Value Date Recorded Sex Assigned at Male 03/14/2023 10:48 AM CDT Legal Sex Male 3:04 AM NURSE'S AIDES TEACHER Gender Identity Male 03/14/2023 10:48 AM CDT Sexual Orientation Straight 06/10/2023 8: 59 AM NURSE'S AIDES TEACHER Occupation Industry Job Start Date Job End [...] on filedocumented in this encounter Care Teams System Programmer Relationship Specialty Start Date End Date Boby Trivedi MD [address] [place] [address] PCP - General 09/25/08 09/02/24 Hai Ramirez MD [address] [facility] [place] [address] Consulting Physician Gastroenterology 05/28/18 Elida Rodrigues MD [address] [place] [address] Consulting Physician Cardiovascular Disease - Cardiology 08/16/19 Lola King MD [address] [place] [address] Consulting Physician Cardiovascular Disease - Cardiology 09/15/21 Ny Barth RN [place] Nurse Vamp Throater 09/03/24 09/03/24 documented as of this encounter
--- OUTSIDE RECORDS SUMMARY | 2025-04-02 18:28 | XMS_ITS | Clinical Summary ---
Author Organization [facility] [address] Address [address] [place] [address] Care Team Providers Care Embroidery Patternmaker Name Role Phone Brenda Cleveland MD Primary Care Provider [phone] Allergies Active Allergy Reactions Criticality Noted Date [...] 1 tablet (50 mcg total) by mouth freight car cleaner delta system before breakfast 3 04/04/20 25 Active QUEtiapine [...] Description 04/02/2025 4:15 PM CDT Office Visit [facility] at [address] [address] Emily Putnam NP Left upper [...] lt from Last 3 Months Insurance MEDICARE [facility] Care Teams Embroidery Patternmaker Relationship Specialty Start Date End Date Brenda Cleveland MD PCP - General Family Medicine 05/12/24
--- OUTSIDE RECORDS SUMMARY | 2025-04-02 18:28 | XMS_ITS | Encounter Summary ---
Author Organization [facility] Address [address] [place] [address] Phone Care Team Providers Care Office Machine Embossograph Operator Name Role Phone Boby Trivedi MD Primary Care Provider Hai Ramirez MD Unavailable Elida Rodrigues MD Unavailable Lola King MD Unavailable Ny Barth RN Unavailable Unavailable Reason for Visit * Reason Comments Medication Refill Encounter Details Date Type Department Care Team (Late st Contact Info) Description 09/28/2023 Refill [facility] Cardiovascular [place] - Cardiology - [facility] [address] [place] [address] Lola King MD [address] [place] [address] Medication Refill Social History Tobacco Use Types Packs/Day Years Used Date Smoking Tobacco: Never Smokeless Tobacco: Never Alcohol Use Standard Drinks/Week Comments No 0 (1 standard drink = 0.6 oz pur e alcohol) [facility] Utilities Answer Date Recorded In the past 12 months has e [email or web address], gas, oil, or water [employer] threatened to shut off services in your [...] How often do you attend chur or evangelical services? More than 4 times per year 09/16/2023 Do you belong to any clubs o r organizations such as worship groups, unions, fraternal or athletic groups, or [...] Total Score - Questions 1-9 0 11/28 [facility] - Occupational [...] AM CDT Legal Sex Male 3:04 AM SLD INCLUSION TEACHER Gender Identity Male 03/14/2023 10:48 AM CDT Sexual Orientation Straight 06/10/2023 8: 59 AM SLD INCLUSION TEACHER Occupation Industry Job Start Date Job [...] Office Visit Boby Trivedi MD [facility] [place] 05/22/23 Initial Consult Leana Corcoran MD [facility] [place] 05/18/23 Office Visit Lola King MD [facility] [place] 04/10/23 Office Visit Jose Lloyd APRN, COIL MAKER [facility] [place] 03/23/23 Office Visit Lola King MD [facility] [place] 03/14/23 Office Visit Boby Trivedi MD [facility] [place] 01/06/23 Office Visit Boby Trivedi MD [facility] [place] 12/29/22 Office Visit Curtis Ayon MD [facility] [place] 12/24/22 Office Visit Roderick Vega APRN, COIL MAKER [facility] [place] 12/15/22 Office Visit Lola King MD [facility] [place] Showing recent visits within past 548 days and meeting all other requirements Future Appointments Date Type Provider Dept 10/04/23 Appointment Lola King MD [facility] [place] Showing future appointments within next 90 days and meeting all other requirements Passed - BP on record in the past 18 months Clinician-entered: BP Readings from Last 3 Encounters: 09/18/23 126/62 05/22/23 110/62 05/18/23 140/80 Patient-entered: Systolic: 108 Diastolic: 71 Passed - GFR on record in past 12 months GFR, EST. NONAFRICAN Date Value Ref Range Status 09/18/2023 33 (L) >=60 Final INCLUSION TEACHER documented in this encounter Plan of Treatment Not on file documented as of this encounter Visit Diagnoses Not on filedocumented in this encounter Care Teams Office Machine Embossograph Operator Relationship Specialty Start Date End Date Boby Trivedi MD [address] [facility] [place] [address] PCP - General 09/25/08 09/02/24 Hai Ramirez MD [address] [place] [address] Consulting Physician Gastroenterology 05/28/18 Elida Rodrigues MD [address] [place] [address] Consulting Physician Cardiovascular Disease - Cardiology 08/16/19 Lola King MD [address] [facility], [place] [address] Consulting Physician Cardiovascular Disease - Cardiology 09/15/21 Ny Barth RN [place] Nurse Implementation Specialist 09/03/24 09/03/24 documented as of this encounter
--- OUTSIDE RECORDS SUMMARY | 2025-04-02 18:28 | XMS_ITS | Encounter Summary ---
Author Organization [facility] Address [address] [place] [address] Phone Care Team Providers Care Data Analysis Intern Name Role Phone Boby Trivedi MD Primary Care Provider Hai Ramirez MD Unavailable Elida Rodrigues MD Unavailable Lola King MD Unavailable Ny Barth RN Unavailable Unavailable Encounter Details Date Type Department Care Team (Late st Contact Info) Description 11/13/2023 [facility]phone [facility] [place] - Cardiology - [facility] [address] [place] [address] Lola King MD [address] [place] [address] Social History Tobacco Use Types Packs/Day Years Used Date Smoking Tobacco: Never Smokeless Tobacco: Never Alcohol Use Standard Drinks/Week Comments No 0 (1 standard drink = 0.6 oz pur e alcohol) [facility] Utilities Answer Date Recorded In the past 12 months has [employer], gas, oil, or water company threatened to [...] How often do you attend chur or scientologist services? More than 4 times per year 09/16/2023 Do you belong to any clubs o r organizations such as catholic groups, unions, fraternal or athletic groups, or [...] Total Score - Questions 1-9 0 11/28 [facility] - Occupational [...] place to sleep or slept in a fpc (including now)? No 09/16/2023 Education Answer Date Recorded What is the highest level of school you have completed or the highest degree you have received? Bachelor's degree (e.g., BA, AB, BS) 10/06/2022 Sex and Gender Information Value Date Recorded Sex Assigned at Male 03/14/2023 10:48 AM CDT Legal Sex Male 3:04 AM HEADLINE WRITER Gender Identity Male 03/14/2023 10:48 AM CDT Sexual Orientation Straight 06/10/2023 8: 59 AM HEADLINE WRITER Occupation Industry Job Start Date Job End [...] review. Any Q's call back number is [phone]. documented in this encounter Plan of Treatment Not on file documented as of this encounter Visit Diagnoses Not on filedocumented in this encounter Care Teams Data Analysis Intern Relationship Specialty Start Date End Date Boby Trivedi MD [address] [place] [address] PCP - General 09/25/08 09/02/24 Hai Ramirez MD [address] [place] [address] Consulting Physician Gastroenterology 05/28/18 Elida Rodrigues MD [address] [place], [place] [id number] Consulting Physician Cardiovascular Disease - Cardiology 08/16/19 Lola King MD [address] [place], [place] [id number] Consulting Physician Cardiovascular Disease - Cardiology 09/15/21 Ny Barth RN [place] Nurse Sexual Health Physician 09/03/24 09/03/24 documented as of this encounter
--- OUTSIDE RECORDS SUMMARY | 2025-04-02 18:28 | XMS_ITS | Encounter Summary ---
Author Organization [facility] Address [address] [place] [address] Phone Care Team Providers Care Air Brake Operator Name Role Phone Boby Trivedi MD Primary Care Provider Hai Ramirez MD Unavailable Elida Rodrigues MD Unavailable Lola King MD Unavailable Ny Barth RN Unavailable Unavailable Reason for Visit * Reason Onset Date Comments Medication Management 02/05/2021 Lisinopril Encounter Details Date Type Department Care Team (Late st Contact Info) Description 02/05/2021 [facility] [place] - [facility] - [facility] [address] [place] [address] Lola King MD [address] [address] Medication Management (Lisinopril) Social History Tobacco Use Types Packs/Day Years Used Date Smoking Tobacco: Never Smokeless Tobacco: Never Alcohol Use Standard Drinks/Week Comments No 0 (1 standard drink = 0.6 oz pur e alcohol) Sex and Gender Information Value Date Recorded Sex Assigned at Male 03/14/2023 10:48 AM CDT Legal Sex Male 3:04 AM ENVELOPE FOLDER Gender Identity Male 03/14/2023 10:48 AM CDT Sexual Orientation Straight 06/10/2023 8: 59 AM ENVELOPE FOLDER Occupation Industry Job Start Date Job End [...] Pt would like a call back from [facility] with a update at [phone]. documented in this encounter Plan of Treatment Not on file documented as of this encounter Visit Diagnoses Not on filedocumented in this encounter Care Teams Air Brake Operator Relationship Specialty Start Date End Date Boby Trivedi MD [address] [place] [address] PCP - General 09/25/08 09/02/24 Hai Ramirez MD [address] [place] [address] Consulting Physician Gastroenterology 05/28/18 Elida Rodrigues MD [address] [place], [place] [address] Consulting Physician Cardiovascular Disease - Cardiology 08/16/19 Lola King MD [address] [place], [place] [address] Consulting Physician Cardiovascular Disease - Cardiology 09/15/21 Ny Barth RN [place] Nurse Power Plant Electrician 09/03/24 09/03/24 documented as of this encounter
--- OUTSIDE RECORDS SUMMARY | 2025-04-02 18:28 | XMS_ITS | Encounter Summary ---
Author Organization [facility] Address [address] [place] [address] Phone Care Team Providers Care Obstetric Anaesthetist Name Role Phone Boby Trivedi MD Primary Care Provider Hai Ramirez MD Unavailable Elida Rodrigues MD Unavailable Lola King MD Unavailable Ny Barth RN Unavailable Unavailable Reason for Visit * Reason Comments Medication Refill Encounter Details Date Type Department Care Team (Late st Contact Info) Description 12/08/2023 Refill [facility] Cardiovascular [place] - Cardiology - [facility] [address] [place] [address] Lola King MD [address] [place] [address] Medication Refill Social History Tobacco Use Types Packs/Day Years Used Date Smoking Tobacco: Never Smokeless Tobacco: Never Alcohol Use Standard Drinks/Week Comments No 0 (1 standard drink = 0.6 oz pur e alcohol) very seldom [facility] Utilities Answer Date Recorded In the past 12 months has e [employer] gas, oil, or water [employer] threatened to shut off services in your [...] How often do you attend chur or restoration services? More than 4 times per year 09/16/2023 Do you belong to any clubs o r organizations such as alevism groups, unions, fraternal or athletic groups, or [...] Total Score - Questions 1-9 0 11/28 [facility] ional [facility] - [...] AM CDT Legal Sex Male 3:04 AM AMMONIA NITRATE OPERATOR Gender Identity Male 03/14/2023 10:48 AM CDT Sexual Orientation Straight 06/10/2023 8: 59 AM AMMONIA NITRATE OPERATOR Occupation Industry Job Start Date Job [...] Office Visit Boby Trivedi MD [facility] [place] 10/04/23 Office Visit Lola King MD [facility] [place] 09/18/23 Office Visit Boby Trivedi MD [facility] [place] [address] 05/22/23 Initial Consult Leana Corcoran MD [facility] [place] 05/18/23 Office Visit Lola King MD [facility] [place] 04/10/23 Office Visit Jose Lloyd APRN, HELPER MAINTENANCE CLEANING [facility] [place] [address] 03/23/23 Office Visit Lola King MD [facility] [place] 03/14/23 Office Visit Boby Trivedi MD [facility] [place] 01/06/23 Office Visit Boby Trivedi MD [facility] [place] [address] 12/29/22 Office Visit Curtis Ayon MD [facility] [place] [address] Showing recent visits within past [...] on filedocumented in this encounter Care Teams Obstetric Anaesthetist Relationship Specialty Start Date End Date Boby Trivedi MD [address] [place] [place] [address] PCP - General 09/25/08 09/02/24 Hai Ramirez MD [address] [place] [address] Consulting Physician Gastroenterology 05/28/18 Elida Rodrigues MD [address] [facility] [place] [place] [id number] Consulting Physician Cardiovascular Disease - Cardiology 08/16/19 Lola King MD [address] [facility] [place] [id number] Consulting Physician Cardiovascular Disease - Cardiology 09/15/21 Ny Barth RN [place] Nurse Director Industrial Relations 09/03/24 09/03/24 documented as of this encounter
--- OUTSIDE RECORDS SUMMARY | 2025-04-02 18:28 | XMS_ITS | Encounter Summary ---
Author Organization [facility] Address [address] [place] [address] Phone Care Team Providers Care Slasher Name Role Phone Boby Trivedi MD Primary Care Provider Hai Ramirez MD Unavailable Elida Rodrigues MD Unavailable Lola King MD Unavailable Ny Barth RN Unavailable Unavailable Reason for Visit * Reason Onset Date Comments Follow-up 10/19/2022 Encounter Details Date Type Department Care Team (Late st Contact Info) Description 10/19/2022 [facility] [place] - Cardiology - [facility] [address] [place] [address] Lola King MD [address] [place] [address] Follow-up Social History Tobacco Use Types Packs/Day Years Used Date Smoking Tobacco: Never Smokeless Tobacco: Never Alcohol Use Standard Drinks/Week Comments No 0 (1 standard drink = 0.6 oz pur e alcohol) PHQ-2 Answer Date Recorded Total Score - Questions 1-9 0 11/28 Education Answer Date Recorded What is the highest level of school you have completed or the highest degree you have received? 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 No / Unsure 10/21/2022 12:23 PM CDT documented as of this encounter Miscellaneous Notes * Telephone Encounter - Tereza Mccauley RN - 10/19/2022 12:46 PM CDT Attempted to call patient. Unable to leave message. Called sisterCintia (on PRD). LM for herself or patient to return call during office hours. * Telephone Encounter - Olivia Araujo - 10/19/2022 11:25 AM CDT 10/19/22 pt was called on 07/12/22 and then a letter was sent on 07/27/22 no response from the pt and the recall was completed documented in this encounter Plan of Treatment Not on file documented as of this encounter Visit Diagnoses Not on filedocumented in this encounter Care Teams Slasher Relationship Specialty Start Date End Date Boby Trivedi MD [address] [place] [address] PCP - General 09/25/08 09/02/24 Hai Ramirez MD [address] [place], [place] [address] Consulting Physician Gastroenterology 05/28/18 Elida Rodrigues MD [address] [facility] [place] [place] [id number] Consulting Physician Cardiovascular Disease - Cardiology 08/16/19 Lola King MD [address] [facility] [place] [id number] Consulting Physician Cardiovascular Disease - Cardiology 09/15/21 Ny Barth RN [place] Nurse Electromechanical Assembly Technician 09/03/24 09/03/24 documented as of this encounter
--- OUTSIDE RECORDS SUMMARY | 2025-04-02 18:28 | XMS_ITS | Clinical Summary ---
Author Organization [facility] Address [address] [place] [address] Care Team Providers Care Dressing Room Porter Name Role Phone Brenda Cleveland MD Primary [...] 100 MG tabletIndications:B ipolar disorder with depression ([facility] HHS/HCC) Take 2 tablets (200 mg total) [...] complication, without long-term current use of insulin ([facility] HHS/[facility]) Take 1 tablet (10 mg total) by mouth daily. 90 tablet 1 5 04/13/20 25 Active Glucose Blood (FREESTYLE LITE) test stripIndications:Ty pe 2 diabetes mellitus with diabetic nephropathy, without long-term current use of insulin ([facility]) USE 1 STRIP TO TEST BLOOD SUGAR [...] it. Assessment & Plan (08/01/2024 11:56 AM PASTE MIXING SUPERVISOR): We discussed risk and benefits of taking [...] visit. Assessment & Plan (06/25/2024 10:38 AM PASTE MIXING SUPERVISOR): Recommend low dose allopurinol 50 mg daily [...] metoprolol. Assessment & Plan (06/25/2024 10:36 AM PASTE MIXING SUPERVISOR): Chronic and controlled today. Cont felodipine, entresto, metoprolol. Assessment & Plan (06/11/2024 12:18 PM PASTE MIXING SUPERVISOR): Chronic and controlled. Continue felodipine, Entresto, metoprolol. Assessment & Plan (04/04/2024 2:02 PM CDT): Not controlled today. Patient will monitor his home blood pressure readings and provide them at follow-up to determine if he requires any additional medication. Type 2 diabetes mellitus wit h diabetic nephropathy, without long-term current use of insulin ([facility]) 04/04/2024 Overview (01/21/2025): A1c was 5.2% in September, now consistently up at 7.3%. Patient takes Jardiance. He has been on this regimen for some time. He reports lately he has been noncompliant with diet and would like to get back on track. Assessment & Plan (01/21/2025 11:02 AM CDT): Controlled. Goal <8%. Continue Jardiance. Requested diabetic eye exam from [facility]. Completed foot exam. Assessment & Plan (10/15/2024 2:37 PM CDT): Remains controlled but there has been a significant increase in his A1c over the last 6 months. Recommend he improve his diet and we will repeat this in 3 months instead of 6 to ensure he is getting back on track. Continue Jardiance. Assessment & Plan (06/11/2024 12:17 PM PASTE MIXING SUPERVISOR): Chronic and controlled. Continue on Jardiance. Assessment [...] of coronary artery 04/04/2024 Overview (04/04/2024): 2003: [place] 2005: [place] 2005: CABG: ROBIN to LAD, SVG to RCA, M, Cfx 03/10: Nuclear: 45% EF, fixed inferobasal Bipolar disorder with depression ([facility]/ C) 04/04/2024 Overview (08/01/2024): Has been taking regimen of bupropion, Seroquel for years. He is no longer on citalopram.. Now established with Dr. Johnson. Psychiatrist agreed with current regimen. Assessment & Plan (06/25/2024 10:35 AM PASTE MIXING SUPERVISOR): Chronic but well controlled. Remain off citalopram. Reduce seroquel to 200 mg daily and watch for changes in mood. Son will also monitor him carefully. Cont bupropion. Assessment & Plan (06/11/2024 12:17 PM PASTE MIXING SUPERVISOR): Would like to establish locally. My preference would be to slowly reduce medication to limit polypharmacy. Concern with tardive dyskinesias and high-dose Seroquel. Would like to slowly titrate down and monitor carefully for recurrence of bipolar symptoms. Referral entered to psychiatry. Assessment & Plan (04/04/2024 2:11 PM CDT): Patient will continue to manage with his psychiatrist. Cerebrovascular accident ([facility]) 04/04 Primary insomnia 04/04/2024 Overview (08/01/2024): Started [...] falls. Assessment & Plan (06/25/2024 10:34 AM PASTE MIXING SUPERVISOR): Chronic and now controlled with melatonin. DC ambien altogether. Assessment & Plan (06/11/2024 12:20 PM PASTE MIXING SUPERVISOR): Will continue to eliminate high risk medications. [...] unspecified whether stage 3a or 3b CKD ([facility]) 12/23/2022 Chronic systolic congestive heart failure ([facility]) 11/14/2022 Overview (01/21/2025): Last EF, 10/07/2005: EF [...] regimen. Assessment & Plan (08/01/2024 11:57 AM PASTE MIXING SUPERVISOR): Currently appears hypervolemic. Recommended Lasix 40 mg at noon today and possibly again tomorrow in addition to his daily dose depending on how weight responds. He fully admits to increasing his salt over the holidays. Family is now aware and will help monitor his weight to ensure he does not have a CHF exacerbation. Assessment & Plan (06/25/2024 10:33 AM PASTE MIXING SUPERVISOR): Chronic and appears hypervolemic today. Recommend lasix bid x 3 days or until weight returns to baseline. Request an update if persistently elevated next week for further instructions. Pt vocalized understanding and son will assist in medication management. Assessment & Plan (06/11/2024 11:35 AM PASTE MIXING SUPERVISOR): Chronic and currently euvolemic. Will check CBC, [...] nephrology. Assessment & Plan (06/25/2024 10:34 AM PASTE MIXING SUPERVISOR): Will refer to nephrology. Chronic. Assessment & Plan (06/11/2024 12:19 PM PASTE MIXING SUPERVISOR): Leg pain is resolved. Concern for persistent [...] CDT): Will order new sleep study at [facility]. Then will order through machine and settings through [employer] and referral to [facility] for long-term management. Mixed hyperlipidemia 01/22/2006 Overview (04/04/2024): Patient [...] Type Department Care Team Description 03/03/2025 Telephone [facility] - [place] [address] [place] [address] [address] [place] [address] Brenda Cleveland MD Lab Results 02/13/2025 1:00 PM CDT Office Visit [facility] [place] [address], [address] [address] Kevin Renee MD CKD Follow-up 02/13/2025 Travel 02/07/2025 9:12 AM CDT - 02/07/2025 11:59 PM CDT Hospital Encounter [facility] [place] [address] Kevin Renee MD Discharge Disposition: Home or Self Care (Routine Discharge) 02/07/2025 Travel 01/28/[address] [place] [address] Brenda Cleveland MD Information 01/28/[address] [place] [address] Brenda Cleveland MD Refill Request 01/21/2025 10:10 AM CDT Office Visit [address] [place] [address] Brenda Cleveland MD Follow Up (3mo ck on DM/lab work) 01/21/[address] [place] [address] Brenda Cleveland MD Record Request 01/21/2025 Travel 01/17/2025 Results Follow-Up [address] [place] [address] Brenda Cleveland MD HEMOGLOBIN, GLYCOSYLATED, VITAMIN B-12, LIPID PANEL, Additional followed-up results: 2 01/16/2025 7:15 AM CDT Allied Health/Nurse Visit [address] [place] [address] Brenda Cleveland MD Lab Draw 01/16/2025 Scan [facility] SRVCS Scanned, [facility] 01/16/2025 Travel 01/14/2025 Scan [facility] Scanned, [facility] 01/14/[address] [place] [address] Brenda Cleveland MD Results 01/06/2025 Digital Lumenshart Message Enc [facility] [address] [facility] [address] [place] [address] Brenda Cleveland MD Blood pressure from Last [...] st Contact Info) Description 06/03/2025 2:00 PM PASTE MIXING SUPERVISOR Allied Health/Nurse Visit [facility] Medical [facility] Family Medicine [address] [address] Brenda Cleveland MD [address] [address] 06/13/2025 12:15 PM PASTE MIXING SUPERVISOR Office Visit [facility] [phone] Salomon Mora MD [facility] [address] [place] [address] 06/17/2025 10:10 AM PASTE MIXING SUPERVISOR Office Visit [facility] Family [address] [address] Brenda Cleveland MD [address] [place] [address] 06/17/2025 10:30 AM PASTE MIXING SUPERVISOR Office Visit [facility] Medical Group Family Medicine - [place] [address] [place] [address] Brenda Cleveland MD [address] [place] [address] 09/18/2025 1:00 PM PASTE MIXING SUPERVISOR Office Visit [facility] - Health system 3 [facility] [place] [place] [address] Kevin Renee MD 3 [facility] [address] [place] [address] Health Maintenance Due Date Last Done Comments [...] Zoster Vaccines Completed 07/06/2023, 04/11/2023 PHQ-2 (Physician [place]) Completed 02/13/2025 Meningococcal B Vaccine Aged Out [...] AM CDT Stage 3b chronic kidney disease ([facility]/HCC) VITAMIN D, 25 [place] Routine 02/07/2025 9:22 AM CDT Stage 3b chronic kidney disease ([facility]/HCC) PTH - INTACT Routine 02/07/2025 9:22 AM CDT Stage 3b chronic kidney disease (CMS/HCC) URIC ACID BLOOD Routine 02/07/2025 9:22 AM CDT Stage 3b chronic kidney disease ([facility]/HCC) BASIC METABOLIC PANEL Routine 02/07/2025 9:22 AM CDT Stage 3b chronic kidney disease ([facility]/HCC) ALBUMIN URINE RANDOM W/CREATININE Routine 02/07/2025 9:18 AM CDT Stage 3b chronic kidney disease ([facility]/HCC) COLLECTION VENOUS BLOOD VENIPUNCTURE Routine 01/16/2025 7:16 AM CDT Type 2 diabetes mellitus without complication, without long-term current use of insulin ([facility] HHS/HCC) Mixed hyperlipidemia Essential hypertension ALBUMIN URINE RANDOM W/CREATININE Routine 01/16/2025 7:15 AM CDT Type 2 diabetes mellitus without complication, without long-term current use of insulin ([facility]CC HHS/HCC) COMPREHENSIVE METABOLIC PANEL Routine 01/16/2025 7:15 AM CDT Essential hypertension LIPID PANEL Routine 01/16/2025 7:15 AM CDT Mixed hyperlipidemia VITAMIN B-12 Routine 01/16/2025 7:15 AM CDT Type 2 diabetes mellitus without complication, without long-term current use of insulin ([facility] HHS/HCC) HEMOGLOBIN, GLYCOSYLATED Routine 01/16/2025 7:15 AM CDT Type 2 diabetes mellitus without complication, without long-term current use of insulin ([facility]) from Last 3 Months Results * (ABNORMAL) PTH - INTACT (02/07/2025 9:22 AM CDT) PTH INTACT 317.4(H) 18.4 - 80.1 PG/ML 02/07/2025 10:29 AM CDT [facility] 02/07/2025 9:22 AM CDT Kevin Renee MD LABORATORY Final Result [facility] [address] [place] [address], [place] [phone] * (ABNORMAL) BASIC METABOLIC PANEL (02/07/2025 9:22 AM CDT) GLUCOSE 142(H) 70 - 99 MG/DL 02/07/2025 10:19 AM CDT [facility] BUN 31(H) 7 - 18 MG/DL 02/07/2025 10:19 AM CDT [facility] CREATININE S/P/B 2.09(H) 0.7 - 1.3 MG/DL 02/07/2025 10:19 AM CDT [facility] SODIUM S/P/B 141 136 - 145 MMOL/L 02/07/2025 10:19 AM CDT [facility] POTASSIUM S/P/B 3.7 3.5 - 5.1 MMOL/L 02/07/2025 10:19 AM CDT [facility] CHLORIDE S/P/B 109 97 - 115 MMOL/L 02/07/2025 10:19 AM CDT [facility] CO2 29.5 21 - 32 MMOL/L 02/07/2025 10:19 AM CDT [facility] CALCIUM S/P/B 10.0 8.5 - 10.1 MG/DL 02/07/2025 10:19 AM CDT [facility] ANION GAP 2.5 2 - 10 MMOL/L 02/07/2025 10:19 AM CDT [facility] BUN CREATININE RATIO 14.8 6 - 26 02/07/2025 10:19 AM CDT [facility] GFR ESTIMATE 32(L) >90 ML/MIN/1.7 3 M2 02/07/2025 10:19 AM CDT [facility] Comment: NOTE: eGFR is not calculated for patients <18 years of age or gender unknown. This is an estimated GFR calculation using the new CKD EPI creatinine equation without race and so does not require a correction factor for race. This estimated GFR should not be used for calculating drug doses. 02/07/2025 9:22 AM CDT us Kevin Renee MD LABORATORY Final Result [facility] [address] [place] [address], [place] [phone] * (ABNORMAL) CBC, AUTO, NO DIFF (02/07/2025 9:22 AM CDT) WBC 6.73 4.5 - 11.0 x10'3/uL 02/07/2025 9:59 AM CDT [facility] RBC 5.00 4.70 - 6.10 x10'6/uL 02/07/2025 9:59 AM CDT [facility] HGB 15.7 14.0 - 18.0 G/DL 02/07/2025 9:59 AM CDT [facility] HCT 46.9 43.0 - 54.0 % 02/07/2025 9:59 AM CDT [facility] MCV 93.8 80.0 - 94.0 FL 02/07/2025 9:59 AM CDT [facility] MCH 31.4(H) 27.0 - 31.0 PG 02/07/2025 9:59 AM CDT [facility] MCHC 33.5 32.0 - 36.0 G/DL 02/07/2025 9:59 AM CDT [facility] RDW 13.8 11.5 - 14.5 % 02/07/2025 9:59 AM CDT [facility] PLT 149 130 - 400 x10'3/uL 02/07/2025 9:59 AM CDT [facility] MPV 10.2 9.3 - 12.2 FL 02/07/2025 9:59 AM CDT [facility] 02/07/2025 9:22 AM CDT Kevin Renee MD LABORATORY Final Result [facility] [address] [place] [address], [place] [phone] * VITAMIN D, 25 OH (02/07/2025 9:22 AM CDT) Pathologist [facility] VITAMIN D 25 HYDROXY S/P/B 48 30 - 100 NG/ML 02/07/2025 10:22 AM CDT [facility] Comment: INTERPRETATION DEFICIENT <20 INSUFFICIENT 20-29 SUFFICIENT 30-100 02/07/2025 9:22 AM CDT Kevin Renee MD LABORATORY Final Result [facility] [address] [place] [address], [place] [phone] * (ABNORMAL) URIC ACID BLOOD (02/07/2025 9:22 AM CDT) URIC ACID 9.2(H) 3.5 - 7.2 MG/DL 02/07/2025 10:19 AM CDT [facility] 02/07/2025 9:22 AM CDT Kevin Renee MD LABORATORY Final Result [facility] [address] [place] [address], [place] [phone] * (ABNORMAL) ALBUMIN URINE RANDOM W/CREATININE (02/07/2025 9:18 AM CDT) Only the most recent of2 resultswithin the time period is included. CREATININE (U) 77.0 39 - 259 MG/DL 02/07/2025 10:12 AM CDT [facility] MICROALBUMIN (U) 8.2(H) <2.0 mg/dL 02/07/2025 10:12 AM CDT [facility] ALBUMIN/CREAT RATIO 106.8(H) <30 MG/G 02/07/2025 10:12 AM CDT [facility] URINE SPECIMEN / Unknown 02/07/2025 9:18 AM CDT us Kevin Renee MD URINE ORDERABLES Final Result [facility] [address] [place] [address], [place] [phone] * (ABNORMAL) HEMOGLOBIN, GLYCOSYLATED (01/16/2025 7:15 AM CDT) HGB A1C 7.3(H) 4.5 - 6.2 % 01/16/2025 5:22 PM CDT [facility] ESTIMATED AVG GLUCOSE 163(H) 74 - 106 MG/DL 01/16/2025 5:22 PM CDT [facility] 01/16/2025 7:15 AM CDT Brenda Cleveland MD LABORATORY Final Re sult [facility] [address] [place] [address], [place] [phone] * (ABNORMAL) VITAMIN B-12 (01/16/2025 7:15 AM CDT) VITAMIN B12 S/P/B >6,000(H) 193 - 986 PG/ML 01/16/2025 4:46 PM CDT [facility] 01/16/2025 7:15 AM CDT Brenda Cleveland MD LABORATORY Final Re sult [facility] [address] [place] [address], [place] [phone] * (ABNORMAL) COMPREHENSIVE METABOLIC PANEL (01/16/2025 7:15 AM CDT) SODIUM S/P/B 144 136 - 145 MMOL/L 01/16/2025 4:46 PM CDT [facility] POTASSIUM S/P/B 4.6 3.5 - 5.1 MMOL/L 01/16/2025 4:46 PM CDT [facility] CHLORIDE S/P/B 107 98 - 107 MMOL/L 01/16/2025 4:46 PM T [facility] CO2 25.8 21 - 32 MMOL/L 01/16/2025 4:46 PM T [facility] GLUCOSE 155(H) 70 - 99 MG/DL 01/16/2025 4:46 PM [facility] BUN 28(H) 7 - 18 MG/DL 01/16/2025 4:46 PM T [facility] CREATININE S/P/B 2.09(H) 0.70 - 1.30 MG/DL 01/16/2025 4:46 PM T [facility] CALCIUM S/P/B 10.0 8.4 - 10.5 MG/DL 01/16/2025 4:46 PM T [facility] BILIRUBIN TOTAL S/P/B 0.6 0.2 - 1.0 MG/DL 01/16/2025 4:46 PM T [facility] ALKALINE PHOSPHATASE S/P/B 90 45 - 115 U/L 01/16/2025 4:46 PM T [facility] AST 28 15 - 37 U/L 01/16/2025 4:46 PM [facility] ALT 29 16 - 63 U/L 01/16/2025 4:46 PM T [facility] TOTAL PROTEIN S/P/B 6.2(L) 6.4 - 8.2 G/DL 01/16/2025 4:46 PM T [facility] ALBUMIN S/P/B 3.7 3.4 - 5.0 G/DL 01/16/2025 4:46 PM T [facility] ANION GAP 11.2 5 - 15 MMOL/L 01/16/2025 4:46 PM T [facility] Comment:REFERENCE RANGE NOT ESTABLISHED OSMOLALITY (CALC) 307 MOSM/KG 025 4:46 PM T [facility] Comment:REFERENCE RANGE NOT ESTABLISHED GFR ESTIMATE 32(L) >90 ML/MIN/1. 73 M2 01/16/2025 4:46 PM CDT [facility] GFR NOTES GFR REFERENCE S: 01/16/2025 4:46 PM CDT [facility] Comment: THE ESTIMATED GFR IS CALCULATED [...] Brenda Cleveland MD LABORATORY Final Re sult [facility] [address] [place] [address], * (ABNORMAL) LIPID PANEL (01/16/2025 7:15 AM CDT) CHOLESTEROL 141 <200 MG/DL 01/16/2025 4:46 PM CDT [facility] TRIGLYCERIDES 235(H) <150 MG/DL 01/16/2025 4:46 PM CDT [facility] HDL 35(L) >40 MG/DL 01/16/2025 4:46 PM CDT [facility] LDL-C 59 <100 MG/DL 01/16/2025 4:46 PM CDT [facility] VLDL CALCULATION 47(H) 5 - 28 MG/DL 01/16/2025 4:46 PM CDT [facility] CHOL/HDL RATIO 4.0 0.0 - 4.0 01/16/2025 4:46 PM CDT [facility] [place] LDL/HDL 1.7 0.41 - 2.13 01/16/2025 4:46 PM CDT [facility] [place] NON HDL CHOLESTEROL 106 <140 MG/DL 01/16/2025 4:46 PM CDT [facility] [place] 01/16/2025 7:15 AM CDT us Brenda Cleveland MD LABORATORY Final Re sult [facility] [address] [place] [address], [place] [phone] from Last 3 Months Insurance MEDICARE [facility] Care Teams Dressing Room Porter Relationship Specialty Start Date End Date Brenda Cleveland MD [address] [address] PCP - General FAMILY PRACTICE 06/06/24
--- OUTSIDE RECORDS SUMMARY | 2025-04-02 18:28 | XMS_ITS | Encounter Summary ---
Author Organization [facility] Address [address] [place] [address] Phone Care Team Providers Care Rn Plastics Name Role Phone Boby Trivedi MD Primary Care Provider Hai Ramirez MD Unavailable Elida Rodrigues MD Unavailable Lola King MD Unavailable Ny Barth RN Unavailable Unavailable Reason for Visit * Reason Comments Medication Refill Encounter Details Date Type Department Care Team (Late st Contact Info) Description 11/26/2023 Refill [facility] [place] - Cardiology - [facility] [address] [place] [address] Lola King MD [address] [place] [address] Medication Refill Social History Tobacco Use Types Packs/Day Years Used Date Smoking Tobacco: Never Smokeless Tobacco: Never Alcohol Use Standard Drinks/Week Comments No 0 (1 standard drink = 0.6 oz pur e alcohol) [facility] Utilities Answer Date Recorded In the past 12 months has e [employer] gas, oil, or water [employer] threatened to shut off services in your [...] How often do you attend chur or sikh services? More than 4 times per year 09/16/2023 Do you belong to any clubs o r organizations such as jew groups, unions, fraternal or athletic groups, or [...] Total Score - Questions 1-9 0 11/28 [facility] - Occupational Stress [...] place to sleep or slept in a [place] health care facility (including now)? No 09/16/2023 Education Answer Date Recorded What is the highest level of school you have completed or the highest degree you have received? 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 [employer] Gender Identity Male 03/14/2023 10:48 AM CDT Sexual Orientation Straight 06/10/2023 8: 59 AM INSPECTOR [employer] Occupation Industry Job Start Date Job End [...] Office Visit Boby Trivedi MD [facility] [place] 10/04/23 Office Visit Lola King MD [facility] [place] 09/18/23 Office Visit Boby Trivedi MD [facility] [place] 05/22/23 Initial Consult Leana Corcoran MD [facility] [place] 05/18/23 Office Visit Lola King MD [facility] [place] 04/10/23 Office Visit Jose Lloyd APRN, [employer] [facility] [place] 03/23/23 Office Visit Lola King MD [facility] [place] 03/14/23 Office Visit Boby Trivedi MD [facility] [place] 01/06/23 Office Visit Boby Trivedi MD [facility] [place] 12/29/22 Office Visit Curtis Ayon MD [facility] [place] Showing recent visits within past 548 days [...] on filedocumented in this encounter Care Teams Rn Plastics Relationship Specialty Start Date End Date Boby Trivedi MD [address] [place] [address] PCP - General 09/25/08 09/02/24 Hai Ramirez MD [address] [place] [address] Consulting Physician Gastroenterology 05/28/18 Elida Rodrigues MD [address] [facility] [place] [address] Consulting Physician Cardiovascular Disease - Cardiology 08/16/19 Lola King MD [address] [facility] [place] [address] Consulting Physician Cardiovascular Disease - Cardiology 09/15/21 Ny Barth RN [place] Nurse Security Control Room Officer 09/03/24 09/03/24 documented as of this encounter
--- OUTSIDE RECORDS SUMMARY | 2025-04-02 18:28 | XMS_ITS | Encounter Summary ---
Author Organization [facility] Address [address] [place] [address] Phone Care Team Providers Care Mechanical Car Checker Name Role Phone Boby Trivedi MD Primary Care Provider Hai Ramirez MD Unavailable Elida Rodrigues MD Unavailable Lola King MD Unavailable Ny Barth RN Unavailable Unavailable Reason for Visit * Reason Comments Medication Refill Encounter Details Date Type Department Care Team (Late st Contact Info) Description 11/26/2022 Refill [facility] [place] - [facility] - [facility] [address] [place] [address] Lola King MD [address] [place] [address] Medication Refill Social History Tobacco [...] AM CDT Legal Sex Male 3:04 AM MEAT HOSTESS Gender Identity Male 03/14/2023 10:48 AM CDT Sexual Orientation Straight 06/10/2023 8: 59 AM MEAT HOSTESS Occupation Industry Job Start Date Job End [...] on filedocumented in this encounter Care Teams Mechanical Car Checker Relationship Specialty Start Date End Date Boby Trivedi MD [address] [place] [address] PCP - General 09/25/08 09/02/24 Hai Ramirez MD [address] [place], [place] [address] Consulting Physician Gastroenterology 05/28/18 Elida Rodrigues MD [address] [place] [address] Consulting Physician Cardiovascular Disease - Cardiology 08/16/19 Lola Kign MD [address] [place] [address] Consulting Physician Cardiovascular Disease - Cardiology 09/15/21 Ny Barth RN [place] Nurse Docket Clerk 09/03/24 09/03/24 documented as of this encounter
--- NOTE | 2025-04-02 19:10 | PC.NURSE ---
pt hit call light. went into room and pt stated he is leaving. he does not want to wait any longer. educated pt on importance of staying to see a provider. pt still refusing starts to get dressed. educated pt to return for any new or worsening symptoms. pt ambulated out of ED with steady gait.
== END 2025-04-02 18:00 | disposition left against medical advice (07) ==
PROVIDERS: Emergency Provider Emergency Medicine; PCP Student in an Organized Health Care Education/Training Program
DX: M25.511 Pain in right shoulder (principal)
CPT/HCPCS: 93005; 99199

== ENCOUNTER 2025-07-01 14:05 | Outpatient (CLI) | payer MEDICARE, SELFPAY ==
--- NOTE | ~2025-07-01 | US_ITS ---
EXAMINATION: US venous doppler LE RT, 07/01/2025 14:26 HEAD BATCHER HISTORY: pain in rt lower ext Comparison: None Technique: Abarca-scale and color Doppler images were attempted of the lower saphenofemoral junction, common femoral vein,superficial femoral vein, proximal deep femoral vein, proximal deep femoral vein, popliteal vein and posterior tibial veins. Findings: Deep Venous System:Normal flow, augmentation and compressibility. No echogenic thrombus identified. The contralateral saphenofemoral junction appears unremarkable. Superficial Venous SystemNo superficial thrombophlebitis. Soft tissues: Soft tissues are unremarkable. Impression: Negative for DVT. Reviewed, dictated and finalized at location P. BATCHER Impression: Negative for DVT.
--- OUTSIDE RECORDS SUMMARY | 2025-07-01 11:50 | XMS_ITS | Encounter Summary ---
Author Organization [facility] Address [facility] [place] [address] Care Team Providers Care Semiconductor Package Symbol Stamper Name Role Phone Brenda Stahl MD Primary Care Provider + Kevin Renee MD Unavailable [phone] Salomon Mora MD Unavailable [phone] Victoriano Johnson MD Unavailable [phone] Reason for Referral * Imaging (Emergency) - Pending Review Specialty Diagnoses / Procedures Referred By Contac t Referred To Contact RADIOLOGY Diagnoses Pain and swelling of right lower extremity Procedures USV LEO DUPLEX LOW EXT RT Brenda Stahl MD [address] [place] [address] Phone: tel: fax: Referral ID Status Reason Start Date Expiration Date V isits Requested Visits Authorized [id number] Pending Review 07/01/2025 07/01/2026 1 1 OR SCIENTIST Reason for Visit * Reason Comments Cellulitis Patient presents for urgent care follow up from 06/29/25, right lower leg cellulitis Encounter Details Date Type Department Care Team (Late st Contact Info) Description 07/01/2025 11:50 AM SENIOR SCIENTIST Office Visit [facility] Medical [facility] Family Medicine - [place] [address] [place] [phone] Brenda Stahl MD [address] [place] [phone] Cellulitis (Patient presents for urgent care follow up from 06/29/25, right lower leg cellulitis) Social History Tobacco Use Types Packs/Day Years Used Date Smoking Tobacco: Never Passive Smoke Exposure: Never Smokeless Tobacco: Never Tobacco Cessation:Counseling Given: No Alcohol Use Standard Drinks/Week Comments Never 0 (1 standard drink = 0.6 oz pur e alcohol) PHQ-2 Answer Date Recorded Patient Health Questionnaire-2 Score 0 06/17/2025 AUDIT-C Answer Date Recorded Q1: How often do you have a drink containing alcohol? Never 06/17/2025 Q2: How many drinks containi ng alcohol do you have on a typical day when you are drinking? Patient does not drink Q3: How often do you have si x or more drinks on one occasion? Never 06/17/2025 Sex and Gender Information Value Date Recorded Sex Assigned at Male 2024 12:04 PM CDT Legal Sex Male 12:01 PM CDT Gender Identity Male 10/15/2024 10:17 AM CDT Sexual Orientation Not on file documented as of this encounter Last Filed Vital Signs Vital Sign Reading Time Taken Comments Blood Pressure 124/72 07/01/2025 11:44 AM SENIOR SCIENTIST Pulse 57 07/01/2025 11:44 AM SENIOR SCIENTIST Temperature 36.4 C (97.5 F) 07/01/2025 11:44 AM SENIOR SCIENTIST Respiratory Rate 16 07/01/2025 11:4 4 AM SENIOR SCIENTIST Oxygen Saturation 98% 07/01/2025 11: 44 AM SENIOR SCIENTIST Inhaled Oxygen Concentration - - Weight 105.1 kg (231 lb 12.8 oz) 2024 11:44 AM SENIOR SCIENTIST Height - - Body Mass Index 36.31 06/17/2025 10:12 AM SENIOR SCIENTIST documented in this encounter Patient Instructions * Patient Instructions* Brenda Stahl MD - 07/01/2025 11:50 AM SENIOR SCIENTIST Wear compression stocking on right lower extremity Elevate your right leg above the level of the heart Continue antibiotic. Ultrasound of the right leg. OR SCIENTIST documented in this encounter Progress Notes * Brenda Stahl MD - 07/01/2025 11:50 AM CSTSummary: acute SUBJECTIVE: Berto Barcenas is a 74-year-old year old male who presents for acute concern, cellulitis UC follow up. No problems updated. History of Present Illness The patient presents for evaluation of right lower extremity swelling. Cellulitis - Diagnosed with cellulitis at urgent care on 06/29/2025, prescribed cephalexin. - No improvement after 3 days. - Persistent heat sensation in foot since 06/20/2025. - Sudden onset of redness and swelling, no tingling or burning. - Significant pain when weight-bearing. - Small sore present before symptoms. - Elevating leg, but not above heart level. - No history of thrombosis - Provided Doug bandages at , no compression stockings at home. Review of Systems Per hpi Patient's past medical history, medications, allergies, family history, and social history reviewedand updated in Epic chart as necessary. 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 and stage 3 chronic kidney disease, unspecified whether stage 3a or 3b CKD ([facility]) Primary hypertension Type 2 diabetes mellitus with diabetic nephropathy, without long-term current use of insulin ([facility]) Acquired hypothyroidism Atherosclerosis of coronary artery Bipolar disorder with depression ([facility]) Cerebrovascular accident ([facility]) Chronic systolic congestive heart failure ([facility]) History of prostate cancer Hx of CABG LBBB (left bundle branch block) Mixed hyperlipidemia ELVER (obstructive sleep apnea) Stage 3b chronic kidney disease ([facility]) Primary insomnia Chronic gout without tophus, unspecified cause, unspecified site Colon cancer screening Current Outpatient Medications: allopurinol (ZYLOPRIM) 100 MG tablet, Take 1 tablet (100 mg total) by mouth daily., Disp: 90 tablet, Rfl: 3 aspirin 81 MG chewable tablet, Chew 1 tablet (81 mg total) by mouth daily., Disp: , Rfl: atorvastatin (LIPITOR) 80 MG tablet, , Disp: , Rfl: buPROPion SR (WELLBUTRIN SR) 150 MG 12 hr tablet, Take 1 tablet (150 mg total) by mouth 3 (three) times daily., Disp: , Rfl: carvedilol (COREG) 12.5 MG tablet, Take 1.5 tablets (18.75 mg total) by mouth 2 (two) times daily.,Disp: 270 tablet, Rfl: 3 cephALEXin (KEFLEX) 500 MG capsule, Take 1 capsule (500 mg total) by mouth 2 (two) times daily., Disp: , Rfl: empagliflozin (JARDIANCE) 25 MG tablet, Take 1 tablet (25 mg total) by mouth daily., Disp: 90 tablet, Rfl: 1 felodipine ER 10 MG TABLET SR 24 HR 24 hr tablet, Take 1 tablet by mouth daily., Disp: , Rfl: fish oil (OMEGA-3 FATTY ACID) 1000 MG Cap capsule, Take 1 capsule (1,000 mg total) by mouth 2 (two)times daily., Disp: , Rfl: furosemide (LASIX) 40 MG tablet, , Disp: , Rfl: Glucose Blood (FREESTYLE LITE) test strip, USE 1 STRIP TO TEST BLOOD SUGAR ONCE DAILY, Disp: 100 strip, Rfl: 3 levothyroxine (SYNTHROID) 50 MCG tablet, , Disp: , Rfl: Multiple Vitamins-Minerals (OCUVITE ADULT 50+ OR), Take 1 tablet by mouth daily., Disp: , Rfl: QUEtiapine (SEROQUEL) 100 MG tablet, Take 2 tablets (200 mg total) by mouth nightly at bedtime., Disp: , Rfl: sacubitril-valsartan (ENTRESTO) 97-103 MG tablet, Take 1 tablet by mouth 2 (two) times daily., Disp: 180 tablet, Rfl: 1 Allergies Allergen Reactions Spironolactone Other (see comment) hyperkalemia Penicillins Rash and Unknown Past Surgical History[1] OBJECTIVE: Filed Vitals: 07/01/25 1144 BP: 124/72 Pulse: (!) 57 Resp: 16 Temp: 97.5 ??F (36.4 ??C) TempSrc: Core SpO2: 98% Weight: 105.1 kg (231 lb 12.8 oz) Physical Exam Physical Exam Extremities: Right lower extremity swollen with erythema and warmth. Small sore present on rightlateral aspect of right leg 3 mm. Dull erythema. 3+ pitting edema. No visits with results within 10 Day(s) from this visit. Latest known visit with results is: [facility]/Nurse Visit on 06/03/2025 Component Date Value Ref Range Status HGB A1C 06/03/2025 7.9 (H) 4.5 - 6.2 % Final ESTIMATED AVG GLUCOSE 06/03/2025 180 (H) 74 - 106 MG/DL Final SODIUM S/P/B 06/03/2025 143 136 - 145 MMOL/L Final POTASSIUM S/P/B 06/03/2025 4.5 3.5 - 5.1 MMOL/L Final CHLORIDE S/P/B 06/03/2025 106 98 - 107 MMOL/L Final CO2 06/03/2025 28.7 21 - 32 MMOL/L Final GLUCOSE 06/03/2025 156 (H) 70 - 99 MG/DL Final BUN 06/03/2025 26 (H) 7 - 18 MG/DL Final CREATININE S/P/B 06/03/2025 1.79 (H) 0.70 - 1.30 MG/DL Final CALCIUM S/P/B 06/03/2025 9.3 8.4 - 10.5 MG/DL Final ANION GAP 06/03/2025 8.3 5 - 15 MMOL/L Final REFERENCE RANGE NOT ESTABLISHED OSMOLALITY (CALC) 06/03/2025 304 MOSM/KG Final REFERENCE RANGE NOT ESTABLISHED GFR ESTIMATE 06/03/2025 39 (L) >90 ML/MIN/1.73 M2 Final GFR NOTES 06/03/2025 GFR REFERENCES: Final Comment: THE ESTIMATED GFR IS CALCULATED USING [...] ml/min/1.73 m2 G5,KIDNEY FAILURE: <15 ml/min/1.73 m2 TSH 06/03/2025 3.958 (H) 0.358 - 3.740 uIU/ML Final FREE T4 06/03/2025 0.80 0.76 - 1.46 NG/DL Final ] ASSESSMENT & PLAN: Berto Barcenas is a 74-year-old male presents to discuss with following. Problem List Items Addressed This Visit None Assessment & Plan 1. Right lower extremity swelling: Acute. - Order ultrasound to rule out DVT state - Added photograph to medical record. - Continue cephalexin. - Elevate leg above heart level. - Use compression stockings. 2. Diabetes mellitus: Chronic. - Monitor fasting blood sugar levels with glucometer and report readings. Follow-up - If swelling does not improve, may need to be seen next week. This patient is established and follows with me longitudinally. Lab: None Specified No follow-ups on file. BRENDA STAHL MD [facility] This document was created in part by using voice recognition software and was reviewed by the author. If errors are present, please bring them to your provider's attention. [1] Past Surgical History: Procedure Laterality Date APPENDECTOMY CORONARY ARTERY BYPASS GRAFT HERNIA REPAIR PROSTATE SURGERY REMOVAL OF SPERM DUCT(S) OR SCIENTIST documented in this encounter Plan of Treatment Upcoming Encounters Date Type Department Care Team (Late st Contact Info) Description 07/03/2025 11:00 AM SENIOR SCIENTIST [facility]ment [facility] [place] [address] Salomon Mora MD [address] [place] [address] 09/18/2025 1:00 PM SENIOR SCIENTIST Office Visit [facility] Multispecialty Care - [place] [address] [place] [id number] Kevin Renee MD [address] [facility] [place] [address] 09/23/2025 10:30 AM SENIOR SCIENTIST Office Visit [facility] Family Medicine - [place] [address] [place] [address] Brenda Stahl MD [address] [place] [address] 12/05/2025 12:00 PM CDT Office Visit [facility] [phone] Salomon Mora MD [address] [place] [address] 08/07/2026 1:00 PM SENIOR SCIENTIST Office Visit [facility] Medical Group Family Medicine - [address] [address] Brenda Stahl MD [address] [address] Scheduled Orders Name Type Priority Associated Diagnoses Orde r Schedule USV LEO DUPLEX LOW EXT RT US VASC STAT Pain and swelling of right lower extremity Expected: 07/01/2025, Expires: 07/01/2026 documented as of this encounter Visit Diagnoses Diagnosis Pain and swelling of right lower extremity- Primary Cellulitis of right lower extremity Cellulitis and abscess of leg, except foot documented in this encounter Care Teams Semiconductor Package Symbol Stamper Relationship Specialty Start Date End Date Brenda Stahl MD [address] [place] [address] [place] [address] PCP - General FAMILY PRACTICE 06/06/24 Kevin Renee MD [address] [address] Consulting Physician NEPHROLOGY 06/17/25 Salomon Mora MD [address] [place], [place] [address] Consulting Physician CARDIOVASCULAR DISEASE 06/17/25 Victoriano Johnson MD [address] [place] [address] Referring Physician Psychiatry 06/17/25 documented as of this encounter
--- OUTSIDE RECORDS SUMMARY | 2025-07-01 15:16 | XMS_ITS | Clinical Summary ---
Author Organization [facility] [address] Address [address] [place] [address] Care Team Providers Care Shank Rander Name Role Phone Brenda Cleveland MD Primary Care Provider [phone] Allergies Active Allergy Reactions Criticality Noted Date Comments Penicillins Other (See comments),Rash,Unknown Medium 02/15/2008 Spironolactone Other (See comments) 04/04/2024 hyperkalemia Medications aspirin 81 mg chewable tablet Take 1 tablet (81 mg total) by mouth daily Active atorvastatin (LIPITOR) 80 mg tablet Take 1 tablet (80 mg total) by mouth daily 3 Active buPROPion SR (WELLBUTRIN SR) 150 mg 12 hr tablet Take 1 tablet (150 mg total) by mouth 3 (three) times a day 1 Active carvediloL (COREG) 12.5 mg tablet Take 1 tablet (12.5 mg total) by mouth 2 (two) times a day 5 Active Jardiance 10 mg tablet Take 1 tablet (10 mg total) by mouth daily 3 Active felodipine (PLENDIL) 10 mg 24 hr tablet Take 1 tablet (10 mg total) by mouth daily 3 Active furosemide (LASIX) 40 mg tablet Take 1 tablet (40 mg total) by mouth daily 3 Active levothyroxine (SYNTHROID) 50 mcg tablet Take 1 tablet (50 mcg total) by mouth direct marketing executive before breakfast 3 Active QUEtiapine (SEROquel) 100 mg tablet Take 2 tablets (200 mg total) by mouth Active sacubitriL-vals migdalia (Entresto) 49-51 mg tablet Take 1 tablet by mouth 2 (two) times a day 3 Active cephalexin (KEFLEX) 500 mg capsuleIndicati ons:Cellulitis of right lower extremity Take 1 capsule (500 mg total) by mouth 2 (two) times a day for 7 days 14 capsule 5 07/06/20 25 Active zolpidem (AMBIEN) 10 mg tablet Take 1 tablet (10 mg total) by mouth nightly as needed 3 06/29/20 25 Discontinu ed(Therapy completed) Active Problems No known active problems Encounters Date Type Department Care Team Description 06/29/2025 2:15 PM CERAMIC DESIGN ENGINEER Office Visit [facility] Convenient Care at [address] [phone] Herlinda Arriaga NP Cellulitis of right lower extremity (Primary Dx) 04/02/2025 4:15 PM CDT Office Visit [facility] Medical [facility] Convenient Care at [address] [address] Emily Putnam NP Left upper arm pain (Primary Dx) from Last 3 Months Medical History Medical History Date Comments CHF (congestive heart failure) (HCC) Aortic aneurysm Diabetes Hypertension Tardive dyskinesia ELVER (obstructive sleep apnea) Social History Tobacco Use Types Packs/Day Years Used Date Smoking Tobacco: Never Assessed Sex and Gender Information Value Date Recorded Sex Assigned at Not on file Legal Sex Male 9:27 AM CDT Gender Identity Not on file Sexual Orientation Not on file Last Filed Vital Signs Vital Sign Reading Time Taken Comments Blood Pressure 141/78 06/29/2025 2:08 PM CERAMIC DESIGN ENGINEER Pulse 77 06/29/2025 2:08 PM CERAMIC DESIGN ENGINEER Temperature 36.5 C (97.7 F) 06/29/2025 2:08 PM CERAMIC DESIGN ENGINEER Respiratory Rate 16 06/29/2025 2:08 PM CERAMIC DESIGN ENGINEER Oxygen Saturation 98% 06/29/2025 2:08 PM CERAMIC DESIGN ENGINEER Inhaled Oxygen Concentration - - Weight 105.7 kg (233 lb) 06/29/2025 2:08 PM CERAMIC DESIGN ENGINEER Height 175.3 cm (5' 9) 06/29/2025 2:08 PM CERAMIC DESIGN ENGINEER Body Mass Index 34.41 06/29/2025 2:08 PM CERAMIC DESIGN ENGINEER Plan of Treatment Health Maintenance Due Date Last Done Comments Colon Cancer Screening-Colonoscopy 1950 Depression Screening 1950 Fall Risk Assessment 1950 Hepatitis C Screening 1950 Abdominal Aortic Aneurysm (A AA) Screen 2014 Well Visit 65+ 2014 Covid-19 Vaccine (5 - 2024-2 6 season) 2025 06/07/2023, 07/06/2021, 09/23/2020, Additional history exists DTaP/Tdap/Td Vaccine (3 - Td or Tdap) 01/28/2034 01/29/2024, 06/11/2013 Hepatitis B Screening Completed 07/06/2023 Pneumococcal vaccine 65+ Completed 023, 11/27/2018, 08/31/2015, Additional history exists Zoster Vaccine Completed 07/06/2023, 04/11/2023 Influenza Vaccine Completed 06/17/2025, , 06/07/2023, Additional history exists Procedures Procedure Name Priority Date/Time Associated Diagnosis Comments ECG 12-LEAD Routine 04/02/2025 4:29 PM CDT Left upper arm pain from Last 3 Months Results * ECG 12 lead (04/02/2025 4:29 PM CDT) Emily Putnam NP ECG ORDERABLES Final Resu lt from Last 3 Months Insurance MEDICARE AARP Care Teams Shank Rander Relationship Specialty Start Date End Date Brenda Cleveland MD PCP - General Family Medicine 05/12/24
--- OUTSIDE RECORDS SUMMARY | 2025-07-01 15:16 | XMS_ITS | Encounter Summary ---
Author Organization [facility] Address [address] [place] [address] Phone Care Team Providers Care Pediatric Speech Therapist Name Role Phone Boby Trivedi MD Primary Care Provider Hai Ramirez MD Unavailable Elida Rodrigues MD Unavailable [phone] Lola King MD Unavailable Ny Barth RN Unavailable Unavailable Reason for Visit * Reason Onset Date Comments Medication Management 02/05/2021 Lisinopril Encounter Details Date Type Department Care Team (Late st Contact Info) Description 02/05/2021 Telephone [facility] [place] - Cardiology - [facility] [address] [place] [phone] Lola King MD [address] [place] [address] Medication Management (Lisinopril) Social History Tobacco Use Types Packs/Day Years Used Date Smoking Tobacco: Never Smokeless Tobacco: Never Alcohol Use Standard Drinks/Week Comments No 0 (1 standard drink = 0.6 oz pur e alcohol) Sex and Gender Information Value Date Recorded Sex Assigned at Male 03/14/2023 10:48 AM CDT Legal Sex Male 3:04 AM CREATIVE COORDINATOR Gender Identity Male 03/14/2023 10:48 AM CDT Sexual Orientation Straight 06/10/2023 8: 59 AM CREATIVE COORDINATOR 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 No / Unsure 02/07/2021 1:36 PM CDT documented as of this encounter Functional Status documented as of this encounter Mental Status * Question Answer Entry Date Author BP 146/72 02/07/2021 1:43 PM CDT Nemo Low Temp 97.2 02/07/2021 1:43 PM CDT Nemo Low Pulse 62 02/07/2021 1:43 PM CDT Nemo Low SpO2 98 02/07/2021 1:43 PM CDT Nemo Low documented in this encounter Miscellaneous Notes * Telephone Encounter [...] recommendations. * Telephone Encounter - Mony Rosen 02/05/2021 2:37 PM CDT Pt called stating [...] Pt [facility] a update at [phone]. documented in this encounter Plan of Treatment Not on file documented as of this encounter Visit Diagnoses Not on filedocumented in this encounter Care Teams Pediatric Speech Therapist Relationship Specialty Start Date End Date Boby Trivedi MD [address] [place] [address] PCP - General 09/25/08 09/02/24 aHi Ramirez MD [address] [place] [address] Consulting Physician Gastroenterology 05/28/18 lEida Rodrigues MD [address] [place] [address] Consulting Physician Cardiovascular Disease - Cardiology 08/16/19 Lola King MD [address] [place], [place] [address] Consulting Physician Cardiovascular Disease - Cardiology 09/15/21 Ny Barth RN [place] Nurse Water Quality Control Engineer 09/03/24 09/03/24 documented as of this encounter
--- OUTSIDE RECORDS SUMMARY | 2025-07-01 15:16 | XMS_ITS | Encounter Summary ---
Author Organization [facility] Address [address] [place] [address] Phone Care Team Providers Care Embroidery Patternmaker Name Role Phone Boby Trivedi MD Primary Care Provider Hai Ramirez MD Unavailable Elida Rodrigues MD Unavailable Lola King MD Unavailable Ny Barth RN Unavailable Unavailable Reason for Visit * Reason Comments Medication Refill Encounter Details Date Type Department Care Team (Late st Contact Info) Description 06/20/2021 Refill [facility] - Internal Medicine & Pediatrics - [address] [place], [place] [id number] Boby Trivedi MD [address] [place] [address] Medication Refill Social History Tobacco Use Types Packs/Day Years Used Date Smoking Tobacco: Never Smokeless Tobacco: Never Alcohol Use Standard Drinks/Week Comments No 0 (1 standard drink = 0.6 oz pur e alcohol) Sex and Gender Information Value Date Recorded Sex Assigned at Male 03/14/2023 10:48 AM CDT Legal Sex Male 3:04 AM SEAL MIXER Gender Identity Male 03/14/2023 10:48 AM CDT Sexual Orientation Straight 06/10/2023 8: 59 AM SEAL MIXER 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 No / Unsure 06/22/2021 9:01 AM SEAL MIXER documented as of this encounter Functional Status documented as of this encounter Mental Status * Question Answer Entry Date Author BP 128/70 06/21/2021 11:22 AM SEAL MIXER Lexy Stapleton RN Pulse 50 06/21/2021 11:22 AM SEAL MIXER Lexy Stapleton RN SpO2 99 06/21/2021 11:22 AM SEAL MIXER Lexy Stapleton RN documented in this encounter Miscellaneous Notes * Telephone Encounter - Boby Trivedi MD - 06/21/2021 7:17 AM CST Rx filled electronically (E-prescribe) MIXER documented in this encounter Plan of Treatment Not on file documented as of this encounter Visit Diagnoses Diagnosis Insomnia, unspecified type documented in this encounter Care Teams Embroidery Patternmaker Relationship Specialty Start Date End Date Boby Trivedi MD [address] [place] [address] PCP - General 09/25/08 09/02/24 Hai Ramirez MD [address] [place], [place] [id number] Consulting Physician Gastroenterology 05/28/18 Elida Rodrigues MD [address] [place], [place] [id number] Consulting Physician Cardiovascular Disease - Cardiology 08/16/19 Lola King MD [address] [place] [address] Consulting Physician Cardiovascular Disease - Cardiology 09/15/21 Ny Barth RN [place] Nurse Hotel Maintenance Engineer 09/03/24 09/03/24 documented as of this encounter
--- OUTSIDE RECORDS SUMMARY | 2025-07-01 15:16 | XMS_ITS | Encounter Summary ---
Author Organization [facility] Address [address] [place] [address] Care Team Providers Care Isotope Technologist Name Role Phone Brenda Cleveland MD Primary Care Provider + Kevin Renee MD Unavailable [phone] Salomon Mora MD Unavailable [phone] Victoriano Johnson MD Unavailable [phone] Encounter Details Date Type Department Care Team (Late st Contact Info) Description 01/06/2025 MyChart Message Enc [facility] Family Medicine - [place] [address] [place] [phone] Brenda Cleveland MD [address] [place] [address] Blood pressure Social History Tobacco Use Types [...] st Contact Info) Description 07/03/2025 11:00 AM SHELL SIEVE OPERATOR Appointment [facility] [address] [facility] [facility] [place] [address] Salomon Mora MD [facility] [address] [place] [address] 09/18/2025 1:00 PM SHELL SIEVE OPERATOR Office Visit [facility] - [facility] 3 [facility], [address] [place] [address] Kevin Renee MD 3 [facility], [address] [place] [address] 09/23/2025 10:30 AM SHELL SIEVE OPERATOR Office Visit [facility] Family Medicine - [address] [address] Brenda Cleveland MD [address] [address] 12/05/2025 12:00 PM CDT Office Visit [facility] [address] Salomon Mora MD Three [facility] [address] [place] [address] 08/07/2026 1:00 PM SHELL SIEVE OPERATOR Office Visit [facility] Family Medicine - [address] [place] [address] Brenda Cleveland MD [address] [place] [address] documented as of this encounter Visit Diagnoses Not on filedocumented in this encounter Care Teams Isotope Technologist Relationship Specialty Start Date End Date Brenda Cleveland MD [address] [facility] [address] [place] [address] PCP - General FAMILY PRACTICE 06/06/24 Kevin Renee MD [address] [facility] [address] [place] [address] Consulting Physician NEPHROLOGY 06/17/25 Salomon Mora MD [facility] [address] [place] [address] Consulting Physician CARDIOVASCULAR DISEASE 06/17/25 Victoriano Johnson MD 6805 [facility] 162 [facility] 201 [place] [address] Referring Physician Psychiatry 06/17/25 documented as of this encounter
--- OUTSIDE RECORDS SUMMARY | 2025-07-01 15:16 | XMS_ITS | Encounter Summary ---
Author Organization [facility] Address [address] [place] [address] Phone Care Team Providers Care Lapping Machine Set Up Operator Name Role Phone Boby Trivedi MD Primary Care Provider Hai Ramirez MD Unavailable Elida Rodrigues MD Unavailable [phone] Lola King MD Unavailable Ny Barth RN Unavailable Unavailable Reason for Visit * Reason Comments Medication Refill Encounter Details Date Type Department Care Team (Late st Contact Info) Description 12/08/2023 [facility] [place] [facility] - [facility] [address] [place] [address] Lola King MD [address] [place] [address] Medication Refill Social History Tobacco Use Types Packs/Day Years Used Date Smoking Tobacco: Never Smokeless Tobacco: Never Alcohol Use Standard Drinks/Week Comments No 0 (1 standard drink = 0.6 oz pur e alcohol) very seldom [facility] Utilities Answer Date Recorded In the past 12 months has e electric, gas, oil, or water [employer] threatened to shut off services in your [...] week 09/16/2023 How often do you attend [facility] or adventism services? More than 4 times per year 09/16/2023 Do you belong to any clubs o r organizations such as quaker groups, unions, fraternal or athletic groups, or [...] Total Score - Questions 1-9 0 11/28 [facility] [place] of Occupat ional Health - Occupational Stress [...] place to sleep or slept in a care home (including now)? No 09/16/2023 Education Answer Date Recorded What is the highest level of school you have completed or the highest degree you have received? Bachelor's degree (e.g., BA, AB, BS) 10/06/2022 Sex and Gender Information Value Date Recorded Sex Assigned at Male 03/14/2023 10:48 AM CDT Legal Sex Male 3:04 AM SENIOR WRITER Gender Identity Male 03/14/2023 10:48 AM CDT Sexual Orientation Straight 06/10/2023 8: 59 AM SENIOR WRITER Occupation Industry Job Start Date Job [...] Office Visit Boby Trivedi MD [facility] [place] 10/04/23 Office Visit Lola King MD [facility] [place] 09/18/23 Office Visit Boby Trivedi MD [facility] [place] 05/22/23 Initial Consult Leana Corcoran MD [facility] [place] 05/18/23 Office Visit Lola King MD [facility] [place] 04/10/23 Office Visit Jose Lloyd APRN, DISTRIBUTOR OF DIRECTORIES [facility] [place] [facility] [place] 03/23/23 Office Visit Lola King MD [facility] [place] 03/14/23 Office Visit Boby Trivedi MD [facility] [place] 01/06/23 Office Visit Boby Trivedi MD [facility] [place] 12/29/22 Office Visit Curtis Ayon MD [facility] [place] [facility] [place] Showing recent visits within past [...] on filedocumented in this encounter Care Teams Lapping Machine Set Up Operator Relationship Specialty Start Date End Date Boby Trivedi MD [address] [place] [address] PCP - General 09/25/08 09/02/24 Hai Ramirez MD [address] [place] [place] [address] Consulting Physician Gastroenterology 05/28/18 Elida Rodrigues MD [address] [facility] [place] [address] Consulting Physician Cardiovascular Disease - Cardiology 08/16/19 Lola King MD [address] [facility], [place] [id number] Consulting Physician Cardiovascular Disease - Cardiology 09/15/21 Ny Barth RN [place] Nurse Heavy Equipment Engine Mechanic 09/03/24 09/03/24 documented as of this encounter
--- OUTSIDE RECORDS SUMMARY | 2025-07-01 15:16 | XMS_ITS | Encounter Summary ---
Author Organization [facility] Address [address] [place] [address] Phone Care Team Providers Care Audio Video Mechanic Name Role Phone Hai Ramirez MD Unavailable Elida Rodrigues MD Unavailable Lola King MD Unavailable Reason for Visit * Reason Comments Medication Refill Encounter Details Date Type Department Care Team (Late st Contact Info) Description 04/29/2025 Refill [facility] Cardiovascular [place] - Cardiology - [facility] [place] [address] [place] [address] Lola King MD [address] [place] [address] Medication Refill Social History Tobacco Use Types Packs/Day Years Used Date Smoking Tobacco: Never Smokeless Tobacco: Never Alcohol Use Standard Drinks/Week Comments No 0 (1 standard drink = 0.6 oz pur e alcohol) very seldom [facility] Utilities Answer Date Recorded In the past 12 months has [employer], gas, oil, or water company threatened to [...] How often do you attend chur or adventism services? More than 4 times [...] Total Score - Questions 1-9 0 11/28 [facility] of Occupat ional [facility] - Occupational Stress Questionnaire Answer Date Recorded [...] place to sleep or slept in a group home (including now)? No 09/16/2023 Education Answer Date Recorded What is the highest level of school you have completed or the highest degree you have received? 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 Not on fi le documented as of this encounter Plan of Treatment Not on file documented as of this encounter Visit Diagnoses Not on filedocumented in this encounter Care Teams Audio Video Mechanic Relationship Specialty Start Date End Date Hai Ramirez MD [address] [place], [place] [phone] Consulting Physician Gastroenterology 05/28/18 Elida Rodrigues MD [address] [place], [place] [id number] Consulting Physician Cardiovascular Disease - Cardiology 08/16/19 Lola King MD [address] [place] [address] Consulting Physician Cardiovascular Disease - Cardiology 09/15/21 documented as of this encounter
--- OUTSIDE RECORDS SUMMARY | 2025-07-01 15:16 | XMS_ITS | Encounter Summary ---
Author Organization [facility] Address [address] [place] [address] Phone Care Team Providers Care Disaster Or Damage Control Specialist Name Role Phone Boby Trivedi MD Primary Care Provider Hai Ramirez MD Unavailable Elida Rodrigues MD Unavailable [phone] Lola King MD Unavailable Ny Barth RN Unavailable Unavailable Reason for Visit * Reason Onset Date Comments Follow-up 10/19/2022 Encounter Details Date Type Department Care Team (Late st Contact Info) Description 10/19/2022 [facility]phone [facility] [place] - Cardiology - [facility] [address] [place] [address] Lola King MD [address] [place] [address] Follow-up Social History Tobacco Use [...] AM CDT Legal Sex Male 3:04 AM ARCHITECTURAL DESIGNER Gender Identity Male 03/14/2023 10:48 AM CDT Sexual Orientation Straight 06/10/2023 8: 59 AM ARCHITECTURAL DESIGNER Occupation Industry Job Start Date Job End [...] on filedocumented in this encounter Care Teams Disaster Or Damage Control Specialist Relationship Specialty Start Date End Date Boby Trivedi MD [address] [place] [address] PCP - General 09/25/08 09/02/24 Hai Ramirez MD [address] [place] [address] Consulting Physician Gastroenterology 05/28/18 Elida Rodrigues MD [address] [place] [phone] Consulting Physician Cardiovascular Disease - Cardiology 08/16/19 Lola King MD [address] [facility] [place] [place] [phone] Consulting Physician Cardiovascular Disease - Cardiology 09/15/21 Ny Barth RN [place] Nurse Store Clerk Checker 09/03/24 09/03/24 documented as of this encounter
--- OUTSIDE RECORDS SUMMARY | 2025-07-01 15:16 | XMS_ITS | Clinical Summary ---
Author Organization [facility] Address [address] [place] [address] Phone Care Team Providers Care Load Blocker Name Role Phone Hai Ramirez MD Unavailable [...] disease, without long-term current use of insulin Check blood sugar once daily, Type II [...] nuclear Coronary artery disease Overview (03/13/2012): 2003: KS 2005: KS 2005: CABG: ROBIN to LAD, SVG to RCA, M, Cfx 03/10: Nuclear: 45% EF, fixed inferobasal HTN (hypertension) Stroke Diabetes mellitus Overview (08/31/2015): Foot exam 2.1.16 Eye exam 1.2016 Bipolar depression Overview (09/25/2008): Dr. Ang John Microalbuminuria Resolved Problems Problem Noted Date Diagnosed Date Resolved Date Type 2 diabetes mellitus 01/22/200606/2011 Sleep apnea 01/22/2006 09/11/2010 Coronary atherosclerosis of [place] coronary artery 10/30/2003 09/11/2010 Hyperlipidemia 08/26/2013 Encounters Date Type Department Care Team Description 04/29/2025 Refill [facility] Cardiovascular [place] - Cardiology [facility] [address] [place] [phone] Lola King MD Medication Refill from Last [...] Valent 9 Pneumococcal conjugate PCV20 , polysaccharide SSF025 conjugate, adjuvant, PF 07/06/2023 RSV, Bivalent, Protein [...] 0.6 oz pur e alcohol) very seldom [employer] Answer Date Recorded In the past 12 months has Care Team [employer], gas, oil, or water [employer] threatened to shut off services in your [...] How often do you attend chur or buddhist services? More than 4 times per year 09/16/2023 Do you belong to any clubs o r organizations such as voodoo groups, unions, fraternal or athletic groups, or [...] Total Score - Questions 1-9 0 11/28 [facility] [place] of Occupat ional Health - Occupational Stress [...] CDT Legal Sex Male 3:04 AM DIRECTOR FOUNDATION Gender Identity Male 03/14/2023 10:48 AM CDT Sexual Orientation Straight 06/10/2023 8: 59 AM DIRECTOR FOUNDATION Occupation Industry Job Start Date Job End [...] Cologuard 1994 Immunochemical Fecal Occult Blood 1994 Medicare Initial AWV [id number] 09/29/2015 Hepatitis B Immunization (2 of 3 - Risk 3-dose series) 08/03/2023 07/06/2023, 07/06/2023 Diabetes: Nephropathy Screening 09/12/2024 09/12/2023, 09/12/2023, 03/14/2023, Additional history exists Diabetes: Foot Exam 09/18/2024 09/18/2023, 09/18/2023, 09/18/2023, Additional history exists Influenza Immunization (#1) 2025 09, 06/07/2023, 04/10/2023, Additional history exists SARS-COV-2 Immunization [...] METABOLIC PANEL) Routine 09/12/2023 11:24 AM DIRECTOR FOUNDATION Type 2 diabetes mellitus with stage 3a chronic kidney disease, without long-term current use of insulin (HCC) HEMOGLOBIN A1C W/ ESTIMATED GLUCOSE Routine 09/12/2023 11:24 AM DIRECTOR FOUNDATION Type 2 diabetes mellitus with stage 3a [...] of bowel preparation was evaluated using the [place] Bowel Preparation Scale with scores of: right [...] TIME 12/06/2023 2:58 PM Scope Type: Colonoscope [id number] Insertion time: 5m 09s Withdrawal time: 27m 56s Specimens ID Type Source Tests Collected by Time A : cecal bxs Tissue Cecum PATHOLOGY SURGICAL Hai Ramirez MD 12/06/2023 1433 B : descending colon polyps Polyp Colon, Left/Descending PATHOLOGY SURGICAL Hai Ramirez MD 12/06/2023 1442 C : sigmoid polyps Polyp Colon, Sigmoid PATHOLOGY SURGICAL Hai Ramirez MD 12/06/2023 1449 Disposition Patient was approved for transfer to recovery at 3:03 PM CDT. Hai Ramirez MD Attestation: I personally performed the entire procedure By: Augustine Shin MD; 12/06/2023, 3:05 PM CDT The procedure was performed by the fellow under my direct supervision with my assistance as necessary. The patient tolerated the procedure well and there were no immediate complications or post procedure concerns. I was present in the endoscopy suite throughout the procedure. us Hai Ramirez MD GI PROCEDURE ORDERABLES Final Re sult * HEMOGLOBIN A1C W/ ESTIMATED GLUCOSE (09/12/2023 11:24 AM DIRECTOR FOUNDATION) HGB-A1C 5.2 4.0 - 6.0 % 09/12/2023 3:[address] [facility] Est Average Glucose 102.5 mg/dL 09/12/2023 3:[address] [facility] Blood Venipuncture / Unknown 09/12/2023 11:24 AM DIRECTOR FOUNDATION 09/12/2023 11:24 AM DIRECTOR FOUNDATION Narrative [facility] - 09/12/2023 3:47 PM DIRECTOR FOUNDATION Specimens containing greater than 5% of Hemoglobin F may result in lower than expected % HbA1C results. Boby Trivedi MD CHEMISTRY ORDERABLES Final Resu lt [facility] [address] [id number], [place] * (ABNORMAL) CMP (COMPREHENSIVE METABOLIC PANEL) (09/12/2023 11:24 AM DIRECTOR FOUNDATION) Pathologist [facility] SODIUM 143 136 - 145 mmol/L 09/12/2023 4:[address] [facility] POTASSIUM 5.7(H) 3.5 - 5.1 mmol/L 09/12/2023 4:[address] [facility] CHLORIDE 111(H) 98 - 107 mmol/L 09/12/2023 4:[address] [facility] CO2, VENOUS 25 22 - 30 mmol/L 09/12/2023 4:[address] [facility] ANION GAP 7.0 <18.0 mmol/L 09/12/2023 4:[address] [facility] GLUCOSE 81 70 - 99 mg/dL 09/12/2023 4:[address] [facility] BUN 35(H) 8 - 26 mg/dL 09/12/2023 4:[address] [facility] CREATININE, BLOOD 1.91(H) 0.70 - 1.30 mg/dL 09/12/2023 4:[address] [facility] BUN/CREATININE RATIO 18 12 - 20 ratio 09/12/2023 4:[address] [facility] TOTAL PROTEIN 6.5 6.3 - 8.2 g/dL 09/12/2023 4:[address] [facility] ALBUMIN 4.0 3.5 - 5.0 g/dL 09/12/2023 4:[address] [facility] A/G RATIO 1.6 1.0 - 2.2 09/12/2023 4:[address] [facility] CALCIUM 10.2 8.7 - 10.5 mg/dL 09/12/2023 4:[address] [facility] T BILI 0.6 0.2 - 1.2 mg/dL 09/12/2023 4:[address] [facility] SGOT (AST) 29 5 - 34 U/L 09/12/2023 4:[address] [facility] SGPT (ALT) 16 0 - 55 U/L 09/12/2023 4:[address] [facility] ALKALINE PHOSPHATASE 66 40 - 150 U/L 09/12/2023 4:[address] [facility] IS THE PATIENT REQUIRED TO BE FASTING? No [facility] WELLS TRACK 09/12/2023 4:[address] [facility] GFR, ESTIMATED 37(L) >=60 09/12/2023 4:[address] [facility] Comment: Creatinine Clearance is the preferred criteria for selecting drug dose adjustments in renally impaired patients. The GFR is provided as additional pertinent clinical information. GFR is reported in mL/min/1.73 sq m. Calculation based on the Chronic Kidney Disease Epidemiology Collaboration (CKD- EPI) equation refit without adjustment for race. GFR, EST. 42(L) >=60 024 4:[address] [facility] GFR, EST. NONAFRICAN 35(L) >=60 09/12/2023 4:[address] [facility] Blood Venipuncture / Unknown 09/12/2023 11:24 AM DIRECTOR FOUNDATION 09/12/2023 11:24 AM DIRECTOR FOUNDATION Boby Trivedi MD CHEMISTRY ORDERABLES Final Resu lt Performing Organization Address [facility] Co de Phone Number [facility] [address] [place] [address], [place] * HEPATITIS C ANTIBODY (03/14/2023 11:59 AM CDT) hepatitis C antibody 0.07 <1 S/CO [facility] ARCH [id number] B 03/14/2023 3:46 PM CDT [facility] Comment: Signal/Cutoff ratio < 0.79 is Nondetected Signal/Cutoff ratio 0.80-0.99 is Grayzone Signal/Cutoff ratio > 0.99 is Detected Supplemental assays are recommended if signal/cutoff ratio is >/=1.00. Signal/cutoff ratio result >/= 5.00 is 97% predictive of positivity for recombinant immunoblot assay (RIBA) and will be reported to the [place] Department of Public Health as required. Blood Venipuncture / Unknown 03/14/2023 11:59 AM CDT 03/14/2023 11:59 AM CDT Boby Trivedi MD CHEMISTRY ORDERABLES Final Resu Performing Organization Address [facility] de Phone Number [facility] [address] [place] [address], [place] from Last 3 Months or Most Recently Relevant to Health Maintenance Insurance MEDICARE [facility] MEDICARE Member Subscriber Plan / Payer ( fective 2014-Present) Name:Vishal Grewal Member ID:[id number] Relation to Subscriber:Self Name:VISHAL GREWAL Subscriber ID:[id number] Payer ID:[id number] Group ID:Not on file Type:Not on file Address: [address] Advance Directives * Full Code (Latest Code Status on File) Date Activated Date Inactivated Comments 04/19/2013 1:17 PM 04/19/2013 4:21 PM * No Code Status Date Activated Date Inactivated Comments 11/01/2010 10:03 AM 04/19/2013 1:17 PM pt states he does not have a poa or living will Care Teams Load Blocker Relationship Specialty Start Date End Date Hai Ramirez MD [address] [place] [address] Consulting Physician Gastroenterology 05/28/18 Elida Rodrigues MD [address] [place], [place] [phone] Consulting Physician Cardiovascular Disease - Cardiology 08/16/19 Lola King MD [address] [place] [address] Consulting Physician Cardiovascular Disease - Cardiology 09/15/21
--- OUTSIDE RECORDS SUMMARY | 2025-07-01 15:16 | XMS_ITS | Encounter Summary ---
Author Organization [facility] Address [address] [place] [address] Phone Care Team Providers Care Atomizer Assembler Name Role Phone Boby Trivedi MD Primary Care Provider Hai Ramirez MD Unavailable Elida Rodrigues MD Unavailable Lola King MD Unavailable Ny Barth RN Unavailable Unavailable Reason for Visit * Reason Comments Medication Refill Encounter Details Date Type Department Care Team (Late st Contact Info) Description 09/28/2023 [facility] [place] [facility] - [facility] [address] [place] [address] Lola King MD [address] [place] [address] Medication Refill Social History Tobacco Use Types Packs/Day Years Used Date Smoking Tobacco: Never Smokeless Tobacco: Never Alcohol Use Standard Drinks/Week Comments No 0 (1 standard drink = 0.6 oz pur e alcohol) [facility] Utilities Answer Date Recorded In the past 12 months has th e electric, gas, oil, or water [facility] threatened to shut off services in your [...] How often do you attend chur or protestant services? More than 4 times per year 09/16/2023 Do you belong to any clubs o r organizations such as restoration groups, unions, fraternal or athletic groups, or [...] Total Score - Questions 1-9 0 11/28 [facility] of Occupat ional Health - [...] place to sleep or slept in a fci (including now)? No 09/16/2023 Education Answer Date Recorded What is the highest level of school you have completed or the highest degree you have received? Bachelor's degree (e.g., BA, AB, BS) 10/06/2022 Sex and Gender Information Value Date Recorded Sex Assigned at Male 03/14/2023 10:48 AM CDT Legal Sex Male 3:04 AM LIME KILN WORKER HELPER Gender Identity Male 03/14/2023 10:48 AM CDT Sexual Orientation Straight 06/10/2023 8: 59 AM LIME KILN WORKER HELPER Occupation Industry Job Start Date Job End [...] Office Visit Boby Trivedi MD [facility] [place] 05/22/23 Initial Consult Leana Corcoran MD [facility] [place] 05/18/23 Office Visit Lola King MD [facility] [place] 04/10/23 Office Visit Jose Lloyd APRN, [employer]REATH [employer] GARLAND MAKER [facility] [place] 03/23/23 Office Visit Lola King MD [facility] [place] 03/14/23 Office Visit Boby Trivedi MD [facility] [place] 01/06/23 Office Visit Boby Trivedi MD [facility] [place] 12/29/22 Office Visit Curtis Ayon MD [facility] [place] 12/24/22 Office Visit Roderick Vega APRN, WREATH AND GARLAND MAKER [facility] [place] 12/15/22 Office Visit Lola King MD [facility] [place] Showing recent visits within past 548 days and meeting all other requirements Future Appointments Date Type Provider Dept 10/04/23 Appointment Lola King MD [facility] [place] Showing future appointments within next 90 days and meeting all other requirements Passed - BP on record in the past 18 months Clinician-entered: BP Readings from Last 3 Encounters: 09/18/23 126/62 05/22/23 110/62 05/18/23 140/80 Patient-entered: Systolic: 108 Diastolic: 71 Passed - GFR on record in past 12 months GFR, EST. NONAFRICAN Date Value Ref Range Status 09/18/2023 33 (L) >=60 Final KILN WORKER HELPER documented in this encounter Plan of Treatment Not on file documented as of this encounter Visit Diagnoses Not on filedocumented in this encounter Care Teams Atomizer Assembler Relationship Specialty Start Date End Date Boby Trivedi MD [address] [place] [address] PCP - General 09/25/08 09/02/24 Hai Ramirez MD [address] [place] [address] Consulting Physician Gastroenterology 05/28/18 Elida Rodrigues MD [address] [place] [address] Consulting Physician Cardiovascular Disease - Cardiology 08/16/19 Lola King MD [address] [place], [place] [address] Consulting Physician Cardiovascular Disease - Cardiology 09/15/21 Ny Barth RN [place] Nurse Auto Service Representative 09/03/24 09/03/24 documented as of this encounter
--- OUTSIDE RECORDS SUMMARY | 2025-07-01 15:16 | XMS_ITS | Clinical Summary ---
Author Organization [facility] Address [facility] [place] [address] Care Team Providers Care Janitorial Tech Name Role Phone Brenda Cleveland MD Primary Care Provider + Kevin Renee MD Unavailable Salomon Mora MD Unavailable [phone] Victoriano Johnson MD Unavailable [phone] Allergies Active Allergy Reactions Criticality Noted Date [...] mouth 2 (two) times daily. Active Multiple Vitamins-Mineral s (OCUVITE ADULT 50+ OR) Take 1 tablet by mouth daily. Active Glucose Blood (FREESTYLE LITE) test stripIndications :Type 2 diabetes mellitus with diabetic nephropathy, without long-term current use of insulin (CMS/HCC HHS/HCC) USE 1 STRIP TO TEST BLOOD SUGAR ONCE DAILY 100 strip 3 5 Active sacubitril-valsa rtan (ENTRESTO) 97-103 MG tablet Take 1 tablet by mouth 2 (two) times daily. 180 tablet 1 5 Active allopurinol (ZYLOPRIM) 100 MG tabletIndication s:Hyperuricemia Take 1 tablet (100 mg total) by mouth daily. 90 tablet 3 5 Active atorvastatin (LIPITOR) 80 MG tablet 5 Active felodipine ER 10 MG TABLET SR 24 HR 24 hr tablet Take 1 tablet by mouth daily. 5 Active furosemide (LASIX) 40 MG tablet 5 Active levothyroxine (SYNTHROID) 50 MCG tablet 5 Active carvedilol (COREG) 12.5 MG tabletIndication s:Primary hypertension Take 1.5 tablets (18.75 mg total) by mouth 2 (two) times daily. 270 tablet 3 5 Active empagliflozin (JARDIANCE) 25 MG tabletIndication s:Type 2 diabetes mellitus with diabetic nephropathy, without long-term current use of insulin (CMS/HCC HHS/HCC) Take 1 tablet (25 mg total) by mouth daily. 90 tablet 1 5 Active cephALEXin (KEFLEX) 500 MG capsule Take 1 capsule (500 mg total) by mouth 2 (two) times daily. 5 07/06/20 25 Active QUEtiapine (SEROQUEL) 100 MG tablet Take 2 tablets (200 mg total) by mouth nightly at bedtime. 5 Active furosemide (LASIX) 40 MG tabletIndication s:Chronic systolic congestive heart failure (CMS/HCC HHS/HCC) Take 1 tablet (40 mg total) by mouth daily. Second dose at noon PRN for weight greater than 220 lb 90 tablet 3 4 06/11/20 25 QUEtiapine (SEROQUEL) 100 MG tabletIndication s:Bipolar disorder with depression (CMS/HCC HHS/HCC) Take 2 tablets (200 mg total) by mouth nightly at bedtime. 180 tablet 1 4 06/25/20 25 zolpidem (AMBIEN) 5 MG tabletIndication s:Primary insomnia TAKE 1 TABLET(5 MG) BY MOUTH EVERY NIGHT NEEDED FOR SLEEP 90 tablet 5 06/17/20 25 Discontinue d(Therapy completed) carvedilol (COREG) 12.5 MG tabletIndication s:Primary hypertension TAKE 1 TABLET(12.5 MG) BY MOUTH TWICE DAILY 180 tablet 1 06/13/20 25 Discontinue d(Sig Adjustment) JARDIANCE 10 MG tabletIndication s:Type 2 diabetes mellitus without complication, without long-term current use of insulin ([facility]/HCC HHS/HCC) TAKE 1 TABLET(10 MG) BY MOUTH DAILY 90 tablet 06/17/20 25 Discontinue d(Dose adjustment) Active Problems Problem Noted Date Diagnosed Date Chronic gout without tophus, unspecified cause, unspecified site 06/25/2024 Overview (08/01/2024): Uric acid levels 7.1. Hx of gout affecting knee/foot while in the hospital in late 2023. He was recommended to start allopurinol but has not taken it. Assessment & Plan (08/01/2024 11:56 AM GROUP LEADER): We discussed risk and benefits of taking [...] visit. Assessment & Plan (06/25/2024 10:38 AM GROUP LEADER): Recommend low dose allopurinol 50 mg daily renally dosed for control. Primary hypertension 04/04/2024 Overview (06/17/2025): Blood pressure has climbed lately 140-150/80 at home. He takes a combination of felodipine, Entresto, metoprolol. Assessment & Plan (06/17/2025 12:15 PM GROUP LEADER): Chronic. Not controlled. Recommend observation and updating nephrology who is assisting. - Monitor blood pressure regularly and report significant changes. Assessment & Plan (01/21/2025 11:04 AM CDT): Chronic. Controlled. Continue current regimen of felodipine, Entresto, metoprolol. Assessment & Plan (10/15/2024 2:37 PM CDT): Worsening not controlled but regimen is optimized. He continues to follow with nephrology as well. Continue on current regimen felodipine, Entresto, metoprolol. Assessment & Plan (06/25/2024 10:36 AM GROUP LEADER): Chronic and controlled today. Cont felodipine, entresto, metoprolol. Assessment & Plan (06/11/2024 12:18 PM GROUP LEADER): Chronic and controlled. Continue felodipine, Entresto, metoprolol. Assessment & Plan (04/04/2024 2:02 PM CDT): Not controlled today. Patient will monitor his home blood pressure readings and provide them at follow-up to determine if he requires any additional medication. Type 2 diabetes mellitus wit h diabetic nephropathy, without long-term current use of insulin 04/04/2024 Overview (06/17/2025): A1c was 5.2% in September, now consistently up at 7.9%. Patient takes Jardiance. He has been on this regimen for some time. He is frustrated by cost and diabetes worsening despite medicatio. Assessment & Plan (06/17/2025 12:14 PM GROUP LEADER): Chronic. A1c increased from 7.3 to 7.9. - Discussed potential benefits of Jardiance for lowering blood pressure and blood sugar, and kidney protection. Verify cost of increased dosage with pharmacy. - Increase Jardiance to 25 mg. Discussed possible need for insulin next visit if cost prohibitive and diabetes worsens. Assessment & Plan (01/21/2025 11:02 AM CDT): Controlled. Goal <8%. Continue Jardiance. Requested diabetic eye exam from [place]. Completed foot exam. Assessment & Plan (10/15/2024 2:37 PM CDT): Remains controlled but there has been a significant increase in his A1c over the last 6 months. Recommend he improve his diet and we will repeat this in 3 months instead of 6 to ensure he is getting back on track. Continue Jardiance. Assessment & Plan (06/11/2024 12:17 PM GROUP LEADER): Chronic and controlled. Continue on Jardiance. Assessment & Plan (04/04/2024 2:03 PM CDT): Suspect at goal. Repeat A1c. Notably patient has substantial kidney disease. We will discontinue metformin as we wait for his A1c returned return. Continue Jardiance. Acquired hypothyroidism 04/04/2024 Overview (06/17/2025): Patient takes levothyroxine 50 mcg daily but about twice a week he forgets to take it until later in the morning with other pills. Assessment & Plan (06/17/2025 12:16 PM GROUP LEADER): Chronic. - Thyroid levels slightly off due to inconsistent medication intake. - Take thyroid medication on an empty stomach with water and use reminder. - No changes to thyroid medication dosage. Assessment & Plan (01/21/2025 11:06 AM CDT): Will check TSH with reflex in 3 months. Continue levothyroxine 50 mcg daily. Assessment & Plan (04/04/2024 2:03 PM CDT): Will check TSH to establish how well this is controlled. Continue levothyroxine. Atherosclerosis of coronary artery 04/04/2024 Overview (04/04/2024): 2003: DE 2005: DE 2005: CABG: ROBIN to LAD, SVG to RCA, M, Cfx 03/10: Nuclear: 45% EF, fixed inferobasal Bipolar disorder with depression 04/04/2024 Overview (08/01/2024): Has been taking regimen of bupropion, Seroquel for years. He is no longer on citalopram.. Now established with Dr. Elizabeth. Psychiatrist agreed with current regimen. Assessment & Plan (06/25/2024 10:35 AM GROUP LEADER): Chronic but well controlled. Remain off citalopram. Reduce seroquel to 200 mg daily and watch for changes in mood. Son will also monitor him carefully. Cont bupropion. Assessment & Plan (06/11/2024 12:17 PM GROUP LEADER): Would like to establish locally. My preference would be to slowly reduce medication to limit polypharmacy. Concern with tardive dyskinesias and high-dose Seroquel. Would like to slowly titrate down and monitor carefully for recurrence of bipolar symptoms. Referral entered to psychiatry. Assessment & Plan (04/04/2024 2:11 PM CDT): Patient will continue to manage with his psychiatrist. Cerebrovascular accident 04/04/2024 Primary insomnia 04/04/2024 Overview (06/17/2025): Started ambien in 2002. He has been able to eliminate zolpidem now using melatonin instead. Assessment & Plan (06/17/2025 12:16 PM GROUP LEADER): DC ambien. Continue with melatonin. Assessment & Plan (01/21/2025 11:03 AM CDT): Chronic and stable. Have discussed risks of Ambien and while not ideal, patient prefers to remain on it. For now we will continue unless we see increasing confusion or falls. Assessment & Plan (06/25/2024 10:34 AM GROUP LEADER): Chronic and now controlled with melatonin. DC ambien altogether. Assessment & Plan (06/11/2024 12:20 PM GROUP LEADER): Will continue to eliminate high risk medications. [...] unspecified whether stage 3a or 3b CKD 12/23/2022 Chronic systolic congestive heart failure 2022 Overview (01/21/2025): Last EF, 10/07/2005: EF 50% [...] regimen. Assessment & Plan (08/01/2024 11:57 AM GROUP LEADER): Currently appears hypervolemic. Recommended Lasix 40 mg at noon today and possibly again tomorrow in addition to his daily dose depending on how weight responds. He fully admits to increasing his salt over the holidays. Family is now aware and will help monitor his weight to ensure he does not have a CHF exacerbation. Assessment & Plan (06/25/2024 10:33 AM GROUP LEADER): Chronic and appears hypervolemic today. Recommend lasix bid x 3 days or until weight returns to baseline. Request an update if persistently elevated next week for further instructions. Pt vocalized understanding and son will assist in medication management. Assessment & Plan (06/11/2024 11:35 AM GROUP LEADER): Chronic and currently euvolemic. Will check CBC, [...] nephrology. Assessment & Plan (06/25/2024 10:34 AM GROUP LEADER): Will refer to nephrology. Chronic. Assessment & Plan (06/11/2024 12:19 PM GROUP LEADER): Leg pain is resolved. Concern for persistent [...] CDT): Will order new sleep study at [facility]. Then will order through machine and settings through [employer] and referral to [facility] for watermelon inspector management. Mixed hyperlipidemia 01/22/2006 Overview (04/04/2024): Patient [...] Encounters Date Type Department Care Team Description 07/01/2025 11:50 AM GROUP LEADER Office Visit [address] [address] Brenda Cleveland MD Cellulitis (Patient presents for urgent care follow up from 06/29/25, right lower leg cellulitis) 07/01/2025 Travel 06/17/2025 10:30 AM GROUP LEADER Office Visit [address] [address] Brenda Cleveland MD Medicare Wellness (Patient presents today for their Medicare Annual Wellness Visit.) 06/17/2025 10:10 AM GROUP LEADER Office Visit [address] [address] Brenda Cleveland MD Follow Up (4mo ck DM- sugars have been running high. ) 06/17/[address] [address] Brenda Cleveland MD Health Maintenance Follow Up (Request to clarify colonoscopy follow-up) 06/17/2025 Travel 06/13/2025 12:15 PM GROUP LEADER Office Visit [facility] [phone] Salomon Mora MD CHF (6mo) 06/13/2025 Orders Only [facility], [place] [address] [place] [address] Salomon Mora MD 06/13/2025 Travel 06/03/2025 2:00 PM GROUP LEADER Allied Health/Nurse Visit [facility] - [address] [place] [address] Brenda Cleveland MD Lab Draw 06/03/2025 Travel 04/04/2025 10:00 AM CDT Office Visit [facility] - [address] [address] Nuris Vicente NP Shoulder Pain (Patient has left shoulder pain that started 3 days ago, he went to [facility] to ER and an EKG was done that was normal. He did not stay for any lab work due to a lengthy wait. Pain in the shoulder is diminishing but still there. Patient notes no injury, he was doing some stretching exercises that may have contributed. ) 04/04/2025 Telephone [facility] - [address] [address] Nuris Vicente NP Follow Up Call 04/04/2025 Travel 04/02/2025 Scan HEALTH INFO SRVCS Scanned, [facility] ECG (SCAN) from Last 3 Months Immunizations Immunization Administration Dates Next Due Abrysvo Respiratory Syncytia l Virus (RSV) 0.5 mL, PF 06/07/2023 Arexvy Respiratory Syncytial Virus (RSV, adjuvanted) 0.5 mL, PF 06/07/2023 FLUAD (IIV, Trivalent, 0.5 M L Pre-filled Syringe) 06/26/2017,06/25/2017 Fluzone High Dose (IIV, triv alent, 0.5mL) 06/17/2025,04/19/2024,08/31/2015 Fluzone High Dose - >Age 65 (Prefilled [...] Comments Blood Pressure 124/72 07/01/2025 11:44 AM GROUP LEADER Pulse 57 07/01/2025 11:44 AM GROUP LEADER Temperature 36.4 C (97.5 F) 07/01/2025 11:44 AM GROUP LEADER Respiratory Rate 16 07/01/2025 11:4 4 AM GROUP LEADER Oxygen Saturation 98% 07/01/2025 11: 44 AM GROUP LEADER Inhaled Oxygen Concentration - - Weight 105.1 kg (231 lb 12.8 oz) 2024 11:44 AM GROUP LEADER Height 170.2 cm (5' 7) 06/17/2025 10:1 2 AM GROUP LEADER Body Mass Index 36.31 06/17/2025 10:12 AM GROUP LEADER Plan of Treatment Upcoming Encounters Date Type Department Care Team (Late st Contact Info) Description 07/03/2025 11:00 AM GROUP LEADER Appointment [facility] [place] [address] Salomon Mora MD [facility] [address] [place] [address] 09/18/2025 1:00 PM GROUP LEADER Office Visit [facility] Medical Group Multispecialty Care - [facility], [facility] [address] [place] [phone] Kevin Renee MD [address] [facility], [facility] [address] [place] [address] 09/23/2025 10:30 AM GROUP LEADER Office Visit [facility] Medical Group Family Medicine - [place] [address] [place] [address] Brenda Cleveland MD [address] [place] [address] 12/05/2025 12:00 PM CDT Office Visit [facility] [phone] Salomon [facility] [address] [place] [address] 08/07/2026 1:00 PM GROUP LEADER Office Visit [facility] Medical Group Family Medicine - [place] [address] [place] [address] Brenda Cleveland MD [address] [place], [place] [address] Health Maintenance Due Date Last Done Comments Colorectal Cancer Screening Colonoscopy (10 Years) 1950 COVID-19 Vaccine ( season) 2025 06/07/2023, 07/06/2021, 09/23/2020, Additional history exists Hemoglobin A1C 12/01/2025 06/03/2025, 12/29, 10/15/2024, Additional history exists Lipid Panel 01/16/2026 01/16/2025, 04/05/2024 Kidney Health Evaluation 02/07/2026 02/07/2025 Annual Medicare Wellness Visit 06/18/2026 06/17/2025 Diabetes: Retinopathy Eye Exam 12/19/2026 12/19/2024 DTaP, Tdap and Td Vaccines (3 - Td or Tdap) 01/28/2034 01/29/2024, 06/11/2013 Hepatitis C Completed 03/14/2023 RSV Immunization or 60+ Years Completed 06/07/2023, 06/07/2023 Hepatitis A Vaccines Aged Out 07/06/2023, 07/06/20 23 No longer eligible based on patient's age to complete this topic Pneumococcal Vaccine: 50+ Years Completed 07/06/2023, 11/27/2018, 08/31/2015, Additional history exists Zoster Vaccines Completed 07/06/2023, 04/11/2023 Influenza Adult Completed 06/17/2025, 04/01, 06/07/2023, Additional history exists PHQ-2 (Physician [place]) Completed 06/17/2025 Meningococcal B Vaccine Aged Out No l onger eligible based on patient's age to complete this topic Meningococcal Vaccine Aged Out No lane f[address] eligible based on patient's age to complete this topic RSV Immunizations Under 20 Months Aged Out No longer eligible based on patient's age to complete this topic Procedures Procedure Name Priority Date/Time Associated Diagnosis Comments COLLECTION VENOUS BLOOD VENIPUNCTURE Routine 06/03/2025 1:51 PM GROUP LEADER Type 2 diabetes mellitus with diabetic nephropathy, without long-term current use of insulin ([facility]) Stage 3b chronic kidney disease ([facility]) Acquired hypothyroidism THYROXINE, FREE (FT4) Routine 06/03/2025 1:51 PM GROUP LEADER TSH W/REFLEX Routine 06/03/2025 1:51 PM GROUP LEADER Acquired hypothyroidism BASIC METABOLIC PANEL Routine 06/03/2025 1:51 PM GROUP LEADER Stage 3b chronic kidney disease ([facility]) HEMOGLOBIN, GLYCOSYLATED Routine 06/03/2025 1:51 PM GROUP LEADER Type 2 diabetes mellitus with diabetic nephropathy, without long-term current use of insulin ([facility]) ECG GENERIC (SCAN ORDER) 04/02/2025 LIPID PANEL Routine 01/16/2025 7:15 AM CDT Mixed hyperlipidemia DIABETIC RETINOPATHY EXAM (NEGATIVE)(SCAN ORDER) Routine 12/19/2024 from Last 3 Months or Most Recently Relevant to Health Maintenance Results * (ABNORMAL) TSH W/REFLEX (06/03/2025 1:51 PM GROUP LEADER) TSH 3.958(H) 0.358 - 3.740 uIU/ML 06/04/2025 11:31 AM GROUP LEADER -[facility] 06/03/2025 1:51 PM GROUP LEADER us Brenda Cleveland MD LABORATORY Final Re sult [facility] [address] [place] [address], * (ABNORMAL) HEMOGLOBIN, GLYCOSYLATED (06/03/2025 1:51 PM GROUP LEADER) HGB A1C 7.9(H) 4.5 - 6.2 % 06/04/2025 10:46 AM [facility] EST[facility] AVG GLUCOSE 180(H) 74 - 106 MG/DL 06/04/2025 10:46 AM GROUP LEADER [facility] 06/03/2025 1:51 PM GROUP LEADER us Brenda Cleveland MD LABORATORY Final [facility] [address] [place] [address], * (ABNORMAL) BASIC METABOLIC PANEL (06/03/2025 1:51 PM GROUP LEADER) SODIUM S/P/B 143 136 - 145 MMOL/L 06/04/2025 11:31 AM [facility] POTASSIUM S/P/B 4.5 3.5 - 5.1 MMOL/L 06/04/2025 11:31 AM [facility] CHLORIDE S/P/B 106 98 - 107 MMOL/L 06/04/2025 11:31 AM [facility] CO2 28.7 21 - 32 MMOL/L 06/04/2025 11:31 AM [facility] GLUCOSE 156(H) 70 - 99 MG/DL 06/04/2025 11:31 AM [facility] BUN 26(H) 7 - 18 MG/DL 06/04/2025 11:31 AM [facility] CREATININE S/P/B 1.79(H) 0.70 - 1.30 MG/DL 06/04/2025 11:31 AM [facility] CALCIUM S/P/B 9.3 8.4 - 10.5 MG/DL 06/04/2025 11:31 AM GROUP LEADER [facility] ANION GAP 8.3 5 - 15 MMOL/L 06/04/2025 11:31 AM GROUP LEADER [facility] Comment:REFERENCE RANGE NOT ESTABLISHED OSMOLALITY (CALC) 304 MOSM/KG 025 11:31 AM GROUP LEADER [facility] Comment:REFERENCE RANGE NOT ESTABLISHED GFR ESTIMATE 39(L) >90 ML/MIN/1. 73 M2 06/04/2025 11:31 AM GROUP LEADER [facility] GFR NOTES GFR REFERENCE S: 06/04/2025 11:31 AM GROUP LEADER [facility] Comment: THE ESTIMATED GFR IS CALCULATED [...] ml/min/1.73 m2 G5,KIDNEY FAILURE: <15 ml/min/1.73 m2 06/03/2025 1:51 PM GROUP LEADER Brenda Cleveland MD LABORATORY Final Re sult [facility] [address] [place] [address], [place] [phone] * THYROXINE, FREE (FT4) (06/03/2025 1:51 PM GROUP LEADER) FREE T4 0.80 0.76 - 1.46 NG/DL 06/04/2025 12:20 PM GROUP LEADER [facility] 06/03/2025 1:51 PM GROUP LEADER Brenda Cleveland MD LABORATORY Final Re sult [facility] [address] [place] [address], [place] [phone] * ECG GENERIC (SCAN ORDER) (04/02/2025) 04/02/2025 Doc [facility] Scanned SCANNING Final Resu lt * (ABNORMAL) LIPID PANEL (01/16/2025 7:15 AM CDT) CHOLESTEROL 141 <200 MG/DL 01/16/2025 4:46 PM CDT [facility] TRIGLYCERIDES 235(H) <150 MG/DL 01/16/2025 4:46 PM CDT [facility] HDL 35(L) >40 MG/DL 01/16/2025 4:46 PM CDT [facility] LDL-C 59 <100 MG/DL 01/16/2025 4:46 PM CDT [facility] VLDL CALCULATION 47(H) 5 - 28 MG/DL 01/16/2025 4:46 PM CDT [facility] CHOL/HDL RATIO 4.0 0.0 - 4.0 01/16/2025 4:46 PM CDT [facility] LDL/HDL 1.7 0.41 - 2.13 01/16/2025 4:46 PM CDT [facility] NON HDL CHOLESTEROL 106 <140 MG/DL 01/16/2025 4:46 PM CDT [facility] 01/16/2025 7:15 AM CDT Brenda Cleveland MD LABORATORY Final Re sult [facility] [address] [place] [address], * DIABETIC RETINOPATHY EXAM (NEGATIVE) (12/19/2024) us [facility] Scanned SCANNING Final Resu lt [facility] ONBASE from Last 3 Months or Most Recently Relevant to Health Maintenance Insurance MEDICARE [facility] Care Teams Janitorial Tech Relationship Specialty Start Date End Date Brenda Cleveland MD [address] [facility] [address] [place] [id number] PCP - General FAMILY PRACTICE 06/06/24 Kevin Renee MD [address] [facility] [address] [place] [address] Consulting Physician NEPHROLOGY 06/17/[address] [facility] [address] [place] [address] Consulting Physician CARDIOVASCULAR DISEASE 06/17/25 Victoriano Johnson MD [address] [id number] Referring Physician Psychiatry 06/17/25
--- OUTSIDE RECORDS SUMMARY | 2025-07-01 15:16 | XMS_ITS | Encounter Summary ---
Author Organization [facility] Address [address] [place] [address] Phone Care Team Providers Care Hyperion Administrator Name Role Phone Boby Trivedi MD Primary Care Provider Hai Ramirez MD Unavailable Elida Rodrigues MD Unavailable Lola King MD Unavailable Ny Barth RN Unavailable Unavailable Reason for Visit * Reason Comments Medication Refill Encounter Details Date Type Department Care Team (Late st Contact Info) Description [facility] [place] [facility] [address] [place] [address] Lola King MD [address] [place] [address] Medication Refill Social History Tobacco [...] AM CDT Legal Sex Male 3:04 AM [employer] Gender Identity Male 03/14/2023 10:48 AM CDT Sexual Orientation Straight 06/10/2023 8: 59 AM [employer] Occupation Industry Job Start Date Job End [...] on filedocumented in this encounter Care Teams Hyperion Administrator Relationship Specialty Start Date End Date Boby Trivedi MD [address] [place], [place] [address] PCP - General 09/25/08 09/02/24 Hai Ramirez MD [address] [place], [place] [phone] Consulting Physician Gastroenterology 05/28/18 Elida Rodrigues MD [address] [place] [address] Consulting Physician Cardiovascular Disease - Cardiology 08/16/19 Lola King MD [address] [place] [place] [address] Consulting Physician Cardiovascular Disease - Cardiology 09/15/21 Ny Barth RN [place] Nurse Hydraulic Dredge Operator 09/03/24 09/03/24 documented as of this encounter
--- OUTSIDE RECORDS SUMMARY | 2025-07-01 15:16 | XMS_ITS | Encounter Summary ---
Author Organization [facility] Address [facility] [place] [address] Care Team Providers Care Freezer Tunnel Operator Name Role Phone Brenda Cleveland MD Primary Care Provider + Kevin Renee MD Unavailable [phone] Salomon Mora MD Unavailable [phone] Victoriano Johnson MD Unavailable [phone] Encounter Details Date Type Department Care Team (Latest Contact Info) Description 07/01/2025 Travel Social History Tobacco Use Types Packs/Day Years [...] st Contact Info) Description 07/03/2025 11:00 AM SALES REPRESENTATIVE GRAPHIC ART Appointment [facility] [place] [address] Salomon Mora MD [address] [facility] [address] [place] [address] 09/18/2025 1:00 PM SALES REPRESENTATIVE GRAPHIC ART Office Visit [facility]ty Care - [facility] [address] [facility] [place] [address] Kevin Renee MD 3 [facility], [address] [place] [address] 09/23/2025 10:30 AM SALES REPRESENTATIVE GRAPHIC ART Office Visit [facility] Family Medicine [address] [address] Brenda Cleveland MD [address] [facility] [address] [place] [address] 12/05/2025 12:00 PM CDT Office Visit [facility] [phone] Salomon Mora MD Three [facility] [address] [place] [address] 08/07/2026 1:00 PM SALES REPRESENTATIVE GRAPHIC ART Office Visit [facility] Family [facility] - [address] [place] [address] Brenda Cleveland MD [address] [place] [address] documented as of this encounter Visit Diagnoses Not on filedocumented in this encounter Care Teams Freezer Tunnel Operator Relationship Specialty Start Date End Date Brenda Cleveland MD [address] [facility] [address] [place] [address] PCP - General FAMILY PRACTICE 06/06/24 Kevin Renee MD [address] [facility] [address] [place] [address] Consulting Physician NEPHROLOGY 06/17/25 Salomon Mora MD [facility] [address] [place] [address] Consulting Physician CARDIOVASCULAR DISEASE 06/17/25 Victoriano Johnson MD [address] [facility] 162 [facility] [address] [place] [address] Referring Physician Psychiatry 06/17/25 documented as of this encounter
--- OUTSIDE RECORDS SUMMARY | 2025-07-01 15:16 | XMS_ITS | Encounter Summary ---
Author Organization [facility] Address [address] [place] [address] Phone Care Team Providers Care Management Planner Name Role Phone Boby Trivedi MD Primary Care Provider Hai Ramirez MD Unavailable Elida Rodrigues MD Unavailable Lola King MD Unavailable Ny Barth RN Unavailable Unavailable Reason for Visit * Reason Comments Medication Refill Encounter Details Date Type Department Care Team (Late st Contact Info) Description 11/28/2021 Refill [facility] - Internal Medicine & Pediatrics - [address] [place], [place] [id number] Boby Trivedi MD [address] [place] [address] Medication Refill Social History Tobacco Use Types Packs/Day Years Used Date Smoking Tobacco: Never Smokeless Tobacco: Never Alcohol Use Standard Drinks/Week Comments No 0 (1 standard drink = 0.6 oz pur e alcohol) Sex and Gender Information Value Date Recorded Sex Assigned at Male 03/14/2023 10:48 AM CDT 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 Gender Identity Male 03/14/2023 10:48 AM CDT Sexual Orientation Straight 06/10/2023 8: 59 AM STONEWORK TRACER Occupation Industry Job Start Date Job End [...] on filedocumented in this encounter Care Teams Management Planner Relationship Specialty Start Date End Date Boby Trivedi MD [address] [place] [address] PCP - General 09/25/08 09/02/24 Hai Ramirez MD [address] [facility] [place] [address] Consulting Physician Gastroenterology 05/28/18 Elida Rodrigues MD [address] [place] [address] Consulting Physician Cardiovascular Disease - Cardiology 08/16/19 Lola King MD [address] [place] [address] Consulting Physician Cardiovascular Disease - Cardiology 09/15/21 Ny Barth, [place] Nurse Hitch Technician 09/03/24 09/03/24 documented as of this encounter
--- OUTSIDE RECORDS SUMMARY | 2025-07-01 15:16 | XMS_ITS | Encounter Summary ---
Author Organization [facility] Address [address] [place] [address] Phone Care Team Providers Care Ocean Lifeguard Name Role Phone Boby Trivedi MD Primary Care Provider Hai Ramirez MD Unavailable Elida Rodrigues MD Unavailable [phone] Lola King MD Unavailable Ny Barth RN Unavailable Unavailable Encounter Details Date Type Department Care Team (Late st Contact Info) Description 11/13/2023 [facility] [place] - Card[facility] - [facility] [address] [place] [address] Lola King MD [address] [place] [address] Social History Tobacco Use Types Packs/Day Years Used Date Smoking Tobacco: Never Smokeless Tobacco: Never Alcohol Use Standard Drinks/Week Comments No 0 (1 standard drink = 0.6 oz pur e alcohol) [facility] Utilities Answer Date Recorded In the past 12 months has [facility], [employer], or [employer] threatened to shut off services in your [...] 09/16/2023 How often do you attend chur ch or methodist services? More than 4 times per year 09/16/2023 Do you belong to any clubs o r organizations such as mormonism groups, unions, fraternal or athletic groups, or [...] 0 11/28 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 Any Q's call back number is [phone]. documented in this encounter Plan of Treatment Not on file documented as of this encounter Visit Diagnoses Not on filedocumented in this encounter Care Teams Ocean Lifeguard Relationship Specialty Start Date End Date Boby Trivedi MD [address] [address] PCP - General 09/25/08 09/02/24 Hai Ramirez MD [address] [address] Consulting Physician Gastroenterology 05/28/18 Elida Rodrigues MD [address] [place] [address] Consulting Physician Cardiovascular Disease - Cardiology 08/16/19 Lola King MD [address] [place], [place] [id number] Consulting Physician Cardiovascular Disease - Cardiology 09/15/21 Ny Barth RN [place] Nurse Placement Coordinator 09/03/24 09/03/24 documented as of this encounter
--- OUTSIDE RECORDS SUMMARY | 2025-07-01 15:16 | XMS_ITS | Encounter Summary ---
Author Organization [facility] Address [address] [place] [address] Phone Care Team Providers Care Tool And Fixture Repairer Name Role Phone Boby Trivedi MD Primary Care Provider Hai Ramirez MD Unavailable Elida Rodrigues MD Unavailable Lola King MD Unavailable Ny Barth RN Unavailable Unavailable Reason for Visit * Reason Comments Medication Refill Encounter Details Date Type Department Care Team (Late st Contact Info) Description 11/[facility] [place] [facility] - [facility] [address] [place] [address] Lola King MD [address] [place] [address] Medication Refill Social History Tobacco Use Types Packs/Day Years Used Date Smoking Tobacco: Never Smokeless Tobacco: Never Alcohol Use Standard Drinks/Week Comments No 0 (1 standard drink = 0.6 oz pur e alcohol) [facility] Utilities Answer Date Recorded In the past 12 months has th e electric, gas, oil, or water [email or web address] threatened to shut off services in your [...] How often do you attend chur or baptism services? More than 4 times per year 09/16/2023 Do you belong to any clubs o r organizations such as jain groups, unions, fraternal or athletic groups, or [...] Total Score - Questions 1-9 0 11/28 [facility] of Occupat ional Health - [...] place to sleep or slept in a skilled nursing (including now)? No 09/16/2023 Education Answer Date Recorded What is the highest level of school you have completed or the highest degree you have received? 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 Gender Identity Male 03/14/2023 10:48 AM CDT Sexual Orientation Straight 06/10/2023 8: 59 AM CERTIFIED PHLEBOTOMIST Occupation Industry Job Start Date Job End [...] Dept 11/08/23 Office Visit [facility]y [facility] [place] 10/04/23 Office Visit Lola King MD [facility] [place] 09/18/23 Office Visit Boby Trivedi MD [facility] [place] 05/22/23 Initial Consult Leana Corcoran MD [facility] [place] 05/18/23 Office Visit Lola King MD [facility] [place] 04/10/23 Office Visit Jose Lloyd APRN, METABOLIC SPECIALIST [facility] [place] 03/23/23 Office Visit Lola King MD [facility] [place] 03/14/23 Office Visit Boby Trivedi MD [facility] [place] 01/06/23 Office Visit Boby Trivedi MD [facility] [place] [address] 12/29/22 Office Visit Curtis Ayon MD [facility] [place] Showing recent visits within past 548 days [...] on filedocumented in this encounter Care Teams Tool And Fixture Repairer Relationship Specialty Start Date End Date Boby Trivedi MD [address] [place] [address] PCP - General 09/25/08 09/02/24 Hai Ramirez MD [address] [place] [address] Consulting Physician Gastroenterology 05/28/18 Elida Rodrigues MD [address] [facility] [place], [place] [address] Consulting Physician Cardiovascular Disease - Cardiology 08/16/19 Lola King MD [address] [place], [place] [address] Consulting Physician Cardiovascular Disease - Cardiology 09/15/21 Ny Barth RN [place] Nurse Housing Installer 09/03/24 09/03/24 documented as of this encounter
--- OUTSIDE RECORDS SUMMARY | 2025-07-01 15:16 | XMS_ITS | Encounter Summary ---
Author Organization [facility] Address [address] [place] [address] Phone Care Team Providers Care Director Educational Radio Name Role Phone Boby Trivedi MD Primary Care Provider Hai Ramirez MD Unavailable Elida Rodrigues MD Unavailable [phone] Lola King MD Unavailable Ny Barth RN Unavailable Unavailable Reason for Visit * Reason Comments Medication Refill Encounter Details Date Type Department Care Team (Late st Contact Info) Description 12/06/2023 [facility] [place] [facility] - [facility] [address] [place] [address] Lola King MD [address] [place] [address] Medication Refill Social History Tobacco Use Types Packs/Day Years Used Date Smoking Tobacco: Never Smokeless Tobacco: Never Alcohol Use Standard Drinks/Week Comments No 0 (1 standard drink = 0.6 oz pur e alcohol) very seldom [facility] Utilities Answer Date Recorded In the past 12 months has e electric, gas, oil, or water [employer] threatened to shut off services in your [...] week 09/16/2023 How often do you attend [facility] or alevism services? 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 Not on fi le documented as of this encounter Functional Status * Question Answer Date of Assessment Author Safety Factors wheels locked;upper side rails raised x 2;ID band on;call light in reach;bed in low position 12/06/2023 3:17 PM CDT Jacey Solorzano RN * Joseph Fall Risk Question Answer Date of Assessment Author History of Falling, Immediat e or Within 3 Months 0 12/06/2023 1:13 PM CDT Lucy Benites RN Secondary Diagnosis 0 12/06/2023 1:13 PM CD T Lucy Benites RN Ambulatory Aid 0 12/06/2023 1:13 PM CDT Lucy Hawkins RN Intravenous Therapy/Heparin Lock 20 12/06/2023 1:13 PM CDT Lucy Benites RN Gait/Transferring 0 12/06/2023 1:13 PM CDT Lucy Benites RN Mental Status 0 12/06/2023 1:13 PM CDT Lucy Pierre RN Joseph Fall Risk Score 20 12/06/2023 1:13 PM CDT Lucy Benites RN * Question Answer Date of Assessment Author BP 158/96 12/06/2023 3:06 PM CDT Jacey Solorzano RN Pulse 71 12/06/2023 3:18 PM CDT Jacey Solorzano RN Resp 16 12/06/2023 3:18 PM CDT Jacey Solorzano RN * Question Answer Date of Assessment Author SpO2 98 12/06/2023 3:18 PM GIULIANOT Jacey Solorzano RN O2 Device None (Room air) 12/06/2023 3:18 PM CDT Gr eenJacey RN * Question Answer Date of Assessment Author Temp 96.5 12/06/2023 1:05 PM GIULIANOT Lucy Hernandez RN Heart Rate (Monitor) 70 12/06/2023 1:05 PM C DT Lucy Benites RN * Question Answer Date of Assessment Author [address]. [address] 12/06/2023 3:09 PM GIULIANOT Jacey Solorzano RN I.V. 450 12/06/2023 3:09 PM CDT Jacey Solorzano RN * Question Answer Date of Assessment Author Brandon Score 23 12/06/2023 1:05 PM CDT Lucy Hernandez RN * Question Answer Date of Assessment Author Sensory Perception 4-->no impairment 12/06/2023 1:05 P M GIULIANOT Lucy Benites RN Friction and Shear 3-->no apparent problem 12/06/2023 1:05 PM CDT Lucy Benites RN Moisture 4-->rarely moist 12/06/2023 1:05 PM CDT Lucy Zhou RN Nutrition 4-->excellent 12/06/2023 1:05 PM CDT Lucy Pierre RN Activity 4-->walks frequently 12/06/2023 1:05 PM Lucy Franz RN Mobility 4-->no limitation 12/06/2023 1:05 PM GIULIANOT Lucy Benites RN documented as of this encounter Mental Status * Question Answer Entry Date Author Safety Factors wheels locked;upper side rails raised x 2;ID band on;call light in reach;bed in low position 12/06/2023 3:17 PM CDT Jacey Solorzano RN * Question Answer Entry Date Author BP 158/96 12/06/2023 3:06 PM CDT Jacey oSlorzano RN Pulse 71 12/06/2023 3:18 PM CDT Jacey Solorzano RN * Question Answer Entry Date Author SpO2 98 12/06/2023 3:18 PM GIULIANOT Jacey Solorzano RN O2 Device None (Room air) 12/06/2023 3:18 PM CDT Gr eenJacey RN * Question Answer Entry Date Author Temp 96.5 12/06/2023 1:05 PM CDT Lucy Hernandez RN * Question Answer Entry Date Author Brandon Score 23 12/06/2023 1:05 PM CDT Lucy Hernandez RN * Question Answer Entry Date Author Sensory Perception 4-->no impairment 12/06/2023 1:05 PM Lucy Ya RN Friction and Shear 3-->no apparent problem 12/05 1:05 PM Lucy Ya RN Moisture 4-->rarely moist 12/06/2023 1:05 PM Lucy Ya RN Nutrition 4-->excellent 12/06/2023 1:05 PM Lucy Ya RN Activity 4-->walks frequently 12/06/2023 1:05 PM CDT Prose-Ernie, Lucy A, RN Mobility 4-->no limitation 12/06/2023 1:0 5 PM CDT Helene-Lucy Klein RN documented in this encounter Miscellaneous Notes * Telephone Encounter - Tereza Mccauley RN - 12/07/2023 9:17 AM CDT Medication(s) refilled and signed per [facility] Chronic Medication Refill Standing Order for Pediatricand [...] Boby Trivedi MD [facility] [place] 10/04/23 Office Visit Lola King MD [facility] [place] 09/18/23 Office Visit Boby Trivedi MD [facility] [place] 05/22/23 Initial Consult Leana Corcoran MD [facility] [place] 05/18/23 Office Visit Lola King MD [facility] [place] 04/10/23 Office Visit Jose Lloyd APRN, OYSTER TONGER [facility] [place] [address] 03/23/23 Office Visit Lola King MD [facility] [place] 03/14/23 Office Visit Boby Trivedi MD [facility] [place] [address] 01/06/23 Office Visit Boby Trivedi MD [facility] [place] 12/29/22 Office Visit Curtis [facility] [place] Showing recent visits within past 548 days [...] on filedocumented in this encounter Care Teams Director Educational Radio Relationship Specialty Start Date End Date Boby Trivedi MD [address] [place] [address] PCP - General 09/25/08 09/02/24 Hai Ramirez MD [address] [place] [address] Consulting Physician Gastroenterology 05/28/18 Elida Rodrigues MD [address] [place], [place] [address] Consulting Physician Cardiovascular Disease - Cardiology 08/16/19 Lola King MD [address] [facility] [place] [address] Consulting Physician Cardiovascular Disease - Cardiology 09/15/21 Ny Barth RN [place] Nurse Terminologist 09/03/24 09/03/24 documented as of this encounter
== END 2025-07-01 14:06 | disposition home or self-care (01) ==
PROVIDERS: PCP Student in an Organized Health Care Education/Training Program; Visit Provider Student in an Organized Health Care Education/Training Program
DX: M79.89 Other specified soft tissue disorders (principal)
CPT/HCPCS: 93971